=== PATIENT | male | born 1950 | race Caucasian/White ===

== ENCOUNTER 2020-03-10 08:48 | Outpatient (REF) | payer OTHER, SELFPAY ==
[2020-03-10 11:19] LABS: Hematocrit 31.2 % (42-52); Hemoglobin 10.4 g/dl (14.0-18.0); Mean Corpuscular HGB Conc 33.3 g/dl (31.0-36.0); Mean Corpuscular Hemoglobin 28.6 pg (27.0-33.0); Mean Corpuscular Volume 85.7 fL (80-98); Mean Platelet Volume 9.2 fL (9.4-12.4); Platelet Count 180 X10*3/uL (160-400); Red Blood Count 3.64 X10*6/uL (4.60-5.80); Red Cell Distribution Width 13.9 % (11.0-16.0)
[2020-03-10 11:48] LABS: Alanine Aminotransferase 17 U/L (0-40); Albumin Level 4.4 g/dL (3.5-5.0); Alkaline Phosphatase 105 U/L (39-117); Anion Gap 17 (12-20); Aspartate Amino Transferase 18 U/L (5-37); Bilirubin Total 1.1 mg/dL (0.0-1.0); Blood Urea Nitrogen 23 mg/dL (9-16); Calcium 9.2 mg/dL (8.4-10.2); Carbon Dioxide 24 mmol/L (22-29); Chloride 93 mmol/L (96-108); Estimated Glomerular Filt Rate 52; Glucose Random 144 mg/dL (60-115); Magnesium 1.6 mg/dL (1.6-2.6); Potassium 4.3 mmol/l (3.3-5.1); Sodium 130 mmol/L (135-145); Total Protein 7.6 g/dL (6.5-8.0)
[2020-03-10 13:02] LABS: Band Neutrophils Percent 3 % (3-5); Eosinophils Percent Manual 1 % (0-4); Lymphocytes Absolute Manual 0.6 X10*3/uL (0.6-4.8); Lymphocytes Percent Manual 16 % (20-40); Monocytes Absolute Manual 0.7 X10*3/uL (0.0-1.2); Monocytes Percent Manual 17 % (2-11); Neutrophils Absolute Manual 2.6 X10*3/uL (2.2-7.9); Neutrophils Percent Manual 63 % (45-73)
[2020-03-10 13:03] LABS: Platelet Estimate NORMAL (NORMAL); Platelet Morphology Comment NORMAL; RBC Morphology NORMAL
== END 2020-03-10 08:49 | disposition home or self-care (01) ==
LOC: HO.HMGCLDS 08:48
PROVIDERS: PCP Internal Medicine Medical Oncology; Visit Provider Internal Medicine Medical Oncology
DX: N40.0 Benign prostatic hyperplasia without lower urinary tract symptoms (principal); E66.9 Obesity, unspecified
CPT/HCPCS: 36415; 80053; 83735; 85007; 85027

== ENCOUNTER 2020-04-26 08:47 | Outpatient (REF) | payer OTHER, SELFPAY ==
[2020-04-26 11:34] LABS: Uric Acid 5.4 mg/dL (3.4-7.0)
[2020-04-26 11:40] LABS: Glucose Fasting 109 mg/dL (60-99)
[2020-04-26 12:15] LABS: Estimated Average Glucose 94 mg/dL; Hemoglobin A1c % 4.9 %
== END 2020-04-26 08:48 | disposition home or self-care (01) ==
LOC: HO.HMGCLDS 08:47
PROVIDERS: Absent Provider Podiatrist Foot & Ankle Surgery; PCP Internal Medicine Medical Oncology; Visit Provider Internal Medicine Medical Oncology
DX: M10.071 Idiopathic gout, right ankle and foot (principal); M51.26 Other intervertebral disc displacement, lumbar region; E66.9 Obesity, unspecified
CPT/HCPCS: 82947; 83036; 84550

== ENCOUNTER 2020-05-28 03:19 | Inpatient (IN) | payer OTHER, SELFPAY ==
[2020-05-28] VITALS (10 sets, daily range): BP systolic 120–154; BP diastolic 59–88; PULSE 57–80; RESP 15–22; TEMP 36.6–36.8; O2SAT 93–99; BMI 31.6
--- NOTE | 2020-05-28 03:58 | CT_ITS ---
EXAMINATION: CT ABDOMEN AND PELVIS WITH CONTRAST CLINICAL INFORMATION: Abdominal pain. Concern for small bowel obstruction. COMPARISON: 05/14/2018. TECHNIQUE: Contiguous axial thin section helical images of the abdomen and pelvis were performed following the administration of 85 mL of intravenous Omnipaque 350. The data set was reformatted in the coronal and sagittal planes and reviewed on an independent workstation. DLP: 963 mGy-cm. FINDINGS: The visualized lung bases are clear. The visualized portions of the heart are unremarkable. The liver is of normal size and attenuation without focal lesions nor intrahepatic biliary ductal dilation. A normal gallbladder is identified. There is no wall thickening or discernible pericholecystic fluid. The spleen, pancreas, adrenal glands are unremarkable. Both kidneys are of normal size and attenuation without hydronephrosis or nephrolithiasis. Following the administration of IV contrast, prompt symmetric nephrograms are displayed. There is stable scarring within the interpole region and lower pole of the right kidney. There is no abdominal free fluid. There is neither mesenteric nor retroperitoneal lymphadenopathy. There are multiple dilated loops of small bowel. There is sigmoid diverticulosis without evidence of diverticulitis. Otherwise, unremarkable unopacified loops of small and large bowel are identified. There is no pelvic free fluid. The urinary bladder is unremarkable. There is neither pelvic nor inguinal lymphadenopathy. Bone windows: Neither sclerotic nor lytic bone lesions are identified. CT/CT abdomen pelvis w con IMPRESSION: Distal small bowel obstruction. Automated exposure control (Care Dose) Adjustment of the mA and/or kv according to patient size (this includes techniques or standardized protocols for targeted exams where dose is matched to indication / reason for exam; i.e. extremities or head).
--- NOTE | 2020-05-28 03:58 | XR_ITS ---
EXAMINATION: CHEST 1 VIEW CLINICAL INFORMATION: Cough. COMPARISON: 05/13/2018. TECHNIQUE: An AP view of the chest is provided. FINDINGS: The cardiac silhouette is not enlarged. The mediastinal and hilar contours are unremarkable. There are neither pleural effusions nor pneumothoraces. There are no consolidations. The osseous structures are unremarkable. XR/XR chest 1V IMPRESSION: No evidence for acute disease.
--- NOTE | 2020-05-28 03:58 | ECG_ITS ---
Test Reason : ABD PAIN Blood Pressure : / mmHG Vent. Rate : 064 BPM Atrial Rate : 064 BPM P-R Int : 218 ms QRS Dur : 098 ms QT Int : 432 ms P-R-T Axes : 029 -09 038 degrees QTc Int : 445 ms Sinus rhythm with 1st degree A-V block Otherwise normal ECG When compared with ECG of 07-AUG-2019 11:19, No significant change was found Referred By: Osiris Westfall Electronically Signed By:ANALISA CAIN MD
--- NOTE | 2020-05-28 04:00 | ED.ABDPAIN ---
HPI - Abdominal Pain General Chief Complaint: Abdominal Pain Stated Complaint: Constipation Time Seen by Provider: 05/28/20 03:58 Source: patient Mode of arrival: ambulatory Limitations: no limitations History of Present Illness HPI narrative: This is a 70-year-old male with history of abdominal surgery as well as diverticulosis and prior bowel obstructions who presents with onset of worsening abdominal discomfort that he describes as sharp and crampy in nature and nonradiating associated with nausea but denies any episodes of vomiting at present and states that he has passing minimal flatus at this time. He says that his symptoms started last night approximately 2200. He denies any other associated fevers, chills, shortness of breath, chest pain/palpitations, urinary pain/burning/frequency. Related Data Home Medications Medication Instructions Recorded Confirmed Lactobacillus rhamnosus GG 1 cap PO DAILY 05/28/20 05/28/20 [Culturelle] amiodarone 100 mg PO DAILY 05/28/20 05/28/20 amlodipine 10 mg PO DAILY 05/28/20 05/28/20 ascorbic acid (vitamin C) [Vitamin 1,000 mg PO DAILY@1700 05/28/20 05/28/20 C] docusate sodium [Stool Softener] 100 mg PO BID 05/28/20 05/28/20 gabapentin 900 mg PO BID 05/28/20 05/28/20 indomethacin 1 cap PO DAILY 05/28/20 05/28/20 iron 1 tab PO 4XW 05/28/20 05/28/20 losartan 50 mg PO BID 05/28/20 05/28/20 magnesium [Mag-200] 400 mg PO BID 05/28/20 05/28/20 multivitamin 1 tab PO DAILY 05/28/20 05/28/20 omeprazole 20 mg PO DAILY 05/28/20 05/28/20 rivaroxaban [Xarelto] 20 mg PO DAILY@1700 05/28/20 05/28/20 sertraline 50 mg PO DAILY 05/28/20 05/28/20 spironolactone 25 mg PO DAILY 05/28/20 05/28/20 tamsulosin 0.8 mg PO DAILY@1700 05/28/20 05/28/20 Allergies Allergy/AdvReac Type Severity Reaction Status Date / Time No Known Allergies Allergy Verified 05/28/20 03:23 [No Known Allergies*] Review of Systems Review of Systems Pertinent positives and negatives as stated in the HPI and 10 point review of systems is otherwise negative. Physical Exam Vital Signs: Vital Signs: Last Vital Signs Temp 97.9 F 05/28/20 03:23 Pulse 63 05/28/20 06:00 Resp 15 05/28/20 06:00 BP 139/71 05/28/20 06:00 Pulse Ox 95 05/28/20 06:00 Body Mass Index 31.6 VITAL SIGNS: Reviewed. GENERAL: Well developed, well nourished, moderate distress. HEAD: Normocephalic/atraumatic, EYES: PERRLA, EOMI intact without pain, no nystagmus/pallor/icterus noted EARS: Ext canals without abnormality, TMs non-bulging and non-erythematous NOSE: Nares patent bilateral OROPHARYNX: no oral lesions noted, posterior pharynx clear and non-erythematous without noted tonsillar enlargement/erythema/exudates NECK: Supple, no adenopathy LUNGS: Normal breath sounds. No adventitious sounds or accessory muscle use. SpO2<99> CARDIOVASCULAR: Regular rate and rhythm without noted murmurs, no JVD or lower extremity edema. ABDOMEN: Soft, diffuse abdominal discomfort without rebound, non-distended with decrease in bowel sounds. No rigidity. No guarding. No palpable masses or hernias noted MUSCULOSKELETAL: No tenderness, deformities, or effusions noted on gross inspection. EXTREMITIES: No cyanosis, clubbing or edema. SKIN: Inspection of the skin reveals no rashes, ulcerations, jaundice, pallor, or petechiae. NEUROLOGIC: Alert and oriented x 4. Strength and sensation to light touch were grossly intact x 4. Course Course Course Narrative: This is a 70-year-old male with history and clinical presentation most suggestive of possible SBO, diverticulitis, but doubt colitis or urinary infection. -labs, EKG, chest x-ray, CT abdomen/pelvis, pain medication, antiemetic, IV fluids On review of all investigations there is no evidence of systemic infection, however CT scan is consistent with bowel obstruction and an NG was placed. Patient is COVID-19 negative. This case was discussed with surgery who is agreeable for admission and was informed that patient is currently on Xarelto. MDM - Abdominal Pain Lab Data Result diagrams: 05/28/20 04:18 05/28/20 04:18 Labs: Lab Results 05/28/20 05/28/20 05/28/20 Range/Units 04:18 04:18 04:18 WBC 7.0 (4.8-10.8) X10*3/uL RBC 3.98 L (4.60-5.80) X10*6/uL Hgb 11.4 L (14.0-18.0) g/dl Hct 33.1 L (42-52) % MCV 83.2 (80-98) fL MCH 28.6 (27.0-33.0) pg MCHC 34.4 (31.0-36.0) g/dl RDW 14.5 (11.0-16.0) % Plt Count 138 L (160-400) X10*3/uL MPV 9.3 L (9.4-12.4) fL Immature Gran % (Auto) 4.0 H (0.0-0.4) % Neut % (Auto) 79.6 H (45-73) % Lymph % (Auto) 8.1 L (20-40) % [place] % (Auto) 6.7 (2-11) % Eos % (Auto) 1.3 (0-4) % Baso % (Auto) 0.3 (0-2) % Lymph # (Auto) 0.6 L (1.2-4.9) X10*3/uL [place] # (Auto) 0.5 (0.1-1.2) X10*3/uL Eos # (Auto) 0.1 (0.0-0.4) X10*3/uL Baso # (Auto) 0.0 (0.0-0.2) X10*3/uL Abs Immat Gran (auto) 0.28 H (0.00-0.03) X10*3/uL Absolute Neuts (auto) 5.6 (2.0-8.3) X10*3/uL Absolute Nucleated RBC 0.000 (0.0-0.012) X10*3/uL Nucleated RBC % (auto) 0.0 (0.0-0.2) /100WBC Smear Tech's Comments VERIFIED Sodium 128 L (135-145) mmol/L Potassium 4.7 (3.3-5.1) mmol/l Chloride 92 L (96-108) mmol/L Carbon Dioxide 24 (22-29) mmol/L Anion Gap 17 (12-20) BUN 30 H (9-16) mg/dL Creatinine 1.34 (0.5-1.4) mg/dL Estim Creat Clear Calc 68.2 Estimated GFR 53 Random Glucose 148 H (60-115) mg/dL Lactic Acid 0.7 (0.5-2.0) mmol/L Calcium 9.5 (8.4-10.2) mg/dL Magnesium (1.6-2.6) mg/dL Total Bilirubin 0.7 (0.0-1.0) mg/dL AST 26 D (5-37) U/L ALT 20 (0-40) U/L Alkaline Phosphatase 96 (39-117) U/L Total Protein 7.6 (6.5-8.0) g/dL Albumin 4.6 (3.5-5.0) g/dL Lipase 14 (8-78) U/L COVID-19 ([facility]) (Negative) COVID-19 Clin Com 05/28/20 05/28/20 Range/Units 04:18 05:41 WBC (4.8-10.8) X10*3/uL RBC (4.60-5.80) X10*6/uL Hgb (14.0-18.0) g/dl Hct (42-52) % MCV (80-98) fL MCH (27.0-33.0) pg MCHC (31.0-36.0) g/dl RDW (11.0-16.0) % Plt Count (160-400) X10*3/uL MPV (9.4-12.4) fL Immature Gran % (Auto) (0.0-0.4) % Neut % (Auto) (45-73) % Lymph % (Auto) (20-40) % [place] % (Auto) (2-11) % Eos % (Auto) (0-4) % Baso % (Auto) (0-2) % Lymph # (Auto) (1.2-4.9) X10*3/uL [place] # (Auto) (0.1-1.2) X10*3/uL Eos # (Auto) (0.0-0.4) X10*3/uL Baso # (Auto) (0.0-0.2) X10*3/uL Abs Immat Gran (auto) (0.00-0.03) X10*3/uL Absolute Neuts (auto) (2.0-8.3) X10*3/uL Absolute Nucleated RBC (0.0-0.012) X10*3/uL Nucleated RBC % (auto) (0.0-0.2) /100WBC Smear Tech's Comments Sodium (135-145) mmol/L Potassium (3.3-5.1) mmol/l Chloride (96-108) mmol/L Carbon Dioxide (22-29) mmol/L Anion Gap (12-20) BUN (9-16) mg/dL Creatinine (0.5-1.4) mg/dL Estim Creat Clear Calc Estimated GFR Random Glucose (60-115) mg/dL Lactic Acid (0.5-2.0) mmol/L Calcium (8.4-10.2) mg/dL Magnesium 1.6 (1.6-2.6) mg/dL Total Bilirubin (0.0-1.0) mg/dL AST (5-37) U/L ALT (0-40) U/L Alkaline Phosphatase (39-117) U/L Total Protein (6.5-8.0) g/dL Albumin (3.5-5.0) g/dL Lipase (8-78) U/L COVID-19 ([facility]) Negative (Negative) COVID-19 Clin Com See Note ECG Data Attestation: I personally reviewed and interpreted this ECG as follows: Prior ECG tracings: available for review (08/07/2019 there are no acute changes in comparison) Interpretation: Sinus rhythm, HR -64, no evidence of acute ischemia, 1st degree AV block which is unchanged, QRS/QTC are within normal limits. Discharge Plan Discharge Clinical Impression: SBO (small bowel obstruction) Patient Disposition: Admitted As Inpatient [facility] Past Medical History Source: nursing notes reviewed Medical History Afib Chronic back pain HTN (hypertension) Hx of benign neoplasm Hx of testicular cancer Surgical History History of back surgery History of left knee replacement History of right hip replacement Social History Social History Alcohol intake: unknown Smoking Status: Unknown if ever smoked Use of substances other than those prescribed or required for medical reasons: No Advance Directives: No
[2020-05-28 04:24] LABS: Basophils Percent Auto 0.3 % (0-2); Eosinophils Absolute Auto 0.1 X10*3/uL (0.0-0.4); Eosinophils Percent Auto 1.3 % (0-4); Hematocrit 33.1 % (42-52); Hemoglobin 11.4 g/dl (14.0-18.0); Imm Gran Abs Auto 0.28 X10*3/uL (0.00-0.03); Lymphocytes Absolute Auto 0.6 X10*3/uL (1.2-4.9); Lymphocytes Percent Auto 8.1 % (20-40); MANUAL DIFF FLAG SCAN; Mean Corpuscular HGB Conc 34.4 g/dl (31.0-36.0); Mean Corpuscular Hemoglobin 28.6 pg (27.0-33.0); Mean Corpuscular Volume 83.2 fL (80-98); Mean Platelet Volume 9.3 fL (9.4-12.4); Monocytes Absolute Auto 0.5 X10*3/uL (0.1-1.2); Monocytes Percent Auto 6.7 % (2-11); Neutrophils Absolute Auto 5.6 X10*3/uL (2.0-8.3); Neutrophils Percent Auto 79.6 % (45-73); Platelet Count 138 X10*3/uL (160-400); Red Blood Count 3.98 X10*6/uL (4.60-5.80); Red Cell Distribution Width 14.5 % (11.0-16.0); SCAN SMEAR FLAG 1
[2020-05-28] MEDS: HYDROmorphone HCl 0.5 MG/0.5 ML SYRINGE 0.25 MG IVPUSH ×2 (04:27→05:14)
[2020-05-28] MEDS: ondansetron HCL 4 MG/2 ML VIAL IVPUSH ×3 (04:41→19:32)
[2020-05-28 04:42] LABS: SLIDE REVIEW VERIFIED
[2020-05-28 04:45] LABS: Lactic Acid 0.7 mmol/L (0.5-2.0)
--- NOTE | 2020-05-28 04:45 | PC.NURSE ---
Patient evaluated by MD. Patient line and lab'd.
[2020-05-28 04:59] LABS: Magnesium 1.6 mg/dL (1.6-2.6)
[2020-05-28 05:01] LABS: Alanine Aminotransferase 20 U/L (0-40); Albumin Level 4.6 g/dL (3.5-5.0); Alkaline Phosphatase 96 U/L (39-117); Anion Gap 17 (12-20); Aspartate Amino Transferase 26 U/L (5-37); Bilirubin Total 0.7 mg/dL (0.0-1.0); Blood Urea Nitrogen 30 mg/dL (9-16); Calcium 9.5 mg/dL (8.4-10.2); Carbon Dioxide 24 mmol/L (22-29); Chloride 92 mmol/L (96-108); Creatinine Clr Calc Pharmacy 68.2; Estimated Glomerular Filt Rate 53; Glucose Random 148 mg/dL (60-115); Lipase 14 U/L (8-78); Potassium 4.7 mmol/l (3.3-5.1); Sodium 128 mmol/L (135-145); Total Protein 7.6 g/dL (6.5-8.0)
[2020-05-28] MEDS: 0.9 % Sodium Chloride 1,000 ML 999 ML IV (05:14)
--- NOTE | 2020-05-28 05:15 | PC.NURSE ---
Patient states that he still has pain and asked for something a little stronger for pain medication. MD aware. Patient medicated per emar as noted.
[2020-05-28] MEDS: iohexoL 350 MG/ML 100 ML INFUS..BTL 85 ML IV (05:31)
--- NOTE | 2020-05-28 05:40 | PC.NURSE ---
Nasogastric tube placed. Tube placement verified by chest xray. Patient initial output of gastric contents was 250cc's. Patient tolerated the placement and no issues during placement.
[2020-05-28 06:01] LABS: COVID-19 Test Negative (Negative); IDNOW Serial# 9DD0AD1C
--- NOTE | 2020-05-28 06:04 | XR_ITS ---
EXAMINATION: CHEST 1 VIEW CLINICAL INFORMATION: Enteric tube placement. COMPARISON: Same day chest radiograph. TECHNIQUE: An AP view of the chest is provided. FINDINGS: The cardiac silhouette is not enlarged. An enteric tube has been placed. The tip extends below the extent of the film, though likely within the left upper quadrant and within the stomach. The mediastinal and hilar contours are unremarkable. There are neither pleural effusions nor pneumothoraces. There are no consolidations. The osseous structures are unremarkable. XR/XR chest 1V IMPRESSION: No evidence for acute disease. Enteric tube in place.
--- NOTE | 2020-05-28 06:15 | P.HPGS_ITS ---
History of Present Illness History of Present Illness Date of Service: 05/28/20 Chief complaint: Constipation Narrative: Aravind Agustin is a 70 year old male with a previous history of testicular cancer, status post multiple abdominal surgeries now presenting with a recurrent small-bowel obstruction. He was previously admitted by me approximately 2 years ago with similar symptoms. His current symptoms began yesterday at approximately 20:00, several hours after eating dinner. He denies eating anything unusual but DD exceptionally large portion of prime rib. Several hours after this he began to have abdominal discomfort with nausea and vomiting. He subsequently presented to the emergency department was noted to be distended. A CT of the abdomen and pelvis was obtained and revealed distended loops of small bowel proximally with decompressed bowel distally. This was suggestive of a small-bowel obstruction. A nasogastric tube was placed in the emergency department. Review of Systems Constitutional: Constitutional: Denies chills, Denies fever(s), Denies headache(s) and Denies poor appetite ENT: Denies dizziness and Denies headache(s) Cardiovascular: Cardiovascular: Denies chest pain, Denies rapid heart rate, Denies palpitations and Denies slow heart rate Respiratory: Respiratory: Denies chest congestion, Denies cough, Denies pain on inspiration and Denies wheezing Gastrointestinal: Gastrointestinal: Reports abdominal pain, Reports bloating, Denies change in stool character, Reports constipation, Denies diarrhea, Reports nausea, Reports vomiting and Denies hematemesis Musculoskeletal: Musculoskeletal: Denies back pain, Denies arthralgias, Denies joint swelling and Denies numbness Integumentary/Breasts: Skin/Breast: Denies change in pigmentation, Denies erythema and Denies rash Neurologic: Denies confusion, Denies dizziness, Denies headache(s) and Denies numbness Psychiatric: Psychiatric: Denies anxiety, Denies confusion and Denies depression Endocrine: Endocrine: Denies palpitations Hematologic/Lymphatic: Hematologic/Lymphatic: Denies easy bleeding, Denies easy bruising and Denies lymphadenopathy Allergic/Immunologic: Allergic/Immunologic: Denies wheezing PMFSH Past Medical History Medical History Afib Chronic back pain HTN (hypertension) Hx of benign neoplasm Hx of testicular cancer Surgical History Surgical History History of back surgery History of left knee replacement History of right hip replacement Social History Social History Alcohol intake: unknown Smoking Status: Unknown if ever smoked Use of substances other than those prescribed or required for medical reasons: No Advance Directives: No Meds Allergies Allergy/AdvReac Type Severity Reaction Status Date / Time No Known Allergies Allergy Verified 05/28/20 03:23 [No Known Allergies*] Home Medications Medication Instructions Recorded Confirmed Type Lactobacillus rhamnosus GG 1 cap PO DAILY 05/28/20 05/28/20 History [Culturelle] amiodarone 100 mg PO DAILY 05/28/20 05/28/20 History amlodipine 10 mg PO DAILY 05/28/20 05/28/20 History ascorbic acid (vitamin C) [Vitamin 1,000 mg PO DAILY@1700 05/28/20 05/28/20 History C] docusate sodium [Stool Softener] 100 mg PO BID 05/28/20 05/28/20 History gabapentin 900 mg PO BID 05/28/20 05/28/20 History indomethacin 1 cap PO DAILY 05/28/20 05/28/20 History iron 1 tab PO 4XW 05/28/20 05/28/20 History losartan 50 mg PO BID 05/28/20 05/28/20 History magnesium [Mag-200] 400 mg PO BID 05/28/20 05/28/20 History multivitamin 1 tab PO DAILY 05/28/20 05/28/20 History omeprazole 20 mg PO DAILY 05/28/20 05/28/20 History rivaroxaban [Xarelto] 20 mg PO DAILY@1700 05/28/20 05/28/20 History sertraline 50 mg PO DAILY 05/28/20 05/28/20 History spironolactone 25 mg PO DAILY 05/28/20 05/28/20 History tamsulosin 0.8 mg PO DAILY@1700 05/28/20 05/28/20 History Physical Exam Vital Signs: Vital Signs: Last Vital Signs Temp 97.9 F 05/28/20 03:23 Pulse 63 05/28/20 06:00 Resp 15 05/28/20 06:00 BP 139/71 05/28/20 06:00 Pulse Ox 95 05/28/20 06:00 Body Mass Index 31.6 Const: General: cooperative, comfortable and well developed; No confusion Nutritional Appearance: well nourished Orientation/consciousness: patient oriented x3 and No confusion Eyes: Sclerae: sclerae normal EOM: EOMs intact bilaterally Neck: Neck: Yes normal visual inspection Resp: Effort & Inspection: normal respiratory effort, no cough and no respirat ory distress Cardio: Jugular venous distension: no JVD Rate: regular rate Rhythm: regular rhythm GI: Inspection: Yes distended Palpation (GI): Soft to palpation, Tenderness to palpation present (GI), no guarding and not rigid Percussion: Yes normal to percussion Auscultation: normal bowel sounds Skin: General skin exam: dry skin Rashes: no rashes Neuro: General: patient oriented x3, no focal motor deficits and No confusion Extrem: General: Yes full ROM and Yes no clubbing, cyanosis or edema Results Results Labs: Short CBC 05/28/20 Range/Units 04:18 WBC 7.0 (4.8-10.8) X10*3/uL Hgb 11.4 L (14.0-18.0) g/dl Hct 33.1 L (42-52) % Plt Count 138 L (160-400) X10*3/uL BMP 05/28/20 04:18 Sodium 128 L Potassium 4.7 Chloride 92 L Carbon Dioxide 24 BUN 30 H Creatinine 1.34 Calcium 9.5 Liver Function 05/28/20 Range/Units 04:18 Total Bilirubin 0.7 (0.0-1.0) mg/dL AST 26 D (5-37) U/L ALT 20 (0-40) U/L Alkaline Phosphatase 96 (39-117) U/L Albumin 4.6 (3.5-5.0) g/dL Assessment and Plan (1) SBO (small bowel obstruction): Status: Acute 70-year-old male patient with a previous history of small-bowel obstructions now presenting with a recurrent small-bowel obstruction. A nasogastric tube has been inserted in the emergency department in this will continue at low intermittent suction. The patient has previously improved with non operative measures this will be tried once again. We discussed surgical option however he understands that this may result in increased adhesions and do es not guarantee recurrent small-bowel obstruction. He agrees to the non operative measures. Will recheck labs in a.m.. Continue NPO and IV fluids. Hospitalist consultation requested for medical management including atrial fibrillation.
[2020-05-28] MEDS: HYDROmorphone HCl 0.5 MG/0.5 ML SYRINGE IVPUSH ×4 (09:34→19:32)
[2020-05-28] MEDS: Amiodarone HCL 200 MG TABLET 100 MG PO (15:11)
[2020-05-28] MEDS: Sertraline HCL 50 MG TABLET PO (15:12)
[2020-05-28] MEDS: amLODIPine Besylate 10 MG TABLET PO (15:12)
[2020-05-28] MEDS: Losartan Potassium 50 MG TABLET PO ×2 (15:13→21:03)
[2020-05-28] MEDS: Spironolactone 25 MG TABLET PO (15:14)
[2020-05-28] MEDS: Gabapentin 300 MG CAPSULE 900 MG PO ×2 (15:14→21:04)
[2020-05-28] MEDS: Tamsulosin HCL 0.4 MG CAPSULE 0.8 MG PO (15:15)
[2020-05-28] MEDS: 0.9 % Sodium Chloride Flush 3 ML SYRINGE IVFLUSH ×2 (15:33→16:05)
[2020-05-28] MEDS: Dextrose 5 % and Lactated Ring 1,000 ML 125 ML IVCONT ×2 (15:36→23:51)
[2020-05-28] MEDS: Rivaroxaban 20 MG TABLET PO (17:25)
[2020-05-28 18:09] LABS: Appearance Urine CLEAR; Color Urine YELLOW; Glucose Urine UA NEG (NEG); Leukocyte Esterase Urine NEG (NEG); Nitrite Urine NEG (NEG); Urine Blood NEG (NEG); Urine Ketones NEG (NEG); Urine Protein NEG (NEG-TRACE)
--- NOTE | 2020-05-28 20:18 | PM.IMCN ---
History of Present Illness Data of Consult Service Date: 05/28/20 Requesting physician: Neal Frye Primary Care Provider: Scotty Liu MD [facility] Reason for consult: AFib, SBO, medical management This is a 70-year-old with multiple medical problems who presented to the emergency department with abdominal pain. His pain began after eating dinner last night. He reports associated nausea and vomiting. His workup in the emergency department was significant for small bowel obstruction. He had an NG-tube placed and was admitted to the surgical service for further management. The hospitalists were asked to see him in consultation for medical management. Patient reports he has started passing gas. His abdominal pain is somewhat improved. He continues to have significant output in his NG tube. Review of Systems Review of Systems: Yes all other systems are reviewed and are negative Cardiovascular: Cardiovascular: Denies chest pain and Denies dyspnea Respiratory: Respiratory: Denies cough and Denies dyspnea Gastrointestinal: Gastrointestinal: Reports abdominal pain and Reports nausea PMFSH Medical History (Updated 05/28/20 @ 20:24 by HEMALATHA Aguillon) Afib Anemia BPH (benign prostatic hyperplasia) Chronic back pain HTN (hypertension) Hx of benign neoplasm Hx of testicular cancer Hyponatremia Neuropathy Family history: reviewed and not pertinent Surgical History History of back surgery History of left knee replacement History of right hip replacement Social History (Updated 05/28/20 @ 20:24 by HEMALATHA Aguillon) Household Members: Spouse and Children Housing: House Do you presently have visiting nurse or other home services: No Alcohol intake: current Alcohol intake frequency: holidays/special occasions only Smoking Status: Never smoker Use of substances other than those prescribed or required for medical reasons: No Have you been hit, kicked, punched, or otherwise hurt by someone within the past year? If so, by whom?: No Do you feel safe in your current relationship?: Yes Is there a partner from a previous relationship who is making you feel unsafe now?: No Are you made to feel afraid or neglected: No Advance Directives: No Do you have thoughts of harming others: None Do you have a plan to hurt others: No Plan Recently lost weight without trying: No Meds Allergies Allergy/AdvReac Type Severity Reaction Status Date / Time No Known Allergies Allergy Verified 05/28/20 03:23 [No Known Allergies*] Home Medications Medication Instructions Recorded Confirmed Type Lactobacillus rhamnosus GG 1 cap PO DAILY 05/28/20 05/28/20 History [Culturelle] amiodarone 100 mg PO DAILY 05/28/20 05/28/20 History amlodipine 10 mg PO DAILY 05/28/20 05/28/20 History ascorbic acid (vitamin C) [Vitamin 1,000 mg PO DAILY@1700 05/28/20 05/28/20 History C] docusate sodium [Stool Softener] 100 mg PO BID 05/28/20 05/28/20 History gabapentin 900 mg PO BID 05/28/20 05/28/20 History indomethacin 1 cap PO DAILY 05/28/20 05/28/20 History iron 1 tab PO 4XW 05/28/20 05/28/20 History losartan 50 mg PO BID 05/28/20 05/28/20 History magnesium [Mag-200] 400 mg PO BID 05/28/20 05/28/20 History multivitamin 1 tab PO DAILY 05/28/20 05/28/20 History omeprazole 20 mg PO DAILY 05/28/20 05/28/20 History rivaroxaban [Xarelto] 20 mg PO DAILY@1700 05/28/20 05/28/20 History sertraline 50 mg PO DAILY 05/28/20 05/28/20 History spironolactone 25 mg PO DAILY 05/28/20 05/28/20 History tamsulosin 0.8 mg PO DAILY@1700 05/28/20 05/28/20 History Physical Exam Vital Signs and Narrative: Vital Signs: Last Vital Signs Temp 98.0 F 05/28/20 15:37 Pulse 57 05/28/20 15:37 Resp 20 05/28/20 15:37 BP 143/66 H 05/28/20 15:37 Pulse Ox 97 05/28/20 15:37 Body Mass Index 31.6 Const: General: no acute distress, alert and awake Nutritional Appearance: well nourished Orientation/consciousness: patient oriented x3 HENMT: Other: NG tube present right nare; with large amount of output Head: Yes normocephalic and Yes atraumatic Eyes: Sclerae: sclerae normal Chest: Chest palpation & inspection: normal inspection of the chest Resp: Effort & Inspection: normal respiratory effort and no respiratory distress Auscultation: clear to auscultation bilaterally Cardio: Rate: regular rate Rhythm: regular rhythm Heart sounds: Murmur heart sound present GI: Palpation (GI): Soft to palpation and nontender Skin: General skin exam: no rashes or lesions noted Neuro: General: patient oriented x3 Cranial nerves: Yes CN's II-XII intact bilaterally and Yes Bilaterally intact EOM present Extrem: General: Yes normal to inspection Results Labs CBC and Chem 7: 05/28/20 04:18 05/28/20 04:18 Labs: Laboratory Results - last 24 hr 05/28/20 05/28/20 05/28/20 04:18 04:18 04:18 MCV 83.2 MCH 28.6 MCHC 34.4 RDW 14.5 Plt Count 138 L MPV 9.3 L Immature Gran % (Auto) 4.0 H Neut % (Auto) 79.6 H Lymph % (Auto) 8.1 L [place] % (Auto) 6.7 Eos % (Auto) 1.3 Baso % (Auto) 0.3 Lymph # (Auto) 0.6 L [place] # (Auto) 0.5 Eos # (Auto) 0.1 Baso # (Auto) 0.0 Abs Immat Gran (auto) 0.28 H Absolute Neuts (auto) 5.6 Absolute Nucleated RBC 0.000 Nucleated RBC % (auto) 0.0 Smear Tech's Comments VERIFIED Anion Gap 17 Estim Creat Clear Calc 68.2 Estimated GFR 53 Random Glucose 148 H Lactic Acid 0.7 Calcium 9.5 Magnesium Total Bilirubin 0.7 AST 26 D ALT 20 Alkaline Phosphatase 96 Total Protein 7.6 Albumin 4.6 Lipase 14 Urine Color Urine Appearance Urine pH Ur Specific Leslie Urine Protein Urine Glucose (UA) Urine Ketones Urine Blood Urine Nitrite Ur Leukocyte Esterase COVID-19 ([facility]) COVID-19 Clin Com 05/28/20 05/28/20 05/28/20 04:18 05:41 17:55 MCV MCH MCHC RDW Plt Count MPV Immature Gran % (Auto) Neut % (Auto) Lymph % (Auto) [place] % (Auto) Eos % (Auto) Baso % (Auto) Lymph # (Auto) [place] # (Auto) Eos # (Auto) Baso # (Auto) Abs Immat Gran (auto) Absolute Neuts (auto) Absolute Nucleated RBC Nucleated RBC % (auto) Smear Tech's Comments Anion Gap Estim Creat Clear Calc Estimated GFR Random Glucose Lactic Acid Calcium Magnesium 1.6 Total Bilirubin AST ALT Alkaline Phosphatase Total Protein Albumin Lipase Urine Color YELLOW Urine Appearance CLEAR Urine pH 6.0 Ur Specific Leslie 1.020 Urine Protein NEG Urine Glucose (UA) NEG Urine Ketones NEG Urine Blood NEG Urine Nitrite NEG Ur Leukocyte Esterase NEG COVID-19 ([facility]) Negative COVID-19 Clin Com See Note Imaging Radiologist's Impressions: Impressions Abdomen/Pelvis CT 05/28/20 03:58 IMPRESSION: Distal small bowel obstruction. Automated exposure control (Care Dose) Adjustment of the mA and/or kv according to patient size (this includes techniques or standardized protocols for targeted exams where dose is matched to indication / reason for exam; i.e. extremities or head). Chest X-Ray 05/28/20 03:58 IMPRESSION: No evidence for acute disease. Chest X-Ray 05/28/20 06:04 IMPRESSION: No evidence for acute disease. Enteric tube in place. Assessment and Plan (1) SBO (small bowel obstruction): Status: Acute This is a 70-year-old male with history atrial fibrillation, hypertension, BPH, neuropathy, testicular cancer who presents to the emergency department with abdominal pain found to have SBO SBO Management per surgical team Atrial fibrillation Heart rate controlled Continue amiodarone Continue anticoagulation with Xarelto Hyponatremia. Chronic Sodium 128, near baseline will repeat labs now Hypertension Blood pressure under adequate control Continue Norvasc, losartan, Aldactone Neuropathy Continue gabapentin BPH Continue Flomax Anemia. Chronic H/H have baseline Follow CBC Thrombocytopenia Has had thrombocytopenia intermittently in the past Thank you for allowing us to participate in the care of this patient. We will follow along with you This case was discussed with Dr. Armstrong
[2020-05-28 20:59] LABS: Blood Urea Nitrogen 26 mg/dL (9-16); Calcium 8.4 mg/dL (8.4-10.2); Carbon Dioxide 31 mmol/L (22-29); Creatinine Clr Calc Pharmacy 73.7; Estimated Glomerular Filt Rate 58; Glucose Random 121 mg/dL (60-115)
[2020-05-28] MEDS: Zolpidem Tartrate 5 MG TABLET PO (21:03)
[2020-05-28 21:23] LABS: Anion Gap 13 (12-20); Chloride 94 mmol/L (96-108); Potassium 4.3 mmol/l (3.3-5.1); Sodium 132 mmol/L (135-145)
[2020-05-29] VITALS (7 sets, daily range): BP systolic 114–142; BP diastolic 55–71; PULSE 55–67; RESP 18; TEMP 36.6–36.8; O2SAT 95–97
[2020-05-29] MEDS: HYDROmorphone HCl 0.5 MG/0.5 ML SYRINGE IVPUSH ×2 (03:36→21:47)
[2020-05-29] MEDS: Acetaminophen 325 MG TABLET 650 MG PO (03:40)
[2020-05-29 07:18] LABS: Basophils Percent Auto 0.2 % (0-2); Eosinophils Absolute Auto 0.1 X10*3/uL (0.0-0.4); Eosinophils Percent Auto 1.3 % (0-4); Hematocrit 27.9 % (42-52); Hemoglobin 9.1 g/dl (14.0-18.0); Imm Gran Abs Auto 0.13 X10*3/uL (0.00-0.03); Imm Gran Pct Auto 2.2 % (0.0-0.4); Lymphocytes Absolute Auto 0.7 X10*3/uL (1.2-4.9); Lymphocytes Percent Auto 11.2 % (20-40); Mean Corpuscular HGB Conc 32.6 g/dl (31.0-36.0); Mean Corpuscular Hemoglobin 28.3 pg (27.0-33.0); Mean Corpuscular Volume 86.9 fL (80-98); Mean Platelet Volume 9.8 fL (9.4-12.4); Monocytes Absolute Auto 0.7 X10*3/uL (0.1-1.2); Monocytes Percent Auto 11.4 % (2-11); Neutrophils Absolute Auto 4.4 X10*3/uL (2.0-8.3); Neutrophils Percent Auto 73.7 % (45-73); Platelet Count 127 X10*3/uL (160-400); Red Blood Count 3.21 X10*6/uL (4.60-5.80); Red Cell Distribution Width 14.8 % (11.0-16.0); SCAN SMEAR FLAG 1
[2020-05-29] MEDS: Dextrose 5 % and Lactated Ring 1,000 ML 125 ML IVCONT ×3 (07:35→21:52)
[2020-05-29 07:44] LABS: Anion Gap 12 (12-20); Blood Urea Nitrogen 26 mg/dL (9-16); Calcium 8.3 mg/dL (8.4-10.2); Carbon Dioxide 29 mmol/L (22-29); Chloride 96 mmol/L (96-108); Creatinine Clr Calc Pharmacy 70.9; Estimated Glomerular Filt Rate 55; Glucose Random 143 mg/dL (60-115); Potassium 4.3 mmol/l (3.3-5.1); Sodium 133 mmol/L (135-145)
[2020-05-29 07:55] LABS: MANUAL DIFF FLAG SCAN; SLIDE REVIEW VERIFIED
--- NOTE | 2020-05-29 08:48 | PM.PNGS ---
Subjective Subjective Date of Service: 05/29/20 Interval history: Patient continues to report decreased abdominal pain with no further nausea or vomiting. He has been drinking some ice which is increasing the NG tube output. He does report a sore throat due to the tube. He reports passing flatus yesterday and today, no BM as of yet. Physical Exam Vital Signs: Vital Signs: Last Vital Signs Temp 98.2 F 05/29/20 07:21 Pulse 60 05/29/20 07:21 Resp 18 05/29/20 07:21 BP 140/71 H 05/29/20 07:21 Pulse Ox 95 05/29/20 07:21 Body Mass Index 31.6 Const: General: cooperative, healthy appearing, comfortable and no acute distress Eyes: Sclerae: sclerae normal Resp: Effort & Inspection: normal respiratory effort, no cough and no respiratory distress GI: Inspection: Yes normal to inspection Palpation (GI): Soft to palpation, nontender, no guarding, not rigid and hepatosplenomegaly present Skin: General skin exam: no rashes or lesions noted Extrem: General: Yes full ROM, No cyanosis and No edema Progress Note: A&P Assessment and plan (1) SBO (small bowel obstruction): Status: Acute Assessment and Plan: Patient appears improved with nasogastric tube decompression. He is passing flatus but no bowel movement yet. Abdominal examination is benign with no tenderness or distention. NG tube output appears to be mainly water possibly due to his oral intake. I will do a clamping trial this morning. He agrees to stop oral intake during this time. Residuals will be checked in 4 hours with possible removal if low residual. Fall Risk Details Current Medications: Current Medications Generic Name Dose Route Start Last Admin Trade Name Freq PRN Reason Stop Dose Admin Acetaminophen 650 mg 05/28/20 14:16 05/29/20 03:40 Acetaminophen 325 Mg Tablet PO 650 mg Q6H PRN Administration Pain, Mild (Pain Scale 1-3) Amiodarone HCl 100 mg 05/28/20 14:16 05/28/20 15:11 Amiodarone Hcl 200 Mg Tablet PO 100 mg DAILY [facility] Administration Amlodipine Besylate 10 mg 05/28/20 14:16 05/28/20 15:12 Amlodipine Besylate 10 Mg Tablet PO 10 mg DAILY [facility] Administration Protocol Gabapentin 900 mg 05/28/20 14:16 05/28/20 21:04 Gabapentin 300 Mg Capsule PO 900 mg BID [facility] Administration Hydromorphone HCl 0.5 mg 05/28/20 09:13 05/29/20 03:36 Hydromorphone Hcl 0.5 Mg/0.5 Ml Syringe IVPUSH 0.5 mg Q3H PRN Administration Pain, Severe (Pain Scale 7-10) Dextrose/Lactated Ringer's 1,000 mls @ 125 mls/hr 05/28/20 14:16 05/29/20 07:35 D5lr IVCONT 125 mls/hr .Q8H [facility] Administration Indomethacin 50 mg 05/29/20 09:00 Indomethacin 25 Mg Capsule PO DAILY [facility] Losartan Potassium 50 mg 05/28/20 14:16 05/28/20 21:03 Losartan Potassium 50 Mg Tablet PO 50 mg BID [facility] Administration Protocol Ondansetron HCl 4 mg 05/28/20 11:05 05/28/20 19:32 Ondansetron Hcl 4 Mg/2 Ml Vial IVPUSH 4 mg Q8H PRN Administration Nausea and Vomiting Rivaroxaban 20 mg 05/28/20 17:00 05/28/20 17:25 Rivaroxaban 20 Mg Tablet PO 20 mg DAILY@1700 [facility] Administration Sertraline HCl 50 mg 05/28/20 14:16 05/28/20 15:12 Sertraline Hcl 50 Mg Tablet PO 50 mg DAILY [facility] Administration Sodium Chloride 3 ml 05/28/20 14:16 05/29/20 07:36 0.9 % Sodium Chloride Flush 3 Ml Syringe IVFLUSH Not Given QSHIFT [facility] Spironolactone 25 mg 05/28/20 14:16 05/28/20 15:14 Spironolactone 25 Mg Tablet PO 25 mg DAILY [facility] Administration Protocol Tamsulosin HCl 0.8 mg 05/28/20 17:00 05/28/20 15:15 Tamsulosin Hcl 0.4 Mg Capsule PO 0.8 mg DAILY@1700 [facility] Administration Zolpidem Tartrate 5 mg 05/28/20 14:16 05/28/20 21:03 Zolpidem Tartrate 5 Mg Tablet PO 5 mg BEDTIME PRN Administration Insomnia Time Spent With Patient Time: Total time spent is greater than 50% in coordination of care (as documented) at patient's floor/unit and/or counseling patient: Time with patient: 15 - 24 minutes
--- NOTE | 2020-05-29 09:02 | MHC.CM.PN ---
PATIENT LIVES WITH HIS /HCP. HE HAS A CANE AND WALKER, WHICH ARE USED SPARINGLY. NO VNA OR ELDER SERVICES. HE IS HOPING TO RETURN HOME WITH NO NEED FOR SERVICES. ([place] [employer] [place] WILL PROVIDE TRANSPORT HOME. CASE MANAGEMENT FOLLOWING FOR ANY DC NEEDS.
[2020-05-29] MEDS: Gabapentin 300 MG CAPSULE 900 MG PO ×2 (10:20→20:28)
[2020-05-29] MEDS: Indomethacin 25 MG CAPSULE 50 MG PO (10:21)
[2020-05-29] MEDS: Sertraline HCL 50 MG TABLET PO (10:21)
[2020-05-29] MEDS: Losartan Potassium 50 MG TABLET PO ×2 (10:21→20:28)
[2020-05-29] MEDS: Amiodarone HCL 200 MG TABLET 100 MG PO (10:22)
[2020-05-29] MEDS: Spironolactone 25 MG TABLET PO (10:22)
[2020-05-29] MEDS: amLODIPine Besylate 10 MG TABLET PO (10:23)
--- NOTE | 2020-05-29 12:10 | HO.PM.IMPN ---
Subjective Subjective Date of Service: 05/29/20 Interval History: the patient was seen and evaluated this morning Laying in bed, feels comfortable Denies any fever, chills or shortness of breath passing gas, NG tube suction held for now No reported other overnight events. Systemic review: No fever, chills or weakness No chest pain, palpitation No shortness of breath or coughing No abdominal pain, mild nausea, no vomiting No urinary symptoms No any rash or wounds Physical Exam Vital Signs: Vital Signs: Last Vital Signs Temp 98.2 F 05/29/20 07:21 Pulse 60 05/29/20 10:23 Resp 18 05/29/20 07:21 BP 114/55 L 05/29/20 10:23 Pulse Ox 95 05/29/20 07:21 Body Mass Index 31.6 Constitutional : Alert, oriented, not in distress Neck : Normal inspection, Supple Cardiovascular : RRR, S1 S2, no lower extremity edema Respiratory : Good bilateral air entry, no crackles, wheezes or rhonchi Gastrointestinal: soft, lax, Normal bowel sounds, Non tender, NG tube in place not on suction Skin : Warm/Dry, No rash Neurological : Alert & oriented x3, No focal deficit Objective Data Current Medications Generic Name Dose Route Start Last Admin Trade Name Freq PRN Reason Stop Dose Admin Acetaminophen 650 mg 05/28/20 14:16 05/29/20 03:40 Acetaminophen 325 Mg Tablet PO 650 mg Q6H PRN Administration Pain, Mild (Pain Scale 1-3) Amiodarone HCl 100 mg 05/28/20 14:16 05/29/20 10:22 Amiodarone Hcl 200 Mg Tablet PO 100 mg DAILY [facility] Administration Amlodipine Besylate 10 mg 05/28/20 14:16 05/29/20 10:23 Amlodipine Besylate 10 Mg Tablet PO 10 mg DAILY [facility] Administration Protocol Gabapentin 900 mg 05/28/20 14:16 05/29/20 10:20 Gabapentin 300 Mg Capsule PO 900 mg BID [facility] Administration Hydromorphone HCl 0.5 mg 05/28/20 09:13 05/29/20 03:36 Hydromorphone Hcl 0.5 Mg/0.5 Ml Syringe IVPUSH 0.5 mg Q3H PRN Administration Pain, Severe (Pain Scale 7-10) Dextrose/Lactated Ringer's 1,000 mls @ 125 mls/hr 05/28/20 14:16 05/29/20 07:35 D5lr IVCONT 125 mls/hr .Q8H [facility] Administration Indomethacin 50 mg 05/29/20 09:00 05/29/20 10:21 Indomethacin 25 Mg Capsule PO 50 mg DAILY [facility] Administration Losartan Potassium 50 mg 05/28/20 14:16 05/29/20 10:21 Losartan Potassium 50 Mg Tablet PO 50 mg BID [facility] Administration Protocol Ondansetron HCl 4 mg 05/28/20 11:05 05/28/20 19:32 Ondansetron Hcl 4 Mg/2 Ml Vial IVPUSH 4 mg Q8H PRN Administration Nausea and Vomiting Rivaroxaban 20 mg 05/28/20 17:00 05/28/20 17:25 Rivaroxaban 20 Mg Tablet PO 20 mg DAILY@1700 [facility] Administration Sertraline HCl 50 mg 05/28/20 14:16 05/29/20 10:21 Sertraline Hcl 50 Mg Tablet PO 50 mg DAILY [facility] Administration Sodium Chloride 3 ml 05/28/20 14:16 05/29/20 07:36 0.9 % Sodium Chloride Flush 3 Ml Syringe IVFLUSH Not Given QSHIFT [facility] Spironolactone 25 mg 05/28/20 14:16 05/29/20 10:22 Spironolactone 25 Mg Tablet PO 25 mg DAILY [facility] Administration Protocol Tamsulosin HCl 0.8 mg 05/28/20 17:00 05/28/20 15:15 Tamsulosin Hcl 0.4 Mg Capsule PO 0.8 mg DAILY@1700 [facility] Administration Zolpidem Tartrate 5 mg 05/28/20 14:16 05/28/20 21:03 Zolpidem Tartrate 5 Mg Tablet PO 5 mg BEDTIME PRN Administration Insomnia Labs CBC & Chem 7: 05/29/20 06:46 05/29/20 06:46 Microbiology Microbiology Results: Microbiology 05/28/20 04:35 Blood - Arterial Blood Culture - Preliminary No growth after 24 hours. 05/28/20 04:18 Blood - Arterial Blood Culture - Preliminary No growth after 24 hours. Assessment and Plan (1) SBO (small bowel obstruction): Status: Acute Assessment and Plan: This is a 70-year-old male with history atrial fibrillation, hypertension, BPH, neuropathy, testicular cancer who presents to the emergency department with abdominal pain found to have SBO SBO NG tube inplace, not on suction report passing gas Management per surgical team Atrial fibrillation rate controlled Continue amiodarone Continue Xarelto Hyponatremia. Chronic Improved to 130s monitor BMP Hypertension Fairly controlled Continue Norvasc, losartan, Aldactone Neuropathy Continue gabapentin BPH Continue Flomax Anemia. Chronic H/H have baseline Follow CBC Thrombocytopenia Has had thrombocytopenia intermittently in the past Thank you for allowing us to participate in the care of this patient. We will follow along with you as needed
--- NOTE | 2020-05-29 12:49 | PC.NURSE ---
NGT CLAMPED AT 0810. RESIDUAL CHECKED AT 1230. RESIDUAL WAS LESS THAN 2ML. NGT WAS REMOVED PER MD ORDER. NOTIFIED DOCTOR CINTHIA. NEW ORDER TO START CLEAR LIQUID DIET.
[2020-05-29] MEDS: Rivaroxaban 20 MG TABLET PO (18:05)
[2020-05-29] MEDS: Tamsulosin HCL 0.4 MG CAPSULE 0.8 MG PO (18:05)
[2020-05-29] MEDS: Zolpidem Tartrate 5 MG TABLET PO (21:47)
[2020-05-30] VITALS: BP 110/53; PULSE 58; RESP 17; TEMP 36.1; O2SAT 95
[2020-05-30] MEDS: Dextrose 5 % and Lactated Ring 1,000 ML 125 ML IVCONT (05:52)
[2020-05-30 07:08] LABS: Anion Gap 9 (12-20); Blood Urea Nitrogen 19 mg/dL (9-16); Calcium 8.2 mg/dL (8.4-10.2); Carbon Dioxide 31 mmol/L (22-29); Chloride 97 mmol/L (96-108); Creatinine Clr Calc Pharmacy 80.2; Estimated Glomerular Filt Rate > 60; Glucose Random 120 mg/dL (60-115); Potassium 4.2 mmol/l (3.3-5.1); Sodium 133 mmol/L (135-145)
[2020-05-30 07:24] VITALS: BP 149/69; PULSE 66; RESP 18; TEMP 35.9; O2SAT 94
--- NOTE | 2020-05-30 08:55 | P.PNGS_ITS ---
Subjective Subjective Date of Service: 05/30/20 <Maribell Garcia PA-C - Last Filed: 05/30/20 08:57> 05/30/20 <Neal Frye MD - Last Filed: 05/30/20 09:02> Interval history: Feels well this morning. Denies any abdominal pain. Tolerating clear liquids, passing flatus and had both liquid and solid BM. Wants to eat and go home. <Maribell Garcia PA-C - Last Filed: 05/30/20 08:57> Physical Exam Vital Signs: Vital Signs: Last Vital Signs Temp 96.7 F L 05/30/20 07:24 Pulse 66 05/30/20 07:24 Resp 18 05/30/20 07:24 BP 149/69 H 05/30/20 07:24 Pulse Ox 94 05/30/20 07:24 Body Mass Index 31.6 <Maribell Garcia PA-C - Last Filed: 05/30/20 08:57> Const: General: comfortable, no acute distress and alert <Maribell Garcia PA-C - Last Filed: 05/30/20 08:57> Orientation/consciousness: patient oriented x3 <Maribell Garcia PA-C Last Filed: 05/30/20 08:57> Eyes: Sclerae: sclerae normal <Maribell Garcia PA-C Last Filed: 05/30/20 08:57> Resp: Effort & Inspection: normal respiratory effort <Maribell Garcia PA-C - Last Filed: 05/30/20 08:57> GI: Inspection: No distended <Maribell Garcia PA-C Last Filed: 05/30/20 08:57> Palpation (GI): Soft to palpation, nontender, no guarding and not rigid <Maribell Garcia PA-C Last Filed: 05/30/20 08:57> Skin: Other: normal color, warm and dry <ULYSSES Bowden Last Filed: 05/30/20 08:57> Rashes: no rashes <Maribell Garcia PA-C Last Filed: 05/30/20 08:57> Neuro: General: patient oriented x3 <Maribell Garcia PA-C - Last Filed: 05/30/20 08:57> Progress Note: A&P Assessment and plan (1) SBO (small bowel obstruction): Status: Acute <Maribell Garcia PA-C - Last Filed: 05/30/20 08:57> Assessment and Plan: Resolved- tolerating clears and has good return of GI fxn. VSS. Abd exam benign. Will advance to a solid diet. If tolerating, plan for discharge to home today. <Maribell Garcia PA-C - Last Filed: 05/30/20 08:57> Patient feels much improved today with no nausea or vomiting, tolerating clears and passing stool and flatus. Abdomen is soft and nondistended. Agree with th3e above assessment and plan. <Neal Frye MD - Last Filed: 05/30/20 09:02> Fall Risk Details Current Medications: Current Medications Generic Name Dose Route Start Last Admin Trade Name Freq PRN Reason Stop Dose Admin Acetaminophen 650 mg 05/28/20 14:16 05/29/20 03:40 Acetaminophen 325 Mg Tablet PO 650 mg Q6H PRN Administration Pain, Mild (Pain Scale 1-3) Amiodarone HCl 100 mg 05/28/20 14:16 05/29/20 10:22 Amiodarone Hcl 200 Mg Tablet PO 100 mg DAILY [facility] Administration Amlodipine Besylate 10 mg 05/28/20 14:16 05/29/20 10:23 Amlodipine Besylate 10 Mg Tablet PO 10 mg DAILY [facility] Administration Protocol Gabapentin 900 mg 05/28/20 14:16 05/29/20 20:28 Gabapentin 300 Mg Capsule PO 900 mg BID [facility] Administration Hydromorphone HCl 0.5 mg 05/28/20 09:13 05/29/20 21:47 Hydromorphone Hcl 0.5 Mg/0.5 Ml Syringe IVPUSH 0.5 mg Q3H PRN Administration Pain, Severe (Pain Scale 7-10) Dextrose/Lactated Ringer's 1,000 mls @ 125 mls/hr 05/28/20 14:16 05/30/20 05:52 D5lr IVCONT 125 mls/hr .Q8H [facility] Administration Indomethacin 50 mg 05/29/20 09:00 05/29/20 10:21 Indomethacin 25 Mg Capsule PO 50 mg DAILY [facility] Administration Losartan Potassium 50 mg 05/28/20 14:16 05/29/20 20:28 Losartan Potassium 50 Mg Tablet PO 50 mg BID [facility] Administration Protocol Ondansetron HCl 4 mg 05/28/20 11:05 05/28/20 19:32 Ondansetron Hcl 4 Mg/2 Ml Vial IVPUSH 4 mg Q8H PRN Administration Nausea and Vomiting Rivaroxaban 20 mg 05/28/20 17:00 05/29/20 18:05 Rivaroxaban 20 Mg Tablet PO 20 mg DAILY@1700 [facility] Administration Sertraline HCl 50 mg 05/28/20 14:16 05/29/20 10:21 Sertraline Hcl 50 Mg Tablet PO 50 mg DAILY [facility] Administration Sodium Chloride 3 ml 05/28/20 14:16 05/30/20 00:39 0.9 % Sodium Chloride Flush 3 Ml Syringe IVFLUSH Not Given QSHIFT [facility] Spironolactone 25 mg 05/28/20 14:16 05/29/20 10:22 Spironolactone 25 Mg Tablet PO 25 mg DAILY [facility] Administration Protocol Tamsulosin HCl 0.8 mg 05/28/20 17:00 05/29/20 18:05 Tamsulosin Hcl 0.4 Mg Capsule PO 0.8 mg DAILY@1700 [facility] Administration Zolpidem Tartrate 5 mg 05/28/20 14:16 05/29/20 21:47 Zolpidem Tartrate 5 Mg Tablet PO 5 mg BEDTIME PRN Administration Insomnia <Maribell Garcia PA-C - Last Filed: 05/30/20 08:57> Time Spent With Patient Time: Total time spent is greater than 50% in coordination of care (as documented) at patient's floor/unit and/or counseling patient: <ULYSSES Bowden Last Filed: 05/30/20 08:57> Time with patient: 15 - 24 minutes <Maribell Garcia PA-C - Last Filed: 05/30/20 08:57>
[2020-05-30] MEDS: Indomethacin 25 MG CAPSULE 50 MG PO (09:01)
[2020-05-30] MEDS: Amiodarone HCL 200 MG TABLET 100 MG PO (09:02)
[2020-05-30 09:04] VITALS: BP 149/69
[2020-05-30] MEDS: Gabapentin 300 MG CAPSULE 900 MG PO (09:04)
[2020-05-30] MEDS: Spironolactone 25 MG TABLET PO (09:04)
[2020-05-30 09:05] VITALS: BP 149/69
[2020-05-30] MEDS: Losartan Potassium 50 MG TABLET PO (09:05)
[2020-05-30] MEDS: Sertraline HCL 50 MG TABLET PO (09:05)
[2020-05-30 09:06] VITALS: BP 149/69
[2020-05-30] MEDS: amLODIPine Besylate 10 MG TABLET PO (09:06)
--- NOTE | 2020-05-30 11:55 | HO.PM.IMPN ---
Subjective Subjective Date of Service: 05/30/20 Interval History: the patient was seen and evaluated this morning Laying in bed, feels comfortable Denies any fever, chills or shortness of breath Tolerating diet well, had bowel movement and passing gas No reported other overnight events. Systemic review: No fever, chills or weakness No chest pain, palpitation No shortness of breath or coughing No abdominal pain, nausea or vomiting, having bowel movement No urinary symptoms No any rash or wounds Physical Exam Vital Signs: Vital Signs: Last Vital Signs Temp 96.7 F L 05/30/20 07:24 Pulse 66 05/30/20 07:24 Resp 18 05/30/20 07:24 BP 149/69 H 05/30/20 09:06 Pulse Ox 94 05/30/20 07:24 Body Mass Index 31.6 Constitutional : Alert, oriented, not in distress Neck : Normal inspection, Supple Cardiovascular : RRR, S1 S2, no lower extremity edema Respiratory : Good bilateral air entry, no crackles, wheezes or rhonchi Gastrointestinal: soft, lax, Normal bowel sounds, Non tender Skin : Warm/Dry, No rash Neurological : Alert & oriented x3, No focal deficit Objective Data Current Medications Generic Name Dose Route Start Last Admin Trade Name Freq PRN Reason Stop Dose Admin Acetaminophen 650 mg 05/28/20 14:16 05/29/20 03:40 Acetaminophen 325 Mg Tablet PO 650 mg Q6H PRN Administration Pain, Mild (Pain Scale 1-3) Amiodarone HCl 100 mg 05/28/20 14:16 05/30/20 09:02 Amiodarone Hcl 200 Mg Tablet PO 100 mg DAILY TAHIRA Administration Amlodipine Besylate 10 mg 05/28/20 14:16 05/30/20 09:06 Amlodipine Besylate 10 Mg Tablet PO 10 mg DAILY TAHIRA Administration Protocol Gabapentin 900 mg 05/28/20 14:16 05/30/20 09:04 Gabapentin 300 Mg Capsule PO 900 mg BID TAHIRA Administration Hydromorphone HCl 0.5 mg 05/28/20 09:13 05/29/20 21:47 Hydromorphone Hcl 0.5 Mg/0.5 Ml Syringe IVPUSH 0.5 mg Q3H PRN Administration Pain, Severe (Pain Scale 7-10) Dextrose/Lactated Ringer's 1,000 mls @ 125 mls/hr 05/28/20 14:16 05/30/20 05:52 D5lr IVCONT 125 mls/hr .Q8H TAHIRA Administration Indomethacin 50 mg 05/29/20 09:00 05/30/20 09:01 Indomethacin 25 Mg Capsule PO 50 mg DAILY TAHIRA Administration Losartan Potassium 50 mg 05/28/20 14:16 05/30/20 09:05 Losartan Potassium 50 Mg Tablet PO 50 mg BID [facility] Administration Protocol Ondansetron HCl 4 mg 05/28/20 11:05 05/28/20 19:32 Ondansetron Hcl 4 Mg/2 Ml Vial IVPUSH 4 mg Q8H PRN Administration Nausea and Vomiting Rivaroxaban 20 mg 05/28/20 17:00 05/29/20 18:05 Rivaroxaban 20 Mg Tablet PO 20 mg DAILY@1700 [facility] Administration Sertraline HCl 50 mg 05/28/20 14:16 05/30/20 09:05 Sertraline Hcl 50 Mg Tablet PO 50 mg DAILY TAHIRA Administration Sodium Chloride 3 ml 05/28/20 14:16 05/30/20 09:06 0.9 % Sodium Chloride Flush 3 Ml Syringe IVFLUSH Not Given QSHIFT [facility] Spironolactone 25 mg 05/28/20 14:16 05/30/20 09:04 Spironolactone 25 Mg Tablet PO 25 mg DAILY [facility] Administration Protocol Tamsulosin HCl 0.8 mg 05/28/20 17:00 05/29/20 18:05 Tamsulosin Hcl 0.4 Mg Capsule PO 0.8 mg DAILY@1700 [facility] Administration Zolpidem Tartrate 5 mg 05/28/20 14:16 05/29/20 21:47 Zolpidem Tartrate 5 Mg Tablet PO 5 mg BEDTIME PRN Administration Insomnia Labs CBC & Chem 7: 05/29/20 06:46 05/30/20 05:57 Microbiology Microbiology Results: Microbiology 05/28/20 04:35 Blood - Arterial Blood Culture - Preliminary No growth after 48 hours. 05/28/20 04:18 Blood - Arterial Blood Culture - Preliminary No growth after 48 hours. Assessment and Plan (1) SBO (small bowel obstruction): Status: Acute Assessment and Plan: This is a 70-year-old male with history atrial fibrillation, hypertension, BPH, neuropathy, testicular cancer who presents to the emergency department with abdominal pain found to have SBO SBO NG tube discontinued Tolerating diet when Having bowel movements Management per surgical team Atrial fibrillation rate controlled Continue amiodarone Continue Xarelto Hyponatremia. Chronic Improved to 130s monitor BMP Hypertension Fairly controlled Continue Norvasc, losartan, Aldactone Neuropathy Continue gabapentin BPH Continue Flomax Anemia. Chronic H/H have baseline Follow CBC Thrombocytopenia Stable, no bleeding Has had thrombocytopenia intermittently in the past Thank you for allowing us to participate in the care of this patient. We will follow along with you as needed
--- NOTE | 2020-05-30 12:50 | P.DS_ITS ---
DS: Providers Provider Date of admission: 05/28/20 06:08 Primary care physician: Scotty Liu MD Consults: 05/28/20 14:16 Consult to Hospitalist Routine Consulting Provider: Hospitalist Reason for consultation: Afib, small bowel obstruction, med management DS: Diagnosis Discharge Diagnosis (1) SBO (small bowel obstruction): Status: Acute DS: Medications Discharge Medications Home Medications: Home Medications Medication Instructions Recorded Confirmed Culturelle 1 cap PO DAILY 05/28/20 05/28/20 Xarelto 20 mg PO DAILY@1700 05/28/20 05/28/20 amiodarone 100 mg PO DAILY 05/28/20 05/28/20 amlodipine 10 mg PO DAILY 05/28/20 05/28/20 ascorbic acid (vitamin C) [Vitamin 1,000 mg PO DAILY@1700 05/28/20 05/28/20 C] docusate sodium [Stool Softener] 100 mg PO BID 05/28/20 05/28/20 gabapentin 900 mg PO BID 05/28/20 05/28/20 indomethacin 1 cap PO DAILY 05/28/20 05/28/20 iron 1 tab PO 4XW 05/28/20 05/28/20 losartan 50 mg PO BID 05/28/20 05/28/20 magnesium 400 mg PO BID 05/28/20 05/28/20 multivitamin 1 tab PO DAILY 05/28/20 05/28/20 omeprazole 20 mg PO DAILY 05/28/20 05/28/20 sertraline 50 mg PO DAILY 05/28/20 05/28/20 spironolactone 25 mg PO DAILY 05/28/20 05/28/20 tamsulosin 0.8 mg PO DAILY@1700 05/28/20 05/28/20 DS: Summary Hospital Course Hospital Course: Aravind Agustin is a 70 year old male with a previous history of testicular cancer, status post multiple abdominal surgeries now presenting with a recurrent small-bowel obstruction. He was previously admitted by me approximately 2 years ago with similar symptoms. His current symptoms began the day prior to admission at approximately 20:00, several hours after eating dinner. He denies eating anything unusual other than an exceptionally large portion of prime rib. Several hours after this he began to have abdominal discomfort with nausea and vomiting. He subsequently presented to the emergency department was noted to have abdominal distension. A CT of the abdomen and pelvis was obtained and revealed distended loops of small bowel proximally with decompressed bowel distally. This was suggestive of a small-bowel obstruction. A nasogastric tube was placed in the emergency department. On the 2nd hospital day the patient reported passing flatus in felt much improved with decreased abdominal pain and distension. Decision was made to clamp the nasogastric tube and check residuals after 4 hours. A very low residual was noted after 4 hours therefore the nasogastric tube was removed. After observing for several hours he was placed on clear liquids which he tolerated well. On the 3rd hospital day he was advanced to a regular diet and tolerated this very well. He denies abdominal pain, nausea, vomiting and does report having several bowel movements since his admission. He feels ready for discharge to home. Discharge instructions were to avoid raw vegetables containing heavy fiber. He should remain on a low-fiber diet. Time Spent with Patient Time attestation: Total time spent providing and/or coordinating discharge services: Physical Exam Vital Signs: Vital Signs: Last Vital Signs Temp 96.7 F L 05/30/20 07:24 Pulse 66 05/30/20 07:24 Resp 18 05/30/20 07:24 BP 149/69 H 05/30/20 09:06 Pulse Ox 94 05/30/20 07:24 Body Mass Index 31.6 Const: General: cooperative, comfortable and well developed; No confusion Nutritional Appearance: well nourished Orientation/consciousness: patient oriented x3 and No confusion Eyes: Sclerae: sclerae normal EOM: EOMs intact bilaterally Neck: Neck: Yes normal visual inspection Resp: Effort & Inspection: normal respiratory effort, no cough and no respiratory distress Cardio: Jugular venous distension: no JVD Rate: regular rate Rhythm: regular rhythm GI: Inspection: Yes normal to inspection Palpation (GI): Soft to palpation, nontender, no guarding and not rigid Percussion: Yes normal to percussion Auscultation: normal bowel sounds Skin: General skin exam: dry skin Rashes: no rashes Neuro: General: patient oriented x3, no focal motor deficits and No confusion Extrem: General: Yes full ROM and Yes no clubbing, cyanosis or edema DS: Data Data Completed and Pending Labs on day of discharge: 05/28/20 03:58 ECG 12 lead EKG Stat EKG Documentation DIRECTED CT abdomen pelvis w con Stat XR chest 1V Stat HYDROmorphone HCl [Dilaudid] 0.25 mg IVPUSH ONCE ONE 05/28/20 04:18 Complete Blood Count Auto Diff Stat Comprehensive Met. Panel Stat Lactic Acid Stat Lipase Stat Magnesium Stat SLIDE REVIEW Stat 05/28/20 04:37 ondansetron HCL [Zofran] 4 mg IVPUSH ONCE ONE 05/28/20 05:08 0.9 % Sodium Chloride [Ns] 1,000 ml IV 999 mls/hr HYDROmorphone HCl [Dilaudid] 0.25 mg IVPUSH ONCE ONE 05/28/20 05:31 iohexoL 350 MG/ML [Omnipaque 350 MG/ML] 85 ml IV ONCE ONE 05/28/20 05:36 NG/OG Tube Insert/Maintain NOW 05/28/20 05:41 COVID-19 ID NOW ([facility]) Stat 05/28/20 06:01 Transfer Order Routine 05/28/20 06:04 XR chest 1V Stat 05/28/20 17:55 UA CC w/rflx Micro + Cult Stat 05/28/20 20:25 Basic Metabolic Panel Stat 05/29/20 06:46 Basic Metabolic Panel DAILY@0600 Complete Blood Count Auto Diff DAILY@0600 SLIDE REVIEW Routine 05/30/20 05:57 Basic Metabolic Panel DAILY@0600 Laboratory Last Values WBC 6.0 X10*3/uL (4.8-10.8) 05/29/20 06:46 RBC 3.21 X10*6/uL (4.60-5.80) L 05/29/20 06:46 Hgb 9.1 g/dl (14.0-18.0) L D 05/29/20 06:46 Hct 27.9 % (42-52) L 05/29/20 06:46 MCV 86.9 fL (80-98) 05/29/20 06:46 MCH 28.3 pg (27.0-33.0) 05/29/20 06:46 MCHC 32.6 g/dl (31.0-36.0) 05/29/20 06:46 RDW 14.8 % (11.0-16.0) 05/29/20 06:46 Plt Count 127 X10*3/uL (160-400) L 05/29/20 06:46 MPV 9.8 fL (9.4-12.4) 05/29/20 06:46 Immature Gran % (Auto) 2.2 % (0.0-0.4) H 05/29/20 06:46 Neut % (Auto) 73.7 % (45-73) H 05/29/20 06:46 Lymph % (Auto) 11.2 % (20-40) L 05/29/20 06:46 [place] % (Auto) 11.4 % (2-11) H 05/29/20 06:46 Eos % (Auto) 1.3 % (0-4) 05/29/20 06:46 Baso % (Auto) 0.2 % (0-2) 05/29/20 06:46 Lymph # (Auto) 0.7 X10*3/uL (1.2-4.9) L 05/29/20 06:46 [place] # (Auto) 0.7 X10*3/uL (0.1-1.2) 05/29/20 06:46 Eos # (Auto) 0.1 X10*3/uL (0.0-0.4) 05/29/20 06:46 Baso # (Auto) 0.0 X10*3/uL (0.0-0.2) 05/29/20 06:46 Abs Immat Gran (auto) 0.13 X10*3/uL (0.00-0.03) H 05/29/20 06:46 Absolute Neuts (auto) 4.4 X10*3/uL (2.0-8.3) 05/29/20 06:46 Absolute Nucleated RBC 0.000 X10*3/uL (0.0-0.012) 05/29/20 06:46 Nucleated RBC % (auto) 0.0 /100WBC (0.0-0.2) 05/29/20 06:46 Smear Tech's Comments VERIFIED 05/29/20 06:46 Sodium 133 mmol/L (135-145) L 05/30/20 05:57 Potassium 4.2 mmol/l (3.3-5.1) 05/30/20 05:57 Chloride 97 mmol/L (96-108) 05/30/20 05:57 Carbon Dioxide 31 mmol/L (22-29) H 05/30/20 05:57 Anion Gap 9 (12-20) L 05/30/20 05:57 BUN 19 mg/dL (9-16) H 05/30/20 05:57 Creatinine 1.14 mg/dL (0.5-1.4) 05/30/20 05:57 Estim Creat Clear Calc 80.2 05/30/20 05:57 Estimated GFR > 60 05/30/20 05:57 Random Glucose 120 mg/dL (60-115) H 05/30/20 05:57 Lactic Acid 0.7 mmol/L (0.5-2.0) 05/28/20 04:18 Calcium 8.2 mg/dL (8.4-10.2) L 05/30/20 05:57 Magnesium 1.6 mg/dL (1.6-2.6) 05/28/20 04:18 Total Bilirubin 0.7 mg/dL (0.0-1.0) 05/28/20 04:18 AST 26 U/L (5-37) D 05/28/20 04:18 ALT 20 U/L (0-40) 05/28/20 04:18 Alkaline Phosphatase 96 U/L (39-117) 05/28/20 04:18 Total Protein 7.6 g/dL (6.5-8.0) 05/28/20 04:18 Albumin 4.6 g/dL (3.5-5.0) 05/28/20 04:18 Lipase 14 U/L (8-78) 05/28/20 04:18 Urine Color YELLOW 05/28/20 17:55 Urine Appearance CLEAR 05/28/20 17:55 Urine pH 6.0 (5.0-8.0) 05/28/20 17:55 Ur Specific [place] 1.020 (1.005-1.025) 05/28/20 17:55 Urine Protein NEG MG/DL (NEG-TRACE) 05/28/20 17:55 Urine Glucose (UA) NEG MG/DL (NEG) 05/28/20 17:55 Urine Ketones NEG MG/DL (NEG) 05/28/20 17:55 Urine Blood NEG (NEG) 05/28/20 17:55 Urine Nitrite NEG (NEG) 05/28/20 17:55 Ur Leukocyte Esterase NEG (NEG) 05/28/20 17:55 COVID-19 ([facility]ILFREDO) Negative (Negative) 05/28/20 05:41 COVID-19 Clin Com See Note 05/28/20 05:41 Preliminary micro results at discharge 05/28/20 04:35 Blood Culture - Preliminary Blood - Arterial No growth after 48 hours. 05/28/20 04:18 Blood Culture - Preliminary Blood - Arterial No growth after 48 hours. Discharge Plan Discharge Patient Disposition: Home, Self-Care Referrals: Scotty Liu MD [Primary Care Provider] - Neal Frye MD [Physician] - (As needed) Discharge Medications: Continued multivitamin Tablet 1 tab PO DAILY RF: 0 losartan 50 mg tablet 50 mg PO BID RF: 0 ascorbic acid (vitamin C) [Vitamin C] 1,000 mg Tablet 1,000 mg PO DAILY@1700 RF: 0 amiodarone 200 mg tablet 100 mg PO DAILY RF: 0 spironolactone 25 mg Tablet 25 mg PO DAILY RF: 0 tamsulosin 0.4 mg capsule 0.8 mg PO DAILY@1700 RF: 0 amlodipine 10 mg tablet 10 mg PO DAILY RF: 0 docusate sodium [Stool Softener] 100 mg Capsule 100 mg PO BID RF: 0 gabapentin 300 mg capsule 900 mg PO BID RF: 0 omeprazole 20 mg capsule,delayed release(DR/EC) 20 mg PO DAILY RF: 0 Culturelle 10 billion cell Capsule 1 cap PO DAILY RF: 0 sertraline 50 mg tablet 50 mg PO DAILY RF: 0 magnesium 200 mg Tablet 400 mg PO BID RF: 0 Xarelto 20 mg tablet 20 mg PO DAILY@1700 RF: 0 iron 1 tab PO 4XW RF: 0 indomethacin 50 mg capsule 1 cap PO DAILY RF: 0 Discharge Orders: Discharge Order (Routine); Ordered 05/30/20 Ordered By: Neal Frye Diet: advance to usual diet Activity on Discharge: As tolerated Patient Instructions: Low Fiber Diet (DC) Visit Report Forms: Patient Portal Discharge page Care Plan Goals: Return to baseline health and activity Health Concerns: SBO Plan of Treatment: Supportive measures, discharge to home
--- NOTE | 2020-05-30 13:26 | MHC.CM.PN ---
Pt discharging home today with no services, to transport
== END 2020-05-30 14:00 | disposition home or self-care (01) | DRG 247 ==
LOC: HO.ED 06:04 → HO.S3 13:26
PROVIDERS: Physician Assistant Medical; Student in an Organized Health Care Education/Training Program; Admitting Provider Surgery; Emergency Provider Student in an Organized Health Care Education/Training Program; PCP Internal Medicine Medical Oncology; Visit Provider Surgery
DX: K56.609 Unspecified intestinal obstruction, unspecified as to partial versus complete obstruction (principal); I48.91 Unspecified atrial fibrillation; E87.1 Hypo-osmolality and hyponatremia; N40.0 Benign prostatic hyperplasia without lower urinary tract symptoms; Z20.828 Contact with and (suspected) exposure to other viral communicable diseases; Z96.652 Presence of left artificial knee joint; Z96.641 Presence of right artificial hip joint; Z85.47 Personal history of malignant neoplasm of testis; Z79.01 Long term (current) use of anticoagulants; Z79.899 Other long term (current) drug therapy
CPT/HCPCS: 36415; 71045; 74177; 80048; 80053; 81003; 83605; 83690; 83735; 85025; 87040; 87635; 93005; 96361; 96374; 96375; 96376; 99284; 99285; J1170; J2405; Q9967

== ENCOUNTER 2020-06-07 05:02 | Emergency (ER) | payer OTHER, SELFPAY ==
[2020-06-07 05:23] VITALS: BP 133/67; PULSE 65; RESP 16; TEMP 36.7; O2SAT 95; BMI 30.3
--- NOTE | 2020-06-07 06:10 | XR_ITS ---
EXAMINATION: XR HIP, RIGHT CLINICAL INFORMATION: Question dislocation COMPARISON: None TECHNIQUE: Two views of the right hip. Frontal view of the pelvis. FINDINGS: There is a total right hip arthroplasty. The femoral head component articulates appropriately with the acetabular component. No periprosthetic lucency or fracture. Mild degenerative change of the right hip with subchondral sclerosis present. The pelvic rim is intact. Degenerative changes of the lower lumbar spine. The bowel gas pattern is unremarkable. XR/XR hip RT w PEL1V IMPRESSION: Total right hip arthroplasty in typical positioning and alignment.
--- NOTE | 2020-06-07 06:27 | PC.NURSE ---
pt taken to rad, provider made aware pt is requesting pain medication.
--- NOTE | 2020-06-07 06:40 | ED.LOWEXIN ---
HPI - Extremity Injury (Lower) General Chief Complaint: General Medical Stated Complaint: Hip pain Time Seen by Provider: 06/07/20 06:07 Source: patient Mode of arrival: wheelchair Limitations: no limitations History of Present Illness complaint: hip injury Onset (ago): hour(s) (started at 3am) Injury: Right: hip Type of Injury: unknown (walking up the stairs and felt pain) Place: home Severity: moderate Relieving factors: rest Exacerbating factors: weight bearing and movement Context: walking Associated symptoms: numbness (feels slight tinling on top of R thigh) Other symptoms: none Related Data Home Medications Medication Instructions Recorded Confirmed Culturelle 1 cap PO DAILY 05/28/20 05/28/20 Xarelto 20 mg PO DAILY@1700 05/28/20 05/28/20 amiodarone 100 mg PO DAILY 05/28/20 05/28/20 amlodipine 10 mg PO DAILY 05/28/20 05/28/20 ascorbic acid (vitamin C) [Vitamin 1,000 mg PO DAILY@1700 05/28/20 05/28/20 C] docusate sodium [Stool Softener] 100 mg PO BID 05/28/20 05/28/20 gabapentin 900 mg PO BID 05/28/20 05/28/20 indomethacin 1 cap PO DAILY 05/28/20 05/28/20 iron 1 tab PO 4XW 05/28/20 05/28/20 losartan 50 mg PO BID 05/28/20 05/28/20 magnesium 400 mg PO BID 05/28/20 05/28/20 multivitamin 1 tab PO DAILY 05/28/20 05/28/20 omeprazole 20 mg PO DAILY 05/28/20 05/28/20 sertraline 50 mg PO DAILY 05/28/20 05/28/20 spironolactone 25 mg PO DAILY 05/28/20 05/28/20 tamsulosin 0.8 mg PO DAILY@1700 05/28/20 05/28/20 Previous Rx's Medication Instructions Recorded trazodone 50 mg tablet 50 mg PO BEDTIME PRN #30 tab 06/06/20 oxycodone 5 mg PO TID PRN #10 tab 06/07/20 Allergies Allergy/AdvReac Type Severity Reaction Status Date / Time No Known Allergies Allergy Verified 05/28/20 03:23 [No Known Allergies*] Review of Systems Review of Systems: Constitutional : No Fever, No Chills ENT/Mouth : No Ear Pain, No Hoarseness, No sore throat Eyes: No Eye Pain, No Swelling, No Redness, No Foreign Body Cardiovascular : No Chest Pain, No SOB Respiratory : No Cough, No Dyspnea Gastrointestinal : No Nausea, No Vomiting, No Diarrhea, No abdominal Pain Genitourinary : No Dysuria, No Hematuria Musculoskeletal : positive joint pain, No Myalgias, No Joint Swelling Skin : No Skin lacerations, No rash Neuro : No Weakness, No Numbness, No Loss of Consciousness, No Dizziness, No Headache Psych : No Anxiety/Panic, No Depression Heme/Lymph: no easy bruising, no Lymphadenopathy Endocrine : No Polyuria, No Polydipsia All other systems reviewed and are negative [facility] Past Medical History Attestation statement: The following information was validated with the patient. Medical History Afib Anemia BPH (benign prostatic hyperplasia) Chronic back pain HTN (hypertension) Hx of benign neoplasm Hx of testicular cancer Hyponatremia Neuropathy Surgical History History of back surgery History of left knee replacement History of right hip replacement Social History Social History Household Members: Spouse and Children Housing: House Alcohol intake: current Alcohol intake frequency: holidays/special occasions only Alcohol type: beer Smoking Status: Never smoker Use of substances other than those prescribed or required for medical reasons: No Any prior treatment program specific to substance use: No Advance Directives: No service: No Current occupational status: retired Physical Exam Vital Signs: Vital Signs: Last Vital Signs Temp 98.0 F 06/07/20 05:23 Pulse 65 06/07/20 05:23 Resp 16 06/07/20 05:23 BP 133/67 06/07/20 05:23 Pulse Ox 95 06/07/20 05:23 Body Mass Index 30.3 Appearance: Alert. Oriented X3. No acute distress. Eyes: Pupils equal, round and reactive to light. ENT: Pharynx normal. Neck: Normal inspection. Neck supple. CVS: Normal heart rate and rhythm. Pulses normal. Respiratory: No respiratory distress. Breath sounds normal. Abdomen: Soft and nontender. Skin: Skin warm and dry. Normal skin color. Normal skin turgor. Extremities: No lower extremity edema. No calf ttp can range hip and I feel no lateral protrusion of hip, distal NV intact, pain overlying quadriceps but no bulge or assymetric swelling Neuro: Oriented X 3. No motor deficit. No sensory deficit. Course Course Course Narrative: patient is able to walk but with some pain MDM - Extremity Injury (Lower) MDM Narrative Medical decision making narrative: 70 yo male with multiple medical problems s/p R THR 2 years ago - no issues, was walking up the stairs tonight and felt pain in that joint, he is NV intact, his exam seems okay I do not see swelling to suggest bleeding, no retraction of quadriceps, no lateral protrusion to suggest disloation, will treat pain and obtain xrays, dispo per results and findings. Discharge Plan Discharge Clinical Impression: Hip strain Qualifiers: Encounter type: initial encounter Laterality: right Qualified Code(s): S76.011A - Strain of muscle, fascia and tendon of right hip, initial encounter Patient Disposition: Home, Self-Care Instructions: Muscle Strain (ED) Additional Instructions: return to ED for any worsening symptoms or concerns Prescriptions: New oxycodone 5 mg tablet 5 mg PO TID PRN (Reason: pain) Qty: 10 RF: 0 No Action trazodone 50 mg tablet 50 mg PO BEDTIME PRN (Reason: sleep) Qty: 30 RF: 2 multivitamin Tablet 1 tab PO DAILY RF: 0 losartan 50 mg tablet 50 mg PO BID RF: 0 ascorbic acid (vitamin C) [Vitamin C] 1,000 mg Tablet 1,000 mg PO DAILY@1700 RF: 0 amiodarone 200 mg tablet 100 mg PO DAILY RF: 0 spironolactone 25 mg Tablet 25 mg PO DAILY RF: 0 tamsulosin 0.4 mg capsule 0.8 mg PO DAILY@1700 RF: 0 amlodipine 10 mg tablet 10 mg PO DAILY RF: 0 docusate sodium [Stool Softener] 100 mg Capsule 100 mg PO BID RF: 0 gabapentin 300 mg capsule 900 mg PO BID RF: 0 omeprazole 20 mg capsule,delayed release(DR/EC) 20 mg PO DAILY RF: 0 [place] 10 billion cell Capsule 1 cap PO DAILY RF: 0 sertraline 50 mg tablet 50 mg PO DAILY RF: 0 magnesium 200 mg Tablet 400 mg PO BID RF: 0 Xarelto 20 mg tablet 20 mg PO DAILY@1700 RF: 0 iron 1 tab PO 4XW RF: 0 indomethacin 50 mg capsule 1 cap PO DAILY RF: 0 Referrals: Scotty Liu MD [Primary Care Provider] - 2 days (if not better call [facility])
[2020-06-07] MEDS: HYDROmorphone HCl 2 MG TABLET PO (06:46)
--- NOTE | 2020-06-07 06:47 | PC.NURSE ---
pt back from xray and seen by dr jenkins
== END 2020-06-07 07:30 | disposition home or self-care (01) ==
PROVIDERS: Emergency Provider Emergency Medicine; PCP Internal Medicine Medical Oncology
DX: S76.011A Strain of muscle, fascia and tendon of right hip, initial encounter (principal); X50.1XXA Overexertion from prolonged static or awkward postures, initial encounter; Y93.89 Activity, other specified; Y92.019 Unspecified place in single-family (private) house as the place of occurrence of the external cause; Y99.9 Unspecified external cause status
CPT/HCPCS: 73502; 99283; 99284

== ENCOUNTER 2020-07-15 07:03 | Emergency (ER) | payer OTHER, SELFPAY ==
--- NOTE | ~2020-07-15 | CT_ITS ---
EXAMINATION: CT ANGIOGRAM OF THE CHEST WITH AND WITHOUT CONTRAST (CT PULMONARY ANGIOGRAM FOR PE) CLINICAL INFORMATION: Reason for Exam Shortness of breath, dyspnea on exertion, rule out PE COMPARISON: Previous chest x-ray from earlier the same day and chest CTA August 2014 TECHNIQUE: Prior to contrast administration, noncontrast localization images were obtained. Subsequently, multidetector volumetric imaging was performed from the thoracic inlet to below the diaphragms following the administration of 65 mL Omnipaque 350 intravenous contrast. No contrast reaction reported Sagittal, coronal, and MIP oblique sagittal reformatted images were obtained on the CT workstation, uploaded to PACS, and reviewed. This CT examination was performed using dose optimization techniques as appropriate, variously including the following: *Automated exposure control *Adjustment of mA and/or kV according to patient size (this includes techniques or standardized protocols for targeted exams where dose is matched to indication/reason for exam; i.e. extremities or head) *Use of iterative reconstruction technique Total exam dose-length product 405 mGy-cm FINDINGS: QUALITY OF STUDY/CONTRAST BOLUS: Satisfactory. PULMONARY ARTERIES: No central or segmental pulmonary emboli. THORACIC AORTA: No aneurysm or dissection. The aortic arch and descending thoracic aorta are slightly dilated measuring 3.3 cm. The thoracic aorta is tortuous. LUNG: No focal consolidation, nodules or masses. The lung volumes are low. There is a dependent atelectasis seen at the lung bases. PLEURA: There is a small right pleural effusion. There is a tiny left pleural effusion. MEDIASTINUM: The heart is enlarged. There is a small pericardial effusion. There is coronary artery and aortic valve calcification. The pulmonary arteries are enlarged, pulmonary artery measuring 4.2 cm questionable for pulmonary artery hypertension. There are small mediastinal lymph nodes. No evidence of septal bowing or right heart strain. CHEST WALL/AXILLA: No axillary or internal mammary lymphadenopathy. OSSEOUS STRUCTURES: No acute or suspicious osseous abnormality. There are degenerative changes of the spine. There are degenerative changes at the left shoulder joint. UPPER ABDOMEN: The spleen is enlarged and measures 15 cm in length. No reflux of contrast into the hepatic veins to suggest elevated right heart pressures. CT/CT angio chest PE protocol IMPRESSION: No evidence of pulmonary embolism. Enlarged heart. Coronary artery and aortic valve calcification. Small pericardial effusion. Small right pleural effusion and tiny left pleural effusion. Enlarged pulmonary arteries questionable for pulmonary artery hypertension. Low lung volumes and atelectasis at the lung bases. Enlarged spleen. VTE: negative
--- NOTE | ~2020-07-15 | XR_ITS ---
EXAMINATION: XR CHEST CLINICAL INFORMATION: Shortness of breath COMPARISON: Previous chest x-ray most recent May 2020 TECHNIQUE: Frontal view of the chest was obtained. FINDINGS: The cardiac and mediastinal contours are stable. The lung volumes are low. There may be subsegmental atelectasis at the left lung base. The lungs are otherwise clear. There is no pleural effusion or pneumothorax. There are old left posterior fourth and fifth rib fractures. There are degenerative changes of the spine. XR/XR chest 1V IMPRESSION: Low lung volumes. No evidence for acute disease in the chest.
[2020-07-15 07:27] VITALS: PULSE 79; RESP 16; TEMP 37; O2SAT 96; BMI 30.4
--- NOTE | 2020-07-15 07:42 | ECG_ITS ---
Test Reason : WEAKNESS Blood Pressure : / mmHG Vent. Rate : 069 BPM Atrial Rate : 069 BPM P-R Int : 230 ms QRS Dur : 102 ms QT Int : 412 ms P-R-T Axes : 027 -28 061 degrees QTc Int : 441 ms Sinus rhythm with 1st degree A-V block Otherwise normal ECG When compared with ECG of 28-MAY-2020 04:28, No significant change was found Referred By: Albino Mccullough Electronically Signed By:ANALISA CAIN MD
[2020-07-15 08:26] LABS: Influenza A PCR NEGATIVE (Negative); Influenza B PCR NEGATIVE (Negative); Resp Syncy Virus RNA Qual PCR NEGATIVE (Negative); SARS COV2 PCR INHOUSE NEGATIVE (Negative)
[2020-07-15 08:36] LABS: Hematocrit 28.1 % (42-52); Hemoglobin 9.5 g/dl (14.0-18.0); Mean Corpuscular HGB Conc 33.8 g/dl (31.0-36.0); Mean Corpuscular Hemoglobin 28.4 pg (27.0-33.0); Mean Corpuscular Volume 84.1 fL (80-98); Mean Platelet Volume 8.9 fL (9.4-12.4); Platelet Count 186 X10*3/uL (160-400); Red Blood Count 3.34 X10*6/uL (4.60-5.80); Red Cell Distribution Width 14.6 % (11.0-16.0); White Blood Count 4.4 X10*3/uL (4.8-10.8)
[2020-07-15 08:48] LABS: INTERNATIONAL NORM RATIO 1.9 (0.9-1.1); Prothrombin Time 22.4 SEC (10.8-13.0)
[2020-07-15 08:51] LABS: Partial Thromboplastin Time 43.5 SEC (24.1-38.0)
[2020-07-15 08:59] LABS: OBS Int Ctl Valid YES; OBS1 NEG (NEG)
[2020-07-15 09:01] LABS: Lactic Acid 0.8 mmol/L (0.5-2.0)
--- NOTE | 2020-07-15 09:02 | ED_ITS ---
HPI - General Adult General Chief complaint: Dyspnea Stated complaint: SOB Time Seen by Provider: 07/15/20 07:38 Source: patient Limitations: no limitations History of Present Illness HPI narrative: 70-year-old male who presents the emergency department for evaluation of weakness, shortness of breath, and loss of appetite x3 weeks. He states the symptoms have gotten worse over the past week. Patient states that he has no appetite. He states that yesterday he ate a total of 8 saltine crackers and drink 4 glasses of water. He believes that he has lost weight over the past 3 weeks but cannot quantify how much. He had fever and chills 1 week prior but these resolved and lasted 2 days. He states that he has an occasional cough. He feels short of breath and has significant dyspnea on exertion. He states that he can walk 10-15 feet and gets very winded. He states that he has had no change in his bowel movements, he has not noticed any dark stools. He states that he may have had 2 loose stools several days prior. He denied abdominal pain. He states that he is feeling very weak and fatigued. The patient does take Xarelto for his atrial fibrillation. Related Data Home Medications Medication Instructions Recorded Confirmed Culturelle 1 cap PO DAILY 05/28/20 05/28/20 Xarelto 20 mg PO DAILY@1700 05/28/20 05/28/20 amiodarone 100 mg PO DAILY 05/28/20 05/28/20 amlodipine 10 mg PO DAILY 05/28/20 05/28/20 ascorbic acid (vitamin C) [Vitamin 1,000 mg PO DAILY@1700 05/28/20 05/28/20 C] docusate sodium [Stool Softener] 100 mg PO BID 05/28/20 05/28/20 gabapentin 900 mg PO BID 05/28/20 05/28/20 indomethacin 1 cap PO DAILY 05/28/20 05/28/20 iron 1 tab PO 4XW 05/28/20 05/28/20 losartan 50 mg PO BID 05/28/20 05/28/20 magnesium 400 mg PO BID 05/28/20 05/28/20 multivitamin 1 tab PO DAILY 05/28/20 05/28/20 omeprazole 20 mg PO DAILY 05/28/20 05/28/20 sertraline 50 mg PO DAILY 05/28/20 05/28/20 spironolactone 25 mg PO DAILY 05/28/20 05/28/20 tamsulosin 0.8 mg PO DAILY@1700 05/28/20 05/28/20 Previous Rx's Medication Instructions Recorded trazodone 50 mg tablet 50 mg PO BEDTIME PRN #30 tab 06/06/20 oxycodone 5 mg PO TID PRN #10 tab 06/07/20 Allergies Allergy/AdvReac Type Severity Reaction Status Date / Time No Known Allergies Allergy Verified 05/28/20 03:23 [No Known Allergies*] Review of Systems Review of Systems: Yes all other systems are reviewed and are negative Neurologic: Reports Abnormal speech present [facility] Past Medical History Medical History Afib Anemia BPH (benign prostatic hyperplasia) Chronic back pain HTN (hypertension) Hx of benign neoplasm Hx of testicular cancer Hyponatremia Neuropathy Surgical History History of back surgery History of left knee replacement History of right hip replacement Social History Social History Household Members: Spouse and Children Housing: House Alcohol intake: never Smoking Status: Never smoker Smoked in Last 30 Days: No Use of substances other than those prescribed or required for medical reasons: No Advance Directives: No Advance Directives Information Provided: No service: No Current occupational status: retired Physical Exam Vital Signs: Vital Signs: Last Vital Signs Temp 98.6 F 07/15/20 07:27 Pulse 71 07/15/20 10:28 Resp 16 07/15/20 10:28 BP 112/47 L 07/15/20 10:28 Pulse Ox 93 07/15/20 10:28 Body Mass Index 30.4 Const: General: other (Very pale-appearing, pleasant, cooperative, no di stress) Orientation/consciousness: oriented to person and oriented to place Limitations: no limitations HENMT: Head: Yes normal to inspection, Yes normocephalic and Yes atraumatic Ears: external ears normal General nose exam: Normal external nose present Face and sinus: Yes normal facial exam Mouth: Normal oral and palatal mucosa present Throat: Yes posterior oropharynx normal Eyes: Periorbital: periorbital findings normal Eyelids: Yes eyelids normal Conjunctivae: conjunctivae normal Sclerae: sclerae normal Corneas: corneas normal Pupils: Equal, round and reactive pupils present Direct Ophthalmoscopy: normal light reflex Neck: Neck: Yes full ROM, Yes no lymphadenopathy, Yes no meningeal signs, Yes trachea midline and Yes supple Chest: Chest palpation & inspection: normal inspection of the chest and normal palpation of entire chest wall Resp: Effort & Inspection: normal respiratory effort and able to speak in complete sentences Auscultation: clear to auscultation bilaterally Cardio: Rate: regular rate Rhythm: regular rhythm Heart sounds: S1 normal heart sound present, S2 normal heart sound present and Murmur heart sound present systolic mid, II/ and at the left sternal border GI: Inspection: Yes normal to inspection Palpation (GI): Soft to palpation, nontender, no guarding, not rigid and No hepatosplenomegaly present Rectal Exam - Male: Yes visual inspection normal and Yes heme negative stool (Loose, brown) : General: Yes no CVA tenderness Back/Spine/Pelvis: Back: no CVA tenderness Cervical Spine: normal cervical lordosis Thoracic/Lumbar Spine: thoracic and lumbar spine normal to insp ection Skin: Lesions: no lesions Rashes: no rashes Wounds: no wounds Neuro: General: oriented to person, oriented to place and no meningeal signs Cranial nerves: Yes CN's II-XII intact bilaterally and Yes Equal, round and reactive pupils present Cognition (Neuro): normal cognition Speech: Abnormal speech present Motor exam (neuro): 5/5 motor strength present throughout Extrem: General: Yes normal to inspection and Yes full ROM Psych: Appearance: well kempt Mental Status: mental status grossly normal Speech and movement: Normal speech and movement present Affect: normal affect Attitude: cooperative Thought process: Normal thought process present Thought content: Normal thought content present Course Course Course Narrative: 70-year-old male who presents emergency department for evaluation of multiple complaints including weakness, loss of appetite, shortness of breath, dyspnea on exertion x3 weeks. Patient's physical examination revealed that he was very pale otherwise was unremarkable. Laboratory evaluation revealed chronic anemia with an H&H of 9.5 and 28.1. Patient does have a low sodium of 127 and a low chloride of 89 but he does take spironolactone and he has had similar low values in the past. The patient's flu, RSV and COVID-19 tests were negative. Urinalysis was negative. Patient's stool was Hemoccult negative. Twelve lead EKG revealed a first-degree AV block with no acute injury pattern. CT scan of the chest with IV contrast/PE protocol revealed no pulmonary embolism. The patient has several abnormalities that may explain his dyspnea on exertion and shortness of breath including enlarged pulmonary artery suggestive of pulmonary hypertension, cardiomegaly, coronary artery calcification and calcified aortic valve. The patient's initial troponin was detectable at 12.5 but not elevated. This will be repeated in 3 hours. The patient's TSH was elevated at 4.69 with a normal T4 of 1.09 suggesting that has not have hypothyroidism. 1330: Repeat troponin was unchanged suggesting the does not have any myocardial injury. I did discuss the patient's presentation with his PCP, Dr. Scotty Liu and made aware of the findings in today's workup. He states that he will follow the patient up next week for re-evaluation. I also discuss this with the patient's . The patient will be discharged home. He was advised to contact Dr. Liu if he was worse in any way or to come back to the emergency department for re-evaluation. Medical Decision Making Lab Data Result diagrams: 07/15/20 08:15 07/15/20 08:15 Labs: Lab Results 07/15/20 07/15/20 07/15/20 Range/Units 07:37 08:15 08:15 WBC 4.4 L (4.8-10.8) X10*3/uL RBC 3.34 L (4.60-5.80) X10*6/uL Hgb 9.5 L (14.0-18.0) g/dl Hct 28.1 L (42-52) % MCV 84.1 (80-98) fL MCH 28.4 (27.0-33.0) pg MCHC 33.8 (31.0-36.0) g/dl RDW 14.6 (11.0-16.0) % Plt Count 186 D (160-400) X10*3/uL MPV 8.9 L (9.4-12.4) fL Immature Gran % (Auto) Cancelled Neut % (Auto) Cancelled Lymph % (Auto) Cancelled [place] % (Auto) Cancelled Eos % (Auto) Cancelled Baso % (Auto) Cancelled Lymph # (Auto) Cancelled [place] # (Auto) Cancelled Eos # (Auto) Cancelled Baso # (Auto) Cancelled Abs Immat Gran (auto) Cancelled Absolute Neuts (auto) Cancelled Absolute Nucleated RBC 0.000 (0.0-0.012) X10*3/uL Nucleated RBC % (auto) 0.0 (0.0-0.2) /100WBC Neutrophils % (Manual) 81 H (45-73) % Band Neutrophils % 1 L (3-5) % Lymphocytes % (Manual) 9 L (20-40) % Atypical Lymphs % (Man) 1 (0-6) % Monocytes % (Manual) 5 (2-11) % Metamyelocytes % 2 % Myelocytes % 1 % Abs Neuts (Manual) 3.6 (2.2-7.9) X10*3/uL Lymphocytes # (Manual) 0.4 L (0.6-4.8) X10*3/uL Monocytes # (Manual) 0.2 (0.0-1.2) X10*3/uL Metamyelocytes # 0.1 X10*3/uL Hypersegmented Neuts PRESENT Platelet Estimate NORMAL (NORMAL) Large Platelets PRESENT Plt Morphology Comment NORMAL RBC Morphology NOTED Polychromasia 1+ Microcytosis 2+ Spherocytes 3+ PT 22.4 H (10.8-13.0) SEC INR 1.9 H (0.9-1.1) APTT 43.5 H (24.1-38.0) SEC Sodium (135-145) mmol/L Potassium (3.3-5.1) mmol/L Chloride (96-108) mmol/L Carbon Dioxide (22-29) mmol/L Anion Gap (12-20) BUN (9-16) mg/dL Creatinine (0.5-1.4) mg/dL Estim Creat Clear Calc Estimated GFR Random Glucose (60-115) mg/dL Lactic Acid (0.5-2.0) mmol/L Calcium (8.4-10.2) mg/dL Total Bilirubin (0.0-1.0) mg/dL AST (5-37) U/L ALT (0-40) U/L Alkaline Phosphatase (39-117) U/L Troponin I High Sens (<3.5-35.0) ng/L Total Protein (6.5-8.0) g/dL Albumin (3.5-5.0) g/dL Lipase (8-78) U/L TSH (0.32-4.0) uIU/mL Free T4 (0.71-1.85) ng/dL Stool Occult Blood (NEG) Coronavirus (PCR) NEGATIVE (Negative) Influenza Type A (PCR) NEGATIVE (Negative) Influenza Type B (PCR) NEGATIVE (Negative) RSV RNA Qual (PCR) NEGATIVE (Negative) Blood Type Antibody Screen 07/15/20 07/15/20 07/15/20 Range/Units 08:15 08:15 08:40 WBC (4.8-10.8) X10*3/uL RBC (4.60-5.80) X10*6/uL Hgb (14.0-18.0) g/dl Hct (42-52) % MCV (80-98) fL MCH (27.0-33.0) pg MCHC (31.0-36.0) g/dl RDW (11.0-16.0) % Plt Count (160-400) X10*3/uL MPV (9.4-12.4) fL Immature Gran % (Auto) Neut % (Auto) Lymph % (Auto) [place] % (Auto) Eos % (Auto) Baso % (Auto) Lymph # (Auto) [place] # (Auto) Eos # (Auto) Baso # (Auto) Abs Immat Gran (auto) Absolute Neuts (auto) Absolute Nucleated RBC (0.0-0.012) X10*3/uL Nucleated RBC % (auto) (0.0-0.2) /100WBC Neutrophils % (Manual) (45-73) % Band Neutrophils % (3-5) % Lymphocytes % (Manual) (20-40) % Atypical Lymphs % (Man) (0-6) % Monocytes % (Manual) (2-11) % Metamyelocytes % % Myelocytes % % Abs Neuts (Manual) (2.2-7.9) X10*3/uL Lymphocytes # (Manual) (0.6-4.8) X10*3/uL Monocytes # (Manual) (0.0-1.2) X10*3/uL Metamyelocytes # X10*3/uL Hypersegmented Neuts Platelet Estimate (NORMAL) Large Platelets Plt Morphology Comment RBC Morphology Polychromasia Microcytosis Spherocytes PT (10.8-13.0) SEC INR (0.9-1.1) APTT (24.1-38.0) SEC Sodium 127 L (135-145) mmol/L Potassium 4.4 (3.3-5.1) mmol/L Chloride 89 L (96-108) mmol/L Carbon Dioxide 26 (22-29) mmol/L Anion Gap 16 (12-20) BUN 19 H (9-16) mg/dL Creatinine 1.33 (0.5-1.4) mg/dL Estim Creat Clear Calc 67.5 Estimated GFR 53 Random Glucose 108 (60-115) mg/dL Lactic Acid 0.8 (0.5-2.0) mmol/L Calcium 9.3 D (8.4-10.2) mg/dL Total Bilirubin 1.0 (0.0-1.0) mg/dL AST 20 (5-37) U/L ALT 25 (0-40) U/L Alkaline Phosphatase 80 (39-117) U/L Troponin I High Sens 12.5 (<3.5-35.0) ng/L Total Protein 7.3 (6.5-8.0) g/dL Albumin 4.2 (3.5-5.0) g/dL Lipase 11 (8-78) U/L TSH 4.69 H (0.32-4.0) uIU/mL Free T4 1.09 (0.71-1.85) ng/dL Stool Occult Blood (NEG) Coronavirus (PCR) (Negative) Influenza Type A (PCR) (Negative) Influenza Type B (PCR) (Negative) RSV RNA Qual (PCR) (Negative) Blood Type Antibody Screen 07/15/20 07/15/20 07/15/20 Range/Units 08:40 08:41 12:23 WBC (4.8-10.8) X10*3/uL RBC (4.60-5.80) X10*6/uL Hgb (14.0-18.0) g/dl Hct (42-52) % MCV (80-98) fL MCH (27.0-33.0) pg MCHC (31.0-36.0) g/dl RDW (11.0-16.0) % Plt Count (160-400) X10*3/uL MPV (9.4-12.4) fL Immature Gran % (Auto) Neut % (Auto) Lymph % (Auto) [place] % (Auto) Eos % (Auto) Baso % (Auto) Lymph # (Auto) [place] # (Auto) Eos # (Auto) Baso # (Auto) Abs Immat Gran (auto) Absolute Neuts (auto) Absolute Nucleated RBC (0.0-0.012) X10*3/uL Nucleated RBC % (auto) (0.0-0.2) /100WBC Neutrophils % (Manual) (45-73) % Band Neutrophils % (3-5) % Lymphocytes % (Manual) (20-40) % Atypical Lymphs % (Man) (0-6) % Monocytes % (Manual) (2-11) % Metamyelocytes % % Myelocytes % % Abs Neuts (Manual) (2.2-7.9) X10*3/uL Lymphocytes # (Manual) (0.6-4.8) X10*3/uL Monocytes # (Manual) (0.0-1.2) X10*3/uL Metamyelocytes # X10*3/uL Hypersegmented Neuts Platelet Estimate (NORMAL) Large Platelets Plt Morphology Comment RBC Morphology Polychromasia Microcytosis Spherocytes PT (10.8-13.0) SEC INR (0.9-1.1) APTT (24.1-38.0) SEC Sodium (135-145) mmol/L Potassium (3.3-5.1) mmol/L Chloride (96-108) mmol/L Carbon Dioxide (22-29) mmol/L Anion Gap (12-20) BUN (9-16) mg/dL Creatinine (0.5-1.4) mg/dL Estim Creat Clear Calc Estimated GFR Random Glucose (60-115) mg/dL Lactic Acid (0.5-2.0) mmol/L Calcium (8.4-10.2) mg/dL Total Bilirubin (0.0-1.0) mg/dL AST (5-37) U/L ALT (0-40) U/L Alkaline Phosphatase (39-117) U/L Troponin I High Sens 12.3 (<3.5-35.0) ng/L Total Protein (6.5-8.0) g/dL Albumin (3.5-5.0) g/dL Lipase (8-78) U/L TSH (0.32-4.0) uIU/mL Free T4 (0.71-1.85) ng/dL Stool Occult Blood NEG (NEG) Coronavirus (PCR) (Negative) Influenza Type A (PCR) (Negative) Influenza Type B (PCR) (Negative) RSV RNA Qual (PCR) (Negative) Blood Type A Negative Antibody Screen NEGATIVE ECG Data Attestation: I personally reviewed and interpreted this ECG as follows: Interpretation: With a sinus rhythm with rate of 69, prolonged OR interval of 230 milliseconds consistent with a first-degree AV block, prolonged QRS of 102 milliseconds, normal QTC, no T-wave abnormalities, no ST segment elevation, no ST segment depression, no old EKG for comparison. Discharge Plan Discharge Clinical Impression: Acute dyspnea, Anorexia, Weakness Patient Disposition: Home, Self-Care Additional Instructions: Your evaluation today did not reveal a specific cause for your symptoms. There were several abnormalities on the CT scan of your chest today that I did discuss with your doctor. It is unclear to me if these abnormalities are related to your symptoms. Please call your doctor's office today, he wants you to make an appointment for Saturday07/19/2020. If you are feeling worse or develops any new symptoms you can call your doctor or return to the emergency department for re-evaluation. Prescriptions: No Action trazodone 50 mg tablet 50 mg PO BEDTIME PRN (Reason: sleep) Qty: 30 RF: 2 multivitamin Tablet 1 tab PO DAILY RF: 0 losartan 50 mg tablet 50 mg PO BID RF: 0 ascorbic acid (vitamin C) [Vitamin C] 1,000 mg Tablet 1,000 mg PO DAILY@1700 RF: 0 amiodarone 200 mg tablet 100 mg PO DAILY RF: 0 spironolactone 25 mg Tablet 25 mg PO DAILY RF: 0 tamsulosin 0.4 mg capsule 0.8 mg PO DAILY@1700 RF: 0 amlodipine 10 mg tablet 10 mg PO DAILY RF: 0 docusate sodium [Stool Softener] 100 mg Capsule 100 mg PO BID RF: 0 gabapentin 300 mg capsule 900 mg PO BID RF: 0 omeprazole 20 mg capsule,delayed release(DR/EC) 20 mg PO DAILY RF: 0 Culturelle 10 billion cell Capsule 1 cap PO DAILY RF: 0 sertraline 50 mg tablet 50 mg PO DAILY RF: 0 magnesium 200 mg Tablet 400 mg PO BID RF: 0 Xarelto 20 mg tablet 20 mg PO DAILY@1700 RF: 0 iron 1 tab PO 4XW RF: 0 indomethacin 50 mg capsule 1 cap PO DAILY RF: 0 oxycodone 5 mg tablet 5 mg PO TID PRN (Reason: pain) Qty: 10 RF: 0
[2020-07-15] MEDS: 0.9 % Sodium Chloride 1,000 ML 999 ML IV (09:11)
[2020-07-15 09:14] LABS: Atypical Lymphs Percent Manual 1 % (0-6); Band Neutrophils Percent 1 % (3-5); Lymphocytes Absolute Manual 0.4 X10*3/uL (0.6-4.8); Lymphocytes Percent Manual 9 % (20-40); Metamyelocytes Absolute 0.1 X10*3/uL; Metamyelocytes Percent 2 %; Monocytes Absolute Manual 0.2 X10*3/uL (0.0-1.2); Monocytes Percent Manual 5 % (2-11); Myelocytes Percent 1 %; Neutrophils Absolute Manual 3.6 X10*3/uL (2.2-7.9); Neutrophils Percent Manual 81 % (45-73)
[2020-07-15] MEDS: Acetaminophen 325 MG TABLET 975 MG PO (09:15)
[2020-07-15 09:16] LABS: Hypersegmented Neutrophils PRESENT
[2020-07-15 09:17] LABS: RBC Morphology NOTED
[2020-07-15 09:18] LABS: Polychromasia 1+
[2020-07-15 09:19] LABS: Spherocytes 3+
[2020-07-15 09:20] LABS: Microcytosis 2+
[2020-07-15 09:22] LABS: Large Platelet PRESENT; Platelet Estimate NORMAL (NORMAL); Platelet Morphology Comment NORMAL
[2020-07-15 09:24] LABS: Alanine Aminotransferase 25 U/L (0-40); Albumin Level 4.2 g/dL (3.5-5.0); Alkaline Phosphatase 80 U/L (39-117); Anion Gap 16 (12-20); Aspartate Amino Transferase 20 U/L (5-37); Blood Urea Nitrogen 19 mg/dL (9-16); Calcium 9.3 mg/dL (8.4-10.2); Carbon Dioxide 26 mmol/L (22-29); Chloride 89 mmol/L (96-108); Creatinine Clr Calc Pharmacy 67.5; Estimated Glomerular Filt Rate 53; Glucose Random 108 mg/dL (60-115); Lipase 11 U/L (8-78); Potassium 4.4 mmol/L (3.3-5.1); Sodium 127 mmol/L (135-145); Total Protein 7.3 g/dL (6.5-8.0)
[2020-07-15 09:30] LABS: Troponin-I High Sensitivity 12.5 ng/L (<3.5-35.0)
[2020-07-15 10:28] VITALS: BP 112/47; PULSE 71; RESP 16; O2SAT 93
[2020-07-15 10:33] LABS: Thyroid Stimulating Hormone 4.69 uIU/mL (0.32-4.0)
[2020-07-15] MEDS: iohexoL 350 MG/ML 100 ML INFUS..BTL 65 ML IV (11:30)
[2020-07-15 11:34] LABS: Free T4 (Free Thyroxine) 1.09 ng/dL (0.71-1.85)
[2020-07-15 13:11] LABS: Troponin-I High Sensitivity 12.3 ng/L (<3.5-35.0)
== END 2020-07-15 13:58 | disposition home or self-care (01) ==
PROVIDERS: Emergency Provider Emergency Medicine Emergency Medical Services; PCP Internal Medicine Medical Oncology
DX: R06.00 Dyspnea, unspecified (principal); R63.0 Anorexia; R53.1 Weakness; Z20.822 Contact with and (suspected) exposure to COVID-19; R91.8 Other nonspecific abnormal finding of lung field; I48.91 Unspecified atrial fibrillation; I10 Essential (primary) hypertension; Z85.47 Personal history of malignant neoplasm of testis
CPT/HCPCS: 0241U; 36415; 71045; 71275; 80053; 82272; 83605; 83690; 84439; 84443; 84484; 85007; 85027; 85610; 85730; 86850; 86900; 86901; 87040; 87147; 87205; 93005; 96360; 99284; Q9967

== ENCOUNTER → 2020-07-21 10:22 | Outpatient (REF) | payer OTHER, SELFPAY ==
--- NOTE | 2020-07-21 10:30 | CA_ITS ---
Transthoracic Echocardiogram Patient (Last, First, Middle): Aravind Agustin L Gender: Male Date of : 1950 Age: 70 Procedure Date: 07/21/2020 Procedure Type: Transthoracic Echocardiogram Location: OP Height: 185.42 cm Weight: 104.33 kg BSA: 2.28 m2 Heart Rate: bpm BP: 124 / 76 mmHg Cloth Examiner: DSOlesya Referring MD: Shine Ortiz MD Department Supervisor: Shine Ortiz MD Symptoms: I48.0 PAF, I25.0 NON RHEUM, I10 HTN I51.7 CARDIOMEGALY Study Quality: Technically Difficult ECG Rhythm: Sinus Conclusions: - 1. Normal LV systolic function with impaired relaxation filling pattern 2. Moderately dilated left atrium 3. Moderate aortic stenosis 4. Normal RV systolic pressure 5. No pericardial effusion Findings Left Ventricle Normal left ventricular size, thickness, and systolic function. The visually estimated ejection fraction is between 60-65%. Spectral Doppler is indicative of an impaired relaxation filling pattern. E/E prime ratio is between 8 and 15 consistent with indeterminate filling pressures. There is mild septal asymmetric hypertrophy. Right Ventricle Normal right ventricular cavity size and systolic function. Atria The left atrium is moderately dilated. There is no evidence of interatrial shunt. The right atrium is normal in size. Aortic Valve The aortic valve was not well visualized. There is moderate calcification of the aortic valve. There is moderate aortic valve stenosis. The peak aortic gradient is 34 mmHg.The mean gradient is 21 mmHg. The aortic valve area is 1.25 cm2. There is mild aortic valve regurgitation. Mitral Valve There is severe posterior mitral leaflet thickening. There is severe mitral annular calcification. There is trace mitral valve regurgitation. There is no mitral valve stenosis. Pulmonic Valve The pulmonic valve was not well visualized. Tricuspid Valve Likely normal tricuspid valve structure and function. There is trace tricuspid valve regurgitation. The right ventricular systolic pressure is normal. The right ventricular systolic pressure is 27 mmHg. Normal right atrial pressure. There is no evidence of pulmonary hypertension. Great Vessels All visible segments of the aorta are normal in size. The pulmonary artery was not well visualized. Venous The inferior vena cava is normal in size and collapses greater than 50% with inspiration. Pericardium/Pleural There is no evidence of pericardial effusion. Prior Study Comparison No significant change compared to prior study dated: 10/01/2018. Measurements 2D Linear Measurements IVSd: 1.55 0.6-0.9/0.6-1.0 cm LVIDd: 4.10 3.9-5.3/4.2-5.9 cm LVIDd Index: 1.80 2.4-3.2/2.2-3.1 cm/m2 LVIDs: 3.38 2.0-3.6 cm LVPWd: 0.95 0.7-1.1 cm Ao Root: 4.00 2.1-3.5 cm LV Mass: 226.77 67-162/88-224 g LV Mass Index: 99.46 43-95/49-115 g/m2 LVOT Diam: 2.00 3.0+(-)1.3 cm 2D Systolic Function EF 4C: 64.00 >55% Mitral Valve MV Pk E: 0.86 MV PK A: 1.04 MV Decel Time: 320.00 E/A: 0.80 E'Lateral: 7.18 E'Medial: 6.09 E/E' Med: 14.10 E/E' Lat: 12.00 PHT: 94.00 MVA PHT: 2.34 Decel [place]: 2.68 Aortic Valve AoV Pk Mao: 2.90 AoV Mn Mao: 2.16 AoV VTI: 0.65 AoV Pk Grad: 34.00 Aov Mn Grad: 21.00 NOELLE Cont.VTI: 1.25 AI Pk Mao: 4.31 AI [place]: 1.82 LVOT LVOT Pk Mao: 1.17 LVOT Mn Mao: 0.86 LVOT VTI: 0.26 LVOT Pk Grad: 5.00 LVOT Mn Grad: 3.00 LVOT Diam: 2.00 LVOT Area: 3.14 Diastolic Function MV Pk E: 0.86 MV Pk A: 1.04 E/A: 0.80 E'Medial: 6.09 E/E' Med: 14.10 E' Laterial: 7.18 E/E' Lat: 12.00 Tricuspid Valve TR Pk Mao: 2.46 TR Pk Grad: 24.00 RA Press: 3.00 RVSP: 27.00 Great Vessels Aorta Ao Root-2D: 4.00 2.0-3.7 cm Ao Asc: 3.70 2.1-3.4 cm Updated in Other Vendor System with Status of Final Shine Angel MD electronically signed on 07/22/2020 3:32:45 PM with status of Final
== END ==
LOC: HO.CARD 10:22
PROVIDERS: PCP Internal Medicine Medical Oncology; Visit Provider Internal Medicine Cardiovascular Disease
DX: I48.0 Paroxysmal atrial fibrillation (principal); I35.0 Nonrheumatic aortic (valve) stenosis; I10 Essential (primary) hypertension; I51.7 Cardiomegaly
CPT/HCPCS: 93306

== ENCOUNTER → 2020-08-02 13:35 | Outpatient (BNVA) | payer OTHER, SELFPAY | PROVIDERS: PCP Internal Medicine Medical Oncology; Visit Provider Internal Medicine Cardiovascular Disease | DX: I48.0 Paroxysmal atrial fibrillation (principal); I35.0 Nonrheumatic aortic (valve) stenosis | CPT/HCPCS: 93005 ==

== ENCOUNTER → 2020-08-17 09:11 | Outpatient (BNVA) | payer OTHER, SELFPAY | PROVIDERS: PCP Internal Medicine Medical Oncology; Visit Provider Internal Medicine Pulmonary Disease ==

== ENCOUNTER 2020-09-05 10:17 | Outpatient (REF) | payer OTHER, SELFPAY ==
[2020-09-05 11:47] LABS: Hemoglobin 9.2 g/dl (14.0-18.0); Mean Corpuscular HGB Conc 30.7 g/dl (31.0-36.0); Mean Corpuscular Hemoglobin 25.8 pg (27.0-33.0); Mean Corpuscular Volume 84.3 fL (80-98); Mean Platelet Volume 9.6 fL (9.4-12.4); Platelet Count 198 X10*3/uL (160-400); Red Blood Count 3.56 X10*6/uL (4.60-5.80); Red Cell Distribution Width 14.9 % (11.0-16.0); White Blood Count 3.9 X10*3/uL (4.8-10.8)
[2020-09-05 12:12] LABS: Band Neutrophils Percent 1 % (3-5); Basophils Percent Manual 1 % (0-1); Eosinophils Absolute Manual 0.2 X10*3/UL (0.0-0.8); Eosinophils Percent Manual 5 % (0-4); Lymphocytes Absolute Manual 0.8 X10*3/uL (0.6-4.8); Lymphocytes Percent Manual 20 % (20-40); Metamyelocytes Absolute 0.1 X10*3/uL; Metamyelocytes Percent 2 %; Monocytes Absolute Manual 0.4 X10*3/uL (0.0-1.2); Monocytes Percent Manual 10 % (2-11); Neutrophils Absolute Manual 2.4 X10*3/uL (2.2-7.9); Neutrophils Percent Manual 61 % (45-73)
[2020-09-05 12:13] LABS: Platelet Estimate NORMAL (NORMAL); Platelet Morphology Comment L
[2020-09-05 12:14] LABS: Alanine Aminotransferase 16 U/L (0-40); Albumin Level 4.1 g/dL (3.5-5.0); Alkaline Phosphatase 89 U/L (39-117); Anion Gap 16 (12-20); Aspartate Amino Transferase 19 U/L (5-37); Bilirubin Total 0.5 mg/dL (0.0-1.0); Blood Urea Nitrogen 30 mg/dL (9-16); Calcium 9.3 mg/dL (8.4-10.2); Carbon Dioxide 23 mmol/L (22-29); Chloride 100 mmol/L (96-108); Estimated Glomerular Filt Rate > 60; Glucose Random 114 mg/dL (60-115); Potassium 4.5 mmol/L (3.3-5.1); Sodium 134 mmol/L (135-145); Total Protein 7.5 g/dL (6.5-8.0)
[2020-09-05 12:15] LABS: RBC Morphology NOTED; Rouleau PRESENT
[2020-09-05 12:16] LABS: Hypochromasia 1+ (5-14) /OIF; Microcytosis 1+ (5-14) /OIF; Ovalocytes 1+ (5-14) /OIF
== END 2020-09-05 10:18 | disposition home or self-care (01) ==
LOC: HO.HMGCLDS 10:17
PROVIDERS: PCP Internal Medicine Medical Oncology; Visit Provider Internal Medicine Medical Oncology
DX: E66.9 Obesity, unspecified (principal); I10 Essential (primary) hypertension
CPT/HCPCS: 36415; 80053; 85007; 85027

== ENCOUNTER 2020-10-06 10:59 | Outpatient (REF) | payer OTHER, SELFPAY ==
[2020-10-06 14:16] LABS: Urine Cytology See Pathology rpt
== END 2020-10-06 11:00 | disposition home or self-care (01) ==
LOC: HO.10HDL 10:59
PROVIDERS: Visit Provider Internal Medicine Medical Oncology
DX: R31.0 Gross hematuria (principal)
CPT/HCPCS: 88112

== ENCOUNTER → 2020-10-11 14:02 | Outpatient (BNVA) | payer OTHER, SELFPAY | PROVIDERS: PCP Internal Medicine Medical Oncology; Visit Provider Urology ==

== ENCOUNTER 2020-10-21 11:00 | Outpatient (RCR) | payer OTHER, SELFPAY | END 2021-10-04 13:34 | disposition home or self-care (01) | LOC: HO.PTCHIC 11:00 | PROVIDERS: PCP Internal Medicine Medical Oncology; Visit Provider Physician Assistant | DX: S76.111A Strain of right quadriceps muscle, fascia and tendon, initial encounter (principal); Z96.641 Presence of right artificial hip joint | CPT/HCPCS: 97110; 97112; 97163 ==

== ENCOUNTER 2020-12-20 07:01 | Outpatient (REF) | payer OTHER, SELFPAY ==
[2020-12-20 11:35] LABS: Hemoglobin 9.6 g/dl (14.0-18.0); Mean Corpuscular Hemoglobin 27.9 pg (27.0-33.0); Mean Corpuscular Volume 87.2 fL (80-98); Mean Platelet Volume 10.3 fL (9.4-12.4); Platelet Count 150 X10*3/uL (160-400); Red Blood Count 3.44 X10*6/uL (4.60-5.80); Red Cell Distribution Width 15.5 % (11.0-16.0); White Blood Count 3.7 X10*3/uL (4.8-10.8)
[2020-12-20 12:08] LABS: Alanine Aminotransferase 11 U/L (0-40); Albumin Level 4.2 g/dL (3.5-5.0); Alkaline Phosphatase 84 U/L (39-117); Anion Gap 18 (12-20); Aspartate Amino Transferase 16 U/L (5-37); Band Neutrophils Percent 0 % (3-5); Bilirubin Total 0.8 mg/dL (0.0-1.0); Blood Urea Nitrogen 35 mg/dL (9-16); Calcium 9.4 mg/dL (8.4-10.2); Carbon Dioxide 21 mmol/L (22-29); Chloride 102 mmol/L (96-108); Cholesterol 178 mg/dL; Estimated Glomerular Filt Rate > 60; Glucose Fasting 113 mg/dL (60-99); HDL Cholesterol 50 mg/dL; LDL Cholesterol Calculated 112 mg/dl; Lymphocytes Absolute Manual 1.1 X10*3/uL (0.6-4.8); Lymphocytes Percent Manual 29 % (20-40); Microcytosis 1+ (5-14) /OIF; Monocytes Absolute Manual 0.4 X10*3/uL (0.0-1.2); Monocytes Percent Manual 12 % (2-11); Neutrophils Absolute Manual 2.2 X10*3/uL (2.2-7.9); Neutrophils Percent Manual 59 % (45-73); Platelet Estimate SLIGHTLY DECREASED (NORMAL); Platelet Morphology Comment NOTED; Potassium 4.7 mmol/L (3.3-5.1); RBC Morphology NOTED; Sodium 136 mmol/L (135-145); Total Protein 7.2 g/dL (6.5-8.0); Triglycerides 83 mg/dL
[2020-12-20 12:09] LABS: Hypochromasia 1+ (5-14) /OIF; Large Platelet PRESENT; Ovalocytes 1+ (5-14) /OIF; Rouleau PRESENT
== END 2020-12-20 07:02 | disposition home or self-care (01) ==
LOC: HO.HMGCLDS 07:01
PROVIDERS: PCP Internal Medicine Medical Oncology; Visit Provider Internal Medicine Medical Oncology
DX: I10 Essential (primary) hypertension (principal); E66.9 Obesity, unspecified
CPT/HCPCS: 36415; 80053; 80061; 85007; 85027

== ENCOUNTER 2021-02-14 09:47 | Outpatient (REF) | payer OTHER, SELFPAY ==
[2021-02-14 16:51] LABS: Urine Cytology See Pathology rpt
== END 2021-02-14 09:48 | disposition home or self-care (01) ==
LOC: HO.LNP 09:47
PROVIDERS: PCP Internal Medicine Medical Oncology; Visit Provider Urology
DX: N30.41 Irradiation cystitis with hematuria (principal); Z85.47 Personal history of malignant neoplasm of testis; I48.0 Paroxysmal atrial fibrillation; I35.0 Nonrheumatic aortic (valve) stenosis; Z79.899 Other long term (current) drug therapy
CPT/HCPCS: 88112

== ENCOUNTER 2021-04-06 08:57 | Outpatient (REF) | payer OTHER, SELFPAY ==
[2021-04-07 11:36] LABS: HCG Tumor Marker <3 mIU/mL (<5)
[2021-04-12 11:31] LABS: Alpha Fetoprotein 2.2 ng/mL (<6.1)
== END 2021-04-06 08:58 | disposition home or self-care (01) ==
LOC: HO.HMGCLDS 08:57
PROVIDERS: Absent Provider Internal Medicine Medical Oncology; PCP Internal Medicine Medical Oncology; Visit Provider Urology
DX: Z85.47 Personal history of malignant neoplasm of testis (principal)
CPT/HCPCS: 36415; 82105; 84702

== ENCOUNTER → 2021-04-14 09:25 | Outpatient (BNVA) | payer OTHER, SELFPAY | PROVIDERS: PCP Internal Medicine Medical Oncology; Visit Provider Urology ==

== ENCOUNTER → 2021-05-18 09:18 | Outpatient (BNVA) | payer OTHER, SELFPAY | PROVIDERS: PCP Internal Medicine Medical Oncology; Visit Provider Internal Medicine Pulmonary Disease ==

== ENCOUNTER 2021-05-22 10:35 | Outpatient (REF) | payer OTHER, SELFPAY ==
[2021-05-22 12:19] LABS: PSA,Total (Free>4and<10) 0.15 ng/mL (0.00-4.00)
[2021-05-28 09:06] LABS: Testosterone, Total 38 ng/dL (250-1100)
== END 2021-05-22 10:36 | disposition home or self-care (01) ==
LOC: HO.HMGCLDS 10:35
PROVIDERS: PCP Internal Medicine Medical Oncology; Visit Provider Urology
DX: Z12.5 Encounter for screening for malignant neoplasm of prostate (principal); E29.1 Testicular hypofunction; Z85.47 Personal history of malignant neoplasm of testis
CPT/HCPCS: 36415; 84153; 84403

== ENCOUNTER 2021-05-29 08:05 | Outpatient (REF) | payer OTHER, SELFPAY ==
[2021-06-02 11:00] LABS: Testosterone, Total 9 ng/dL (250-1100)
== END 2021-05-29 08:06 | disposition home or self-care (01) ==
LOC: HO.HMGCLDS 08:05
PROVIDERS: PCP Internal Medicine Medical Oncology; Visit Provider Urology
DX: E29.1 Testicular hypofunction (principal)
CPT/HCPCS: 36415; 84403

== ENCOUNTER 2021-09-05 11:02 | Outpatient (REF) | payer MEDICARE, SELFPAY ==
[2021-09-05 13:56] LABS: MANUAL DIFF FLAG NO
[2021-09-05 14:00] LABS: Basophils Percent Auto 0.3 % (0-2); Eosinophils Absolute Auto 0.2 X10*3/uL (0.0-0.4); Eosinophils Percent Auto 3.8 % (0-4); Hematocrit 30.6 % (42.0-52.0); Hemoglobin 10.2 g/dl (14.0-18.0); Imm Gran Abs Auto 0.17 X10*3/uL (0.00-0.03); Imm Gran Pct Auto 4.3 % (0.0-0.4); Lymphocytes Absolute Auto 1.1 X10*3/uL (1.2-4.9); Lymphocytes Percent Auto 27.1 % (20-40); Mean Corpuscular HGB Conc 33.3 g/dl (31.0-36.0); Mean Corpuscular Hemoglobin 28.3 pg (27.0-33.0); Mean Platelet Volume 9.8 fL (9.4-12.4); Monocytes Absolute Auto 0.4 X10*3/uL (0.1-1.2); Monocytes Percent Auto 10.5 % (2-11); Neutrophils Absolute Auto 2.2 x10*3/uL (2.0-8.3); Platelet Count 164 X10*3/uL (160-400); Red Cell Distribution Width 13.4 % (11.0-16.0)
[2021-09-05 14:15] LABS: Alanine Aminotransferase 17 U/L (0-40); Albumin Level 4.5 g/dL (3.5-5.0); Alkaline Phosphatase 95 U/L (39-117); Anion Gap 13 (12-20); Aspartate Amino Transferase 18 U/L (5-37); Bilirubin Total 0.7 mg/dL (0.0-1.0); Blood Urea Nitrogen 26 mg/dL (9-16); Calcium 10.1 mg/dL (8.4-10.2); Carbon Dioxide 27 mmol/L (22-29); Chloride 95 mmol/L (96-108); Cholesterol 180 mg/dL; Estimated Glomerular Filt Rate > 60; Glucose Random 105 mg/dL (60-115); HDL Cholesterol 44 mg/dL; LDL Cholesterol Calculated 112 mg/dl; Magnesium 1.4 mg/dL (1.6-2.6); Potassium 5.1 mmol/L (3.3-5.1); Sodium 130 mmol/L (135-145); Total Protein 7.8 g/dL (6.5-8.0); Triglycerides 123 mg/dL
[2021-09-11 10:27] LABS: Testosterone, Total 4 ng/dL (250-1100)
== END 2021-09-05 11:03 | disposition home or self-care (01) ==
LOC: HO.HMGCLDS 11:02
PROVIDERS: Urology; PCP Internal Medicine Medical Oncology; Visit Provider Internal Medicine Medical Oncology
DX: E29.1 Testicular hypofunction (principal); K57.92 Diverticulitis of intestine, part unspecified, without perforation or abscess without bleeding; I10 Essential (primary) hypertension; D61.818 Other pancytopenia; I48.0 Paroxysmal atrial fibrillation; E87.1 Hypo-osmolality and hyponatremia; E66.9 Obesity, unspecified
CPT/HCPCS: 36415; 80053; 80061; 83735; 84403; 85025

== ENCOUNTER → 2021-09-06 09:31 | Outpatient (REF) | payer MEDICARE, SELFPAY ==
--- NOTE | 2021-09-06 09:37 | CA_ITS ---
Transthoracic Echocardiogram Patient (Last, First, Middle): Aravind Agustin L Gender: Male Date of : 1950 Age: 71 Procedure Date: 09/06/2021 Procedure Type: Transthoracic Echocardiogram Location: OP Height: 182.88 cm Weight: 108.86 kg BSA: 2.30 m2 Heart Rate: bpm BP: 128 / 82 mmHg Production Administrator: YR/TO Referring MD: Shine Ortiz MD Cellar Hand: Shine Ortiz MD Symptoms: I35.0 - Nonrheumatic aortic (valve) stenosis Study Quality: Fair ECG Rhythm: Sinus Conclusions: - 1. Normal LV systolic function with impaired relaxation filling pattern next 2. Severely dilated left atrium 3. Moderate aortic stenosis with mean gradient of 23 mmHg with mild aortic regurgitation 4. Mitral annular calcification 5. Normal RV systolic pressure 6. No gross pericardial effusion Findings Left Ventricle Normal left ventricular size, thickness, and systolic function. The visually estimated ejection fraction is between 65-70%. Spectral Doppler is indicative of an impaired relaxation filling pattern. E/E prime ratio is between 8 and 15 consistent with indeterminate filling pressures. Right Ventricle Normal right ventricular cavity size and systolic function. Atria The left atrium is severely dilated. There is no evidence of interatrial shunt. The right atrium is normal in size. Aortic Valve There is moderate calcification of the aortic valve. There is moderate thickening of the aortic valve. There is moderate aortic valve stenosis. The peak aortic gradient is 39 mmHg.The mean gradient is 23 mmHg. The aortic valve area is 1.19 cm2. There is mild aortic valve regurgitation. Mitral Valve There is mild anterior and moderate posterior mitral leaflet thickening. There is severe mitral annular calcification. There is trace mitral valve regurgitation. There is no mitral valve stenosis. Pulmonic Valve The pulmonic valve was not well visualized. Tricuspid Valve Likely normal tricuspid valve structure and function. There is trace tricuspid valve regurgitation. The right ventricular systolic pressure is normal. The right ventricular systolic pressure is 16 mmHg. Normal right atrial pressure. There is no evidence of pulmonary hypertension. Great Vessels The pulmonary artery was not well visualized. There is mild dilatation of the ascending aorta measuring 4.00 cm. Venous The inferior vena cava is normal in size and collapses greater than 50% with inspiration. Pericardium/Pleural There is no evidence of pericardial effusion. Prior Study Comparison Changes noted compared to prior study dated: 07/21/2020. left atrium is further enlarged Measurements 2D Linear Measurements IVSd: 1.14 0.6-0.9/0.6-1.0 cm LVIDd: 3.89 3.9-5.3/4.2-5.9 cm LVIDd Index: 1.69 2.4-3.2/2.2-3.1 cm/m2 LVIDs: 2.84 2.0-3.6 cm LVPWd: 1.06 0.7-1.1 cm LV Mass: 173.68 67-162/88-224 g LV Mass Index: 75.51 43-95/49-115 g/m2 LVOT Diam: 2.00 3.0+(-)1.3 cm 2D Systolic Function EF 4C: 70.80 >55% EF 2C: 63.80 >55% EF BiP: 67.70 >55% Mitral Valve MV Pk E: 1.12 MV PK A: 1.15 MV Decel Time: 255.00 E/A: 1.00 E'Lateral: 6.53 E'Medial: 6.42 E/E' Med: 17.40 E/E' Lat: 17.20 PHT: 75.00 MVA PHT: 2.93 Decel Piute: 4.38 Aortic Valve AoV Pk Mao: 3.11 AoV Mn Mao: 2.27 AoV VTI: 0.78 AoV Pk Grad: 39.00 Aov Mn Grad: 23.00 NOELLE Cont.VTI: 1.19 AI Pk Mao: 3.81 AI Piute: 1.41 LVOT LVOT Pk Mao: 1.12 LVOT Mn Mao: 0.80 LVOT VTI: 0.30 LVOT Pk Grad: 5.00 LVOT Mn Grad: 3.00 LVOT Diam: 2.00 LVOT Area: 3.14 Diastolic Function MV Pk E: 1.12 MV Pk A: 1.15 E/A: 1.00 E'Medial: 6.42 E/E' Med: 17.40 E' Laterial: 6.53 E/E' Lat: 17.20 Right Ventricle TAPSE (mm): 16.50 TVS' Mao: 11.50 Tricuspid Valve TR Pk Mao: 1.82 TR Pk Grad: 13.00 RA Press: 3.00 RVSP: 16.00 Great Vessels Aorta Sinus of Valsalva: 4.02 2.0-3.[address] [place]: 3.12 1.7-3.4 cm Ao Asc: 4.00 2.1-3.4 cm Ao Arch: 2.90 Updated in Other Vendor System with Status of Final Shine Ortiz MD electronically signed on 09/08/2021 4:59:44 PM with status of Final
== END ==
LOC: HO.CARD 09:31
PROVIDERS: PCP Internal Medicine Medical Oncology; Visit Provider Internal Medicine Cardiovascular Disease
DX: I35.0 Nonrheumatic aortic (valve) stenosis (principal)
CPT/HCPCS: 93306

== ENCOUNTER → 2021-09-21 11:15 | Outpatient (BNVA) | payer MEDICARE, SELFPAY | PROVIDERS: Visit Provider Urology | DX: E29.1 Testicular hypofunction (principal); N30.40 Irradiation cystitis without hematuria; Z85.47 Personal history of malignant neoplasm of testis; Z92.3 Personal history of irradiation | CPT/HCPCS: Q3014 ==

== ENCOUNTER → 2021-09-28 14:46 | Outpatient (BNVA) | payer MEDICARE, SELFPAY | PROVIDERS: PCP Internal Medicine Medical Oncology; Visit Provider Internal Medicine Pulmonary Disease | DX: Z13.89 Encounter for screening for other disorder (principal) | CPT/HCPCS: Q3014 ==

== ENCOUNTER 2021-12-25 08:51 | Outpatient (REF) | payer MEDICARE, SELFPAY ==
[2021-12-25 11:21] LABS: Hematocrit 29.8 % (42.0-52.0); Mean Corpuscular HGB Conc 33.6 g/dl (31.0-36.0); Mean Corpuscular Hemoglobin 27.8 pg (27.0-33.0); Mean Corpuscular Volume 82.8 fL (80.0-98.0); Mean Platelet Volume 10.3 fL (9.4-12.4); Platelet Count 178 X10*3/uL (160-400); Red Cell Distribution Width 14.5 % (11.0-16.0); White Blood Count 3.8 X10*3/uL (4.8-10.8)
[2021-12-25 11:44] LABS: Alanine Aminotransferase 14 U/L (0-40); Albumin Level 4.2 g/dL (3.5-5.0); Alkaline Phosphatase 98 U/L (39-117); Anion Gap 14 (12-20); Aspartate Amino Transferase 14 U/L (5-37); Bilirubin Total 0.6 mg/dL (0.0-1.0); Blood Urea Nitrogen 30 mg/dL (9-16); Calcium 9.3 mg/dL (8.4-10.2); Carbon Dioxide 24 mmol/L (22-29); Chloride 99 mmol/L (96-108); Cholesterol 177 mg/dL; Estimated Glomerular Filt Rate 57; Glucose Random 137 mg/dL (60-115); HDL Cholesterol 44 mg/dL; LDL Cholesterol Calculated 112 mg/dl; Magnesium 1.5 mg/dL (1.6-2.6); Potassium 4.8 mmol/L (3.3-5.1); Sodium 132 mmol/L (135-145); Total Protein 7.5 g/dL (6.5-8.0); Triglycerides 109 mg/dL
[2021-12-25 11:53] LABS: Atypical Lymphs Percent Manual 1 % (0-6); Band Neutrophils Percent 5 % (3-5); Basophils Percent Manual 1 % (0-2); Eosinophils Absolute Manual 0.2 X10*3/uL (0.0-0.4); Eosinophils Percent Manual 5 % (0-4); Lymphocytes Percent Manual 26 % (20-40); Metamyelocytes Absolute 0.1 X10*3/uL; Metamyelocytes Percent 2 %; Monocytes Absolute Manual 0.3 X10*3/uL (0.1-1.2); Monocytes Percent Manual 7 % (2-11); Myelocytes Percent 1 %; Neutrophils Absolute Manual 2.2 X10*3/uL (2.0-8.3); Neutrophils Percent Manual 52 % (45-73)
[2021-12-25 11:54] LABS: Hypochromasia 1+ (5-14) /OIF; Ovalocytes 1+ (5-14) /OIF; Platelet Estimate NORMAL (NORMAL); Platelet Morphology Comment NORMAL; RBC Morphology NOTED; Tear Drop Cells 1+ (0-2) /OIF
== END 2021-12-25 08:52 | disposition home or self-care (01) ==
LOC: HO.HMGCLDS 08:51
PROVIDERS: Visit Provider Internal Medicine Medical Oncology
DX: K57.92 Diverticulitis of intestine, part unspecified, without perforation or abscess without bleeding (principal); I10 Essential (primary) hypertension; D61.818 Other pancytopenia; I48.0 Paroxysmal atrial fibrillation; E87.1 Hypo-osmolality and hyponatremia; E66.9 Obesity, unspecified
CPT/HCPCS: 36415; 80053; 80061; 83735; 85007; 85027

== ENCOUNTER 2022-01-31 16:43 | Inpatient (IN) | payer MEDICARE, SELFPAY ==
--- NOTE | ~2022-01-31 | CT_ITS ---
EXAMINATION: CT ABDOMEN AND PELVIS WITHOUT CONTRAST CLINICAL INFORMATION: Abdominal pain. Rule out small bowel obstruction. COMPARISON: CT abdomen pelvis 05/28/2020 TECHNIQUE: Multidetector volumetric imaging was performed from the superior aspect of the liver through the pubic symphysis. Sagittal and coronal reformatted images were obtained on the technologist's workstation. This CT examination was performed using dose optimization techniques as appropriate, variously including the following: *Automated exposure control *Adjustment of mA and/or kV according to patient size (this includes techniques or standardized protocols for targeted exams where dose is matched to indication/reason for exam; i.e. extremities or head) *Use of iterative reconstruction technique DLP: 989 mGy-cm FINDINGS: Visualized lung bases demonstrate mild dependent atelectasis. Prominent mitral annulus calcifications are noted. A small amount of pericardial fluid is present. The liver is normal in size. There is suspicion of some portal venous gas. The gallbladder is normal in appearance. Fatty atrophy of the pancreas. The spleen and adrenal glands are unremarkable. No renal calculi or hydronephrosis of either kidney. There is scarring within the lower pole the right kidney with some mild diffuse cortical thinning of both kidneys. Mild perinephric stranding is noted. Normal distention of the stomach. There are postsurgical changes of the small bowel anastomotic suture line noted within the right lower abdomen. There is suspicion of some pneumatosis intestinalis within loops of small bowel adjacent to the anastomosis although there is no definitive bowel wall thickening in this region. There is however some mild mesenteric stranding in this region. The colon is normal in caliber demonstrating a moderate stool burden. Normal appendix. Mild colonic diverticulosis without CT evidence to suggest active diverticulitis. Normal caliber abdominal aorta demonstrating severe atherosclerotic disease. No gross retroperitoneal lymphadenopathy. The bladder is normal in appearance. There is no gross free pelvic fluid. No inguinal lymphadenopathy. Scoliotic and severe degenerative changes of the spine. Old possible posttraumatic changes of the left ninth rib. CT/CT abdomen pelvis wo IV con IMPRESSION: Portal venous gas is noted within the liver. There is also suspicion of some pneumatosis intestinalis within loops of small bowel adjacent to the anastomosis. Although I do not appreciate any definitive wall thickening this region there is some mild mesenteric stranding in this region concerning for mesenteric ischemia. Clinical correlation is recommended. Surgical consultation warranted.
--- NOTE | ~2022-01-31 | CT_ITS ---
EXAMINATION: CT ANGIOGRAM ABDOMEN AND PELVIS CLINICAL INFORMATION: Mesenteric ischemia. COMPARISON: None TECHNIQUE: Multiple axial images were obtained through the abdomen and pelvis following the administration of 100 mL of Omnipaque 350 intravenous contrast. Images were reviewed on a dedicated 3-D workstation. This CT examination was performed using dose optimization techniques as appropriate, variously including the following: *Automated exposure control *Adjustment of mA and/or kV according to patient size (this includes techniques or standardized protocols for targeted exams where dose is matched to indication/reason for exam; i.e. extremities or head) *Use of iterative reconstruction technique DLP: 735 mGy-cm FINDINGS: CTA: The abdominal aorta is calcified and atherosclerotic without aneurysmal dilatation. There is atherosclerotic plaque at the origins of celiac, superior mesenteric bilateral renal arteries. Inferior mesenteric artery is not visualized. All aortic branches are of small caliber. The celiac artery branching is normal into left gastric and hepatic arteries. There is normal bifurcation of distal abdominal aorta into bilateral common iliac which bifurcate into bilateral external and internal iliac arteries, and are widely patent. NON-CTA: Lung bases: Minimal atelectatic changes are seen in both lung bases. Heart size is normal. Mild calcification of coronary arteries aortic and mitral valve are noted. There is mild pericardial effusion. Minimal bibasilar posterior pleural thickening is seen. Liver, ducts and gallbladder: Liver is normal size, contour and density. No focal lesion or intrahepatic ductal dilatation seen. The gallbladder is unremarkable. Spleen: There is a punctate hypodensity along the posterior border of spleen likely 6 cm cyst. Pancreas: Unremarkable. Bilateral adrenal glands: Unremarkable. Kidneys, ureters: Right kidney is normal size. The left kidney is small 7.6 cm. Both kidneys are lobulated without enhancing renal mass or hydronephrosis. There is chronic scarring and atrophy of the posterior cortex right kidney involving the upper and mid poles. Retroperitoneum: There is no abnormal lymph nodes or mass. GI tract: There is diffuse colonic diverticulosis without mural thickening. There is mural thickening involving a small segment of terminal ileum with mild adjacent fat stranding suspicious of inflammatory or infectious etiology. The rest of the lesion in the small bowel loops are normal caliber. Postsurgical changes seen involving small bowel in the midabdomen without proximal dilatation. The stomach is nondistended and unremarkable. No free air or free fluid seen. Appendix is not visualized residual contrast is seen within the diverticuli throughout the colon. There is no pneumatosis or pneumobilia. Abdominal wall: There are postsurgical changes in the periumbilical region from previous intervention. No evidence of hernia. Pelvis: The bladder is unremarkable and nondistended. No free fluid seen. No abnormal pelvic or inguinal lymph nodes seen. Osseous structures: There is a total right hip prosthesis. There are degenerative disc changes L5-S1, L4-L5, L3-L4 and L2-L3 disc levels. Moderate levoscoliosis lumbar spine with moderate spondylosis and degenerative disc changes. CT/CT angio abdomen pelvis IMPRESSION: 1. Abdominal aorta is normal caliber except for atherosclerosis and mild tortuosity. No dissection. The origins of abdominal aorta branches are patent except for some calcified plaque but no narrowing or stenosis seen. 2. Diffuse mural thickening involving the terminal ileum with fat stranding suggestive of inflammatory or infectious etiology question Crohn's Disease or Ileitis. There is no pneumatosis. Colonic diverticulosis without diverticulitis. Postsurgical changes small bowel right midabdomen. 3. Bilateral posterior pleural thickening and small pericardial effusion. Fleischner guidelines were followed.
--- NOTE | ~2022-01-31 | CT_ITS ---
EXAMINATION: CT ABDOMEN AND PELVIS WITHOUT CONTRAST CLINICAL INFORMATION: Follow-up portal venous air. COMPARISON: 01/31/2022 TECHNIQUE: Multidetector volumetric imaging was performed from the superior aspect of the liver through the pubic symphysis. Sagittal and coronal reformatted images were obtained on the technologist's workstation. This CT examination was performed using dose optimization techniques as appropriate, variously including the following: *Automated exposure control *Adjustment of mA and/or kV according to patient size (this includes techniques or standardized protocols for targeted exams where dose is matched to indication/reason for exam; i.e. extremities or head) *Use of iterative reconstruction technique DLP: 929 mGy-cm FINDINGS: LUNG BASES: Bibasilar atelectasis. Small pericardial effusion. Coronary artery calcifications. Mitral annular calcification. LIVER, GALLBLADDER, AND BILIARY TREE: The liver is normal in size, shape, and attenuation. No focal hepatic lesion or biliary ductal dilatation is present. Previously seen portal venous gas within the liver has resolved. No residual gas visualized. The gallbladder is unremarkable with no evidence of radiopaque gallstones, gallbladder wall thickening, or obvious pericholecystic inflammatory changes. PANCREAS: Unremarkable. SPLEEN: Unremarkable. ADRENAL GLANDS: Unremarkable. KIDNEYS AND URETERS: The kidneys are normal in size, shape, and attenuation. No hydronephrosis, hydroureter, or calculi seen. Bilateral unchanged perinephric stranding. BLADDER: Unremarkable. GASTROINTESTINAL TRACT: The stomach is unremarkable. Normal caliber of the small bowel. There is wall thickening involving the distal ileum extending to the terminal ileum with adjacent inflammatory changes. This wall thickening has increased. This involves greater than 25 cm in length of the distal ileum. The previous pneumatosis is no longer visualized within the distal small bowel. No colonic wall thickening. Sigmoid diverticulosis without diverticulitis. No free air. ABDOMINAL WALL: No significant hernia is appreciated. LYMPH NODES: Normal. VASCULAR: Normal caliber aorta with severe atherosclerotic calcification. PELVIC VISCERA: The prostate and seminal vesicles are unremarkable. OSSEOUS STRUCTURES: No acute or suspicious osseous abnormality. Degenerative change throughout the spine with scoliotic curvature. Total right hip arthroplasty without evidence of failure. CT/CT abdomen pelvis wo IV con IMPRESSION: Resolution of previous portal venous gas. Previous small bowel pneumatosis is also no longer seen. There is significant wall thickening involving the distal ileum, extending through the terminal ileum. Adjacent inflammatory changes. This is increased from prior. This is not obstructive. 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 Fleischner guidelines were followed.
[2022-01-31 16:54] VITALS: BP 147/81; PULSE 89; RESP 18; TEMP 36.8; O2SAT 97; BMI 31.8
[2022-01-31 17:16] LABS: MANUAL DIFF FLAG NO
[2022-01-31 17:31] LABS: Anion Gap 18 (12-20); Blood Urea Nitrogen 48 mg/dL (9-16); COVID-19 Test Negative (Negative); Calcium 9.2 mg/dL (8.4-10.2); Carbon Dioxide 23 mmol/L (22-29); Chloride 97 mmol/L (96-108); Creatinine Clr Calc Pharmacy 39.2; Estimated Glomerular Filt Rate 29; Glucose Random 185 mg/dL (60-115); IDNOW Serial# 16C4AD1C; Potassium 5.7 mmol/L (3.3-5.1); Sodium 132 mmol/L (135-145)
[2022-01-31 17:36] LABS: Basophils Percent Auto 0.2 % (0-2); Eosinophils Absolute Auto 0.1 X10*3/uL (0.0-0.4); Eosinophils Percent Auto 1.6 % (0-4); Hematocrit 29.4 % (42.0-52.0); Imm Gran Abs Auto 0.17 X10*3/uL (0.00-0.03); Lymphocytes Absolute Auto 0.5 X10*3/uL (1.2-4.9); Lymphocytes Percent Auto 10.5 % (20-40); Mean Corpuscular Hemoglobin 27.7 pg (27.0-33.0); Mean Corpuscular Volume 81.4 fL (80.0-98.0); Mean Platelet Volume 10.1 fL (9.4-12.4); Monocytes Absolute Auto 0.4 X10*3/uL (0.1-1.2); Monocytes Percent Auto 9.3 % (2-11); Neutrophils Absolute Auto 3.2 x10*3/uL (2.0-8.3); Neutrophils Percent Auto 74.4 % (45-73); Platelet Count 150 X10*3/uL (160-400); Red Blood Count 3.61 X10*6/uL (4.60-5.80); Red Cell Distribution Width 14.7 % (11.0-16.0); White Blood Count 4.3 X10*3/uL (4.8-10.8)
--- NOTE | 2022-01-31 19:03 | ECG_ITS ---
Test Reason : ABDOMINAL PAIN Blood Pressure : / mmHG Vent. Rate : 095 BPM Atrial Rate : 000 BPM P-R Int : 000 ms QRS Dur : 094 ms QT Int : 314 ms P-R-T Axes : 000 -24 080 degrees QTc Int : 394 ms Atrial fibrillation Nonspecific T wave abnormality Abnormal ECG When compared with ECG of 15-JUL-2020 08:48, Atrial fibrillation has replaced Sinus rhythm Nonspecific T wave abnormality now evident in Inferior leads Referred By: Radha Arriaga Electronically Signed By:JATIN GONZALEZ
--- NOTE | 2022-01-31 19:04 | ED_ITS ---
HPI - Abdominal Pain General Chief Complaint: Abdominal Pain Stated Complaint: ?abd pain ? bowel obstruction Time Seen by Provider: 01/31/22 18:51 Source: patient and family Mode of arrival: ambulatory Limitations: no limitations History of Present Illness HPI narrative: Patient comes to the emergency room complaining of severe diffuse abdominal pain, 03/12, nonradiating, which started approximately 6 hours ago. Patient states that he has had small bowel obstructions in the past and it feels the same. Patient states that when he came in the pain was so bad that he was looking forward to have an NG-tube placed. At this time, the pain is not as bad as earlier when he arrived to the emergency room. However, he still has significant discomfort. Patient complaining of nausea, dry heaving, no vomiting or diarrhea. Patient denies chest pain or shortness of breath. Patient also stated that in the last couple of days, he has noticed that after eating he has intense abdominal pain. Related Data Home Medications Medication Instructions Recorded Confirmed Lactobacillus rhamnosus GG 10 1 cap PO DAILY 05/28/20 01/31/22 billion cell capsule (Culturelle) ascorbic acid (vitamin C) 1,000 mg 1,000 mg PO DAILY@1700 05/28/20 01/31/22 tablet (Vitamin C) docusate sodium 100 mg capsule 100 mg PO BID 05/28/20 01/31/22 (Stool Softener) gabapentin 300 mg capsule 900 mg PO BID 05/28/20 01/31/22 iron 1 tab PO 4XW 05/28/20 01/31/22 magnesium 200 mg tablet 400 mg PO BID 05/28/20 01/31/22 multivitamin 1 tab PO DAILY 05/28/20 01/31/22 omeprazole 20 mg capsule,delayed 20 mg PO DAILY 05/28/20 01/31/22 release sertraline 50 mg tablet 50 mg PO DAILY 05/28/20 01/31/22 fluticasone propionate 50 1 spray intranasal DAILY 10/11/20 01/31/22 mcg/actuation nasal spray,suspension albuterol sulfate 90 mcg/actuation 2 puff PO Q4H PRN Shortness Of 02/14/21 01/31/22 aerosol inhaler Breath cetirizine 10 mg capsule (Zyrtec) 10 mg PO DAILY PRN Insomnia 02/14/21 01/31/22 dicyclomine 10 mg capsule 10 mg PO BID PRN Gastrointestinal 01/31/22 01/31/22 Spasms Or Cramping Previous Rx's Medication Instructions Recorded trazodone 50 mg tablet 50 mg PO BEDTIME PRN for insomnia 08/30/21 #90 tabs tamsulosin 0.4 mg capsule 0.8 mg PO DAILY@1700 90 days #180 09/21/21 caps rivaroxaban 20 mg tablet (Xarelto) 20 mg PO DAILY@1700 90 days #90 09/25/21 tabs losartan 50 mg tablet 50 mg PO BID 90 days #180 tabs 01/26/22 metoprolol succinate 50 mg 50 mg PO DAILY #90 tabs 01/26/22 tablet,extended release 24 hr (Toprol XL) spironolactone 25 mg tablet 25 mg PO DAILY #90 tabs 01/26/22 amiodarone 200 mg tablet 200 mg PO DAILY #30 tabs 01/31/22 amiodarone 400 mg tablet 400 mg PO BID 14 days #28 tabs 01/31/22 amlodipine 10 mg tablet 5 mg PO BID #90 tabs 01/31/22 Allergies Allergy/AdvReac Type Severity Reaction Status Date / Time No Known Allergies Allergy Verified 09/28/21 14:47 [No Known Allergies*] Review of Systems Review of Systems Constitutional : No Weight loss, No Fever, No Chills, No Night Sweats, No Fatigue, No Malaise ENT/Mouth : No Hearing loss, No Ear Pain, No Nasal Congestion, No Sinus Pain, No Hoarseness, No sore throat, No Rhinorrhea, No Swallowing Difficulty Eyes: No Eye Pain, No Swelling, No Redness, No Foreign Body, No Discharge, No Vision Changes Cardiovascular : No Chest Pain, No SOB, No Dyspnea on Exertion, No Orthopnea, No Edema, No Palpitations Respiratory : No Cough, No Sputum, No Wheezing, No Smoke Exposure, No Dyspnea Gastrointestinal : Complaining of nausea/dry heaving No Vomiting, No Diarrhea, had a bowel movement prior to arrival, complaining of diffuse abdominal pain, similar to SBO in the past Genitourinary : no irregular bleeding, No Dysuria, No Urinary Frequency, No Hematuria, No Urinary Incontinence, No Urgency, No Flank Pain, No Urinary Flow Changes, No Hesitancy Musculoskeletal : No joint pain, No Myalgias, No Joint Swelling Skin : No Skin Lesions, No rash Neuro : No Weakness, No Numbness, No Paresthesias, No Loss of Consciousness, No Dizziness, No Headache Psych : No Anxiety/Panic, No Depression, No SI/HI/AH/VH, No Social Issues, Heme/Lymph: No Bruising, No Bleeding,No Lymphadenopathy Endocrine : No Polyuria, No Polydipsia, No Temperature Intolerance [facility] Past Medical History Medical History Anemia Aortic stenosis BPH (benign prostatic hyperplasia) Chronic back pain History of cardioversion HTN (hypertension) Hx of benign neoplasm Hx of testicular cancer Hyponatremia Neuropathy Paroxysmal atrial fibrillation Sleep apnea Surgical History H/O colonoscopy History of back surgery History of left knee replacement History of orchiectomy History of right hip replacement Hx of cataract extraction Hx of cystoscopy Social History Social History Household Members: Spouse and Children Housing: House Do you presently have visiting nurse or other home services: No Alcohol intake: never Patient Tobacco Use Status: Never used Tobacco Use of substances other than those prescribed or required for medical reasons: No Advance Directives: Yes Advance Directives Information Provided: No Advance Directives on File: No service: No Current occupational status: retired Physical Exam ED Vital Signs: Vital Signs - 24 hr 01/31/22 16:54 01/31/22 20:18 01/31/22 21:39 Temperature 98.2 F 98.7 F 98.2 F Pulse Rate 89 87 94 Respiratory Rate 18 16 16 Blood Pressure 147/81 H 122/57 L 113/73 Pulse Oximetry 97 92 94 Oxygen Delivery Method Room Air Room Air Room Air BMI result Body Mass Index 31.8 Const Other: Appearance: Alert. Oriented X3. Seems uncomfortable Eyes: Pupils equal, round and reactive to light. ENT: Pharynx normal. Neck: Normal inspection. Neck supple. No lymph nodes noted. No crepitus CVS: Normal heart rate and rhythm. Pulses normal. Normal S1 and S2 Respiratory: No respiratory distress. Breath sounds normal. No Wheezing. No rales Abdomen: Soft , diffuse tenderness to palpation especially in the periumbilical area, no rebound, no guarding, mild to moderate moderate distension Skin: Skin warm and dry. Normal skin color. Normal skin turgor. Extremities: No lower extremity edema. No Lacerations. No Rash Neuro: Oriented X 3. No motor deficit. No sensory deficit. Moving all extremities. No slurred speech. CN 2 through 12 grossly intact Psych: calm, cooperative, normal affect Course Course Course Narrative: White blood cell count at baseline, patient does have a acute kidney injury, fluids being given, hyperkalemia, patient being given IV fluids, calcium gluconate, D50 and insulin 5 units, no EKG changes/peaked T-waves. Patient also received Dilaudid, Zofran. CT scan of the abdomen pending. Patient states that the Dilaudid did help, but now the abdominal pain is starting to increase again. I discussed the patient, CT findings and labs with Dr. Fernandez. He would like to personally talked to [facility] regarding the CT findings. It is possible the patient may be experiencing mesenteric ischemia although he is on blood thinners. Dr. Fernandez is on her way in to evaluate the patient. 23:40, Dr. Fernandez at bedside, patient will be admitted, this time, patient is better appearing, still has some abdominal tenderness but not as much as he used to. Dr. Fernandez discussed the admission plan with the patient and is a greeable. MDM - Abdominal Pain Lab Data Result diagrams: 01/31/22 17:08 01/31/22 17:08 Labs: Lab Results 01/31/22 01/31/22 01/31/22 Range/Units 17:08 17:08 17:08 WBC 4.3 L (4.8-10.8) X10*3/uL RBC 3.61 L (4.60-5.80) X10*6/uL Hgb 10.0 L (14.0-18.0) g/dl Hct 29.4 L (42.0-52.0) % MCV 81.4 (80.0-98.0) fL MCH 27.7 (27.0-33.0) pg MCHC 34.0 (31.0-36.0) g/dl RDW 14.7 (11.0-16.0) % Plt Count 150 L (160-400) X10*3/uL MPV 10.1 (9.4-12.4) fL Immature Gran % (Auto) 4.0 H (0.0-0.4) % Neut % (Auto) 74.4 H (45-73) % Lymph % (Auto) 10.5 L (20-40) % [place] % (Auto) 9.3 (2-11) % Eos % (Auto) 1.6 (0-4) % Baso % (Auto) 0.2 (0-2) % Lymph # (Auto) 0.5 L (1.2-4.9) X10*3/uL [place] # (Auto) 0.4 (0.1-1.2) X10*3/uL Eos # (Auto) 0.1 (0.0-0.4) X10*3/uL Baso # (Auto) 0.0 (0.0-0.2) X10*3/uL Abs Immat Gran (auto) 0.17 H (0.00-0.03) X10*3/uL Absolute Neuts (auto) 3.2 (2.0-8.3) x10*3/uL Absolute Nucleated RBC 0.000 (0.0-0.012) X10*3/uL Nucleated RBC % (auto) 0.0 (0.0-0.2) /100WBC Sodium 132 L (135-145) mmol/L Potassium 5.7 H (3.3-5.1) mmol/L Chloride 97 (96-108) mmol/L Carbon Dioxide 23 (22-29) mmol/L Anion Gap 18 (12-20) BUN 48 H D (9-16) mg/dL Creatinine 2.24 H (0.5-1.4) mg/dL Estim Creat Clear Calc 39.2 Estimated GFR 29 Random Glucose 185 H D (60-115) mg/dL Lactic Acid (0.5-2.0) mmol/L Calcium 9.2 (8.4-10.2) mg/dL Magnesium 1.6 (1.6-2.6) mg/dL Urine Color Urine Appearance Urine pH (5.0-9.0) Ur Specific [place] (1.005-1.025) Urine Protein (Neg-Trace) mg/dL Urine Glucose (UA) (Negative) mg/dL Urine Ketones (Negative) mg/dL Urine Blood (Negative) Urine Nitrite (Negative) Ur Leukocyte Esterase (Negative) Urine RBC (0-2) /HPF Urine WBC (0-5) /HPF Ur Squamous Epith Cells (0-2) /HPF Urine Bacteria (None Seen) Hyaline Casts (0-2) /LPF COVID-19 ([facility]) Negative (Negative) COVID-19 Clin Com See Note 01/31/22 01/31/22 Range/Units 20:24 20:30 WBC (4.8-10.8) X10*3/uL RBC (4.60-5.80) X10*6/uL Hgb (14.0-18.0) g/dl Hct (42.0-52.0) % MCV (80.0-98.0) fL MCH (27.0-33.0) pg MCHC (31.0-36.0) g/dl RDW (11.0-16.0) % Plt Count (160-400) X10*3/uL MPV (9.4-12.4) fL Immature Gran % (Auto) (0.0-0.4) % Neut % (Auto) (45-73) % Lymph % (Auto) (20-40) % [place] % (Auto) (2-11) % Eos % (Auto) (0-4) % Baso % (Auto) (0-2) % Lymph # (Auto) (1.2-4.9) X10*3/uL [place] # (Auto) (0.1-1.2) X10*3/uL Eos # (Auto) (0.0-0.4) X10*3/uL Baso # (Auto) (0.0-0.2) X10*3/uL Abs Immat Gran (auto) (0.00-0.03) X10*3/uL Absolute Neuts (auto) (2.0-8.3) x10*3/uL Absolute Nucleated RBC (0.0-0.012) X10*3/uL Nucleated RBC % (auto) (0.0-0.2) /100WBC Sodium (135-145) mmol/L Potassium (3.3-5.1) mmol/L Chloride (96-108) mmol/L Carbon Dioxide (22-29) mmol/L Anion Gap (12-20) BUN (9-16) mg/dL Creatinine (0.5-1.4) mg/dL Estim Creat Clear Calc Estimated GFR Random Glucose (60-115) mg/dL Lactic Acid 0.7 (0.5-2.0) mmol/L Calcium (8.4-10.2) mg/dL Magnesium (1.6-2.6) mg/dL Urine Color Yellow Urine Appearance Clear Urine pH 6.0 (5.0-9.0) Ur Specific [place] 1.020 (1.005-1.025) Urine Protein Trace (Neg-Trace) mg/dL Urine Glucose (UA) Negative (Negative) mg/dL Urine Ketones Negative (Negative) mg/dL Urine Blood Small (1+) H (Negative) Urine Nitrite Negative (Negative) Ur Leukocyte Esterase Negative (Negative) Urine RBC 11-20 H (0-2) /HPF Urine WBC 0-5 (0-5) /HPF Ur Squamous Epith Cells 0-2 (0-2) /HPF Urine Bacteria None Seen (None Seen) Hyaline Casts 0-2 (0-2) /LPF COVID-19 ([facility]) (Negative) COVID-19 Clin Com Critical Care Time Critical Care Time Critical Care Time: Yes Total Critical Care Time: 50 Attestation: I have personally provided critical care time. Time includes review of lab data, radiology results, discussion with consultants, and monitoring for potential decompensation. Intervention performed as documented. Discharge Plan Discharge Clinical Impression: Abdominal pain, Acute hyperkalemia Patient Disposition: Admitted As Inpatient Prescriptions: No Action trazodone 50 mg tablet 50 mg PO BEDTIME PRN (Reason: for insomnia) Qty: 90 0RF Xarelto 20 mg tablet 20 mg PO DAILY@1700 90 Days Qty: 90 0RF Rx Instructions: Please call and schedule cardiology appt metoprolol succinate [Toprol XL] 50 mg tablet extended release 24 hr 50 mg PO DAILY Qty: 90 3RF spironolactone 25 mg tablet 25 mg PO DAILY Qty: 90 3RF losartan 50 mg tablet 50 mg PO BID 90 Days Qty: 180 3RF amiodarone 400 mg tablet 400 mg PO BID 14 Days Qty: 28 0RF amlodipine 10 mg tablet 5 mg PO BID Qty: 90 0RF amiodarone 200 mg tablet 200 mg PO DAILY Qty: 30 2RF Rx Instructions: Start 02/14/2022 multivitamin Tablet 1 tab PO DAILY ascorbic acid (vitamin C) [Vitamin C] 1,000 mg Tablet 1,000 mg PO DAILY@1700 docusate sodium [Stool Softener] 100 mg Capsule 100 mg PO BID gabapentin 300 mg capsule 900 mg PO BID omeprazole 20 mg capsule,delayed release(DR/EC) 20 mg PO DAILY Culturelle 10 billion cell Capsule 1 cap PO DAILY sertraline 50 mg tablet 50 mg PO DAILY magnesium 200 mg Tablet 400 mg PO BID iron 1 tab PO 4XW albuterol sulfate 90 mcg/actuation HFA aerosol inhaler 2 puff PO Q4H PRN (Reason: Shortness Of Breath) Zyrtec 10 mg capsule 10 mg PO DAILY PRN (Reason: Insomnia) fluticasone propionate 50 mcg/actuation spray,suspension 1 spray intranasal DAILY dicyclomine 10 mg capsule 10 mg PO BID PRN (Reason: Gastrointestinal Spasms Or Cramping) tamsulosin 0.4 mg capsule 0.8 mg PO DAILY@1700 90 Days Qty: 180 2RF
[2022-01-31 19:20] LABS: Magnesium 1.6 mg/dL (1.6-2.6)
[2022-01-31] MEDS: HYDROmorphone HCl 1 MG/ML SYRINGE IVPUSH ×2 (19:23→22:08)
[2022-01-31] MEDS: ondansetron HCL 4 MG/2 ML VIAL IVPUSH (19:25)
[2022-01-31] MEDS: 0.9 % Sodium Chloride 2,000 ML 999 ML IVCONT (19:54)
[2022-01-31] MEDS: Calcium Gluconate/NaCl,Iso-Osm 2 GM/100 ML PLAST..BAG IV (20:00)
[2022-01-31] MEDS: Insulin Regular, Human 100 UNIT/ML 3 ML VIAL IVPUSH (20:08)
[2022-01-31] MEDS: Dextrose 50 % 25 GM/50 ML SYRINGE IVPUSH (20:08)
[2022-01-31 20:18] VITALS: BP 122/57; PULSE 87; RESP 16; TEMP 37.1; O2SAT 92
[2022-01-31 20:38] LABS: Appearance Urine Clear; Color Urine Yellow; Glucose Urine UA Negative (Negative); Leukocyte Esterase Urine Negative (Negative); Nitrite Urine Negative (Negative); Urine Blood Small (1+) (Negative); Urine Ketones Negative (Negative); Urine Protein Trace mg/dL (Neg-Trace)
[2022-01-31 20:45] LABS: WBC Urine 0-5 /HPF (0-5)
[2022-01-31 20:47] LABS: Bacteria Urine None Seen (None Seen); Hyaline Casts Urine 0-2 /LPF (0-2); Squamous Epithelial Cell Urine 0-2 /HPF (0-2)
[2022-01-31 20:48] LABS: Lactic Acid 0.7 mmol/L (0.5-2.0)
[2022-01-31 21:39] VITALS: BP 113/73; PULSE 94; RESP 16; TEMP 36.8; O2SAT 94
--- NOTE | 2022-01-31 23:43 | PM.HPGS ---
History of Present Illness History of Present Illness Date of Service: 01/31/22 Chief complaint: abdo pain Narrative: Aravind Agustin is a 71 year old male who comes in complaining of acute onset intense abdo pain - he has had sbo in past and thought this was what was going on. Here he was given pain meds but he said once he was lying in the bed and flat he started to feel better. didnt do anything too strenuous today but he did eat something for lunch and after eating the pain started. his history is significant for testicular cancer which had recurred several times and about 40 yrs ago he had several surgeries removing testicles, doing lymph node intaraabdo disection and then a year later removal of large recurrent intra abdo tumor - he was treated with chemo and radiation and survived this all. but he did have multiple sbo after, one which occurred required exploration and resection and since that time he did have smaller partial sbo issues. Last one here in 2020 which resolved nonoperatively. This pain was very intense rapid in starting - he explains he has been having more episodes of pain right after eating and so at times he feels like he doesnt want to eat. He also has afib and is on xarelto for this. he had cardiology visit today and all was well. he sees dr flores for GI and cscopes- ? he has some mesenteric angina baseline. has sig atherosclerotic disease by ct scan. In [facility] revelaed normal wbc and lactic acid but elevated creat and K. He had ct scan which showed worrisome findings of portal venous gas and some mild pneumatosis in sb near area of previous anastomsosi. did not look like sbo picture - no free fluid no evidence of any mesenteric swirl for internal hernia but had some mild mesenteric edema. ct not done with iv or po contrast because of elevated creat to 2. i discussed the finidngs with the radiologist. here the pt already feeling better saying no nausea less distended less intense pain and feeling ok but still abdo a little sore. Review of Systems Constitutional: Constitutional: Reports as per HPI [facility] Past Medical History Medical History Anemia Aortic stenosis BPH (benign prostatic hyperplasia) Chronic back pain History of cardioversion HTN (hypertension) Hx of benign neoplasm Hx of testicular cancer Hyponatremia Neuropathy Paroxysmal atrial fibrillation Sleep apnea Surgical History Surgical History H/O colonoscopy History of back surgery History of left knee replacement History of orchiectomy History of right hip replacement Hx of cataract extraction Hx of cystoscopy Social History Social History Household Members: Spouse and Children Housing: House Do you presently have visiting nurse or other home services: No Alcohol intake: never Patient Tobacco Use Status: Never used Tobacco Use of substances other than those prescribed or required for medical reasons: No Advance Directives: Yes Advance Directives Information Provided: No Advance Directives on File: No service: No Current occupational status: retired Travel History Ebola Risk: Travel/Contact With Anyone From Affected Area/s: No Has Patient Experienced Ebola Symptoms: No I have personally reviewed the patient's Ebola risk: No Recent Travel in [place] Within the Last 8 Weeks: No Recent Out of Country Travel Within the Last 8 Weeks: No Meds Allergies Allergy/AdvReac Type Severity Reaction Status Date / Time No Known Allergies Allergy Verified 09/28/21 14:47 [No Known Allergies*] Active Medications: Current Medications Hydromorphone HCl (Hydromorphone Hcl 1 Mg/Ml Syringe) 1 mg IVPUSH Q4H PRN; Protocol PRN Reason: Pain, Severe (Pain Scale 7-10) Sodium Chloride (Ns) 1,000 mls @ 100 mls/hr IVCONT .Q10H TAHIRA Sodium Chloride (0.9 % Sodium Chloride Flush 3 Ml Syringe) 3 ml IVFLUSH QSHIFT TAHIRA Home Medications Medication Instructions Recorded Confirmed Last Taken Type Lactobacillus rhamnosus GG 10 1 cap PO DAILY 05/28/20 01/31/22 05/27/20 History billion cell capsule (Culturelle) ascorbic acid (vitamin C) 1,000 mg 1,000 mg PO DAILY@1700 05/28/20 01/31/22 05/28/20 History tablet (Vitamin C) docusate sodium 100 mg capsule 100 mg PO BID 05/28/20 01/31/22 05/27/20 History (Stool Softener) gabapentin 300 mg capsule 900 mg PO BID 05/28/20 01/31/22 05/27/20 History iron 1 tab PO 4XW 05/28/20 01/31/22 Unknown History magnesium 200 mg tablet 400 mg PO BID 05/28/20 01/31/22 05/28/20 History multivitamin 1 tab PO DAILY 05/28/20 01/31/22 05/27/20 History omeprazole 20 mg capsule,delayed 20 mg PO DAILY 05/28/20 01/31/22 05/27/20 History release sertraline 50 mg tablet 50 mg PO DAILY 05/28/20 01/31/22 05/27/20 History fluticasone propionate 50 1 spray intranasal DAILY 10/11/20 01/31/22 Unknown History mcg/actuation nasal spray,suspension albuterol sulfate 90 mcg/actuation 2 puff PO Q4H PRN Shortness Of 02/14/21 01/31/22 Unknown History aerosol inhaler Breath cetirizine 10 mg capsule (Zyrtec) 10 mg PO DAILY PRN Insomnia 02/14/21 01/31/22 Unknown History dicyclomine 10 mg capsule 10 mg PO BID PRN Gastrointestinal 01/31/22 01/31/22 Unknown History Spasms Or Cramping Physical Exam Vital Signs: Vital Signs: Last Vital Signs Temp 98.2 F 01/31/22 21:39 Pulse 94 01/31/22 21:39 Resp 16 01/31/22 21:39 BP 113/73 01/31/22 21:39 Pulse Ox 94 01/31/22 21:39 O2 Del Method 01/31/22 21:39 BMI result Body Mass Index 31.8 Const: General: cooperative, healthy appearing, comfortable and no acute distress Nutritional Appearance: average body habitus Orientation/consciousness: oriented to person, oriented to place and oriented to time Eyes: General: appearance normal, both eyes and all related structures Resp: Effort & Inspection: normal respiratory effort and able to speak in complete sentences Auscultation: clear to auscultation bilaterally Cardio: Rate: regular rate Rhythm: abnormal rhythm Heart sounds: Murmur heart sound present GI: Other: soft nondistended mild tenderness to deep palpation but no guarding or rebound pain, active bowel sounds no hernias, multiple well healed abdo scars Skin: General skin exam: no rashes or lesions noted and no jaundice Neuro: General: oriented to person, oriented to place and oriented to time Extrem: General: Yes normal to inspection Psych: Appearance: grossly normal and well kempt Mental Status: mental status grossly normal Affect: normal affect Results Results Labs: Short CBC 01/31/22 Range/Units 17:08 WBC 4.3 L (4.8-10.8) X10*3/uL Hgb 10.0 L (14.0-18.0) g/dl Hct 29.4 L (42.0-52.0) % Plt Count 150 L (160-400) X10*3/uL BMP 01/31/22 17:08 Sodium 132 L Potassium 5.7 H Chloride 97 Carbon Dioxide 23 BUN 48 H D Creatinine 2.24 H Calcium 9.2 Urine 01/31/22 Range/Units 20:24 Urine Color Yellow Urine Appearance Clear Urine pH 6.0 (5.0-9.0) Ur Specific Calvin 1.020 (1.005-1.025) Urine Protein Trace (Neg-Trace) mg/dL Urine Glucose (UA) Negative (Negative) mg/dL Abdomen CT scan report/results: image reviewed CT scan - pelvis: image reviewed Assessment and Plan (1) Acute mesenteric ischemia: Status: Acute Plan 71 year old male with ? acute mesenteric ischemia from ? a twist or even vascular compromise to intestine - he has afib, he has sig atherosclerotic disease of arteries, he seems to ahve a baseline story for mesenteric angina - ct scan not done with iv contrast because of creat elevated. ? he had an acute event which improved because at the time of exam he clinically looks very good and his labs were not worrisome. his ct finidngs were discussed with the radiologist who did not note sbo and thought worse issue was his venous air but that the bowel didnt look bad. pt also anticoagulated on xarelto. at this point extensive discussion with pt and - no acute abdo at this time - tret pt not ct plan - admit npo and ivf hydration julieta for kidsneys check labs in am - cbc, bmp, lactic acid, k iv pain meds prn hold xarelto for ? surgery if worsens consider repeat ct with po contrast tomorrow- would benefit from a ct angio of abdo at some point when renal function better ? clot in heart and emboli - doubt that but to consider Quality Stroke Does the patient have a stroke diagnosis?: No VTE Prior VTE?: No VTE Risk Level:: Surgical - low VTE Device Contraindication: N/A - Device Ordered VTE Drug Contraindication: Treatment Not Indicated Procedures Date of Service Date of Service: 02/01/22
--- NOTE | 2022-01-31 23:52 | PC.NURSE ---
RN received call from pharmacy looking to clarify Pantoprazole order placed by Surgeon. RN was able to consult with surgeon as she was still present in the department at this time. Pharmacy wanted to clarify the frequency of the order; daily vs a stat one time dose. Per surgeon pt to receive pantoprazole daily at 0900 and the dosing can begin tomorrow am.
[2022-02-01] VITALS (10 sets, daily range): BP systolic 80–150; BP diastolic 56–74; PULSE 83–101; RESP 15–19; TEMP 36.1–37; O2SAT 90–97
[2022-02-01] MEDS: 0.9 % Sodium Chloride 1,000 ML 100 ML IVCONT ×3 (00:10→20:42)
--- NOTE | 2022-02-01 00:15 | PC.NURSE ---
Pt's #20G to the Right AC was discontinued due to inability to flush; ? infiltrate. Large amount of catheter tip was noted outside of the pt's arm. IV Cathether tip was intact
[2022-02-01 00:41] LABS: Anion Gap 17 (12-20); Blood Urea Nitrogen 45 mg/dL (9-16); Calcium 8.8 mg/dL (8.4-10.2); Carbon Dioxide 22 mmol/L (22-29); Chloride 102 mmol/L (96-108); Creatinine Clr Calc Pharmacy 55.3; Estimated Glomerular Filt Rate 43; Glucose Random 117 mg/dL (60-115); Potassium 5.6 mmol/L (3.3-5.1); Sodium 135 mmol/L (135-145)
[2022-02-01] MEDS: HYDROmorphone HCl 1 MG/ML SYRINGE IVPUSH ×3 (02:10→17:49)
--- NOTE | 2022-02-01 04:37 | PC.NURSE ---
Pt requesting allergy medication to assist with congestion as he reports he normally takes Zyrtec daily and has not taken the medication since 01/30. Tigertext sent to Dr. Fernandez.
[2022-02-01] MEDS: Loratadine 10 MG TABLET PO ×2 (05:52→20:41)
[2022-02-01 06:30] LABS: MANUAL DIFF FLAG NO
[2022-02-01 06:32] LABS: Basophils Percent Auto 0.2 % (0-2); Eosinophils Absolute Auto 0.1 X10*3/uL (0.0-0.4); Eosinophils Percent Auto 1.6 % (0-4); Hematocrit 28.6 % (42.0-52.0); Hemoglobin 9.2 g/dl (14.0-18.0); Imm Gran Abs Auto 0.16 X10*3/uL (0.00-0.03); Imm Gran Pct Auto 2.9 % (0.0-0.4); Lymphocytes Absolute Auto 0.9 X10*3/uL (1.2-4.9); Lymphocytes Percent Auto 16.4 % (20-40); Mean Corpuscular HGB Conc 32.2 g/dl (31.0-36.0); Mean Corpuscular Hemoglobin 27.5 pg (27.0-33.0); Mean Corpuscular Volume 85.4 fL (80.0-98.0); Mean Platelet Volume 9.7 fL (9.4-12.4); Monocytes Absolute Auto 0.7 X10*3/uL (0.1-1.2); Monocytes Percent Auto 11.6 % (2-11); Neutrophils Absolute Auto 3.8 x10*3/uL (2.0-8.3); Neutrophils Percent Auto 67.3 % (45-73); Platelet Count 143 X10*3/uL (160-400); Red Blood Count 3.35 X10*6/uL (4.60-5.80); Red Cell Distribution Width 14.8 % (11.0-16.0); White Blood Count 5.6 X10*3/uL (4.8-10.8)
[2022-02-01 06:43] LABS: Lactic Acid 0.7 mmol/L (0.5-2.0)
[2022-02-01 06:46] LABS: Anion Gap 17 (12-20); Blood Urea Nitrogen 43 mg/dL (9-16); Calcium 8.7 mg/dL (8.4-10.2); Carbon Dioxide 21 mmol/L (22-29); Chloride 102 mmol/L (96-108); Creatinine Clr Calc Pharmacy 61.9; Estimated Glomerular Filt Rate 49; Glucose Random 108 mg/dL (60-115); Potassium 5.1 mmol/L (3.3-5.1); Sodium 135 mmol/L (135-145)
--- NOTE | 2022-02-01 07:13 | PHA.MEDREC ---
Pharmacy Consult ? Medication Reconciliation Pharmacy has reviewed the medication reconciliation done by Vilma.
--- NOTE | 2022-02-01 08:11 | P.PNGS_ITS ---
Subjective Subjective Date of Service: 02/01/22 Interval history: 71-year-old male patient admitted with sudden onset of abdominal pain. The pain was generalized throughout the abdomen especially in the lower abdomen. Pain began while eating. Workup in the emergency department revealed pneumatosis coli with some portal venous air. Findings were suggestive of a acute ischemic colitis. He feels improved this morning but is still having some abdominal pain. Denies any further nausea or vomiting. Physical Exam Vital Signs: Vital Signs: Last Vital Signs Temp 98.3 F 02/01/22 01:14 Pulse 83 02/01/22 07:34 Resp 15 02/01/22 07:34 BP 134/68 02/01/22 07:34 Pulse Ox 92 02/01/22 07:34 O2 Del Method 02/01/22 07:34 BMI result Body Mass Index 31.8 Const: General: no acute distress and well developed Nutritional Appearance: well nourished Orientation/consciousness: patient oriented x3 Limitations: no limitations Resp: Effort & Inspection: normal respiratory effort, no audible wheezes, no cough and no respiratory distress GI: Inspection: Yes normal to inspection Palpation (GI): Soft to palpation, Tenderness to palpation present (GI) in the LLQ, in the RLQ, in the LUQ and in the RUQ, no guarding, not rigid and No Rebound tenderness present Percussion: Yes normal to percussion Auscultation: normal bowel sounds Rectal Exam - Male: Yes deferred Skin: Other: Warm, dry, no rash Neuro: General: patient oriented x3 Extrem: Other: no peripheral edema Objective Data Active Medications Hydromorphone HCl (Hydromorphone Hcl 1 Mg/Ml Syringe) 1 mg IVPUSH Q4H PRN; Protocol PRN Reason: Pain, Severe (Pain Scale 7-10) Last Admin: 02/01/22 02:10 Dose: 1 mg Documented By: YUSUF Sodium Chloride (Ns) 1,000 mls @ 100 mls/hr IVCONT .Q10H [facility]IRA Last Admin: 02/01/22 00:10 Dose: 100 mls/hr Documented By: YUSUF Ondansetron HCl (Ondansetron Hcl 4 Mg/2 Ml Vial) 4 mg IVPUSH Q8H PRN PRN Reason: Nausea Pantoprazole Sodium (Pantoprazole Sodium 40 Mg/10 Ml Vial) 40 mg IVPUSH DAILY [facility] Sodium Chloride (0.9 % Sodium Chloride Flush 3 Ml Syringe) 3 ml IVFLUSH QSHIFT TAHIRA Last Admin: 02/01/22 00:11 Dose: Not Given Documented By: YUSUF Non-Admin Reason: flushed with 10ml syringe Labs CBC & Chem 7: 02/01/22 06:15 02/01/22 06:15 Labs: Laboratory Results - last 24 hr 01/31/22 01/31/22 01/31/22 17:08 17:08 17:08 MCV 81.4 MCH 27.7 MCHC 34.0 RDW 14.7 Plt Count 150 L MPV 10.1 Immature Gran % (Auto) 4.0 H Neut % (Auto) 74.4 H Lymph % (Auto) 10.5 L [place] % (Auto) 9.3 Eos % (Auto) 1.6 Baso % (Auto) 0.2 Lymph # (Auto) 0.5 L [place] # (Auto) 0.4 Eos # (Auto) 0.1 Baso # (Auto) 0.0 Abs Immat Gran (auto) 0.17 H Absolute Neuts (auto) 3.2 Absolute Nucleated RBC 0.000 Nucleated RBC % (auto) 0.0 Anion Gap 18 Estim Creat Clear Calc 39.2 Estimated GFR 29 Random Glucose 185 H D Lactic Acid Calcium 9.2 Magnesium 1.6 Urine Color Urine Appearance Urine pH Ur Specific [place] Urine Protein Urine Glucose (UA) Urine Ketones Urine Blood Urine Nitrite Ur Leukocyte Esterase Urine RBC Urine WBC Ur Squamous Epith Cells Urine Bacteria Hyaline Casts COVID-19 ([facility]) Negative COVID-19 Clin Com See Note 01/31/22 01/31/22 02/01/22 20:24 20:30 00:08 MCV MCH MCHC RDW Plt Count MPV Immature Gran % (Auto) Neut % (Auto) Lymph % (Auto) [place] % (Auto) Eos % (Auto) Baso % (Auto) Lymph # (Auto) [place] # (Auto) Eos # (Auto) Baso # (Auto) Abs Immat Gran (auto) Absolute Neuts (auto) Absolute Nucleated RBC Nucleated RBC % (auto) Anion Gap 17 Estim Creat Clear Calc 55.3 Estimated GFR 43 Random Glucose 117 H D Lactic Acid 0.7 Calcium 8.8 Magnesium Urine Color Yellow Urine Appearance Clear Urine pH 6.0 Ur Specific [place] 1.020 Urine Protein Trace Urine Glucose (UA) Negative Urine Ketones Negative Urine Blood Small (1+) H Urine Nitrite Negative Ur Leukocyte Esterase Negative Urine RBC 11-20 H Urine WBC 0-5 Ur Squamous Epith Cells 0-2 Urine Bacteria None Seen Hyaline Casts 0-2 COVID-19 ([facility]) COVID-19 Clin Com 02/01/22 02/01/22 02/01/22 06:15 06:15 06:15 MCV 85.4 MCH 27.5 MCHC 32.2 RDW 14.8 Plt Count 143 L MPV 9.7 Immature Gran % (Auto) 2.9 H Neut % (Auto) 67.3 Lymph % (Auto) 16.4 L [place] % (Auto) 11.6 H Eos % (Auto) 1.6 Baso % (Auto) 0.2 Lymph # (Auto) 0.9 L [place] # (Auto) 0.7 Eos # (Auto) 0.1 Baso # (Auto) 0.0 Abs Immat Gran (auto) 0.16 H Absolute Neuts (auto) 3.8 Absolute Nucleated RBC 0.000 Nucleated RBC % (auto) 0.0 Anion Gap 17 Estim Creat Clear Calc 61.9 Estimated GFR 49 Random Glucose 108 Lactic Acid 0.7 Calcium 8.7 Magnesium Urine Color Urine Appearance Urine pH Ur Specific [place] Urine Protein Urine Glucose (UA) Urine Ketones Urine Blood Urine Nitrite Ur Leukocyte Esterase Urine RBC Urine WBC Ur Squamous Epith Cells Urine Bacteria Hyaline Casts COVID-19 ([facility]) COVID-19 Clin Com Procedures Date of Service Date of Service: 02/01/22 Progress Note: A&P Assessment and plan (1) Acute mesenteric ischemia: Status: Acute Plan 71-year-old male patient with history of testicular cancer, with history of prior small-bowel obstructions now presenting with acute onset of abdominal pain while eating. Patient felt the symptoms were similar to his prior bowel obstruction symptoms. Workup in the emergency department however revealed evidence of acute mesenteric ischemia. Patient continues to have abdominal pain but is improved from yesterday. Laboratories are normal and lactate is normal. I will repeat the CT abdomen pelvis with oral contrast today. Hospitalist consultation for multiple medical issues. Oral anticoagulation currently on hold until we are certain he will not require abdominal exploration. Time Spent With Patient Time: Total time spent is greater than 50% in coordination of care (as documented) at patient's floor/unit and/or counseling patient: Quality Stroke Does the patient have a stroke diagnosis?: No VTE Prior VTE?: No VTE Risk Level:: Surgical - low VTE Device Contraindication: N/A - Device Ordered VTE Drug Contraindication: Treatment Not Indicated
[2022-02-01] MEDS: Sertraline HCL 50 MG TABLET PO (09:19)
[2022-02-01] MEDS: Gabapentin 300 MG CAPSULE 600 MG PO ×2 (09:20→20:41)
[2022-02-01] MEDS: Losartan Potassium 50 MG TABLET PO (09:21)
[2022-02-01] MEDS: Pantoprazole Sodium 40 MG/10 ML VIAL IVPUSH (09:21)
[2022-02-01] MEDS: Spironolactone 25 MG TABLET PO (09:21)
--- NOTE | 2022-02-01 09:27 | PC.NURSE ---
This RN working as float nurse. Patient reports increasing discomfort, requesting PRN pain medication. Patient resting on stretcher, no apparent distress. Respirations regular and even. Skin PWD. Medicated with AM meds and Dilaudid. Patient requesting stool softener. Reports amlodipine was supposed to be changed to 5mg yesterday by Dr. Shay, held med at this time. Will contact hospitalist.
--- NOTE | 2022-02-01 11:04 | PC.NURSE ---
obtained report from justyn, pts amlodipine order is incorrect, she messaged the provider requesting new order, med was non-admitted until order is obtained.
--- NOTE | 2022-02-01 11:16 | PC.NURSE ---
Patient reports experiencing no pain, but constipated. Patient asked for a stool softer, nurse will ask the doctor. Pain level was assessed. Vitals signs are stable and patient is a-fib on the monitor.
--- NOTE | 2022-02-01 13:06 | MHC.CM.PN ---
IMM ADDRESSED, PATIENT REQUESTED SPOUSE, MAKAYLA, SIGN. WHITE COPY TO PATIENT/YELLOW COPY TO CHART. IMM ADDENDUM COMPLETED. PATIENT REPORTS HE LIVES WITH HIS INDEPENDENT AT HOME AND COMMUNITY USES CANE NEEDED DENIES RECEIVING HOME SERVICES [facility] X 4 [facility]RNA PCP: JATIN BRADEN HCP-COPY REQUESTED SPOUSE WILL TRANSPORT D/C PLAN: HOME SELF-CARE
--- NOTE | 2022-02-01 13:24 | PC.NURSE ---
pt to ct scan
[2022-02-01] MEDS: Diatrizoate Meglumine, Sodium 30 ML SOLUTION PO (13:54)
--- NOTE | 2022-02-01 14:04 | P.CONHOSP_ITS ---
History of Present Illness Data of Consult Service Date: 02/01/22 Requesting physician: Neal Frye Primary Care Provider: Scotty Liu MD [facility] Reason for consult: Medical management This is a 71-year-old male with pertinent history of persistent atrial fibrillation, essential hypertension, history of small-bowel obstruction who presented to the emergency department on 01/31/2022 with complaints of abdominal pain. Patient states abdominal pain , epigastric in region started after he had lunch, persistent, nonradiating and without any relieving or aggravating factors. He had associated dry heaving, nausea but no vomiting or constipation. Workup in the ER revealed pneumatosis coli with portal venous air and concern for acute mesenteric ischemia. Patient was seen and admitted by surgical team in the ER . Since admission patient states he has had persistent abdominal pain although improved. He had a normal bowel movement this a.m.. No episodes of vomiting. Patient has had persistent atrial fibrillation, rate controlled with metoprolol and anticoagulated with Xarelto. He recently saw his plane tender, Dr. Shine Ortiz with plans to initiate amiodarone and undergo cardioversion in about 2 weeks. States his blood pressure is well controlled on home antihypertensive regimen. Patient is status post surgery, radiation and chemotherapy due to testicular cancer. He has had multiple episodes of small- bowel obstruction, previous episode was managed conservatively in 2020. Review of Systems Review of Systems: Positive for abdominal pain and nausea Yes all other systems are reviewed and are negative [facility] Medical History Anemia Aortic stenosis BPH (benign prostatic hyperplasia) Chronic back pain History of cardioversion HTN (hypertension) Hx of benign neoplasm Hx of testicular cancer Hyponatremia Neuropathy Paroxysmal atrial fibrillation Sleep apnea Surgical History H/O colonoscopy History of back surgery History of left knee replacement History of orchiectomy History of right hip replacement Hx of cataract extraction Hx of cystoscopy Social History Household Members: Spouse and Children Housing: House Do you presently have visiting nurse or other home services: No Alcohol intake: never Patient Tobacco Use Status: Never used Tobacco Use of substances other than those prescribed or required for medical reasons: No Advance Directives: Yes Advance Directives Information Provided: No Advance Directives on File: No service: No Current occupational status: retired Ebola Risk: Travel/Contact With Anyone From Affected Area/s: No Has Patient Experienced Ebola Symptoms: No Meds Allergies Allergy/AdvReac Type Severity Reaction Status Date / Time No Known Allergies Allergy Verified 09/28/21 14:47 [No Known Allergies*] Active Medications: Current Medications Albuterol Sulfate (Albuterol Sulfate 90 Mcg 8 Gm Inhaler) 2 puff INHALE Q4H PRN PRN Reason: Shortness Of Breath Amlodipine Besylate (Amlodipine Besylate 5 Mg Tablet) 5 mg PO BID [facility]; Protocol Diatrizoate Meglum/Diatrizoate Sod (Diatrizoate Meglumine, Sodium 30 Ml Solution) 30 ml PO ONCE ONE Stop: 02/01/22 13:54 Last Admin: 02/01/22 13:54 Dose: 30 ml Gabapentin (Gabapentin 300 Mg Capsule) 600 mg PO BID [facility] Last Admin: 02/01/22 09:20 Dose: 600 mg Hydromorphone HCl (Hydromorphone Hcl 1 Mg/Ml Syringe) 1 mg IVPUSH Q4H PRN; Prot ocol PRN Reason: Pain, Severe (Pain Scale 7-10) Last Admin: 02/01/22 09:26 Dose: 1 mg Sodium Chloride (Ns) 1,000 mls @ 100 mls/hr IVCONT .Q10H [facility] Last Admin: 02/01/22 11:07 Dose: 100 mls/hr Loratadine (Loratadine 10 Mg Tablet) 10 mg PO DAILY [facility] Last Admin: 02/01/22 09:19 Dose: Not Given Losartan Potassium (Losartan Potassium 50 Mg Tablet) 50 mg PO BID [facility]; Protocol Last Admin: 02/01/22 09:21 Dose: 50 mg Ondansetron HCl (Ondansetron Hcl 4 Mg/2 Ml Vial) 4 mg IVPUSH Q8H PRN PRN Reason: Nausea Pantoprazole Sodium (Pantoprazole Sodium 40 Mg/10 Ml Vial) 40 mg IVPUSH DAILY [facility] Last Admin: 02/01/22 09:21 Dose: 40 mg Sertraline HCl (Sertraline Hcl 50 Mg Tablet) 50 mg PO DAILY [facility] Last Admin: 02/01/22 09:19 Dose: 50 mg Sodium Chloride (0.9 % Sodium Chloride Flush 3 Ml Syringe) 3 ml IVFLUSH QSHIFT [facility] Last Admin: 02/01/22 08:49 Dose: Not Given Spironolactone (Spironolactone 25 Mg Tablet) 25 mg PO DAILY [facility]; Protocol Last Admin: 02/01/22 09:21 Dose: 25 mg Tamsulosin HCl (Tamsulosin Hcl 0.4 Mg Capsule) 0.8 mg PO DAILY@1700 [facility] Home Medications Medication Instructions Recorded Confirmed Last Taken Type Lactobacillus rhamnosus GG 10 1 cap PO DAILY 05/28/20 02/01/22 05/27/20 History billion cell capsule (Culturelle) ascorbic acid (vitamin C) 1,000 mg 1,000 mg PO DAILY@1700 05/28/20 02/01/22 1 07/29/19 History tablet (Vitamin C) docusate sodium 100 mg capsule 100 mg PO BID 05/28/20 02/01/22 05/27/20 History (Stool Softener) gabapentin 300 mg capsule 600 mg PO BID 05/28/20 02/01/22 05/27/20 History iron 1 tab PO 4XW 05/28/20 02/01/22 Unknown History magnesium 200 mg tablet 400 mg PO BID 05/28/20 02/01/22 05/28/20 History multivitamin 1 tab PO DAILY 05/28/20 02/01/22 05/27/20 History omeprazole 20 mg capsule,delayed 20 mg PO BID 05/28/20 02/01/22 05/27/20 History release sertraline 50 mg tablet 50 mg PO DAILY 05/28/20 02/01/22 05/27/20 History albuterol sulfate 90 mcg/actuation 2 puff PO Q4H PRN Shortness Of 02/14/21 02/01/22 Unknown History aerosol inhaler Breath dicyclomine 10 mg capsule 10 mg PO BID PRN Gastrointestinal 01/31/22 02/01/22 Unknown History Spasms Or Cramping amlodipine 10 mg tablet 1 tab PO DAILY 02/01/22 02/01/22 Unknown History cetirizine 10 mg tablet (Zyrtec) 10 mg PO DAILY 02/01/22 02/01/22 01/30/22 History Physical Exam Vital Signs and Narrative: Vital Signs: Last Vital Signs Temp 98.6 F 02/01/22 11:12 Pulse 100 02/01/22 14:01 Resp 19 02/01/22 14:01 BP 80/60 L 02/01/22 14:01 Pulse Ox 94 02/01/22 14:01 O2 Del Method 02/01/22 14:01 BMI result Body Mass Index 31.8 elderly healthy appearingwhite male lying in ER bed in no distress no neck stiffness, ophthalmoplegia, facial droop S1-S2 heard, systolic murmur present at the 2nd intercostal space bilateral breath sounds appreciated, no crackles or wheezing present awake, alert, oriented x3 ; no focal motor weakness no pedal edema mild epigastric tenderness on palpation, no rebound tenderness, no rigidity Results Labs CBC and Chem 7: 02/01/22 06:15 02/01/22 06:15 Labs: Laboratory Results - last 24 hr 01/31/22 01/31/22 01/31/22 17:08 17:08 17:08 MCV 81.4 MCH 27.7 MCHC 34.0 RDW 14.7 Plt Count 150 L MPV 10.1 Immature Gran % (Auto) 4.0 H Neut % (Auto) 74.4 H Lymph % (Auto) 10.5 L [place] % (Auto) 9.3 Eos % (Auto) 1.6 Baso % (Auto) 0.2 Lymph # (Auto) 0.5 L [place] # (Auto) 0.4 Eos # (Auto) 0.1 Baso # (Auto) 0.0 Abs Immat Gran (auto) 0.17 H Absolute Neuts (auto) 3.2 Absolute Nucleated RBC 0.000 Nucleated RBC % (auto) 0.0 Anion Gap 18 Estim Creat Clear Calc 39.2 Estimated GFR 29 Random Glucose 185 H D Lactic Acid Calcium 9.2 Magnesium 1.6 Urine Color Urine Appearance Urine pH Ur Specific [place] Urine Protein Urine Glucose (UA) Urine Ketones Urine Blood Urine Nitrite Ur Leukocyte Esterase Urine RBC Urine WBC Ur Squamous Epith Cells Urine Bacteria Hyaline Casts COVID-19 ([facility]) Negative COVID-19 Clin Com See Note 01/31/22 01/31/22 02/01/22 20:24 20:30 00:08 MCV MCH MCHC RDW Plt Count MPV Immature Gran % (Auto) Neut % (Auto) Lymph % (Auto) [place] % (Auto) Eos % (Auto) Baso % (Auto) Lymph # (Auto) [place] # (Auto) Eos # (Auto) Baso # (Auto) Abs Immat Gran (auto) Absolute Neuts (auto) Absolute Nucleated RBC Nucleated RBC % (auto) Anion Gap 17 Estim Creat Clear Calc 55.3 Estimated GFR 43 Random Glucose 117 H D Lactic Acid 0.7 Calcium 8.8 Magnesium Urine Color Yellow Urine Appearance Clear Urine pH 6.0 Ur Specific [place] 1.020 Urine Protein Trace Urine Glucose (UA) Negative Urine Ketones Negative Urine Blood Small (1+) H Urine Nitrite Negative Ur Leukocyte Esterase Negative Urine RBC 11-20 H Urine WBC 0-5 Ur Squamous Epith Cells 0-2 Urine Bacteria None Seen Hyaline Casts 0-2 COVID-19 ([facility]) COVID-19 Clin Com 02/01/22 02/01/22 02/01/22 06:15 06:15 06:15 MCV 85.4 MCH 27.5 MCHC 32.2 RDW 14.8 Plt Count 143 L MPV 9.7 Immature Gran % (Auto) 2.9 H Neut % (Auto) 67.3 Lymph % (Auto) 16.4 L [place] % (Auto) 11.6 H Eos % (Auto) 1.6 Baso % (Auto) 0.2 Lymph # (Auto) 0.9 L [place] # (Auto) 0.7 Eos # (Auto) 0.1 Baso # (Auto) 0.0 Abs Immat Gran (auto) 0.16 H Absolute Neuts (auto) 3.8 Absolute Nucleated RBC 0.000 Nucleated RBC % (auto) 0.0 Anion Gap 17 Estim Creat Clear Calc 61.9 Estimated GFR 49 Random Glucose 108 Lactic Acid 0.7 Calcium 8.7 Magnesium Urine Color Urine Appearance Urine pH Ur Specific [place] Urine Protein Urine Glucose (UA) Urine Ketones Urine Blood Urine Nitrite Ur Leukocyte Esterase Urine RBC Urine WBC Ur Squamous Epith Cells Urine Bacteria Hyaline Casts COVID-19 ([facility]) COVID-19 Clin Com ECG Attestation: I personally reviewed and interpreted this ECG as follows: ( ventricular rate 95, irregularly irregular rhythm, no significant ST elevation or depression) Imaging Radiologist's Impressions: Impressions Abdomen/Pelvis CT 01/31/22 19:41 IMPRESSION: Portal venous gas is noted within the liver. There is also suspicion of some pneumatosis intestinalis within loops of small bowel adjacent to the anastomosis. Although I do not appreciate any definitive wall thickening this region there is some mild mesenteric stranding in this region concerning for mesenteric ischemia. Clinical correlation is recommended. Surgical consultation warranted. Assessment and Plan (1) Abdominal pain: Status: Acute Abdominal pain with concerns for acute mesenteric ischemia. WBC (no bands) and l actic acid wnl. Had a normal bowel movement this am so less concern for SBO. Repeat CT abdominal pelvis pending. Xarelto on hold until surgical exploration is ruled out. Continue conservative management and pain control with IV opioids p.r.n.. Diet npo as per surgery (2) MENA (acute kidney injury): Status: Acute Pre renal non-oliguric acute kidney injury, stage I likely due to intravascular volume depletion. Holding losartan and spironolactone in the setting of MENA. Creatinine trending down with IV fluid resuscitation . Monitor creatinine and urine output (3) Acute hyperkalemia: Status: Acute due to acute kidney injury. Received temporizing measures in the ER. Potassium within normal limits this a.m. (4) Persistent atrial fibrillation: Status: Acute oral anticoagulation on hold as above. Currently not on any rate-controlling agents. Closely monitor. Followed outpatient by Dr. Shine Ortiz (5) HTN (hypertension): Status: Acute spironolactone and losartan on hold in the setting of MENA. Amlodipine on hold in the setting of low normal blood pressure at the time of evaluation. Can restart amlodipine as appropriate.
[2022-02-01] MEDS: 0.9 % Sodium Chloride Flush 3 ML SYRINGE IVFLUSH ×3 (16:08→20:41)
[2022-02-01] MEDS: Tamsulosin HCL 0.4 MG CAPSULE 0.8 MG PO (16:08)
--- NOTE | 2022-02-01 16:11 | PC.NURSE ---
Patient's VS are stable, patient took his meds as order and ice chips was provided.
--- NOTE | 2022-02-01 17:52 | PC.NURSE ---
pt medicated per order, pt report called to floor
[2022-02-01] MEDS: Albuterol Sulfate 90 MCG 8 GM INHALER 2 PUFF INHALE (19:03)
[2022-02-02 03:21] VITALS: BP 144/82; PULSE 88; RESP 16; TEMP 36.4; O2SAT 99
[2022-02-02] MEDS: 0.9 % Sodium Chloride 1,000 ML 100 ML IVCONT (05:50)
--- NOTE | 2022-02-02 05:57 | PC.NURSE ---
Pt seen by resp therapist for CPAP set up, notified for CPAP order ,pt also requested to change Albuterol inhaler to neb and Loratadine to be changed on bedtime, MD also was notified. Pt didn't like the CPAP mask available in the hospital, O2 at 2L/min via NC worn all night, advised to bring CPAP machine from home.
[2022-02-02 06:09] LABS: MANUAL DIFF FLAG NO
[2022-02-02 06:15] LABS: Basophils Percent Auto 0.2 % (0-2); Eosinophils Absolute Auto 0.1 X10*3/uL (0.0-0.4); Eosinophils Percent Auto 2.1 % (0-4); Hematocrit 25.3 % (42.0-52.0); Hemoglobin 8.1 g/dl (14.0-18.0); Imm Gran Abs Auto 0.07 X10*3/uL (0.00-0.03); Imm Gran Pct Auto 1.6 % (0.0-0.4); Lymphocytes Absolute Auto 0.5 X10*3/uL (1.2-4.9); Lymphocytes Percent Auto 12.3 % (20-40); Mean Corpuscular Hemoglobin 27.1 pg (27.0-33.0); Mean Corpuscular Volume 84.6 fL (80.0-98.0); Mean Platelet Volume 9.9 fL (9.4-12.4); Monocytes Absolute Auto 0.6 X10*3/uL (0.1-1.2); Monocytes Percent Auto 13.7 % (2-11); Neutrophils Percent Auto 70.1 % (45-73); Platelet Count 112 X10*3/uL (160-400); Red Blood Count 2.99 X10*6/uL (4.60-5.80); Red Cell Distribution Width 14.7 % (11.0-16.0); White Blood Count 4.3 X10*3/uL (4.8-10.8)
[2022-02-02 06:47] LABS: Anion Gap 15 (12-20); Blood Urea Nitrogen 29 mg/dL (9-16); Calcium 8.3 mg/dL (8.4-10.2); Carbon Dioxide 20 mmol/L (22-29); Chloride 101 mmol/L (96-108); Creatinine Clr Calc Pharmacy 91.6; Estimated Glomerular Filt Rate > 60; Glucose Random 100 mg/dL (60-115); Potassium 4.6 mmol/L (3.3-5.1); Sodium 131 mmol/L (135-145)
[2022-02-02] MEDS: Pantoprazole Sodium 40 MG/10 ML VIAL IVPUSH (07:26)
[2022-02-02] MEDS: Sertraline HCL 50 MG TABLET PO (07:26)
[2022-02-02] MEDS: Gabapentin 300 MG CAPSULE 600 MG PO ×2 (07:27→20:12)
[2022-02-02] MEDS: HYDROmorphone HCl 1 MG/ML SYRINGE IVPUSH ×3 (07:31→19:35)
[2022-02-02 07:47] VITALS: BP 122/77; PULSE 106; RESP 18; TEMP 36.9; O2SAT 93
--- NOTE | 2022-02-02 08:29 | PM.PNGS ---
Subjective Subjective Date of Service: 02/02/22 Interval history: Patient with continued abdominal pain 9/10 prior to receiving pain medication. results of CT abdomen and pelvis reviewed with patient and his . Physical Exam Vital Signs: Vital Signs: Last Vital Signs Temp 98.4 F 02/02/22 07:47 Pulse 106 H 02/02/22 07:47 Resp 18 02/02/22 07:47 BP 122/77 02/02/22 07:47 Pulse Ox 93 02/02/22 07:47 O2 Del Method 02/02/22 07:47 O2 Flow Rate 2 02/01/22 23:36 BMI result Body Mass Index 31.8 Const: General: no acute distress and well developed Nutritional Appearance: well nourished Orientation/consciousness: patient oriented x3 Limitations: no limitations Resp: Effort & Inspection: normal respiratory effort, no audible wheezes, no cough and no respiratory distress GI: Inspection: Yes normal to inspection Palpation (GI): Soft to palpation, Tenderness to palpation present (GI) in the LLQ, in the RLQ, in the LUQ and in the RUQ, no guarding, not rigid and No Rebound tenderness present Percussion: Yes normal to percussion Auscultation: normal bowel sounds Rectal Exam - Male: Yes deferred Skin: Other: Warm, dry, no rash Neuro: General: patient oriented x3 Extrem: Other: no peripheral edema Objective Data Active Medications Albuterol Sulfate (Albuterol Sulfate (0.083%) 2.5 Mg/3 Ml Vial.Neb) 2.5 mg INHALE Q6H PRN PRN Reason: Wheezing Gabapentin (Gabapentin 300 Mg Capsule) 600 mg PO BID [facility] Last Admin: 02/02/22 07:27 Dose: 600 mg Documented By: RANDEE Hydromorphone HCl (Hydromorphone Hcl 1 Mg/Ml Syringe) 1 mg IVPUSH Q4H PRN; Protocol PRN Reason: Pain, Severe (Pain Scale 7-10) Last Admin: 02/02/22 07:31 Dose: 1 mg Documented By: RANDEE Loratadine (Loratadine 10 Mg Tablet) 10 mg PO BEDTIME [facility] Last Admin: 02/01/22 20:41 Dose: 10 mg Documented By: CASTILM Magnesium Oxide (Magnesium Oxide 400 Mg Tablet) 400 mg PO BID [facility] Metoprolol Succinate (Metoprolol Succinate Er 50 Mg Tab.Er.24h) 50 mg PO DAILY [facility]; Protocol Ondansetron HCl (Ondansetron Hcl 4 Mg/2 Ml Vial) 4 mg IVPUSH Q8H PRN PRN Reason: Nausea Pantoprazole Sodium (Pantoprazole Sodium 40 Mg/10 Ml Vial) 40 mg IVPUSH DAILY [facility] Last Admin: 02/02/22 07:26 Dose: 40 mg Documented By: OVI-RIVVERÓNICA Sertraline HCl (Sertraline Hcl 50 Mg Tablet) 50 mg PO DAILY [facility] Last Admin: 02/02/22 07:26 Dose: 50 mg Documented By: OVI-HYUN Sodium Chloride (0.9 % Sodium Chloride Flush 3 Ml Syringe) 3 ml IVFLUSH QSHIFT [facility] Last Admin: 02/01/22 20:41 Dose: 3 ml Documented By: CASTILM Tamsulosin HCl (Tamsulosin Hcl 0.4 Mg Capsule) 0.8 mg PO DAILY@1700 [facility] Last Admin: 02/01/22 16:08 Dose: 0.8 mg Documented By: JASPER Labs CBC & Chem 7: 02/02/22 05:29 02/02/22 05:29 Labs: Laboratory Results - last 24 hr 02/02/22 02/02/22 05:29 05:29 MCV 84.6 MCH 27.1 MCHC 32.0 RDW 14.7 Plt Count 112 L MPV 9.9 Immature Gran % (Auto) 1.6 H Neut % (Auto) 70.1 Lymph % (Auto) 12.3 L [place] % (Auto) 13.7 H Eos % (Auto) 2.1 Baso % (Auto) 0.2 Lymph # (Auto) 0.5 L [place] # (Auto) 0.6 Eos # (Auto) 0.1 Baso # (Auto) 0.0 Abs Immat Gran (auto) 0.07 H Absolute Neuts (auto) 3.0 Absolute Nucleated RBC 0.000 Nucleated RBC % (auto) 0.0 Anion Gap 15 Estim Creat Clear Calc 91.6 Estimated GFR > 60 Random Glucose [address]cium [address] scan - abdomen: Radiologist's impression: Impressions Abdomen/Pelvis CT 02/01/22 14:04 IMPRESSION: Resolution of previous portal venous gas. Previous small bowel pneumatosis is also no longer seen. There is significant wall thickening involving the distal ileum, extending through the terminal ileum. Adjacent inflammatory changes. This is increased from prior. This is not obstructive. Class A [employer] with enteritis of uncertain etiology. Fleischner guidelines were followed. Procedures Date of Service Date of Service: 02/02/22 Progress Note: A&P Assessment and plan (1) Acute mesenteric ischemia: Status: Acute (2) Ileitis, terminal: Status: Acute Plan 71-year-old male patient presenting with complaints of abdominal pain lower abdomen found to have mesenteric ischemia on initial workup with portal venous air . Repeat CT abdomen and pelvis with oral contrast today revealed no residual air within the bowel wall or portal vein /liver there is thickening of the ileum measuring approximately 25 cm. This may be results of the previous ischemia or less likely infectious. Patient continues to have abdominal pain which does improve with the pain medication. Will consult Gastroenterology further evaluation. Will start clear liquid diet and resume previous anticoagulation. Time Spent With Patient Time: Total time spent is greater than 50% in coordination of care (as documented) at patient's floor/unit and/or counseling patient: Quality Stroke Does the patient have a stroke diagnosis?: No VTE Prior VTE?: No VTE Risk Level:: Surgical - low VTE Device Contraindication: N/A - Device Ordered VTE Drug Contraindication: Treatment Not Indicated
--- NOTE | 2022-02-02 08:37 | HO.PM.IMPN ---
Subjective Subjective Date of Service: 02/02/22 Interval History: Patient states slept well overnight but continues to have persistent epigastric abdominal pain with relief from IV opiates p.r.n.. Passes gas and stools. Has good urine output. No fevers overnight. Review of Systems Positive for epigastric pain Review of Systems: Yes all other systems are reviewed and are negative Physical Exam Vital Signs: Vital Signs: Last Vital Signs Temp 98.4 F 02/02/22 07:47 Pulse 106 H 02/02/22 07:47 Resp 18 02/02/22 07:47 BP 122/77 02/02/22 07:47 Pulse Ox 93 02/02/22 07:47 O2 Del Method 02/02/22 07:47 O2 Flow Rate 2 02/01/22 23:36 BMI result Body Mass Index 31.8 Well-appearing elderly white male lying in bed in no distress head and necknormal to inspection irregularly irregular rate, systolic murmur heard at upper sternal border bilateral equal breath sounds heard, no wheezing appreciated no pedal edema patient is awake, alert and oriented to time, place, person, no focal motor weakness abdomen is tender to touch with mild palpation in the epigastric region, no rigidity, no rebound tenderness Objective Data Active Medications Albuterol Sulfate (Albuterol Sulfate (0.083%) 2.5 Mg/3 Ml Vial.Neb) 2.5 mg INHALE Q6H PRN PRN Reason: Wheezing Gabapentin (Gabapentin 300 Mg Capsule) 600 mg PO BID [facility] Last Admin: 02/02/22 07:27 Dose: 600 mg Documented By: RANDEE Hydromorphone HCl (Hydromorphone Hcl 1 Mg/Ml Syringe) 1 mg IVPUSH Q4H PRN; Protocol PRN Reason: Pain, Severe (Pain Scale 7-10) Last Admin: 02/02/22 07:31 Dose: 1 mg Documented By: RANDEE Loratadine (Loratadine 10 Mg Tablet) 10 mg PO BEDTIME [facility] Last Admin: 02/01/22 20:41 Dose: 10 mg Documented By: CASTILM Magnesium Oxide (Magnesium Oxide 400 Mg Tablet) 400 mg PO BID [facility] Metoprolol Succinate (Metoprolol Succinate Er 50 Mg Tab.Er.24h) 50 mg PO DAILY [facility]; Protocol Ondansetron HCl (Ondansetron Hcl 4 Mg/2 Ml Vial) 4 mg IVPUSH Q8H PRN PRN Reason: Nausea Pantoprazole Sodium (Pantoprazole Sodium 40 Mg/10 Ml Vial) 40 mg IVPUSH DAILY [facility] Last Admin: 02/02/22 07:26 Dose: 40 mg Documented By: RANDEE Rivaroxaban (Rivaroxaban 20 Mg Tablet) 20 mg PO DAILY@1700 [facility] Sertraline HCl (Sertraline Hcl 50 Mg Tablet) 50 mg PO DAILY [facility] Last Admin: 02/02/22 07:26 Dose: 50 mg Documented By: RANDEE Sodium Chloride (0.9 % Sodium Chloride Flush 3 Ml Syringe) 3 ml IVFLUSH QSHIFT [facility] Last Admin: 02/01/22 20:41 Dose: 3 ml Documented By: TERENCE Tamsulosin HCl (Tamsulosin Hcl 0.4 Mg Capsule) 0.8 mg PO DAILY@1700 [facility] Last Admin: 02/01/22 16:08 Dose: 0.8 mg Documented By: JASPER Labs CBC & Chem 7: 02/02/22 05:29 02/02/22 05:29 Labs: Laboratory Results - last 24 hr 02/02/22 02/02/22 05:29 05:29 MCV 84.6 MCH 27.1 MCHC 32.0 RDW 14.7 Plt Count 112 L MPV 9.9 Immature Gran % (Auto) 1.6 H Neut % (Auto) 70.1 Lymph % (Auto) 12.3 L [place] % (Auto) 13.7 H Eos % (Auto) 2.1 Baso % (Auto) 0.2 Lymph # (Auto) 0.5 L [place] # (Auto) 0.6 Eos # (Auto) 0.1 Baso # (Auto) 0.0 Abs Immat Gran (auto) 0.07 H Absolute Neuts (auto) 3.0 Absolute Nucleated RBC 0.000 Nucleated RBC % (auto) 0.0 Anion Gap 15 Estim Creat Clear Calc 91.6 Estimated GFR > 60 Random Glucose 100 Calcium [address] scan - abdomen: Radiologist's impression: Impressions Abdomen/Pelvis CT 02/01/22 14:04 IMPRESSION: Resolution of previous portal venous gas. Previous small bowel pneumatosis is also no longer seen. There is significant wall thickening involving the distal ileum, extending through the terminal ileum. Adjacent inflammatory changes. This is increased from prior. This is not obstructive. [employer] with enteritis of uncertain etiology. Fleischner guidelines were followed. Microbiology Microbiology Results: blood culture: Coagulase negative Staph Assessment and Plan (1) Persistent atrial fibrillation: Status: Acute Assessment and Plan: Noted elevated heart rate this am. Will restart home metoprolol. Patient also restarted back on his home oral anticoagulation, Xarelto by Dr Frye. (2) HTN (hypertension): Status: Acute Assessment and Plan: Restarting spironolactone and metoprolol. Losartan and amlodipine on hold, restart as appropriate. (3) Ileitis, terminal: Status: Acute Assessment and Plan: Repeat CT scan with evidence of thickening involving distal ileum. Previously at the time of admission, abdominal pain was concerning for acute mesenteric ischemia but repeat CT with resolution of portal venous gas. Patient passing gas and stools. No fever or leukocytosis concerning for infection. Gastroenterology has been consulted by Dr Frye. Diet advanced to liquid diet. (4) MENA (acute kidney injury): Status: Acute Assessment and Plan: Resolved with IV fluid resuscitation. Will discontinue maintenance fluids (5) STAN on CPAP: Status: Acute Assessment and Plan: continue home CPAP at night (6) Thrombocytopenia: Status: Acute Assessment and Plan: appears chronic. No bleeding and no concern /indication for holding anticoagulation at this time. (7) Chronic anemia: Status: Acute Assessment and Plan: Appears chronic. Patient is on iron supplementation at home. Will restart after resolution of acute issues. Quality Stroke Does the patient have a stroke diagnosis?: No VTE Prior VTE?: No VTE Risk Level:: Surgical - low VTE Device Contraindication: N/A - Device Ordered VTE Drug Contraindication: N/A - Med Ordered
--- NOTE | 2022-02-02 09:18 | PM.GICN ---
History of Present Illness Data of Consult Service Date: 02/02/22 Requesting physician: Neal Frye Primary Care Provider: Scotty Liu MD HPI Reason for consult: abn imaging small bowel 71-year-old male with history of atrial fibrillation-xarelto, essential hypertension, history of small-bowel obstruction, testicular cancer and aortic stenosis who I am seeing for assessment for abn imaging and abdominal pain. He intially presented 2d ago with persistent, nonradiating mid abdominal pain 10/10 in severity without any relieving or exacerbating factors with nausea but no vomiting. He recall eating some chicken from [employer] 10 mins prior to pain onset. He also noted bloating but no fever or chills. He has had diarrheal stools but no blood or melena. He is passing gas easily. Per patient he has hx of adhesions from intra abdominal surgeires and chemo radiaiton for testicular cancer and has had SBO in the past, last attack 1 year ago and this attack feels v similar. He has also had some bowel resected 5 yrs or so ago. Prior to this he has also been having vague attacks of vague diffuse abdominal pain with food which last for variable spells of time, and was due to have EGD with Dr Marquez in the near future with last colonoscopy 2015 which had chronic active colitis, TI with mild acute enteritis (albeit stool was pos for campylobacter) and tubular adenomas removed Initial CT with pneumatosis coli with portal venous air and concern for acute mesenteric ischemia. Repeat imaging with thickened TI and mesenteric as well as donna nephric stranding, heavily calcified aorta Review of Systems Review of Systems: Constitutional : No Weight loss, No Fever, No Chills ENT/Mouth : No sore throat, No Rhinorrhea Eyes: No Swelling, No Redness Cardiovascular : No Chest Pain, No SOB, No Edema Respiratory : No Cough, No Sputum, No Wheezing Gastrointestinal : see HPI Genitourinary : NO Dysuria, No Urinary Frequency, No Hematuria, No Urgency Musculoskeletal : No joint pain, No Myalgias, No Joint Swelling Skin : No Skin Lesions, No rash Neuro : No Weakness, No Numbness, No Dizziness, No Headache Psych : No Anxiety/Panic, No Depression Heme/Lymph: No Bruising, No Lymphadenopathy Endocrine : No Polyuria, No Polydipsia All other systems reviewed and are negative. [facility] Past Medical History Medical History Anemia Aortic stenosis BPH (benign prostatic hyperplasia) Chronic back pain History of cardioversion HTN (hypertension) Hx of benign neoplasm Hx of testicular cancer Hyponatremia Neuropathy Paroxysmal atrial fibrillation Sleep apnea Surgical History Surgical History H/O colonoscopy History of back surgery History of left knee replacement History of orchiectomy History of right hip replacement Hx of cataract extraction Hx of cystoscopy Social History Social History Household Members: Family Housing: House Do you presently have visiting nurse or other home services: No Alcohol intake: never Patient Tobacco Use Status: Never used Tobacco Advance Directives Date on File: 02/01/22 service: No Current occupational status: retired Travel History Ebola Risk: Travel/Contact With Anyone From Affected Area/s: No Has Patient Experienced Ebola Symptoms: No Meds Allergies Allergy/AdvReac Type Severity Reaction Status Date / Time No Known Allergies Allergy Verified 09/28/21 14:47 [No Known Allergies*] Active Medications: Current Medications Albuterol Sulfate (Albuterol Sulfate (0.083%) 2.5 Mg/3 Ml Vial.Neb) 2.5 mg INHALE Q6H PRN PRN Reason: Wheezing Gabapentin (Gabapentin 300 Mg Capsule) 600 mg PO BID [facility] Last Admin: 02/02/22 07:27 Dose: 600 mg Hydromorphone HCl (Hydromorphone Hcl 1 Mg/Ml Syringe) 1 mg IVPUSH Q4H PRN; Protocol PRN Reason: Pain, Severe (Pain Scale 7-10) Last Admin: 02/02/22 07:31 Dose: 1 mg Loratadine (Loratadine 10 Mg Tablet) 10 mg PO BEDTIME [facility] Last Admin: 02/01/22 20:41 Dose: 10 mg Magnesium Oxide (Magnesium Oxide 400 Mg Tablet) 400 mg PO BID [facility] Metoprolol Succinate (Metoprolol Succinate Er 50 Mg Tab.Er.24h) 50 mg PO DAILY [facility]; Protocol Ondansetron HCl (Ondansetron Hcl 4 Mg/2 Ml Vial) 4 mg IVPUSH Q8H PRN PRN Reason: Nausea Pantoprazole Sodium (Pantoprazole Sodium 40 Mg/10 Ml Vial) 40 mg IVPUSH DAILY [facility] Last Admin: 02/02/22 07:26 Dose: 40 mg Rivaroxaban (Rivaroxaban 20 Mg Tablet) 20 mg PO DAILY@1700 [facility] Sertraline HCl (Sertraline Hcl 50 Mg Tablet) 50 mg PO DAILY [facility] Last Admin: 02/02/22 07:26 Dose: 50 mg Sodium Chloride (0.9 % Sodium Chloride Flush 3 Ml Syringe) 3 ml IVFLUSH QSHIFT [facility] Last Admin: 02/01/22 20:41 Dose: 3 ml Spironolactone (Spironolactone 25 Mg Tablet) 25 mg PO DAILY [facility]; Protocol Tamsulosin HCl (Tamsulosin Hcl 0.4 Mg Capsule) 0.8 mg PO DAILY@1700 [facility] Last Admin: 02/01/22 16:08 Dose: 0.8 mg Home Medications Medication Instructions Recorded Confirmed Last Taken Type Lactobacillus rhamnosus GG 10 1 cap PO DAILY 05/28/20 02/01/22 05/27/20 History billion cell capsule (Culturelle) ascorbic acid (vitamin C) 1,000 mg 1,000 mg PO DAILY@1700 05/28/20 02/01/22 05/28/20 History tablet (Vitamin C) docusate sodium 100 mg capsule 100 mg PO BID 05/28/20 02/01/22 05/27/20 History (Stool Softener) gabapentin 300 mg capsule 600 mg PO BID 05/28/20 02/01/22 05/27/20 History iron 1 tab PO 4XW 05/28/20 02/01/22 Unknown History magnesium 200 mg tablet 400 mg PO BID 05/28/20 02/01/22 05/28/20 History multivitamin 1 tab PO DAILY 05/28/20 02/01/22 05/27/20 History omeprazole 20 mg capsule,delayed 20 mg PO BID 05/28/20 02/01/22 05/27/20 History release sertraline 50 mg tablet 50 mg PO DAILY 05/28/20 02/01/22 05/27/20 History albuterol sulfate 90 mcg/actuation 2 puff PO Q4H PRN Shortness Of 02/14/21 02/01/22 Unknown History aerosol inhaler Breath dicyclomine 10 mg capsule 10 mg PO BID PRN Gastrointestinal 01/31/22 02/01/22 Unknown History Spasms Or Cramping amlodipine 10 mg tablet 1 tab PO DAILY 02/01/22 02/01/22 Unknown History cetirizine 10 mg tablet (Zyrtec) 10 mg PO DAILY 02/01/22 02/01/22 01/30/22 History Physical Exam Vital Signs: Vital Signs: Last Vital Signs Temp 98.4 F 02/02/22 07:47 Pulse 106 H 02/02/22 07:47 Resp 18 02/02/22 07:47 BP 122/77 02/02/22 07:47 Pulse Ox 93 02/02/22 07:47 O2 Del Method 02/02/22 07:47 O2 Flow Rate 2 02/01/22 23:36 BMI result Body Mass Index 31.8 EXAM: GENERAL: The patient is well developed and nontoxic. VITAL SIGNS:see workflow HEENT: Nonicteric sclerae, PERRLA, EOMI. Oropharynx clear. Moist mucous membranes. Conjunctivae appear well perfused. No thyroid mass. CHEST: Chest wall is nontender. HEART: Regular rate and rhythm with 3/6 ESM murmur heard, no radiation into the neck LUNGS: Clear to auscultation bilaterally. ABDOMEN: Soft, positive bowel sounds, donna umbilical tenderness, no organomegaly.no flank tenderness--lap scar noted SKIN: No rash, no excessive bruising, petechiae, or purpura. NEUROLOGIC: Cranial nerves II-XII intact without motor/sensory deficit. pscyh--nml affect Const: General: cooperative, healthy appearing, comfortable, no acute distress and well developed Nutritional Appearance: average body habitus and well nourished Orientation/consciousness: oriented to person, oriented to place, oriented to time and patient oriented x3 Limitations: no limitations Eyes: General: appearance normal, both eyes and all related structures Resp: Effort & Inspection: normal respiratory effort, able to speak in complete sentences, no audible wheezes, no cough and no respiratory distress Auscultation: clear to auscultation bilaterally Cardio: Rate: regular rate Rhythm: abnormal rhythm Heart sounds: Murmur heart sound present GI: Inspection: Yes normal to inspection Palpation (GI): Soft to palpation, Tenderness to palpation present (GI) in the LLQ, in the RLQ, in the LUQ and in the RUQ, no guarding, not rigid and No Rebound tenderness present Percussion: Yes normal to percussion Auscultation: normal bowel sounds Skin: Other: Warm, dry, no rash General skin exam: no rashes or lesions noted and no jaundice Neuro: General: oriented to person, oriented to place, oriented to time and patient oriented x3 Extrem: General: Yes normal to inspection Psych: Appearance: grossly normal and well kempt Mental Status: mental status grossly normal Affect: normal affect Results Labs CBC & Chem 7: 02/02/22 05:29 02/02/22 05:29 Labs: Short CBC 02/02/22 Range/Units 05:29 WBC 4.3 L (4.8-10.8) X10*3/uL Hgb 8.1 L (14.0-18.0) g/dl Hct 25.3 L (42.0-52.0) % Plt Count 112 L (160-400) X10*3/uL BMP 02/02/22 05:29 Sodium 131 L Potassium 4.6 Chloride 101 Carbon Dioxide 20 L BUN 29 H Creatinine 0.96 Calcium 8[address] scan - abdomen: Attestation: I personally reviewed and interpreted this imaging study as follows: (heavily calcified aorta, thickened TI and right sided bowel, donna nephric stranding) Assessment and Plan (1) Ileitis, terminal: Status: Acute Plan 1/ Sudden onset abdominal pain with abn imaging of small bowel, with donna nephric and mesenteric stranding. unfortunately with the current information it is v difficult to tease out whether this is crohns, vs ischemic or infectious in origin julieta as he has chronic abdominal complaints as well as colonoscopy from 2016 with chronic colitis albeit in the setting of campylobacter infection. He does not appear to have bowel infarction at this time but does have heavily calcified aorta incl origin of SMA PLAN: 1/ would hold on colonoscopy for the moment given concerns for ischemic bowel, can reconsider based on clinical picture 2/ consider mesenteric duplex to assess flow, and maybe CTA or MRA thereafter if pos 3/ GI stool panel and UA 4/ Would give Antibiotics givne risk of bacterial superinfection and translocation, would also have an anti inflammatory effect 5/ cont to monitor lactate and serial abdo exams Procedures Date of Service Date of Service: 02/02/22
[2022-02-02 10:50] VITALS: BP 115/73; PULSE 117; RESP 18; O2SAT 94
[2022-02-02] MEDS: Magnesium Oxide 400 MG TABLET PO ×2 (10:55→20:13)
[2022-02-02] MEDS: Metoprolol Succinate ER 50 MG TAB.ER.24H PO (10:55)
[2022-02-02] MEDS: Spironolactone 25 MG TABLET PO (10:56)
[2022-02-02] MEDS: Albuterol Sulfate (0.083%) 2.5 MG/3 ML VIAL.NEB INHALE (11:27)
[2022-02-02 11:34] VITALS: PULSE 107; RESP 20; O2SAT 91
[2022-02-02] MEDS: 0.9 % Sodium Chloride Flush 3 ML SYRINGE IVFLUSH (12:43)
[2022-02-02 14:04] LABS: Appearance Urine Clear; Color Urine Yellow; Glucose Urine UA Negative (Negative); Leukocyte Esterase Urine Trace (Negative); Nitrite Urine Negative (Negative); PH 5.5 (5.0-9.0); Specific Gravity - Urine 1.015 (1.005-1.025); Urine Blood Moderate (2+) (Negative); Urine Ketones Trace mg/dL (Negative); Urine Protein Negative (Neg-Trace)
[2022-02-02 14:09] LABS: Bacteria Urine None Seen (None Seen); Hyaline Casts Urine 0-2 /LPF (0-2); Squamous Epithelial Cell Urine 0-2 /HPF (0-2); WBC Urine 0-5 /HPF (0-5)
--- NOTE | 2022-02-02 14:20 | MHC.CM.PN ---
EMR REVIEWED, PT REMAINS ON IV PAIN MEDS, DIET ADVANCED TO CLEAR LIQUIDS, NO PLAN FOR D/C AT THIS TIME, CM WILL CONT TO [facility] FOR D/C NEEDS,
[2022-02-02] MEDS: Tamsulosin HCL 0.4 MG CAPSULE 0.8 MG PO (15:38)
[2022-02-02] MEDS: Rivaroxaban 20 MG TABLET PO (15:38)
[2022-02-02 16:00] VITALS: BP 109/57; PULSE 100; RESP 16; TEMP 37; O2SAT 92
[2022-02-02] MEDS: cefTRIAXone sodium 1 GM in 0.9 % Sodium Chloride 50 ML IV (18:28)
[2022-02-02] MEDS: metroNIDAZOLE/NS 500 MG/100 ML PIGGYBACK 100 MG IV (19:25)
[2022-02-02 19:39] VITALS: BP 121/73; PULSE 109; RESP 20; TEMP 37.2; O2SAT 94
[2022-02-02] MEDS: ondansetron HCL 4 MG/2 ML VIAL IVPUSH (19:44)
[2022-02-02] MEDS: Loratadine 10 MG TABLET PO (20:13)
[2022-02-02 20:45] LABS: CDiff Gene PCR NEGATIVE (Negative)
[2022-02-03] VITALS (7 sets, daily range): BP systolic 109–127; BP diastolic 55–78; PULSE 84–108; RESP 18–21; TEMP 36.2–37.2; O2SAT 90–95
[2022-02-03] MEDS: HYDROmorphone HCl 1 MG/ML SYRINGE IVPUSH ×4 (03:24→22:32)
[2022-02-03] MEDS: metroNIDAZOLE/NS 500 MG/100 ML PIGGYBACK 100 MG IV ×3 (03:26→20:09)
[2022-02-03 07:09] LABS: Basophils Percent Auto 0.2 % (0-2); Eosinophils Absolute Auto 0.1 X10*3/uL (0.0-0.4); Eosinophils Percent Auto 1.9 % (0-4); Hematocrit 24.5 % (42.0-52.0); Imm Gran Abs Auto 0.09 X10*3/uL (0.00-0.03); Imm Gran Pct Auto 1.9 % (0.0-0.4); Lymphocytes Absolute Auto 0.7 X10*3/uL (1.2-4.9); Lymphocytes Percent Auto 15.7 % (20-40); MANUAL DIFF FLAG NO; Mean Corpuscular HGB Conc 32.7 g/dl (31.0-36.0); Mean Corpuscular Hemoglobin 27.5 pg (27.0-33.0); Mean Corpuscular Volume 84.2 fL (80.0-98.0); Mean Platelet Volume 9.8 fL (9.4-12.4); Monocytes Absolute Auto 0.7 X10*3/uL (0.1-1.2); Monocytes Percent Auto 15.1 % (2-11); Neutrophils Absolute Auto 3.1 x10*3/uL (2.0-8.3); Neutrophils Percent Auto 65.2 % (45-73); Platelet Count 127 X10*3/uL (160-400); Red Blood Count 2.91 X10*6/uL (4.60-5.80); Red Cell Distribution Width 14.6 % (11.0-16.0); White Blood Count 4.7 X10*3/uL (4.8-10.8)
[2022-02-03 07:10] LABS: Anion Gap 13 (12-20); Blood Urea Nitrogen 22 mg/dL (9-16); Calcium 8.3 mg/dL (8.4-10.2); Carbon Dioxide 25 mmol/L (22-29); Chloride 95 mmol/L (96-108); Creatinine Clr Calc Pharmacy 84.5; Estimated Glomerular Filt Rate > 60; Glucose Random 101 mg/dL (60-115); Potassium 4.3 mmol/L (3.3-5.1); Sodium 129 mmol/L (135-145)
--- NOTE | 2022-02-03 09:15 | PM.PNGS ---
Subjective Subjective Date of Service: 02/03/22 Interval history: says he feels better still with on tenderness on left side but less Physical Exam Vital Signs: Vital Signs: Last Vital Signs Temp 97.7 F 02/03/22 08:00 Pulse 95 02/03/22 08:00 Resp 18 02/03/22 08:00 BP 111/55 L 02/03/22 08:00 Pulse Ox 91 L 02/03/22 08:00 O2 Del Method 02/03/22 08:00 O2 Flow Rate 2 02/01/22 23:36 BMI result Body Mass Index 31.8 Const: General: comfortable and no acute distress Resp: Effort & Inspection: normal respiratory effort Cardio: Rate: regular rate GI: Other: some tenderness on left, mild Palpation (GI): Soft to palpation, not firm, no guarding and not rigid Objective Data Active Medications Albuterol Sulfate (Albuterol Sulfate (0.083%) 2.5 Mg/3 Ml Vial.Neb) 2.5 mg INHALE Q6H PRN PRN Reason: Wheezing Last Admin: 02/02/22 11:27 Dose: 2.5 mg Documented By: CHET Gabapentin (Gabapentin 300 Mg Capsule) 600 mg PO BID [facility] Last Admin: 02/02/22 20:12 Dose: 600 mg Documented By: MAYRA Hydromorphone HCl (Hydromorphone Hcl 1 Mg/Ml Syringe) 1 mg IVPUSH Q4H PRN; Protocol PRN Reason: Pain, Severe (Pain Scale 7-10) Last Admin: 02/03/22 03:24 Dose: 1 mg Documented By: BECKY Ceftriaxone Sodium 1 gm/ (Sodium Chloride) 50 mls @ 100 mls/hr IV Q24H [facility] Last Admin: 02/02/22 18:29 Dose: Not Given Documented By: MAYRA Non-Admin Reason: med already administered Metronidazole (Flagyl) 500 mg in 100 mls @ 100 mls/hr IV Q8H [facility] Last Infusion: 02/03/22 04:48 Dose: 0 mls/hr Documented By: BECKY Loratadine (Loratadine 10 Mg Tablet) 10 mg PO BEDTIME [facility] Last Admin: 02/02/22 20:13 Dose: 10 mg Documented By: MAYRA Magnesium Oxide (Magnesium Oxide 400 Mg Tablet) 400 mg PO BID [facility] Last Admin: 02/02/22 20:13 Dose: 400 mg Documented By: MAYRA Metoprolol Succinate (Metoprolol Succinate Er 50 Mg Tab.Er.24h) 50 mg PO DAILY [facility]; Protocol Last Admin: 02/02/22 10:55 Dose: 50 mg Documented By: RANDEE Comments: MI=568/73 MB=490 Ondansetron HCl (Ondansetron Hcl 4 Mg/2 Ml Vial) 4 mg IVPUSH Q8H PRN PRN Reason: Nausea Last Admin: 02/02/22 19:44 Dose: 4 mg Documented By: MAYRA Pantoprazole Sodium (Pantoprazole Sodium 40 Mg/10 Ml Vial) 40 mg IVPUSH DAILY [facility] Last Admin: 02/02/22 07:26 Dose: 40 mg Documented By: RANDEE Rivaroxaban (Rivaroxaban 20 Mg Tablet) 20 mg PO DAILY@1700 [facility] Last Admin: 02/02/22 15:38 Dose: 20 mg Documented By: MAYRA Sertraline HCl (Sertraline Hcl 50 Mg Tablet) 50 mg PO DAILY [facility] Last Admin: 02/02/22 07:26 Dose: 50 mg Documented By: RANDEE Sodium Chloride (0.9 % Sodium Chloride Flush 3 Ml Syringe) 3 ml IVFLUSH [facility] Last Admin: 02/01/22 20:41 Dose: 3 ml Documented By: CASTILJoseph Spironolactone (Spironolactone 25 Mg Tablet) 25 mg PO DAILY [facility]; Protocol Last Admin: 02/02/22 10:56 Dose: 25 mg Documented By: RANDEE Comments: BP-115/73 Tamsulosin HCl (Tamsulosin Hcl 0.4 Mg Capsule) 0.8 mg PO DAILY@1700 [facility] Last Admin: 02/02/22 15:38 Dose: 0.8 mg Documented By: MAYRA Labs CBC & Chem 7: 02/03/22 05:43 02/03/22 05:43 Labs: Laboratory Results - last 24 hr 02/02/22 02/02/22 02/03/22 12:37 19:30 05:43 MCV 84.2 MCH 27.5 MCHC 32.7 RDW 14.6 Plt Count 127 L MPV 9.8 Immature Gran % (Auto) 1.9 H Neut % (Auto) 65.2 Lymph % (Auto) 15.7 L [place] % (Auto) 15.1 H Eos % (Auto) 1.9 Baso % (Auto) 0.2 Lymph # (Auto) 0.7 L [place] # (Auto) 0.7 Eos # (Auto) 0.1 Baso # (Auto) 0.0 Abs Immat Gran (auto) 0.09 H Absolute Neuts (auto) 3.1 Absolute Nucleated RBC 0.000 Nucleated RBC % (auto) 0.0 Anion Gap Estim Creat Clear Calc Estimated GFR Random Glucose Calcium Urine Color Yellow Urine Appearance Clear Urine pH 5.5 Ur Specific [place] 1.015 Urine Protein Negative Urine Glucose (UA) Negative Urine Ketones Trace Urine Blood Moderate (2+) H Urine Nitrite Negative Ur Leukocyte Esterase Trace H Urine RBC 6-10 H Urine WBC 0-5 Ur Squamous Epith Cells 0-2 Urine Bacteria None Seen Hyaline Casts 0-2 C. difficile Tox B Gene NEGATIVE 02/03/22 05:43 MCV MCH MCHC RDW Plt Count MPV Immature Gran % (Auto) Neut % (Auto) Lymph % (Auto) [place] % (Auto) Eos % (Auto) Baso % (Auto) Lymph # (Auto) [place] # (Auto) Eos # (Auto) Baso # (Auto) Abs Immat Gran (auto) Absolute Neuts (auto) Absolute Nucleated RBC Nucleated RBC % (auto) Anion Gap 13 Estim Creat Clear Calc 84.5 Estimated GFR > 60 Random Glucose 101 Calcium 8.3 L Urine Color Urine Appearance Urine pH Ur Specific [place] Urine Protein Urine Glucose (UA) Urine Ketones Urine Blood Urine Nitrite Ur Leukocyte Esterase Urine RBC Urine WBC Ur Squamous Epith Cells Urine Bacteria Hyaline Casts C. difficile Tox B Gene Procedures Date of Service Date of Service: 02/03/22 Progress Note: A&P Assessment and plan (1) Acute mesenteric ischemia: Status: Acute Assessment and Plan: clinically much improved abd remains benign Na low - IVF ordered keep on clear liquids for now further workup down the line - possible MRA as per GI ( pt unable to have IV contrast) Time Spent With Patient Time: Total time spent is greater than 50% in coordination of care (as documented) at patient's floor/unit and/or counseling patient: Quality Stroke Does the patient have a stroke diagnosis?: No VTE Prior VTE?: No VTE Risk Level:: Surgical - low VTE Device Contraindication: N/A - Device Ordered VTE Drug Contraindication: N/A - Med Ordered
[2022-02-03 09:37] LABS: Campylobacter Not Detected (Not Detect.); E. coli EAEC Not Detected (Not Detect.); E. coli EPEC Not Detected (Not Detect.); E. coli ETEC Not Detected (Not Detect.); E. coli STEC Not Detected (Not Detect.); Plesiomonas shigelloides Not Detected (Not Detect.); Salmonella Not Detected (Not Detect.); Vibrio Not Detected (Not Detect.); Vibrio Cholerae Not Detected (Not Detect.); Yersinia enterocolitica Not Detected (Not Detect.)
[2022-02-03 09:38] LABS: Adenovirus F 40/41 Not Detected (Not Detect.); Astrovirus Not Detected (Not Detect.); Cryptosporidium Not Detected (Not Detect.); Cyclospora cayetanensis Not Detected (Not Detect.); Entamoeba histolytica Not Detected (Not Detect.); Giardia lamblia Not Detected (Not Detect.); Norovirus GI/GII Not Detected (Not Detect.); Rotavirus A Not Detected (Not Detect.); Sapovirus Not Detected (Not Detect.); Shigella sp./EIEC Not Detected (Not Detect.)
[2022-02-03] MEDS: Magnesium Oxide 400 MG TABLET PO ×2 (09:44→20:09)
[2022-02-03] MEDS: Sertraline HCL 50 MG TABLET PO (09:45)
[2022-02-03] MEDS: Metoprolol Succinate ER 50 MG TAB.ER.24H PO (09:45)
[2022-02-03] MEDS: 0.9 % Sodium Chloride Flush 3 ML SYRINGE IVFLUSH ×2 (09:45→17:35)
[2022-02-03] MEDS: Gabapentin 300 MG CAPSULE 600 MG PO ×2 (09:45→20:09)
[2022-02-03] MEDS: Pantoprazole Sodium 40 MG/10 ML VIAL IVPUSH (09:46)
--- NOTE | 2022-02-03 09:49 | P.PNIM_ITS ---
Subjective Subjective Date of Service: 02/03/22 Interval History: Seen in f/u for med consult doing well, has no acute issues at this time Review of Systems Positive for epigastric pain Physical Exam Vital Signs: Vital Signs: Last Vital Signs Temp 97.7 F 02/03/22 08:00 Pulse 95 02/03/22 08:00 Resp 18 02/03/22 08:00 BP 111/55 L 02/03/22 08:00 Pulse Ox 91 L 02/03/22 08:00 O2 Del Method 02/03/22 08:00 O2 Flow Rate 2 02/01/22 23:36 BMI result Body Mass Index 31.8 Objective Data Active Medications Albuterol Sulfate (Albuterol Sulfate (0.083%) 2.5 Mg/3 Ml Vial.Neb) 2.5 mg INHALE Q6H PRN PRN Reason: Wheezing Last Admin: 02/02/22 11:27 Dose: 2.5 mg Documented By: CHET Gabapentin (Gabapentin 300 Mg Capsule) 600 mg PO BID [facility] BEDS AT [facility] Last Admin: 02/03/22 09:45 Dose: 600 mg Documented By: JUDITH Hydromorphone HCl (Hydromorphone Hcl 1 Mg/Ml Syringe) 1 mg IVPUSH Q4H PRN; Protocol PRN Reason: Pain, Severe (Pain Scale 7-10) Last Admin: 02/03/22 03:24 Dose: 1 mg Documented By: BECKY Ceftriaxone Sodium 1 gm/ (Sodium Chloride) 50 mls @ 100 mls/hr IV Q24H [facility] 234 BEDS AT [facility] Last Admin: 02/02/22 18:29 Dose: Not Given Documented By: MAYRA Non-Admin Reason: med already administered Metronidazole (Flagyl) 500 mg in 100 mls @ 100 mls/hr IV Q8H [facility] 234 BEDS AT [facility] Last Infusion: 02/03/22 04:48 Dose: 0 mls/hr Documented By: BECKY Sodium Chloride (Ns) 1,000 mls @ 80 mls/hr IVCONT .[id number] [facility]S [facility]CLUDE 234 BEDS AT [facility] Loratadine (Loratadine 10 Mg Tablet) 10 mg PO BEDTIME [facility] 234 BEDS AT [facility] Last Admin: 02/02/22 20:13 Dose: 10 mg Documented By: MAYRA Magnesium Oxide (Magnesium Oxide 400 Mg Tablet) 400 mg PO BID [facility]CLUDE 234 BEDS AT [facility] Last Admin: 02/03/22 09:44 Dose: 400 mg Documented By: JUDITH Metoprolol Succinate (Metoprolol Succinate Er 50 Mg Tab.Er.24h) 50 mg PO DAILY [facility] 234 BEDS AT [facility]; Protocol Last Admin: 02/03/22 09:45 Dose: 50 mg Documented By: JUDITH Ondansetron HCl (Ondansetron Hcl 4 Mg/2 Ml Vial) 4 mg IVPUSH Q8H PRN PRN Reason: Nausea Last Admin: 02/02/22 19:44 Dose: 4 mg Documented By: MAYRA Pantoprazole Sodium (Pantoprazole Sodium 40 Mg/10 Ml Vial) 40 mg IVPUSH DAILY [facility]CLUDE 234 BEDS AT [facility] Last Admin: 02/03/22 09:46 Dose: 40 mg Documented By: JUDITH Rivaroxaban (Rivaroxaban 20 Mg Tablet) 20 mg PO DAILY@1700 [facility] 234 BEDS AT [facility] Last Admin: 02/02/22 15:38 Dose: 20 mg Documented By: MAYRA Sertraline HCl (Sertraline Hcl 50 Mg Tablet) 50 mg PO DAILY [facility]CLUDE 234 BEDS AT [facility] Last Admin: 02/03/22 09:45 Dose: 50 mg Documented By: JUDITH Sodium Chloride (0.9 % Sodium Chloride Flush 3 Ml Syringe) 3 ml IVFLUSH QSHIFT COUNTS INCLUDE 234 BEDS AT [facility] Last Admin: 02/03/22 09:45 Dose: 3 ml Documented By: JUDITH Spironolactone (Spironolactone 25 Mg Tablet) 25 mg PO DAILY [facility]CLUDE 234 BEDS AT [facility]; Protocol Last Admin: 02/02/22 10:56 Dose: 25 mg Documented By: RANDEE Comments: BP-115/73 Tamsulosin HCl (Tamsulosin Hcl 0.4 Mg Capsule) 0.8 mg PO DAILY@1700 [facility]CLUDE 234 BEDS AT [facility] Last Admin: 02/02/22 15:38 Dose: 0.8 mg Documented By: MAYRA Labs CBC & Chem 7: 02/03/22 05:43 02/03/22 05:43 Labs: Laboratory Results - last 24 hr 02/02/22 02/02/22 02/02/22 12:37 19:30 19:30 MCV MCH MCHC RDW Plt Count MPV Immature Gran % (Auto) Neut % (Auto) Lymph % (Auto) [place] % (Auto) Eos % (Auto) Baso % (Auto) Lymph # (Auto) [place] # (Auto) Eos # (Auto) Baso # (Auto) Abs Immat Gran (auto) Absolute Neuts (auto) Absolute Nucleated RBC Nucleated RBC % (auto) Anion Gap Estim Creat Clear Calc Estimated GFR Random Glucose Calcium Urine Color Yellow Urine Appearance Clear Urine pH 5.5 Ur Specific [place] 1.015 Urine Protein Negative Urine Glucose (UA) Negative Urine Ketones Trace Urine Blood Moderate (2+) H Urine Nitrite Negative Ur Leukocyte Esterase Trace H Urine RBC 6-10 H Urine WBC 0-5 Ur Squamous Epith Cells 0-2 Urine Bacteria None Seen Hyaline Casts 0-2 Stl C. cayetanensis PCR Not Detected Stool Rotavirus A PCR Not Detected Stl Adenov F 40/41 PCR Not Detected Stool Astrovirus (PCR) Not Detected Stool Campylobacter PCR Not Detected Stool Cryptosporidium PCR Not Detected Stl Sh Tox Pr E STEC PCR Not Detected Stool E coli O157 PCR Not applicable Stl Enterotoxigenic E PCR Not Detected Stool EPEC (PCR) Not Detected Stool EAEC (PCR) Not Detected Stl E. histolytica PCR Not Detected Stool Giardia Lamblia PCR Not Detected Stl P. shigelloides PCR Not Detected Stool Salmonella PCR Not Detected Stool Sapovirus (PCR) Not Detected Stl Shigella/EIEC PCR Not Detected St Y.enterocolitica PCR Not Detected Stool Vibrio (PCR) Not Detected Stl Vibrio cholerae PCR Not Detected Stl Norovirus GI/GII PCR Not Detected C. difficile Tox B Gene NEGATIVE 02/03/22 02/03/22 05:43 05:43 MCV 84.2 MCH 27.5 MCHC 32.7 RDW 14.6 Plt Count 127 L MPV 9.8 Immature Gran % (Auto) 1.9 H Neut % (Auto) 65.2 Lymph % (Auto) 15.7 L [place] % (Auto) 15.1 H Eos % (Auto) 1.9 Baso % (Auto) 0.2 Lymph # (Auto) 0.7 L [place] # (Auto) 0.7 Eos # (Auto) 0.1 Baso # (Auto) 0.0 Abs Immat Gran (auto) 0.09 H Absolute Neuts (auto) 3.1 Absolute Nucleated RBC 0.000 Nucleated RBC % (auto) 0.0 Anion Gap 13 Estim Creat Clear Calc 84.5 Estimated GFR > 60 Random Glucose 101 Calcium 8.3 L Urine Color Urine Appearance Urine pH Ur Specific [place] Urine Protein Urine Glucose (UA) Urine Ketones Urine Blood Urine Nitrite Ur Leukocyte Esterase Urine RBC Urine WBC Ur Squamous Epith Cells Urine Bacteria Hyaline Casts Stl C. cayetanensis PCR Stool Rotavirus A PCR Stl Adenov F 40/41 PCR Stool Astrovirus (PCR) Stool Campylobacter PCR Stool Cryptosporidium PCR Stl Sh Tox Pr E STEC PCR Stool E coli O157 PCR Stl Enterotoxigenic E PCR Stool EPEC (PCR) Stool EAEC (PCR) Stl E. histolytica PCR Stool Giardia Lamblia PCR Stl P. shigelloides PCR Stool Salmonella PCR Stool Sapovirus (PCR) Stl Shigella/EIEC PCR St Y.enterocolitica PCR Stool Vibrio (PCR) Stl Vibrio cholerae PCR Stl Norovirus GI/GII PCR C. difficile Tox B Gene Assessment and Plan (1) Persistent atrial fibrillation: Status: Acute Assessment and Plan: Noted elevated heart rate this am. Will restart home metoprolol. Patient also restarted back on his home oral anticoagulation, Xarelto by Dr Frye. (2) HTN (hypertension): Status: Acute Assessment and Plan: Restarting spironolactone and metoprolol. Losartan and amlodipine on hold, restart as appropriate. (3) Ileitis, terminal: Status: Acute Assessment and Plan: Repeat CT scan with evidence of thickening involving distal ileum. Previously at the time of admission, abdominal pain was concerning for acute mesenteric ischemia but repeat CT with resolution of portal venous gas. Patient passing gas and stools. No fever or leukocytosis concerning for infection. Gastroenterology has been consulted by Dr Frye. Diet advanced to liquid diet. (4) MENA (acute kidney injury): Status: Acute Assessment and Plan: Resolved with IV fluid resuscitation. Will discontinue maintenance fluids (5) STAN on CPAP: Status: Acute Assessment and Plan: continue home CPAP at night (6) Thrombocytopenia: Status: Acute Assessment and Plan: appears chronic. No bleeding and no concern /indication for holding anticoagulation at this time. (7) Chronic anemia: Status: Acute Assessment and Plan: Appears chronic. Patient is on iron supplementation at home. Will restart after resolution of acute issues. Quality Stroke Does the patient have a stroke diagnosis?: No VTE Prior VTE?: No VTE Risk Level:: Surgical - low VTE Device Contraindication: N/A - Device Ordered VTE Drug Contraindication: N/A - Med Ordered
[2022-02-03] MEDS: 0.9 % Sodium Chloride 1,000 ML 80 ML IVCONT ×2 (09:52→23:53)
[2022-02-03] MEDS: Spironolactone 25 MG TABLET PO (10:06)
[2022-02-03 17:22] LABS: Lactic Acid 0.6 mmol/L (0.5-2.0)
[2022-02-03] MEDS: Tamsulosin HCL 0.4 MG CAPSULE 0.8 MG PO (17:35)
[2022-02-03] MEDS: Rivaroxaban 20 MG TABLET PO (17:37)
[2022-02-03] MEDS: cefTRIAXone sodium 1 GM in 0.9 % Sodium Chloride 50 ML IV (17:54)
[2022-02-03] MEDS: Loratadine 10 MG TABLET PO (20:09)
[2022-02-04 03:53] VITALS: BP 107/55; PULSE 98; RESP 20; TEMP 36.6; O2SAT 93
[2022-02-04] MEDS: metroNIDAZOLE/NS 500 MG/100 ML PIGGYBACK 100 MG IV ×3 (03:56→20:01)
[2022-02-04 06:33] LABS: Anion Gap 13 (12-20); Blood Urea Nitrogen 16 mg/dL (9-16); Carbon Dioxide 24 mmol/L (22-29); Chloride 95 mmol/L (96-108); Creatinine Clr Calc Pharmacy 94.5; Estimated Glomerular Filt Rate > 60; Glucose Random 94 mg/dL (60-115); Potassium 4.1 mmol/L (3.3-5.1); Sodium 128 mmol/L (135-145)
[2022-02-04] MEDS: Metoprolol Succinate ER 50 MG TAB.ER.24H PO (07:59)
[2022-02-04 08:00] VITALS: BP 144/64; PULSE 100; RESP 18; TEMP 36.6; O2SAT 94
[2022-02-04] MEDS: Spironolactone 25 MG TABLET PO (08:00)
[2022-02-04] MEDS: Gabapentin 300 MG CAPSULE 600 MG PO ×2 (08:00→20:02)
[2022-02-04] MEDS: Sertraline HCL 50 MG TABLET PO (08:00)
[2022-02-04] MEDS: 0.9 % Sodium Chloride Flush 3 ML SYRINGE IVFLUSH ×2 (08:00→16:06)
[2022-02-04] MEDS: Magnesium Oxide 400 MG TABLET PO ×2 (08:00→20:03)
[2022-02-04] MEDS: Pantoprazole Sodium 40 MG/10 ML VIAL IVPUSH (08:06)
[2022-02-04] MEDS: HYDROmorphone HCl 1 MG/ML SYRINGE IVPUSH ×3 (08:09→22:15)
[2022-02-04] MEDS: ondansetron HCL 4 MG/2 ML VIAL IVPUSH ×2 (08:13→22:18)
--- NOTE | 2022-02-04 09:41 | PM.PNGS ---
Subjective Subjective Date of Service: 02/04/22 Interval history: still w/ pain, near umbilicus although better passing flatus no n/v Physical Exam Vital Signs: Vital Signs: Last Vital Signs Temp 97.9 F 02/04/22 08:00 Pulse 100 02/04/22 08:00 Resp 18 02/04/22 08:00 BP 144/64 H 02/04/22 08:00 Pulse Ox 94 02/04/22 08:00 O2 Del Method 02/04/22 08:00 O2 Flow Rate 2 02/03/22 23:53 BMI result Body Mass Index 31.8 Const: General: comfortable and no acute distress Resp: Effort & Inspection: normal respiratory effort Cardio: Rate: regular rate GI: Other: mild tenderness lower abdomen Palpation (GI): Soft to palpation, not firm, no guarding and not rigid Objective Data Active Medications Albuterol Sulfate (Albuterol Sulfate (0.083%) 2.5 Mg/3 Ml Vial.Neb) 2.5 mg INHALE Q6H PRN PRN Reason: Wheezing Last Admin: 02/02/22 11:27 Dose: 2.5 mg Documented By: CHET Gabapentin (Gabapentin 300 Mg Capsule) 600 mg PO BID [facility] Last Admin: 02/04/22 08:00 Dose: 600 mg Documented By: GILDA Hydromorphone HCl (Hydromorphone Hcl 1 Mg/Ml Syringe) 1 mg IVPUSH Q4H PRN; Protocol PRN Reason: Pain, Severe (Pain Scale 7-10) Last Admin: 02/04/22 08:09 Dose: 1 mg Documented By: GILDA Ceftriaxone Sodium 1 gm/ (Sodium Chloride) 50 mls @ 100 mls/hr IV Q24H [facility] Last Infusion: 02/03/22 18:45 Dose: 0 mls/hr Documented By: JUDITH Metronidazole (Flagyl) 500 mg in 100 mls @ 100 mls/hr IV Q8H [facility] Last Infusion: 02/04/22 05:04 Dose: 0 mls/hr Documented By: LAMAR Sodium Chloride (Ns) 1,000 mls @ 80 mls/hr IVCONT .[id number] [facility] Last Admin: 02/03/22 23:53 Dose: 80 mls/hr Documented By: HO.ODRISM Loratadine (Loratadine 10 Mg Tablet) 10 mg PO BEDTIME [facility] Last Admin: 02/03/22 20:09 Dose: 10 mg Documented By: ODRISM Magnesium Oxide (Magnesium Oxide 400 Mg Tablet) 400 mg PO BID [facility] Last Admin: 02/04/22 08:00 Dose: 400 mg Documented By: GILDA Metoprolol Succinate (Metoprolol Succinate Er 50 Mg Tab.Er.24h) 50 mg PO DAILY [facility]; Protocol Last Admin: 02/04/22 07:59 Dose: 50 mg Documented By: GILDA Ondansetron HCl (Ondansetron Hcl 4 Mg/2 Ml Vial) 4 mg IVPUSH Q8H PRN PRN Reason: Nausea Last Admin: 02/04/22 08:13 Dose: 4 mg Documented By: GILDA Rivaroxaban (Rivaroxaban 20 Mg Tablet) 20 mg PO DAILY@1700 [facility] Last Admin: 02/03/22 17:37 Dose: 20 mg Documented By: JUDITH Sertraline HCl (Sertraline Hcl 50 Mg Tablet) 50 mg PO DAILY [facility] Last Admin: 02/04/22 08:00 Dose: 50 mg Documented By: GILDA Sodium Chloride (0.9 % Sodium Chloride Flush 3 Ml Syringe) 3 ml IVFLUSH [facility] Last Admin: 02/04/22 08:00 Dose: 3 ml Documented By: GILDA Spironolactone (Spironolactone 25 Mg Tablet) 25 mg PO DAILY [facility]; Protocol Last Admin: 02/04/22 08:00 Dose: 25 mg Documented By: GILDA Tamsulosin HCl (Tamsulosin Hcl 0.4 Mg Capsule) 0.8 mg PO DAILY@1700 [facility] Last Admin: 02/03/22 17:35 Dose: 0.8 mg Documented By: JUDITH Labs CBC & Chem 7: 02/03/22 05:43 02/04/22 05:45 Labs: Laboratory Results - last 24 hr 02/03/22 02/04/22 17:04 05:45 Anion Gap 13 Estim Creat Clear Calc 94.5 Estimated GFR > 60 Random Glucose 94 Lactic Acid 0.6 Calcium 8.0 L Procedures Date of Service Date of Service: 02/04/22 Progress Note: A&P Assessment and plan (1) Acute mesenteric ischemia: Status: Acute Assessment and Plan: pain improving steadily will reevalaute alter to see if we can advance diet exam benign Na still low Hg low - seems chronic, follow closely no signs of acute bleed Time Spent With Patient Time: Total time spent is greater than 50% in coordination of care (as documented) at patient's floor/unit and/or counseling patient: Quality Stroke Does the patient have a stroke diagnosis?: No VTE Prior VTE?: No VTE Risk Level:: Surgical - low VTE Device Contraindication: N/A - Device Ordered VTE Drug Contraindication: N/A - Med Ordered
--- NOTE | 2022-02-04 09:46 | HO.PM.IMPN ---
Subjective Subjective Date of Service: 02/04/22 Interval History: Seen in f/u for med consult doing well, has no acute issues at this time Review of Systems some lower abd no n/v no fever Physical Exam Vital Signs: Vital Signs: Last Vital Signs Temp 97.9 F 02/04/22 08:00 Pulse 100 02/04/22 08:00 Resp 18 02/04/22 08:00 BP 144/64 H 02/04/22 08:00 Pulse Ox 94 02/04/22 08:00 O2 Del Method 02/04/22 08:00 O2 Flow Rate 2 02/03/22 23:53 BMI result Body Mass Index 31.8 Const: Other: Appearance: Alert. Oriented X3. Seems uncomfortable Eyes: Pupils equal, round and reactive to light. ENT: Pharynx normal. Neck: Normal inspection. Neck supple. No lymph nodes noted. No crepitus CVS: Normal heart rate and rhythm. Pulses normal. Normal S1 and S2 Respiratory: No respiratory distress. Breath sounds normal. No Wheezing. No rales Abdomen: Soft , diffuse tenderness to palpation especially in the periumbilical area, no rebound, no guarding, mild to moderate moderate distension Skin: Skin warm and dry. Normal skin color. Normal skin turgor. Extremities: No lower extremity edema. No Lacerations. No Rash Neuro: Oriented X 3. No motor deficit. No sensory deficit. Moving all extremities. No slurred speech. CN 2 through 12 grossly intact Psych: calm, cooperative, normal affect Objective Data Active Medications Albuterol Sulfate (Albuterol Sulfate (0.083%) 2.5 Mg/3 Ml Vial.Neb) 2.5 mg INHALE Q6H PRN PRN Reason: Wheezing Last Admin: 02/02/22 11:27 Dose: 2.5 mg Documented By: CHET Gabapentin (Gabapentin 300 Mg Capsule) 600 mg PO BID [facility] Last Admin: 02/04/22 08:00 Dose: 600 mg Documented By: GILDA Hydromorphone HCl (Hydromorphone Hcl 1 Mg/Ml Syringe) 1 mg IVPUSH Q4H PRN; Protocol PRN Reason: Pain, Severe (Pain Scale 7-10) Last Admin: 02/04/22 08:09 Dose: 1 mg Documented By: GILDA Ceftriaxone Sodium 1 gm/ (Sodium Chloride) 50 mls @ 100 mls/hr IV Q24H [facility] Last Infusion: 02/03/22 18:45 Dose: 0 mls/hr Documented By: JUDITH Metronidazole (Flagyl) 500 mg in 100 mls @ 100 mls/hr IV Q8H [facility] Last Infusion: 02/04/22 05:04 Dose: 0 mls/hr Documented By: LAMAR Sodium Chloride (Ns) 1,000 mls @ 80 mls/hr IVCONT .[id number] [facility] Last Admin: 02/03/22 23:53 Dose: 80 mls/hr Documented By: LAMAR Loratadine (Loratadine 10 Mg Tablet) 10 mg PO BEDTIME [facility] Last Admin: 02/03/22 20:09 Dose: 10 mg Documented By: LAMAR Magnesium Oxide (Magnesium Oxide 400 Mg Tablet) 400 mg PO BID [facility] Last Admin: 02/04/22 08:00 Dose: 400 mg Documented By: GILDA Metoprolol Succinate (Metoprolol Succinate Er 50 Mg Tab.Er.24h) 50 mg PO DAILY [facility]; Protocol Last Admin: 02/04/22 07:59 Dose: 50 mg Documented By: GILDA Ondansetron HCl (Ondansetron Hcl 4 Mg/2 Ml Vial) 4 mg IVPUSH Q8H PRN PRN Reason: Nausea Last Admin: 02/04/22 08:13 Dose: 4 mg Documented By: GILDA Rivaroxaban (Rivaroxaban 20 Mg Tablet) 20 mg PO DAILY@1700 [facility] Last Admin: 02/03/22 17:37 Dose: 20 mg Documented By: JUDITH Sertraline HCl (Sertraline Hcl 50 Mg Tablet) 50 mg PO DAILY [facility] Last Admin: 02/04/22 08:00 Dose: 50 mg Documented By: GILDA Sodium Chloride (0.9 % Sodium Chloride Flush 3 Ml Syringe) [facility] Last Admin: 02/04/22 08:00 Dose: 3 ml Documented By: GILDA Spironolactone (Spironolactone 25 Mg Tablet) 25 mg PO DAILY [facility]; Protocol Last Admin: 02/04/22 08:00 Dose: 25 mg Documented By: GILDA Tamsulosin HCl (Tamsulosin Hcl 0.4 Mg Capsule) 0.8 mg PO DAILY@1700 [facility] Last Admin: 02/03/22 17:35 Dose: 0.8 mg Documented By: JUDITH Labs CBC & Chem 7: 02/03/22 05:43 02/04/22 05:45 Labs: Laboratory Results - last 24 hr 02/03/22 02/04/22 17:04 05:45 Anion Gap 13 Estim Creat Clear Calc 94.5 Estimated GFR > 60 Random Glucose 94 Lactic Acid 0.6 Calcium 8.0 L Assessment and Plan (1) Persistent atrial fibrillation: Status: Acute Assessment and Plan: continue metoprolol Xarelto (2) HTN (hypertension): Status: Acute Assessment and Plan: continue all home meds (3) Ileitis, terminal: Status: Acute Assessment and Plan: Management by surgery (4) MENA (acute kidney injury): Status: Acute Assessment and Plan: Resolved with IVF (5) STAN on CPAP: Status: Acute Assessment and Plan: continue home CPAP at night (6) Thrombocytopenia: Status: Acute Assessment and Plan: appears chronic. No bleeding and no concern /indication for holding anticoagulation at this time. (7) Chronic anemia: Status: Acute Assessment and Plan: Appears chronic. Patient is on iron supplementation at home. Will restart after resolution of acute issues. (8) Hyponatremia: Status: Acute Assessment and Plan: acute on chronic. Monitor, restrict free water, on NS, follow Quality Stroke Does the patient have a stroke diagnosis?: No VTE Prior VTE?: No VTE Risk Level:: Surgical - low VTE Device Contraindication: N/A - Device Ordered VTE Drug Contraindication: N/A - Med Ordered
[2022-02-04] MEDS: 0.9 % Sodium Chloride 1,000 ML 80 ML IVCONT ×2 (10:23→19:59)
[2022-02-04 11:18] VITALS: BP 121/62; PULSE 93; RESP 18; TEMP 37.2; O2SAT 91
--- NOTE | 2022-02-04 15:29 | PM.GIPN ---
Subjective Subjective Date of Service: 02/04/22 Interval History: passing stools still loose abdo pain less but still present no urine sx no nausea or vomiting has chronic sob Critical Care Time (minutes): 0 Physical Exam Vital Signs: Vital Signs: Last Vital Signs Temp 98.9 F 02/04/22 11:18 Pulse 93 02/04/22 11:18 Resp 18 02/04/22 11:18 BP 121/62 02/04/22 11:18 Pulse Ox 91 L 02/04/22 11:18 O2 Del Method 02/04/22 11:18 O2 Flow Rate 2 02/03/22 23:53 BMI result Body Mass Index 31.8 EXAM: GENERAL: The patient is pale VITAL SIGNS:see workflow HEENT: Nonicteric sclerae, PERRLA, EOMI. Oropharynx clear. Moist mucous membranes. Conjunctivae appear pale. No thyroid mass. CHEST: Chest wall is nontender. HEART: irregular, ESM at sternal edge LUNGS: Clear to auscultation bilaterally. ABDOMEN: Soft, positive bowel sounds, tender donna umbilical area, no organomegaly.no flank tenderness SKIN: No rash, no excessive bruising, petechiae, or purpura. NEUROLOGIC: Cranial nerves II-XII intact without motor/sensory deficit. psych- nml Objective Data Labs CBC & Chem 7: 02/03/22 05:43 02/04/22 05:45 Labs: Laboratory Results - last 24 hr 02/03/22 02/04/22 17:04 05:45 Sodium 128 L Potassium 4.1 Chloride 95 L Carbon Dioxide 24 Anion Gap 13 BUN 16 Creatinine 0.93 Estim Creat Clear Calc 94.5 Estimated GFR > 60 Random Glucose 94 Lactic Acid 0.6 Calcium 8.0 L Procedures Date of Service Date of Service: 02/04/22 Progress Note: A&P Assessment and plan (1) Acute mesenteric ischemia: Status: Acute (2) Ileitis, terminal: Status: Acute (3) Chronic anemia: Status: Acute (4) Thrombocytopenia: Status: Acute Plan 1/ Ileitis with initial concern for mesenteric ischemia, still having pain and tenderness, on abx right now. 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 PLAN: 1/ consider repeat imaging to see if any improvement tomorrow 2/ labs added to check b12, folate, Hep B,C LAURA, ANCA, crp and esr, cortisol level 3/ might consider adding mesalamine to see if helps depending on imaging 4/ hold on colonoscopy for the moment Time Spent With Patient Time: Total time spent is greater than 50% in coordination of care (as documented) at patient's floor/unit and/or counseling patient: Quality Stroke Does the patient have a stroke diagnosis?: No VTE Prior VTE?: No VTE Risk Level:: Surgical - low VTE Device Contraindication: N/A - Device Ordered VTE Drug Contraindication: N/A - Med Ordered
[2022-02-04 15:54] VITALS: BP 133/83; PULSE 104; RESP 19; TEMP 37.2; O2SAT 94
[2022-02-04] MEDS: Rivaroxaban 20 MG TABLET PO (16:05)
[2022-02-04] MEDS: Tamsulosin HCL 0.4 MG CAPSULE 0.8 MG PO (16:05)
[2022-02-04 16:58] LABS: Erythrocyte Sedimentation Rate 67 MM/HR (0-15)
[2022-02-04 16:58] LABS: Ferritin 346 ng/mL (20-250)
[2022-02-04 17:17] LABS: Osmolality, Serum 264 mosm/kg (281-305)
[2022-02-04 17:40] LABS: Cortisol Random 14.9 ug/dL
[2022-02-04] MEDS: cefTRIAXone sodium 1 GM in 0.9 % Sodium Chloride 50 ML IV (18:11)
[2022-02-04 19:13] LABS: Osmolality Urine 499 mosm/kg (373-1093)
[2022-02-04 19:46] VITALS: BP 124/61; PULSE 90; RESP 16; TEMP 36.8; O2SAT 92
[2022-02-04] MEDS: Loratadine 10 MG TABLET PO (20:03)
[2022-02-05] VITALS (7 sets, daily range): BP systolic 111–153; BP diastolic 55–97; PULSE 19–99; RESP 16–20; TEMP 36.2–37.2; O2SAT 89–97
[2022-02-05] MEDS: metroNIDAZOLE/NS 500 MG/100 ML PIGGYBACK 100 MG IV ×3 (05:26→20:10)
[2022-02-05 07:54] LABS: HBsAGNum1 0.23 S/CO (0.00-0.99); HIV AB/AG Nonreactive (Nonreactive); HIV Num 1 0.06 S/CO (0.00-0.99); Hepatitis B Core Antibody Nonreactive (Nonreactive); Hepatitis B Surface Antigen Negative (Negative); ~HepC Num1 0.07 S/CO (0.00-0.79); ~Hepatitis B Surface Antibody REACTIVE (Nonreactive); ~Hepatitis C Antibody Nonreactive (Nonreactive)
[2022-02-05] MEDS: 0.9 % Sodium Chloride 1,000 ML 80 ML IVCONT (09:08)
[2022-02-05] MEDS: Gabapentin 300 MG CAPSULE 600 MG PO ×2 (09:09→20:07)
[2022-02-05] MEDS: Magnesium Oxide 400 MG TABLET PO ×2 (09:09→20:07)
[2022-02-05] MEDS: Metoprolol Succinate ER 50 MG TAB.ER.24H PO (09:09)
[2022-02-05] MEDS: Spironolactone 25 MG TABLET PO (09:09)
[2022-02-05] MEDS: Sertraline HCL 50 MG TABLET PO (09:09)
--- NOTE | 2022-02-05 09:48 | P.PNIM_ITS ---
Subjective Subjective Date of Service: 02/05/22 Interval History: Seen in f/u for med consult doing well, pain is better, tolerating liquid diet Review of Systems some lower abd no n/v no fever Physical Exam Vital Signs: Vital Signs: Last Vital Signs Temp 97.4 F 02/05/22 07:52 Pulse 94 02/05/22 07:52 Resp 18 02/05/22 07:52 BP 123/55 L 02/05/22 07:52 Pulse Ox 96 02/05/22 07:52 O2 Del Method 02/05/22 07:52 O2 Flow Rate 3 02/05/22 07:52 BMI result Body Mass Index 31.8 Const: Other: General: AO X 3, no acute distress Resp: CTA bilateral CVS: S1,S2, KEVIN GI: +BS, lower abd tenderness, no distention Skin: No rash Neuro: motor grossly intact Psych: appropriate affect Objective Data Active Medications Albuterol Sulfate (Albuterol Sulfate (0.083%) 2.5 Mg/3 Ml Vial.Neb) 2.5 mg INHALE Q6H PRN PRN Reason: Wheezing Last Admin: 02/02/22 11:27 Dose: 2.5 mg Documented By: CHET Gabapentin (Gabapentin 300 Mg Capsule) 600 mg PO BID [facility] Last Admin: 02/05/22 09:09 Dose: 600 mg Documented By: ABRAHAM Hydromorphone HCl (Hydromorphone Hcl 1 Mg/Ml Syringe) 1 mg IVPUSH Q4H PRN; Protocol PRN Reason: Pain, Severe (Pain Scale 7-10) Last Admin: 02/04/22 22:15 Dose: 1 mg Documented By: PAYAL Ceftriaxone Sodium 1 gm/ (Sodium Chloride) 50 mls @ 100 mls/hr IV Q24H COUNTS INCLUDE 234 BEDS AT THE [facility] Last Infusion: 02/04/22 18:50 Dose: 0 mls/hr Documented By: DENI Metronidazole (Flagyl) 500 mg in 100 mls @ 100 mls/hr IV Q8H COUNTS INCLUDE 234 BEDS AT THE [facility] Last Infusion: 02/05/22 06:30 Dose: 0 mls/hr Documented By: PAYAL Loratadine (Loratadine 10 Mg Tablet) 10 mg PO BEDTIME COUNTS INCLUDE 234 BEDS AT THE [facility] Last Admin: 02/04/22 20:03 Dose: 10 mg Documented By: PAYAL Magnesium Oxide (Magnesium Oxide 400 Mg Tablet) 400 mg PO BID COUNTS INCLUDE 234 BEDS AT THE [facility] Last Admin: 02/05/22 09:09 Dose: 400 mg Documented By: ABRAHAM Metoprolol Succinate (Metoprolol Succinate Er 50 Mg Tab.Er.24h) 50 mg PO DAILY COUNTS INCLUDE 234 BEDS AT THE [facility]; Protocol Last Admin: 02/05/22 09:09 Dose: 50 mg Documented By: ABRAHAM Ondansetron HCl (Ondansetron Hcl 4 Mg/2 Ml Vial) 4 mg IVPUSH Q8H PRN PRN Reason: Nausea Last Admin: 02/04/22 22:18 Dose: 4 mg Documented By: PAYAL Rivaroxaban (Rivaroxaban 20 Mg Tablet) 20 mg PO DAILY@1700 COUNTS INCLUDE 234 BEDS AT THE [facility] Last Admin: 02/04/22 16:05 Dose: 20 mg Documented By: GILDA Sertraline HCl (Sertraline Hcl 50 Mg Tablet) 50 mg PO DAILY COUNTS INCLUDE 234 BEDS AT THE [facility] Last Admin: 02/05/22 09:09 Dose: 50 mg Documented By: ABRAHAM Sodium Chloride (0.9 % Sodium Chloride Flush 3 Ml Syringe) 3 ml IVFLUSH QSHIFT COUNTS INCLUDE 234 BEDS AT THE [facility] Last Admin: 02/05/22 09:10 Dose: Not Given Documented By: ABRAHAM Non-Admin Reason: IV Running Spironolactone (Spironolactone 25 Mg Tablet) 25 mg PO DAILY COUNTS INCLUDE 234 BEDS AT THE [facility]; Protocol Last Admin: 02/05/22 09:09 Dose: 25 mg Documented By: ABRAAHM Tamsulosin HCl (Tamsulosin Hcl 0.4 Mg Capsule) 0.8 mg PO DAILY@1700 COUNTS INCLUDE 234 BEDS AT THE [facility] Last Admin: 02/04/22 16:05 Dose: 0.8 mg Documented By: GILDA Labs CBC & Chem 7: 02/03/22 05:43 02/04/22 05:45 Labs: Laboratory Results - last 24 hr 02/04/22 02/04/22 02/04/22 15:46 15:46 15:46 ESR Osmolality 264 L Ferritin 346 H C-Reactive Protein 18.50 H Random Cortisol 14.9 Urine Osmolality Ur Random Sodium Hep Bs Antigen Hep Bs Antibody Hep B Core Total Ab Hepatitis C Ab (EIA) HIV 1&2 Ab/P24 Ag 4thGn 02/04/22 02/04/22 02/04/22 15:46 15:46 16:15 ESR 67 H Osmolality Ferritin C-Reactive Protein Cancelled Random Cortisol Urine Osmolality Ur Random Sodium Hep Bs Antigen Negative Hep Bs Antibody REACTIVE Hep B Core Total Ab Nonreactive Hepatitis C Ab (EIA) Nonreactive HIV 1&2 Ab/P24 Ag 4thGn Nonreactive 02/04/22 02/04/22 17:24 17:24 ESR Osmolality Ferritin C-Reactive Protein Random Cortisol Urine Osmolality 499 Ur Random Sodium 109.0 Hep Bs Antigen Hep Bs Antibody Hep B Core Total Ab Hepatitis C Ab (EIA) HIV 1&2 Ab/P24 Ag 4thGn Assessment and Plan (1) Persistent atrial fibrillation: Status: Acute Assessment and Plan: rate controlled continue metoprolol Xarelto (2) HTN (hypertension): Status: Acute Assessment and Plan: continue Metoprolol, Aldactone and restart Losartan since MENA resolved. (3) Ileitis, terminal: Status: Acute Assessment and Plan: Management by surgery (4) MENA (acute kidney injury): Status: Acute Assessment and Plan: Resolved with IVF (5) STAN on CPAP: Status: Acute Assessment and Plan: continue home CPAP at night (6) Thrombocytopenia: Status: Acute Assessment and Plan: appears chronic. No bleeding and no concern /indication for holding anticoagulation at this time. (7) Chronic anemia: Status: Acute Assessment and Plan: Appears chronic. Patient is on iron supplementation at home. Will restart after resolution of acute issues. B12, Folate pending (8) Hyponatremia: Status: Acute Assessment and Plan: Acute on chronic. Monitor, restrict free water, on NS, follow Quality Stroke Does the patient have a stroke diagnosis?: No VTE Prior VTE?: No VTE Risk Level:: Surgical - low VTE Device Contraindication: N/A - Device Ordered VTE Drug Contraindication: N/A - Med Ordered
--- NOTE | 2022-02-05 09:57 | PM.PNGS ---
Subjective Subjective Date of Service: 02/08/22 Interval history: says he feels well today does state he still has periodic abdominal pain passing flatus well tolerating clears Physical Exam Vital Signs: Vital Signs: Last Vital Signs Temp 97.4 F 02/05/22 07:52 Pulse 94 02/05/22 07:52 Resp 18 02/05/22 07:52 BP 123/55 L 02/05/22 07:52 Pulse Ox 96 02/05/22 07:52 O2 Del Method 02/05/22 07:52 O2 Flow Rate 3 02/05/22 07:52 BMI result Body Mass Index 31.8 Const: General: comfortable and no acute distress Resp: Effort & Inspection: normal respiratory effort Cardio: Rate: regular rate GI: Palpation (GI): Soft to palpation, not firm, nontender and no guarding Objective Data Active Medications Albuterol Sulfate (Albuterol Sulfate (0.083%) 2.5 Mg/3 Ml Vial.Neb) 2.5 mg INHALE Q6H PRN PRN Reason: Wheezing Last Admin: 02/02/22 11:27 Dose: 2.5 mg Documented By: CHET Gabapentin (Gabapentin 300 Mg Capsule) 600 mg PO BID [facility] Last Admin: 02/05/22 09:09 Dose: 600 mg Documented By: ABRAHAM Hydromorphone HCl (Hydromorphone Hcl 1 Mg/Ml Syringe) 1 mg IVPUSH Q4H PRN; Protocol PRN Reason: Pain, Severe (Pain Scale 7-10) Last Admin: 02/04/22 22:15 Dose: 1 mg Documented By: PAYAL Ceftriaxone Sodium 1 gm/ (Sodium Chloride) 50 mls @ 100 mls/hr IV Q24H [facility] Last Infusion: 02/04/22 18:50 Dose: 0 mls/hr Documented By: DENI Metronidazole (Flagyl) 500 mg in 100 mls @ 100 mls/hr IV Q8H [facility] Last Infusion: 02/05/22 06:30 Dose: 0 mls/hr Documented By: PAYAL Loratadine (Loratadine 10 Mg Tablet) 10 mg PO BEDTIME [facility] Last Admin: 02/04/22 20:03 Dose: 10 mg Documented By: PAYAL Magnesium Oxide (Magnesium Oxide 400 Mg Tablet) 400 mg PO BID [facility] Last Admin: 02/05/22 09:09 Dose: 400 mg Documented By: ABRAHAM Metoprolol Succinate (Metoprolol Succinate Er 50 Mg Tab.Er.24h) 50 mg PO DAILY [facility]; Protocol Last Admin: 02/05/22 09:09 Dose: 50 mg Documented By: ABRAHAM Ondansetron HCl (Ondansetron Hcl 4 Mg/2 Ml Vial) 4 mg IVPUSH Q8H PRN PRN Reason: Nausea Last Admin: 02/04/22 22:18 Dose: 4 mg Documented By: PAYAL Rivaroxaban (Rivaroxaban 20 Mg Tablet) 20 mg PO DAILY@1700 [facility] Last Admin: 02/04/22 16:05 Dose: 20 mg Documented By: GILDA Sertraline HCl (Sertraline Hcl 50 Mg Tablet) 50 mg PO DAILY [facility] Last Admin: 02/05/22 09:09 Dose: 50 mg Documented By: ABRAHAM Sodium Chloride (0.9 % Sodium Chloride Flush 3 Ml Syringe) 3 ml IVFLUSH QSHIFT [facility] Last Admin: 02/05/22 09:10 Dose: Not Given Documented By: ABRAHAM Non-Admin Reason: IV Running Spironolactone (Spironolactone 25 Mg Tablet) 25 mg PO DAILY [facility]; Protocol Last Admin: 02/05/22 09:09 Dose: 25 mg Documented By: ABRAHAM Tamsulosin HCl (Tamsulosin Hcl 0.4 Mg Capsule) 0.8 mg PO DAILY@1700 [facility] Last Admin: 02/04/22 16:05 Dose: 0.8 mg Documented By: GILDA Labs CBC & Chem 7: 02/08/22 05:21 02/08/22 13:03 Labs: Laboratory Results - last 24 hr 02/04/22 02/04/22 02/04/22 15:46 15:46 15:46 ESR Osmolality 264 L Ferritin 346 H C-Reactive Protein 18.50 H Random Cortisol 14.9 Urine Osmolality Ur Random Sodium Hep Bs Antigen Hep Bs Antibody Hep B Core Total Ab Hepatitis C Ab (EIA) HIV 1&2 Ab/P24 Ag 4thGn 02/04/22 02/04/22 02/04/22 15:46 15:46 16:15 ESR 67 H Osmolality Ferritin C-Reactive Protein Cancelled Random Cortisol Urine Osmolality Ur Random Sodium Hep Bs Antigen Negative Hep Bs Antibody REACTIVE Hep B Core Total Ab Nonreactive Hepatitis C Ab (EIA) Nonreactive HIV 1&2 Ab/P24 Ag 4thGn Nonreactive 02/04/22 02/04/22 17:24 17:24 ESR Osmolality Ferritin C-Reactive Protein Random Cortisol Urine Osmolality 499 Ur Random Sodium 109.0 Hep Bs Antigen Hep Bs Antibody Hep B Core Total Ab Hepatitis C Ab (EIA) HIV 1&2 Ab/P24 Ag 4thGn Procedures Date of Service Date of Service: 02/05/22 Progress Note: A&P Assessment and plan (1) Acute mesenteric ischemia: Status: Acute Assessment and Plan: symptoms much improved occasional pain passing flatus tolerating clears plan to try on full liquids exam remains benign clinically looks well dw Dr. Sheffield today - ischemia likely from atrial fibrillation? consider MRA in the future, but pt doing well at this time Time Spent With Patient Time: Total time spent is greater than 50% in coordination of care (as documented) at patient's floor/unit and/or counseling patient: Quality Stroke Does the patient have a stroke diagnosis?: No VTE Prior VTE?: No VTE Risk Level:: Surgical - low VTE Device Contraindication: N/A - Device Ordered VTE Drug Contraindication: N/A - Med Ordered
[2022-02-05 10:31] LABS: Anion Gap 15 (12-20); Blood Urea Nitrogen 11 mg/dL (9-16); Calcium 8.1 mg/dL (8.4-10.2); Carbon Dioxide 22 mmol/L (22-29); Chloride 94 mmol/L (96-108); Creatinine Clr Calc Pharmacy 102.2; Estimated Glomerular Filt Rate > 60; Glucose Random 106 mg/dL (60-115); Potassium 3.7 mmol/L (3.3-5.1); Sodium 127 mmol/L (135-145)
[2022-02-05] MEDS: Tamsulosin HCL 0.4 MG CAPSULE 0.8 MG PO (17:55)
[2022-02-05] MEDS: Rivaroxaban 20 MG TABLET PO (17:55)
[2022-02-05] MEDS: 0.9 % Sodium Chloride Flush 3 ML SYRINGE IVFLUSH ×2 (17:55→20:12)
[2022-02-05] MEDS: cefTRIAXone sodium 1 GM in 0.9 % Sodium Chloride 50 ML IV (18:00)
[2022-02-05] MEDS: Calcium Carbonate 750 MG TAB.CHEW PO (20:07)
[2022-02-05] MEDS: Loratadine 10 MG TABLET PO (20:07)
[2022-02-06] MEDS: Acetaminophen 325 MG TABLET 650 MG PO ×3 (00:37→20:48)
[2022-02-06] MEDS: ondansetron HCL 4 MG/2 ML VIAL IVPUSH ×2 (01:40→20:48)
[2022-02-06] MEDS: Calcium Carbonate 750 MG TAB.CHEW PO ×2 (01:41→18:31)
[2022-02-06 03:19] VITALS: BP 123/64; PULSE 98; RESP 16; TEMP 36.1; O2SAT 95
[2022-02-06] MEDS: metroNIDAZOLE/NS 500 MG/100 ML PIGGYBACK 100 MG IV ×3 (05:22→19:27)
[2022-02-06 07:19] VITALS: BP 130/62; PULSE 89; RESP 18; TEMP 36.6; O2SAT 96
[2022-02-06 07:25] LABS: Hepatitis A Antibody IgM 0.18 Index (0-0.79); ~Hepatitis A Antibody IgM Nonreactive (Nonreactive)
[2022-02-06 07:47] LABS: Folate > 20.0 ng/mL (> or = 4.0); Vitamin B12 1356 pg/mL (200-900)
--- NOTE | 2022-02-06 07:57 | PM.PNGS ---
Subjective Subjective Date of Service: 02/06/22 Interval history: Patient tolerated full liquid diet yesterday for reported his rice pudding had raw rice in the evening which he did like. He has some mild discomfort in the abdomen but denies pain at this time. He denies nausea or vomiting. His bowels have been moving Physical Exam Vital Signs: Vital Signs: Last Vital Signs Temp 97.9 F 02/06/22 07:19 Pulse 89 02/06/22 07:19 Resp 18 02/06/22 07:19 BP 130/62 02/06/22 07:19 Pulse Ox 96 02/06/22 07:19 O2 Del Method 02/06/22 07:19 O2 Flow Rate 3 02/05/22 07:52 BMI result Body Mass Index 31.8 Const: General: no acute distress and well developed Nutritional Appearance: well nourished Orientation/consciousness: patient oriented x3 Limitations: no limitations Resp: Effort & Inspection: normal respiratory effort, no audible wheezes, no cough and no respiratory distress GI: Palpation (GI): Soft to palpation, nontender, no guarding, not rigid and No Rebound tenderness present Percussion: Yes tympanic to percussion Auscultation: normal bowel sounds Skin: General skin exam: no rashes or lesions noted Neuro: General: patient oriented x3 Extrem: General: Yes normal to inspection Objective Data Active Medications Acetaminophen (Acetaminophen 325 Mg Tablet) 650 mg PO Q6H PRN PRN Reason: Pain, Moderate (Pain Scale 4-6 Last Admin: 02/06/22 00:37 Dose: 650 mg Documented By: PAYAL Albuterol Sulfate (Albuterol Sulfate (0.083%) 2.5 Mg/3 Ml Vial.Neb) 2.5 mg INHALE Q6H PRN PRN Reason: Wheezing Last Admin: 02/02/22 11:27 Dose: 2.5 mg Documented By: CHET Calcium Carbonate (Calcium Carbonate 750 Mg Tab.Chew) 750 mg PO Q6H PRN PRN Reason: heartburn Last Admin: 02/06/22 01:41 Dose: 750 mg Documented By: PAYAL Gabapentin (Gabapentin 300 Mg Capsule) 600 mg PO BID [facility] Last Admin: 02/05/22 20:07 Dose: 600 mg Documented By: PAYAL Ceftriaxone Sodium 1 gm/ (Sodium Chloride) 50 mls @ 100 mls/hr IV Q24H [facility] Last Infusion: 02/05/22 18:34 Dose: 0 mls/hr Documented By: ABRAHAM Metronidazole (Flagyl) 500 mg in 100 mls @ 100 mls/hr IV Q8H [facility] Last Infusion: 02/06/22 06:34 Dose: 0 mls/hr Documented By: PAYAL Loratadine (Loratadine 10 Mg Tablet) 10 mg PO BEDTIME [facility] Last Admin: 02/05/22 20:07 Dose: 10 mg Documented By: PAYAL Magnesium Oxide (Magnesium Oxide 400 Mg Tablet) 400 mg PO BID [facility] Last Admin: 02/05/22 20:07 Dose: 400 mg Documented By: PAYAL Metoprolol Succinate (Metoprolol Succinate Er 50 Mg Tab.Er.24h) 50 mg PO DAILY [facility]; Protocol Last Admin: 02/05/22 09:09 Dose: 50 mg Documented By: ABRAHAM Ondansetron HCl (Ondansetron Hcl 4 Mg/2 Ml Vial) 4 mg IVPUSH Q8H PRN PRN Reason: Nausea Last Admin: 02/06/22 01:40 Dose: 4 mg Documented By: PAYAL Rivaroxaban (Rivaroxaban 20 Mg Tablet) 20 mg PO DAILY@1700 [facility] Last Admin: 02/05/22 17:55 Dose: 20 mg Documented By: ABRAHAM Sertraline HCl (Sertraline Hcl 50 Mg Tablet) 50 mg PO DAILY [facility] Last Admin: 02/05/22 09:09 Dose: 50 mg Documented By: ABRAHAM Sodium Chloride (0.9 % Sodium Chloride Flush 3 Ml Syringe) 3 ml IVFLUSH QSHIFT [facility] Last Admin: 02/05/22 20:12 Dose: 3 ml Documented By: PAYAL Spironolactone (Spironolactone 25 Mg Tablet) 25 mg PO DAILY [facility]; Protocol Last Admin: 02/05/22 09:09 Dose: 25 mg Documented By: ABRAHAM Tamsulosin HCl (Tamsulosin Hcl 0.4 Mg Capsule) 0.8 mg PO DAILY@1700 [facility] Last Admin: 02/05/22 17:55 Dose: 0.8 mg Documented By: ABRAHAM Labs CBC & Chem 7: 02/03/22 05:43 02/05/22 09:58 Labs: Laboratory Results - last 24 hr 02/04/22 02/04/22 02/05/22 15:46 15:46 09:58 Anion Gap 15 Estim Creat Clear Calc 102.2 Estimated GFR > 60 Random Glucose 106 Calcium 8.1 L C-Reactive Protein Vitamin B12 1356 H Folate > 20.0 Hep Bs Antigen Negative Hep Bs Antibody REACTIVE Hep B Core Total Ab Nonreactive Hepatitis C Ab (EIA) Nonreactive HIV 1&2 Ab/P24 Ag 4thGn Nonreactive 02/06/22 05:19 Anion Gap Estim Creat Clear Calc Estimated GFR Random Glucose Calcium C-Reactive Protein 15.30 H Vitamin B12 Folate Hep Bs Antigen Hep Bs Antibody Hep B Core Total Ab Hepatitis C Ab (EIA) HIV 1&2 Ab/P24 Ag 4thGn Procedures Date of Service Date of Service: 02/06/22 Progress Note: A&P Assessment and plan (1) Acute mesenteric ischemia: Status: Acute (2) Chronic anemia: Status: Acute Assessment and Plan: Recheck CBC in a.m. Plan Overall the patient is improved with decreased abdominal pain. He is tolerating a full liquid diet without nausea or vomiting. The abdominal pain did not increase with p.o. intake. He feels hungry and would like to try a regular diet. I will advance his diet today and monitor his symptoms. If pain should increase after eating, will request MR angio of the abdomen. Time Spent With Patient Time: Total time spent is greater than 50% in coordination of care (as documented) at patient's floor/unit and/or counseling patient: Quality Stroke Does the patient have a stroke diagnosis?: No VTE Prior VTE?: No VTE Risk Level:: Surgical - low VTE Device Contraindication: N/A - Device Ordered VTE Drug Contraindication: N/A - Med Ordered
[2022-02-06] MEDS: Metoprolol Succinate ER 50 MG TAB.ER.24H PO (08:18)
[2022-02-06] MEDS: Sertraline HCL 50 MG TABLET PO (08:18)
[2022-02-06] MEDS: Gabapentin 300 MG CAPSULE 600 MG PO ×2 (08:18→19:26)
[2022-02-06] MEDS: Magnesium Oxide 400 MG TABLET PO ×2 (08:18→19:27)
[2022-02-06] MEDS: 0.9 % Sodium Chloride Flush 3 ML SYRINGE IVFLUSH ×3 (08:19→19:27)
[2022-02-06 08:33] LABS: Sodium 130 mmol/L (135-145)
[2022-02-06 08:48] LABS: Myeloperoxidase Antibody <1.0 AI; Proteinase 3 PR3 Antibodies <1.0 AI
--- NOTE | 2022-02-06 11:00 | P.CONNP_ITS ---
History of Present Illness Reason for Consult Consult date: 02/06/22 Chief Complaint Chief complaint: abdo pain History of Present Illness Narrative: 71-year-old male with history of small-bowel obstruction who presented to ER on 01/31/2022 with abdominal pain.?He had associated dry heaving, nausea but no vomiting or constipation. ? Workup in the ER revealed pneumatosis coli with portal venous air and concern for acute mesenteric ischemia.? Patient?has H/O post surgery, radiation and chemotherapy for testicular cancer.? He has had multiple episodes of small-bowel obstruction, previous episode was managed conservatively in 2020. He also is on Sertaline. He has been having fluctuating sodium levels. His MENA has resolved with supportive care. Nephrology has been consulted to assist in his clinical care during his current hospital stay Review of Systems Review of Systems Yes all other systems are reviewed and are negative PMFSH Past Medical History Medical History Anemia Aortic stenosis BPH (benign prostatic hyperplasia) Chronic back pain History of cardioversion HTN (hypertension) Hx of benign neoplasm Hx of testicular cancer Hyponatremia Neuropathy Paroxysmal atrial fibrillation Sleep apnea Surgical History Surgical History H/O colonoscopy History of back surgery History of left knee replacement History of orchiectomy History of right hip replacement Hx of cataract extraction Hx of cystoscopy Social History Social History Household Members: Family Housing: House Do you presently have visiting nurse or other home services: No Alcohol intake: never Patient Tobacco Use Status: Never used Tobacco Advance Directives Date on File: 02/01/22 service: No Current occupational status: retired Travel History Ebola Risk: Travel/Contact With Anyone From Affected Area/s: No Has Patient Experienced Ebola Symptoms: No Meds Allergies Allergy/AdvReac Type Severity Reaction Status Date / Time No Known Allergies Allergy Verified 09/28/21 14:47 [No Known Allergies*] Active Medications: Current Medications Acetaminophen (Acetaminophen 325 Mg Tablet) 650 mg PO Q6H PRN PRN Reason: Pain, Moderate (Pain Scale 4-6 Last Admin: 02/06/22 08:19 Dose: 650 mg Albuterol Sulfate (Albuterol Sulfate (0.083%) 2.5 Mg/3 Ml Vial.Neb) 2.5 mg INHALE Q6H PRN PRN Reason: Wheezing Last Admin: 02/02/22 11:27 Dose: 2.5 mg Calcium Carbonate (Calcium Carbonate 750 Mg Tab.Chew) 750 mg PO Q6H PRN PRN Reason: heartburn Last Admin: 02/06/22 01:41 Dose: 750 mg Gabapentin (Gabapentin 300 Mg Capsule) 600 mg PO BID [facility] Last Admin: 02/06/22 08:18 Dose: 600 mg Ceftriaxone Sodium 1 gm/ (Sodium Chloride) 50 mls @ 100 mls/hr IV Q24H [facility] Last Infusion: 02/05/22 18:34 Dose: Infused Metronidazole (Flagyl) 500 mg in 100 mls @ 100 mls/hr IV Q8H [facility] Last Infusion: 02/06/22 06:34 Dose: Infused Loratadine (Loratadine 10 Mg Tablet) 10 mg PO BEDTIME [facility] Last Admin: 02/05/22 20:07 Dose: 10 mg Magnesium Oxide (Magnesium Oxide 400 Mg Tablet) 400 mg PO BID [facility] Last Admin: 02/06/22 08:18 Dose: 400 mg Metoprolol Succinate (Metoprolol Succinate Er 50 Mg Tab.Er.24h) 50 mg PO DAILY [facility]; Protocol Last Admin: 02/06/22 08:18 Dose: 50 mg Ondansetron HCl (Ondansetron Hcl 4 Mg/2 Ml Vial) 4 mg IVPUSH Q8H PRN PRN Reason: Nausea Last Admin: 02/06/22 01:40 Dose: 4 mg Rivaroxaban (Rivaroxaban 20 Mg Tablet) 20 mg PO DAILY@1700 [facility] Last Admin: 02/05/22 17:55 Dose: 20 mg Sertraline HCl (Sertraline Hcl 50 Mg Tablet) 50 mg PO DAILY [facility] Last Admin: 02/06/22 08:18 Dose: 50 mg Sodium Chloride (0.9 % Sodium Chloride Flush 3 Ml Syringe) [facility] Last Admin: 02/06/22 08:19 Dose: 3 ml Spironolactone (Spironolactone 25 Mg Tablet) 25 mg PO DAILY [facility]; Protocol Last Admin: 02/05/22 09:09 Dose: 25 mg Tamsulosin HCl (Tamsulosin Hcl 0.4 Mg Capsule) 0.8 mg PO DAILY@1700 [facility] Last Admin: 02/05/22 17:55 Dose: 0.8 mg Home Medications Medication Instructions Recorded Confirmed Last Taken Type Lactobacillus rhamnosus GG 10 1 cap PO DAILY 05/28/20 02/01/22 05/27/20 History billion cell capsule (Culturelle) ascorbic acid (vitamin C) 1,000 mg 1,000 mg PO DAILY@1700 05/28/20 02/01/22 05/28/20 History tablet (Vitamin C) docusate sodium 100 mg capsule 100 mg PO BID 05/28/20 02/01/22 05/27/20 History (Stool Softener) gabapentin 300 mg capsule 600 mg PO BID 05/28/20 02/01/22 05/27/20 History iron 1 tab PO 4XW 05/28/20 02/01/22 Unknown History magnesium 200 mg tablet 400 mg PO BID 05/28/20 02/01/22 05/28/20 History multivitamin 1 tab PO DAILY 05/28/20 02/01/22 05/27/20 History omeprazole 20 mg capsule,delayed 20 mg PO BID 05/28/20 02/01/22 05/27/20 History release sertraline 50 mg tablet 50 mg PO DAILY 05/28/20 02/01/22 05/27/20 History albuterol sulfate 90 mcg/actuation 2 puff PO Q4H PRN Shortness Of 02/14/21 02/01/22 Unknown History aerosol inhaler Breath dicyclomine 10 mg capsule 10 mg PO BID PRN Gastrointestinal 01/31/22 02/01/22 Unknown History Spasms Or Cramping amlodipine 10 mg tablet 1 tab PO DAILY 02/01/22 02/01/22 Unknown History cetirizine 10 mg tablet (Zyrtec) 10 mg PO DAILY 02/01/22 02/01/22 01/30/22 History Physical Exam Vital Signs: Last Vital Signs Temp 97.9 F 02/06/22 07:19 Pulse 89 02/06/22 07:19 Resp 18 02/06/22 07:19 BP 130/62 02/06/22 07:19 Pulse Ox 96 02/06/22 07:19 O2 Del Method 02/06/22 07:19 O2 Flow Rate 3 02/05/22 07:52 BMI result Body Mass Index 31.8 Const General: no acute distress Eyes EOM: EOMs intact bilaterally Neck Neck: Yes supple Resp Auscultation: diminished lung sounds Cardio Rate: regular rate GI Palpation (GI): Soft to palpation Skin General skin exam: no rashes or lesions noted Neuro General: moves all extremities Results Lab Results Result Diagrams: 02/03/22 05:43 02/06/22 05:19 Lab results: Chemistry 02/04/22 02/05/22 02/06/22 05:45 09:58 05:19 Sodium 128 L 127 L 130 L Potassium 4.1 3.7 Carbon Dioxide 24 22 BUN 16 11 Creatinine 0.93 0.86 Calcium 8.0 L 8.1 L Urine Studies 02/04/22 17:24 Urine Osmolality 499 Assessment and Plan (1) Hyponatremia: Status: Acute Plan Euvolemic hyponatremia Has excess ADH at baseline MENA resolved; Renal function @ baseline No indication for medication intervention now Will benefit from free water restriction( 48 oz/24 hrs) Continue rest of current management for now Procedures Date of Service Date of Service: 02/06/22
[2022-02-06 11:18] VITALS: BP 151/87; PULSE 94; RESP 18; TEMP 36.4; O2SAT 95
[2022-02-06 14:32] LABS: Immunoglobulin G Subclass 1 422 mg/dL (382-929); Immunoglobulin G Subclass 2 443 mg/dL (241-700); Immunoglobulin G Subclass 3 40 mg/dL (22-178); Immunoglobulin G Subclass 4 31.4 mg/dL (4-86); Immunoglobulin G Total 959 mg/dL (600-1540)
[2022-02-06 15:51] VITALS: BP 129/79; PULSE 87; RESP 19; TEMP 36.4; O2SAT 94
[2022-02-06] MEDS: Tamsulosin HCL 0.4 MG CAPSULE 0.8 MG PO (17:55)
[2022-02-06] MEDS: Rivaroxaban 20 MG TABLET PO (17:56)
[2022-02-06] MEDS: cefTRIAXone sodium 1 GM in 0.9 % Sodium Chloride 50 ML IV (18:00)
--- NOTE | 2022-02-06 18:24 | P.PNIM_ITS ---
Subjective Subjective Date of Service: 02/06/22 Interval History: hyponatremia Review of Systems tolerating diet ,mild abd discomfort Physical Exam Vital Signs: Vital Signs: Last Vital Signs Temp 97.6 F 02/06/22 15:51 Pulse 87 02/06/22 15:51 Resp 19 02/06/22 15:51 BP 129/79 02/06/22 15:51 Pulse Ox 94 02/06/22 15:51 O2 Del Method 02/06/22 15:51 O2 Flow Rate 3 02/05/22 07:52 BMI result Body Mass Index 31.8 Appearance: Alert.? Oriented X3.? not in distress.? cvs: rrr, [id number] , no murmur res: clear to auscultation ,no rhonchii or wheezing abd: no rebound or guarding ,nt, bs mild tympanic. ext pulses present , no cyanosis . neuro: axo3 , nonfocal. Objective Data Active Medications Acetaminophen (Acetaminophen 325 Mg Tablet) 650 mg PO Q6H PRN PRN Reason: Pain, Moderate (Pain Scale 4-6 Last Admin: 02/06/22 08:19 Dose: 650 mg Documented By: ABRAHAM Albuterol Sulfate (Albuterol Sulfate (0.083%) 2.5 Mg/3 Ml Vial.Neb) 2.5 mg INHALE Q6H PRN PRN Reason: Wheezing Last Admin: 02/02/22 11:27 Dose: 2.5 mg Documented By: CHET Calcium Carbonate (Calcium Carbonate 750 Mg Tab.Chew) 750 mg PO Q6H PRN PRN Reason: heartburn Last Admin: 02/06/22 01:41 Dose: 750 mg Documented By: PAYAL Gabapentin (Gabapentin 300 Mg Capsule) 600 mg PO BID [facility] Last Admin: 02/06/22 08:18 Dose: 600 mg Documented By: ABRAHAM Ceftriaxone Sodium 1 gm/ (Sodium Chloride) 50 mls @ 100 mls/hr IV Q24H [facility] Last Admin: 02/06/22 18:00 Dose: 100 mls/hr Documented By: ABRAHAM Metronidazole (Flagyl) 500 mg in 100 mls @ 100 mls/hr IV Q8H [facility] Last Infusion: 02/06/22 12:56 Dose: 0 mls/hr Documented By: ABRAHAM Loratadine (Loratadine 10 Mg Tablet) 10 mg PO BEDTIME [facility] Last Admin: 02/05/22 20:07 Dose: 10 mg Documented By: PAYAL Magnesium Oxide (Magnesium Oxide 400 Mg Tablet) 400 mg PO BID [facility] Last Admin: 02/06/22 08:18 Dose: 400 mg Documented By: ABRAHAM Metoprolol Succinate (Metoprolol Succinate Er 50 Mg Tab.Er.24h) 50 mg PO DAILY [facility]; Protocol Last Admin: 02/06/22 08:18 Dose: 50 mg Documented By: ABRAHAM Ondansetron HCl (Ondansetron Hcl 4 Mg/2 Ml Vial) 4 mg IVPUSH Q8H PRN PRN Reason: Nausea Last Admin: 02/06/22 01:40 Dose: 4 mg Documented By: PAYAL Rivaroxaban (Rivaroxaban 20 Mg Tablet) 20 mg PO DAILY@1700 [facility] Last Admin: 02/06/22 17:56 Dose: 20 mg Documented By: ABRAHAM Sertraline HCl (Sertraline Hcl 50 Mg Tablet) 50 mg PO DAILY [facility] Last Admin: 02/06/22 08:18 Dose: 50 mg Documented By: ABRAHAM Sodium Chloride (0.9 % Sodium Chloride Flush 3 Ml Syringe) 3 ml IVFSH [facility] Last Admin: 02/06/22 17:56 Dose: 3 ml Documented By: ABRAHAM Spironolactone (Spironolactone 25 Mg Tablet) 25 mg PO DAILY [facility]; Protocol Last Admin: 02/05/22 09:09 Dose: 25 mg Documented By: ABRAHAM Tamsulosin HCl (Tamsulosin Hcl 0.4 Mg Capsule) 0.8 mg PO DAILY@1700 [facility] Last Admin: 02/06/22 17:55 Dose: 0.8 mg Documented By: ABRAHAM Labs CBC & Chem 7: 02/03/22 05:43 02/06/22 05:19 Labs: Laboratory Results - last 24 hr 02/04/22 02/04/22 02/04/22 15:46 15:46 15:46 C-Reactive Protein Vitamin B12 1356 H Folate > 20.0 IgG Total IgG Subclass 1 IgG Subclass 2 IgG Subclass 3 IgG Subclass 4 Proteinase 3 (PR3) Ab <1.0 Myeloperoxidase Ab <1.0 Hepatitis A IgM Ab Nonreactive 02/04/22 02/06/22 15:46 05:19 C-Reactive Protein 15.30 H Vitamin B12 Folate IgG Total 959 IgG Subclass 1 422 IgG Subclass 2 443 IgG Subclass 3 40 IgG Subclass 4 31.4 Proteinase 3 (PR3) Ab Myeloperoxidase Ab Hepatitis A IgM Ab Assessment and Plan (1) Hyponatremia: Status: Acute (2) Ileitis, terminal: Status: Acute Plan 71-year-old male admitted for abdominal pain . 1.PAF: rate controlled continue metoprolol Xarelto. 2.abd pain ( terminal ielitis vs acute mesentric ischemia): surgery following: overall patient is improved with decreased abdominal pain.? He is tolerating a full liquid diet without nausea or vomiting.? The abdominal pain did not increase with p.o. intake.? He feels hungry and would like to try a regular diet.? advance diet today and monitor his symptoms.??If pain should increase after eating, then may need MR angio of the abdomen. 3.ger: improved with IV fluid. 4.: Hyponatremia acute on chronic improving with restricting free water 240z/24hr 5.michael on cpap: cotninue cpap 6. thrombocytopenia: Chronic continue to monitor. 7. chronic normocytic anemia: H&H is around 8/24.5 moniter cbc inaptient need:terminal ielitis vs acute mesentric ischemia)still not tolerating regular diet , hyponatremia Quality Stroke Does the patient have a stroke diagnosis?: No VTE Prior VTE?: No VTE Risk Level:: Surgical - low VTE Device Contraindication: N/A - Device Ordered VTE Drug Contraindication: N/A - Med Ordered
[2022-02-06] MEDS: Loratadine 10 MG TABLET PO (19:27)
[2022-02-06] MEDS: Melatonin 3 MG TABLET PO (19:30)
[2022-02-06 20:39] VITALS: BP 122/59; PULSE 80; RESP 18; TEMP 36.5; O2SAT 95
[2022-02-06 22:32] LABS: Anti Nuclear Antibody Screen NEGATIVE (NEGATIVE)
[2022-02-06 23:22] VITALS: BP 106/51; PULSE 83; RESP 18; TEMP 36.3; O2SAT 94
[2022-02-07] VITALS (9 sets, daily range): BP systolic 117–158; BP diastolic 60–84; PULSE 74–90; RESP 16–18; TEMP 36.1–36.7; O2SAT 93–96
[2022-02-07] MEDS: traZODone HCL 50 MG TABLET PO ×2 (01:39→22:05)
[2022-02-07] MEDS: metroNIDAZOLE/NS 500 MG/100 ML PIGGYBACK 100 MG IV (03:59)
[2022-02-07 06:34] LABS: Eosinophils Absolute Auto 0.1 X10*3/uL (0.0-0.4); Eosinophils Percent Auto 3.6 % (0-4); Hematocrit 21.8 % (42.0-52.0); Hemoglobin 7.3 g/dl (14.0-18.0); Imm Gran Pct Auto 4.5 % (0.0-0.4); Lymphocytes Absolute Auto 0.5 X10*3/uL (1.2-4.9); Lymphocytes Percent Auto 21.4 % (20-40); Mean Corpuscular HGB Conc 33.5 g/dl (31.0-36.0); Mean Corpuscular Hemoglobin 27.1 pg (27.0-33.0); Mean Platelet Volume 10.1 fL (9.4-12.4); Monocytes Absolute Auto 0.4 X10*3/uL (0.1-1.2); Monocytes Percent Auto 16.4 % (2-11); Neutrophils Absolute Auto 1.2 x10*3/uL (2.0-8.3); Neutrophils Percent Auto 54.1 % (45-73); Platelet Count 112 X10*3/uL (160-400); Red Blood Count 2.69 X10*6/uL (4.60-5.80); Red Cell Distribution Width 14.2 % (11.0-16.0)
[2022-02-07 06:43] LABS: White Blood Count 2.2 X10*3/uL (4.8-10.8)
[2022-02-07 07:06] LABS: C Reactive Protein 10.74 mg/dL (< or = 0.50)
[2022-02-07 08:38] LABS: Iron 30 mcg/dL (45-160); Percent Iron Saturation 16 % (15-50); Total Iron Binding Capacity 182 mcg/dL (228-428); Unsaturated Iron Binding 152 ug/dL
[2022-02-07] MEDS: Gabapentin 300 MG CAPSULE 600 MG PO ×2 (08:51→20:53)
[2022-02-07] MEDS: 0.9 % Sodium Chloride Flush 3 ML SYRINGE IVFLUSH ×3 (08:51→20:53)
[2022-02-07] MEDS: Calcium Carbonate 750 MG TAB.CHEW PO ×2 (08:51→21:01)
[2022-02-07] MEDS: Magnesium Oxide 400 MG TABLET PO ×2 (08:52→20:53)
[2022-02-07] MEDS: Metoprolol Succinate ER 50 MG TAB.ER.24H PO (08:52)
[2022-02-07] MEDS: Sertraline HCL 50 MG TABLET PO (08:52)
[2022-02-07] MEDS: ondansetron HCL 4 MG/2 ML VIAL IVPUSH ×2 (09:00→20:52)
[2022-02-07 09:21] LABS: Folate 18.2 ng/mL (> or = 4.0); Vitamin B12 1781 pg/mL (200-900)
--- NOTE | 2022-02-07 09:29 | PM.PNGS ---
Subjective Subjective Date of Service: 02/07/22 Interval history: Reports some nausea and abdominal pain this morning. Not very hungry. Denies nausea or vomiting. Had several loose bowel movements over the last 24 hours. Physical Exam Vital Signs: Vital Signs: Last Vital Signs Temp 97.8 F 02/07/22 07:51 Pulse 88 02/07/22 07:51 Resp 18 02/07/22 07:51 BP 128/66 02/07/22 07:51 Pulse Ox 95 02/07/22 07:51 O2 Del Method 02/07/22 07:51 O2 Flow Rate 3 02/05/22 07:52 BMI result Body Mass Index 31.8 Const: General: no acute distress and tired appearing Nutritional Appearance: well nourished Orientation/consciousness: patient oriented x3 Limitations: no limitations Eyes: Sclerae: sclerae normal Resp: Effort & Inspection: normal respiratory effort, no audible wheezes, no cough and no respiratory distress GI: Inspection: Yes normal to inspection Palpation (GI): Soft to palpation, nontender, no guarding and not rigid Percussion: Yes normal to percussion Auscultation: normal bowel sounds Skin: Other: Pale, warm and dry, no rashes Neuro: General: patient oriented x3 Extrem: Other: No pedal edema Objective Data Active Medications Acetaminophen (Acetaminophen 325 Mg Tablet) 650 mg PO Q6H PRN PRN Reason: Pain, Moderate (Pain Scale 4-6 Last Admin: 02/06/22 20:48 Dose: 650 mg Documented By: RICHARD Albuterol Sulfate (Albuterol Sulfate (0.083%) 2.5 Mg/3 Ml Vial.Neb) 2.5 mg INHALE Q6H PRN PRN Reason: Wheezing Last Admin: 02/02/22 11:27 Dose: 2.5 mg Documented By: CHET Calcium Carbonate (Calcium Carbonate 750 Mg Tab.Chew) 750 mg PO Q6H PRN PRN Reason: heartburn Last Admin: 02/07/22 08:51 Dose: 750 mg Documented By: MELISSA Gabapentin (Gabapentin 300 Mg Capsule) 600 mg PO BID [facility] Last Admin: 02/07/22 08:51 Dose: 600 mg Documented By: MELISSA Loratadine (Loratadine 10 Mg Tablet) 10 mg PO BEDTIME [facility] Last Admin: 02/06/22 19:27 Dose: 10 mg Documented By: TAE Magnesium Oxide (Magnesium Oxide 400 Mg Tablet) 400 mg PO BID [facility] Last Admin: 02/07/22 08:52 Dose: 400 mg Documented By: MELISSA Melatonin (Melatonin 3 Mg Tablet) 3 mg PO BEDTIME PRN PRN Reason: Sleep Last Admin: 02/06/22 19:30 Dose: 3 mg Documented By: TAE Metoprolol Succinate (Metoprolol Succinate Er 50 Mg Tab.Er.24h) 50 mg PO DAILY [facility]; Protocol Last Admin: 02/07/22 08:52 Dose: 50 mg Documented By: MELISSA Ondansetron HCl (Ondansetron Hcl 4 Mg/2 Ml Vial) 4 mg IVPUSH Q8H PRN PRN Reason: Nausea Last Admin: 02/07/22 09:00 Dose: 4 mg Documented By: MELISSA Rivaroxaban (Rivaroxaban 20 Mg Tablet) 20 mg PO DAILY@1700 [facility] Last Admin: 02/06/22 17:56 Dose: 20 mg Documented By: ABRAHAM Sertraline HCl (Sertraline Hcl 50 Mg Tablet) 50 mg PO DAILY [facility] Last Admin: 02/07/22 08:52 Dose: 50 mg Documented By: MELISSA Sodium Chloride (0.9 % Sodium Chloride Flush 3 Ml Syringe) [facility] Last Admin: 02/07/22 08:51 Dose: 3 ml Documented By: MELISSA Spironolactone (Spironolactone 25 Mg Tablet) 25 mg PO DAILY [facility]; Protocol Last Admin: 02/05/22 09:09 Dose: 25 mg Documented By: ABRAHAM Tamsulosin HCl (Tamsulosin Hcl 0.4 Mg Capsule) 0.8 mg PO DAILY@1700 [facility] Last Admin: 02/06/22 17:55 Dose: 0.8 mg Documented By: ABRAHAM Labs CBC & Chem 7: 02/07/22 05:33 02/06/22 05:19 Labs: Laboratory Results - last 24 hr 02/04/22 02/04/22 02/07/22 15:46 15:46 05:33 MCV 81.0 MCH 27.1 MCHC 33.5 RDW 14.2 Plt Count 112 L MPV 10.1 Immature Gran % (Auto) 4.5 H Neut % (Auto) 54.1 Lymph % (Auto) 21.4 [place] % (Auto) 16.4 H Eos % (Auto) 3.6 Baso % (Auto) 0.0 Lymph # (Auto) 0.5 L [place] # (Auto) 0.4 Eos # (Auto) 0.1 Baso # (Auto) 0.0 Abs Immat Gran (auto) 0.10 H Absolute Neuts (auto) 1.2 L Absolute Nucleated RBC 0.000 Nucleated RBC % (auto) 0.0 Smear Path Review SEE NOTE Iron TIBC % Saturation Unsat Iron Binding C-Reactive Protein Vitamin B12 Folate IgG Total 959 IgG Subclass 1 422 IgG Subclass 2 443 IgG Subclass 3 40 IgG Subclass 4 31.4 LAURA Screen NEGATIVE Crossmatch 02/07/22 02/07/22 02/07/22 05:33 05:33 08:58 MCV MCH MCHC RDW Plt Count MPV Immature Gran % (Auto) Neut % (Auto) Lymph % (Auto) [place] % (Auto) Eos % (Auto) Baso % (Auto) Lymph # (Auto) [place] # (Auto) Eos # (Auto) Baso # (Auto) Abs Immat Gran (auto) Absolute Neuts (auto) Absolute Nucleated RBC Nucleated RBC % (auto) Smear Path Review Iron 30 L TIBC 182 L % Saturation 16 Unsat Iron Binding 152 C-Reactive Protein 10.74 H Vitamin B12 1781 H Folate 18.2 IgG Total IgG Subclass 1 IgG Subclass 2 IgG Subclass 3 IgG Subclass 4 LAURA Screen Crossmatch See Detail Procedures Date of Service Date of Service: 02/07/22 Progress Note: A&P Assessment and plan (1) Chronic anemia: Status: Acute (2) Thrombocytopenia: Status: Acute (3) Acute mesenteric ischemia: Status: Acute (4) Abdominal pain: Status: Acute Plan 71-year-old male patient presenting with complaints of abdominal pain found to have tenderness in the abdomen. CT abdomen initially identified air in the bowel wall with portal venous gas. Subsequent CT later showed thickening of the terminal ileum possible as results of mesenteric ischemia. Patient was tolerating some liquids but now feels nauseous after starting a regular diet. Blood count has drifted down from his initial chronic anemia levels. Discussed with Dr. Castillo. This may be result of the antibiotics or the mesenteric ischemia/Xarelto. Discussed the hemoglobin level with patient. I recommended transfusion today of packed RBCs. Patient has been seen by Dr. Liu for his anemia and he will be reconsulted. Plan CT angio if renal functions are normal. Patient expressed understanding and agrees with the plan. Time Spent With Patient Time: Total time spent is greater than 50% in coordination of care (as documented) at patient's floor/unit and/or counseling patient: Quality Stroke Does the patient have a stroke diagnosis?: No VTE Prior VTE?: No VTE Risk Level:: Surgical - low VTE Device Contraindication: N/A - Device Ordered VTE Drug Contraindication: N/A - Med Ordered
[2022-02-07 10:13] LABS: Anion Gap 14 (12-20); Blood Urea Nitrogen 6 mg/dL (9-16); Calcium 8.6 mg/dL (8.4-10.2); Carbon Dioxide 26 mmol/L (22-29); Chloride 93 mmol/L (96-108); Creatinine Clr Calc Pharmacy 107.2; Estimated Glomerular Filt Rate > 60; Glucose Random 119 mg/dL (60-115); Potassium 3.4 mmol/L (3.3-5.1); Sodium 130 mmol/L (135-145)
--- NOTE | 2022-02-07 11:45 | PM.PNNEP ---
Subjective Subjective Date of Service: 02/07/22 Interval history: Events noted. All recent data reviewed; Serum Na stable Physical Exam Vital Signs: Vital Signs: Last Vital Signs Temp 97.3 F 02/07/22 11:34 Pulse 84 02/07/22 11:34 Resp 18 02/07/22 11:34 BP 158/77 H 02/07/22 11:34 Pulse Ox 96 02/07/22 11:34 O2 Del Method 02/07/22 11:34 O2 Flow Rate 3 02/05/22 07:52 BMI result Body Mass Index 31.8 Const: General: no acute distress Eyes: EOM: EOMs intact bilaterally Neck: Neck: Yes supple Resp: Auscultation: diminished lung sounds Cardio: Rate: regular rate GI: Palpation (GI): Soft to palpation Neuro: General: moves all extremities Objective Data Labs CBC & Chem 7: 02/07/22 05:33 02/07/22 08:58 Labs: Laboratory Results - last 24 hr 02/04/22 02/04/22 02/07/22 15:46 15:46 05:33 WBC 2.2 L RBC 2.69 L Hgb 7.3 L Hct 21.8 L MCV 81.0 MCH 27.1 MCHC 33.5 RDW 14.2 Plt Count 112 L MPV 10.1 Immature Gran % (Auto) 4.5 H Neut % (Auto) 54.1 Lymph % (Auto) 21.4 [place] % (Auto) 16.4 H Eos % (Auto) 3.6 Baso % (Auto) 0.0 Lymph # (Auto) 0.5 L [place] # (Auto) 0.4 Eos # (Auto) 0.1 Baso # (Auto) 0.0 Abs Immat Gran (auto) 0.10 H Absolute Neuts (auto) 1.2 L Absolute Nucleated RBC 0.000 Nucleated RBC % (auto) 0.0 Smear Path Review SEE NOTE Sodium Potassium Chloride Carbon Dioxide Anion Gap BUN Creatinine Estim Creat Clear Calc Estimated GFR Random Glucose Calcium Iron TIBC % Saturation Unsat Iron Binding C-Reactive Protein Vitamin B12 Folate IgG Total 959 IgG Subclass 1 422 IgG Subclass 2 443 IgG Subclass 3 40 IgG Subclass 4 31.4 LAURA Screen NEGATIVE Blood Type Antibody Screen Crossmatch 02/07/22 02/07/22 02/07/22 05:33 05:33 08:58 WBC RBC Hgb Hct MCV MCH MCHC RDW Plt Count MPV Immature Gran % (Auto) Neut % (Auto) Lymph % (Auto) [place] % (Auto) Eos % (Auto) Baso % (Auto) Lymph # (Auto) [place] # (Auto) Eos # (Auto) Baso # (Auto) Abs Immat Gran (auto) Absolute Neuts (auto) Absolute Nucleated RBC Nucleated RBC % (auto) Smear Path Review Sodium Potassium Chloride Carbon Dioxide Anion Gap BUN Creatinine Estim Creat Clear Calc Estimated GFR Random Glucose Calcium Iron 30 L TIBC 182 L % Saturation 16 Unsat Iron Binding 152 C-Reactive Protein 10.74 H Vitamin B12 1781 H Folate 18.2 IgG Total IgG Subclass 1 IgG Subclass 2 IgG Subclass 3 IgG Subclass 4 LAURA Screen Blood Type A Negative Antibody Screen NEGATIVE Crossmatch See Detail 02/07/22 08:58 WBC RBC Hgb Hct MCV MCH MCHC RDW Plt Count MPV Immature Gran % (Auto) Neut % (Auto) Lymph % (Auto) [place] % (Auto) Eos % (Auto) Baso % (Auto) Lymph # (Auto) [place] # (Auto) Eos # (Auto) Baso # (Auto) Abs Immat Gran (auto) Absolute Neuts (auto) Absolute Nucleated RBC Nucleated RBC % (auto) Smear Path Review Sodium 130 L Potassium 3.4 Chloride 93 L Carbon Dioxide 26 Anion Gap 14 BUN 6 L Creatinine 0.82 Estim Creat Clear Calc 107.2 Estimated GFR > 60 Random Glucose 119 H Calcium 8.6 D Iron TIBC % Saturation Unsat Iron Binding C-Reactive Protein Vitamin B12 Folate IgG Total IgG Subclass 1 IgG Subclass 2 IgG Subclass 3 IgG Subclass 4 LAURA Screen Blood Type Antibody Screen Crossmatch Procedures Date of Service Date of Service: 02/07/22 Assessment & Plan Assessment and plan (1) Hyponatremia: Status: Acute Assessment and Plan: Euvolemic hyponatremia Has excess ADH at baseline MENA resolved; Renal function @ baseline Serum sodium stable @ 130 No indication for medication intervention now Will benefit from continued free water restriction( 48 oz/24 hrs) Continue rest of current management for now Time Spent With Patient Time: Total time spent is greater than 50% in coordination of care (as documented) at patient's floor/unit and/or counseling patient: Progress Note: Quality Stroke Does the patient have a stroke diagnosis?: No
--- NOTE | 2022-02-07 12:08 | PM.HEMONCCN ---
Subjective - Subjective Chief complaint: pancytoppenia Patient: known to practice within the last 3 years Consult date: 02/07/22 Primary Care Provider: Scotty Liu MD HPI - Consult Narrative Reason for consult: pancytopenia Narrative: Aravind Agustin is a 71 year old male is well known to me. 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 He has gradually developped pancytopenia. A bone marrow biopsy in 2016 showed hypocellularity with normal trilineal hematopoesis. He has mild to moderate splenomegaly of uncertain cause for many years. He has worsening numers since admission this time with HCT 21 and wbc 2.2. Review of Systems - Constitutional Reports anorexia - Cardiovascular Reports fast heart rate - Respiratory Reports dyspnea, Reports dyspnea on exertion - Gastrointestinal Reports abdominal pain - Genitourinary Genitourinary: Reports other - Musculoskeletal Reports other - Integumentary/Breasts Skin/Breast: Reports yellowing of the skin - Neurologic Reports system reviewed and no additional complaints, except as documented [facility] Medical History: Medical History (Last Reviewed 02/01/22 @ 14:56 by Deborah Faustin MD) Anemia Aortic stenosis BPH (benign prostatic hyperplasia) Chronic back pain History of cardioversion HTN (hypertension) Hx of benign neoplasm Hx of testicular cancer Hyponatremia Neuropathy Paroxysmal atrial fibrillation Sleep apnea Surgical History: Surgical History (Last Reviewed 02/01/22 @ 14:56 by Deborah Faustin MD) H/O colonoscopy History of back surgery History of left knee replacement History of orchiectomy History of right hip replacement Hx of cataract extraction Hx of cystoscopy Social History: Social History (Last Reviewed 02/01/22 @ 14:56 by Deborah Faustin MD) Living Situation History: Household Members: Family Housing: House Do you presently have visiting nurse or other home services: No Tobacco History: Patient Tobacco Use Status: Never used Tobacco Advance Directives: Advance Directives Date on File: 02/01/22 Occupation Assessmet: service: No Current occupational status: retired - Travel History Ebola Risk: Travel/Contact With Anyone From Affected Area/s: No Has Patient Experienced Ebola Symptoms: No Home Medications and Allergies Current Medications: Current Medications Acetaminophen (Acetaminophen 325 Mg Tablet) 650 mg PO Q6H PRN PRN Reason: Pain, Moderate (Pain Scale 4-6 Last Admin: 02/06/22 20:48 Dose: 650 mg Albuterol Sulfate (Albuterol Sulfate (0.083%) 2.5 Mg/3 Ml Vial.Neb) 2.5 mg INHALE Q6H PRN PRN Reason: Wheezing Last Admin: 02/02/22 11:27 Dose: 2.5 mg Calcium Carbonate (Calcium Carbonate 750 Mg Tab.Chew) 750 mg PO Q6H PRN PRN Reason: heartburn Last Admin: 02/07/22 08:51 Dose: 750 mg Gabapentin (Gabapentin 300 Mg Capsule) 600 mg PO BID [facility] Last Admin: 02/07/22 08:51 Dose: 600 mg Loratadine (Loratadine 10 Mg Tablet) 10 mg PO BEDTIME [facility] Last Admin: 02/06/22 19:27 Dose: 10 mg Magnesium Oxide (Magnesium Oxide 400 Mg Tablet) 400 mg PO BID [facility] Last Admin: 02/07/22 08:52 Dose: 400 mg Melatonin (Melatonin 3 Mg Tablet) 3 mg PO BEDTIME PRN PRN Reason: Sleep Last Admin: 02/06/22 19:30 Dose: 3 mg Metoprolol Succinate (Metoprolol Succinate Er 50 Mg Tab.Er.24h) 50 mg PO DAILY [facility]; Protocol Last Admin: 02/07/22 08:52 Dose: 50 mg Ondansetron HCl (Ondansetron Hcl 4 Mg/2 Ml Vial) 4 mg IVPUSH Q8H PRN PRN Reason: Nausea Last Admin: 02/07/22 09:00 Dose: 4 mg Rivaroxaban (Rivaroxaban 20 Mg Tablet) 20 mg PO DAILY@1700 [facility] Last Admin: 02/06/22 17:56 Dose: 20 mg Sertraline HCl (Sertraline Hcl 50 Mg Tablet) 50 mg PO DAILY [facility] Last Admin: 02/07/22 08:52 Dose: 50 mg Sodium Chloride (0.9 % Sodium Chloride Flush 3 Ml Syringe) 3 ml IVFLUSH QSHIFT [facility] Last Admin: 02/07/22 08:51 Dose: 3 ml Spironolactone (Spironolactone 25 Mg Tablet) 25 mg PO DAILY [facility]; Protocol Last Admin: 02/05/22 09:09 Dose: 25 mg Tamsulosin HCl (Tamsulosin Hcl 0.4 Mg Capsule) 0.8 mg PO DAILY@1700 [facility] Last Admin: 02/06/22 17:55 Dose: 0.8 mg Home Medications Medication Instructions Recorded Confirmed Type Lactobacillus rhamnosus GG 10 1 cap PO DAILY 05/28/20 02/01/22 History billion cell capsule (Culturelle) ascorbic acid (vitamin C) 1,000 mg 1,000 mg PO DAILY@1700 05/28/20 02/01/22 History tablet (Vitamin C) docusate sodium 100 mg capsule 100 mg PO BID 05/28/20 02/01/22 History (Stool Softener) gabapentin 300 mg capsule 600 mg PO BID 05/28/20 02/01/22 History iron 1 tab PO 4XW 05/28/20 02/01/22 History magnesium 200 mg tablet 400 mg PO BID 05/28/20 02/01/22 History multivitamin 1 tab PO DAILY 05/28/20 02/01/22 History omeprazole 20 mg capsule,delayed 20 mg PO BID 05/28/20 02/01/22 History release sertraline 50 mg tablet 50 mg PO DAILY 05/28/20 02/01/22 History albuterol sulfate 90 mcg/actuation 2 puff PO Q4H PRN Shortness Of 02/14/21 02/01/22 History aerosol inhaler Breath dicyclomine 10 mg capsule 10 mg PO BID PRN Gastrointestinal 01/31/22 02/01/22 History Spasms Or Cramping amlodipine 10 mg tablet 1 tab PO DAILY 02/01/22 02/01/22 History cetirizine 10 mg tablet (Zyrtec) 10 mg PO DAILY 02/01/22 02/01/22 History Allergies Allergy/AdvReac Type Severity Reaction Status Date / Time No Known Allergies Allergy Verified 09/28/21 14:47 [No Known Allergies*] Physical Exam Vital signs: Vital Signs Temp 97.3 F 02/07/22 11:34 Pulse 84 02/07/22 11:34 Resp 18 02/07/22 11:34 BP 158/77 H 02/07/22 11:34 Pulse Ox 96 02/07/22 11:34 O2 Del Method 02/07/22 11:34 O2 Flow Rate 3 02/05/22 07:52 Intake & Output 02/06/22 02/07/2202/07/22 18:59 06:59 18:59 Intake Total 570 / 1820 1250 / 1820 Output Total 800 / 2650 1850 / 2650 Balance -230 / -830 -600 / -830 Urine Output (Average ml/kg/hr) 0.63 1.45 Intake: Intake, Oral Amount 420 / 1470 1050 / 1470 Intake, IV Amount 150 / 350 200 / 350 cefTRIAXone sodium 1 gm In 0.9 50 / 50 % Sodium Chloride 50 ml @ 100 mls/hr IV Q24H [facility] Rx#: [id number] metroNIDAZOLE/NS 500 mg In 100 100 / 300 200 / 300 ml @ 100 mls/hr IV Q8H [facility] Rx#: [id number] Output: Output, Urine Amount 800 / 2650 1850 / 2650 Other: Meal Refused No NPO No Breakfast % Eaten 50% Lunch % Eaten 50% Dinner % Eaten 50% Number of Bowel Movements 1 1 Urine Urinal Urinal Urine Color Yellow Pale Yellow Last Bowel Movement 02/06/22 02/06/22 Stool Bathroom Bathroom Stool Amount Small Weight 106.594 kg - Constitutional Present: no acute distress - Routine HEENT Exam Head: Present: atraumatic - Routine Neck Exam Present: supple - Routine Cardiovascular Exam Cardiovascular: Present: RRR - Routine Abdominal Exam Present: diminished bowel sounds - Routine Extremities Exam Present: full ROM - Routine Skin Exam Present: intact Hem/Onc Consult Result - Labs CBC & Chem 7: 02/07/22 05:33 02/07/22 08:58 Labs: Short CBC 02/07/22 Range/Units 05:33 WBC 2.2 L (4.8-10.8) X10*3/uL Hgb 7.3 L (14.0-18.0) g/dl Hct 21.8 L (42.0-52.0) % Plt Count 112 L (160-400) X10*3/uL BMP 02/07/22 08:58 Sodium 130 L Potassium 3.4 Chloride 93 L Carbon Dioxide 26 BUN 6 L Creatinine 0.82 Calcium 8.6 D Assessment and Plan Patient Active problem list reviewed?: Yes (1) Chronic anemia Status: Acute Assessment and plan: I agree with transfusion. The current panccytopenia is likely multifactorial from radiation to the abdomen, chemotherapy, myelodysplastic syndrome, hypersplenism and now dilution by iv fluids etc. I will follow. There seems to be no current neoplastic process. - Time Spent With Patient Time Spent with Patient (in minutes): 30
--- NOTE | 2022-02-07 13:09 | P.PNIM_ITS ---
Subjective Subjective Date of Service: 02/07/22 Interval History: diarrahe , pancytopenia Review of Systems patient has says abdominal discomfort which is improving, had a bout of diarrhea this morning. denies any nausea or vomiting or fever Physical Exam Vital Signs: Vital Signs: Last Vital Signs Temp 97.3 F 02/07/22 11:34 Pulse 84 02/07/22 11:34 Resp 18 02/07/22 11:34 BP 158/77 H 02/07/22 11:34 Pulse Ox 96 02/07/22 11:34 O2 Del Method 02/07/22 11:34 O2 Flow Rate 3 02/05/22 07:52 BMI result Body Mass Index 31.8 Appearance: Alert.? Oriented X3.? not in distress.? cvs: rrr, [id number] , no murmur res: clear to auscultation ,no rhonchii or wheezing abd: no rebound or guarding ,nt, bs mild tympanic. ext pulses present , no cyanosis . neuro: axo3 , nonfocal. Objective Data Active Medications Acetaminophen (Acetaminophen 325 Mg Tablet) 650 mg PO Q6H PRN PRN Reason: Pain, Moderate (Pain Scale 4-6 Last Admin: 02/06/22 20:48 Dose: 650 mg Documented By: RICHARD Albuterol Sulfate (Albuterol Sulfate (0.083%) 2.5 Mg/3 Ml Vial.Neb) 2.5 mg INHALE Q6H PRN PRN Reason: Wheezing Last Admin: 02/02/22 11:27 Dose: 2.5 mg Documented By: CHET Calcium Carbonate (Calcium Carbonate 750 Mg Tab.Chew) 750 mg PO Q6H PRN PRN Reason: heartburn Last Admin: 02/07/22 08:51 Dose: 750 mg Documented By: MELISSA Gabapentin (Gabapentin 300 Mg Capsule) 600 mg PO BID [facility] Last Admin: 02/07/22 08:51 Dose: 600 mg Documented By: MELISSA Loratadine (Loratadine 10 Mg Tablet) 10 mg PO BEDTIME [facility] Last Admin: 02/06/22 19:27 Dose: 10 mg Documented By: NAUMOC Magnesium Oxide (Magnesium Oxide 400 Mg Tablet) 400 mg PO BID [facility] Last Admin: 02/07/22 08:52 Dose: 400 mg Documented By: MELISSA Melatonin (Melatonin 3 Mg Tablet) 3 mg PO BEDTIME PRN PRN Reason: Sleep Last Admin: 02/06/22 19:30 Dose: 3 mg Documented By: TAE Metoprolol Succinate (Metoprolol Succinate Er 50 Mg Tab.Er.24h) 50 mg PO DAILY [facility]; Protocol Last Admin: 02/07/22 08:52 Dose: 50 mg Documented By: MELISSA Ondansetron HCl (Ondansetron Hcl 4 Mg/2 Ml Vial) 4 mg IVPUSH Q8H PRN PRN Reason: Nausea Last Admin: 02/07/22 09:00 Dose: 4 mg Documented By: MELISSA Rivaroxaban (Rivaroxaban 20 Mg Tablet) 20 mg PO DAILY@1700 [facility] Last Admin: 02/06/22 17:56 Dose: 20 mg Documented By: ABRAHAM Sertraline HCl (Sertraline Hcl 50 Mg Tablet) 50 mg PO DAILY [facility] Last Admin: 02/07/22 08:52 Dose: 50 mg Documented By: MELISSA Sodium Chloride (0.9 % Sodium Chloride Flush 3 Ml Syringe) 3 ml IVFLUSH [facility] Last Admin: 02/07/22 08:51 Dose: 3 ml Documented By: MELISSA Spironolactone (Spironolactone 25 Mg Tablet) 25 mg PO DAILY [facility]; Protocol Last Admin: 02/05/22 09:09 Dose: 25 mg Documented By: ABRAHAM Tamsulosin HCl (Tamsulosin Hcl 0.4 Mg Capsule) 0.8 mg PO DAILY@1700 [facility] Last Admin: 02/06/22 17:55 Dose: 0.8 mg Documented By: ABRAHAM Labs CBC & Chem 7: 02/07/22 05:33 02/07/22 08:58 Labs: Laboratory Results - last 24 hr 02/04/22 02/04/22 02/07/22 15:46 15:46 05:33 MCV 81.0 MCH 27.1 MCHC 33.5 RDW 14.2 Plt Count 112 L MPV 10.1 Immature Gran % (Auto) 4.5 H Neut % (Auto) 54.1 Lymph % (Auto) 21.4 [place] % (Auto) 16.4 H Eos % (Auto) 3.6 Baso % (Auto) 0.0 Lymph # (Auto) 0.5 L [place] # (Auto) 0.4 Eos # (Auto) 0.1 Baso # (Auto) 0.0 Abs Immat Gran (auto) 0.10 H Absolute Neuts (auto) 1.2 L Absolute Nucleated RBC 0.000 Nucleated RBC % (auto) 0.0 Smear Path Review SEE NOTE Anion Gap Estim Creat Clear Calc Estimated GFR Random Glucose Calcium Iron TIBC % Saturation Unsat Iron Binding C-Reactive Protein Vitamin B12 Folate IgG Total 959 IgG Subclass 1 422 IgG Subclass 2 443 IgG Subclass 3 40 IgG Subclass 4 31.4 LAURA Screen NEGATIVE Blood Type Antibody Screen Crossmatch 02/07/22 02/07/22 02/07/22 05:33 05:33 08:58 MCV MCH MCHC RDW Plt Count MPV Immature Gran % (Auto) Neut % (Auto) Lymph % (Auto) [place] % (Auto) Eos % (Auto) Baso % (Auto) Lymph # (Auto) [place] # (Auto) Eos # (Auto) Baso # (Auto) Abs Immat Gran (auto) Absolute Neuts (auto) Absolute Nucleated RBC Nucleated RBC % (auto) Smear Path Review Anion Gap Estim Creat Clear Calc Estimated GFR Random Glucose Calcium Iron 30 L TIBC 182 L % Saturation 16 Unsat Iron Binding 152 C-Reactive Protein 10.74 H Vitamin B12 1781 H Folate 18.2 IgG Total IgG Subclass 1 IgG Subclass 2 IgG Subclass 3 IgG Subclass 4 LAURA Screen Blood Type A Negative Antibody Screen NEGATIVE Crossmatch See Detail 02/07/22 08:58 MCV MCH MCHC RDW Plt Count MPV Immature Gran % (Auto) Neut % (Auto) Lymph % (Auto) [place] % (Auto) Eos % (Auto) Baso % (Auto) Lymph # (Auto) [place] # (Auto) Eos # (Auto) Baso # (Auto) Abs Immat Gran (auto) Absolute Neuts (auto) Absolute Nucleated RBC Nucleated RBC % (auto) Smear Path Review Anion Gap 14 Estim Creat Clear Calc 107.2 Estimated GFR > 60 Random Glucose 119 H Calcium 8.6 D Iron TIBC % Saturation Unsat Iron Binding C-Reactive Protein Vitamin B12 Folate IgG Total IgG Subclass 1 IgG Subclass 2 IgG Subclass 3 IgG Subclass 4 LAURA Screen Blood Type Antibody Screen Crossmatch Assessment and Plan (1) Hyponatremia: Status: Acute (2) Ileitis, terminal: Status: Acute Plan 71-year-old male admitted for abdominal pain . 1.PAF: rate controlled continue metoprolol Xarelto. 2.abd pain ( terminal ielitis ): surgery following: overall patient is improved with decreased abdominal pain.? He is tolerating a full liquid diet without nausea or vomiting.? The abdominal pain did not increase with p.o. intake.? He feels hungry and would like to try a regular diet.? advance diet today and monitor his symptoms. ct abd added . also added C diff since patient had a bout of diarrhea. 3.ger: improved with IV fluid. 4.: Hyponatremia acute on chronic improving with restricting free water 240z/24hr 5.michael on cpap: cotninue cpap 6. pancytopenia: seen by hematology - pancytopenia possibly related to history of testicular cancer status post radiation and chemo in the past. In addition possible hemodilution due to fluid. recommended transfusion PRBC. pancytopenia less likely due to antibiotics. inaptient need:terminal ielitis -still not tolerating regular diet , need further GI workup including Ct angiography, pancytopenia needs transfusion. Quality Stroke Does the patient have a stroke diagnosis?: No VTE Prior VTE?: No VTE Risk Level:: Surgical - low VTE Device Contraindication: N/A - Device Ordered VTE Drug Contraindication: N/A - Med Ordered
--- NOTE | 2022-02-07 15:51 | MHC.CM.PN ---
PER ROUNDS DISCUSSION, PATIENT IS NOT MEDICALLY CLEARED FOR DISCHARGE TODAY R/T PANCYTOPENIA, ANEMIA, TRANSFUSION, ON FULL LIQUID DIET/NOT YET TOLERATING REGULAR DIET AND NEED FOR TRANSFUSION. D/C PLAN CONTINUES TO BE HOME SELF-CARE. CM WILL FOLLOW FOR D/C NEEDS.
[2022-02-07] MEDS: iohexoL 350 MG/ML 100 ML INFUS..BTL IV (17:28)
[2022-02-07] MEDS: Tamsulosin HCL 0.4 MG CAPSULE 0.8 MG PO (18:07)
[2022-02-07] MEDS: Rivaroxaban 20 MG TABLET PO (18:08)
[2022-02-07 18:30] LABS: CDiff Gene PCR NEGATIVE (Negative)
[2022-02-07] MEDS: Loratadine 10 MG TABLET PO (19:16)
[2022-02-07] MEDS: Acetaminophen 325 MG TABLET 650 MG PO (19:16)
[2022-02-08 03:56] VITALS: BP 141/86; PULSE 67; RESP 18; TEMP 36.1; O2SAT 93
[2022-02-08 06:31] LABS: Hematocrit 26.7 % (42.0-52.0); Mean Corpuscular HGB Conc 33.7 g/dl (31.0-36.0); Mean Corpuscular Hemoglobin 27.8 pg (27.0-33.0); Mean Corpuscular Volume 82.4 fL (80.0-98.0); Platelet Count 139 X10*3/uL (160-400); Red Blood Count 3.24 X10*6/uL (4.60-5.80); Red Cell Distribution Width 14.8 % (11.0-16.0); White Blood Count 2.4 X10*3/uL (4.8-10.8)
[2022-02-08 07:30] VITALS: BP 145/84; PULSE 82; RESP 18; TEMP 36.8; O2SAT 96
[2022-02-08] MEDS: 0.9 % Sodium Chloride Flush 3 ML SYRINGE IVFLUSH ×3 (09:01→20:14)
[2022-02-08] MEDS: Sertraline HCL 50 MG TABLET PO (09:01)
[2022-02-08] MEDS: Magnesium Oxide 400 MG TABLET PO ×2 (09:01→20:13)
[2022-02-08] MEDS: Gabapentin 300 MG CAPSULE 600 MG PO ×2 (09:01→20:13)
[2022-02-08] MEDS: Metoprolol Succinate ER 50 MG TAB.ER.24H PO (09:01)
[2022-02-08] MEDS: Acetaminophen 325 MG TABLET 650 MG PO ×2 (09:02→17:12)
[2022-02-08 11:17] VITALS: BP 120/71; PULSE 92; RESP 18; TEMP 36.3; O2SAT 96
--- NOTE | 2022-02-08 11:47 | HO.PM.IMPN ---
Subjective Subjective Date of Service: 02/08/22 Interval History: abd discomfort , pancytopenia Review of Systems Abdominal discomfort and diarrhea seems to be slowly improving, also denies any chest pain or shortness of breath or fever chills. Physical Exam Vital Signs: Vital Signs: Last Vital Signs Temp 97.4 F 02/08/22 11:17 Pulse 92 02/08/22 11:17 Resp 18 02/08/22 11:17 BP 120/71 02/08/22 11:17 Pulse Ox 96 02/08/22 11:17 O2 Del Method 02/08/22 11:17 O2 Flow Rate 3 02/05/22 07:52 BMI result Body Mass Index 31.8 Appearance: Alert.? Oriented X3.? not in distress.? cvs: rrr, [id number] , no murmur res: clear to auscultation ,no rhonchii or wheezing abd: no rebound or guarding ,nt, bs mild tympanic. ext pulses present , no cyanosis . neuro: axo3 , nonfocal. Objective Data Active Medications Acetaminophen (Acetaminophen 325 Mg Tablet) 650 mg PO Q6H PRN PRN Reason: Pain, Moderate (Pain Scale 4-6 Last Admin: 02/08/22 09:02 Dose: 650 mg Documented By: ABRAHAM Albuterol Sulfate (Albuterol Sulfate (0.083%) 2.5 Mg/3 Ml Vial.Neb) 2.5 mg INHALE Q6H PRN PRN Reason: Wheezing Last Admin: 02/02/22 11:27 Dose: 2.5 mg Documented By: CHET Calcium Carbonate (Calcium Carbonate 750 Mg Tab.Chew) 750 mg PO Q6H PRN PRN Reason: heartburn Last Admin: 02/07/22 21:01 Dose: 750 mg Documented By: LAMAR Gabapentin (Gabapentin 300 Mg Capsule) 600 mg PO BID [facility] Last Admin: 02/08/22 09:01 Dose: 600 mg Documented By: ABRAHAM Loratadine (Loratadine 10 Mg Tablet) 10 mg PO BEDTIME [facility] Last Admin: 02/07/22 19:16 Dose: 10 mg Documented By: LAMAR Magnesium Oxide (Magnesium Oxide 400 Mg Tablet) 400 mg PO BID [facility] Last Admin: 02/08/22 09:01 Dose: 400 mg Documented By: ABRAHAM Melatonin (Melatonin 3 Mg Tablet) 3 mg PO BEDTIME PRN PRN Reason: Sleep Last Admin: 02/06/22 19:30 Dose: 3 mg Documented By: TAE Metoprolol Succinate (Metoprolol Succinate Er 50 Mg Tab.Er.24h) 50 mg PO DAILY [facility]; Protocol Last Admin: 02/08/22 09:01 Dose: 50 mg Documented By: ABRAHAM Ondansetron HCl (Ondansetron Hcl 4 Mg/2 Ml Vial) 4 mg IVPUSH Q8H PRN PRN Reason: Nausea Last Admin: 02/07/22 20:52 Dose: 4 mg Documented By: ODRISJoseph Rivaroxaban (Rivaroxaban 20 Mg Tablet) 20 mg PO DAILY@1700 [facility] Last Admin: 02/07/22 18:08 Dose: 20 mg Documented By: MELISSA Sertraline HCl (Sertraline Hcl 50 Mg Tablet) 50 mg PO DAILY [facility] Last Admin: 02/08/22 09:01 Dose: 50 mg Documented By: ABRAHAM Sodium Chloride (0.9 % Sodium Chloride Flush 3 Ml Syringe) 3 ml IVFLUSH QSHIFT [facility] Last Admin: 02/08/22 09:01 Dose: 3 ml Documented By: ABRAHAM Spironolactone (Spironolactone 25 Mg Tablet) 25 mg PO DAILY [facility]; Protocol Last Admin: 02/05/22 09:09 Dose: 25 mg Documented By: ABRAHAM Tamsulosin HCl (Tamsulosin Hcl 0.4 Mg Capsule) 0.8 mg PO DAILY@1700 [facility] Last Admin: 02/07/22 18:07 Dose: 0.8 mg Documented By: MELISSA Labs CBC & Chem 7: 02/08/22 05:21 02/07/22 08:58 Labs: Laboratory Results - last 24 hr 02/04/22 02/07/22 02/07/22 15:46 08:58 15:53 MCV MCH MCHC RDW Plt Count MPV Absolute Nucleated RBC Nucleated RBC % (auto) LAURA Titer TNP LAURA Titer 2 TNP LAURA Titer 3 TNP LAURA Pattern TNP LAURA Pattern 2 TNP LAURA Pattern 3 TNP C. difficile Tox B Gene NEGATIVE Blood Type A Negative Antibody Screen NEGATIVE Crossmatch See Detail 02/08/22 05:21 MCV 82.4 MCH 27.8 MCHC 33.7 RDW 14.8 Plt Count 139 L MPV 10.0 Absolute Nucleated RBC 0.000 Nucleated RBC % (auto) 0.0 LAURA Titer LAURA Titer 2 LAURA Titer 3 LAURA Pattern LAURA Pattern 2 LAURA Pattern 3 C. difficile Tox B Gene Blood Type Antibody Screen Crossmatch Assessment and Plan (1) Hyponatremia: Status: Acute (2) Ileitis, terminal: Status: Acute (3) Thrombocytopenia: Status: Acute Plan 71-year-old male admitted for abdominal pain? . 1.PAF: rate controlled continue metoprolol Xarelto. 2.abd pain ( terminal ielitis ): surgery following: overall patient is improved with decreased abdominal pain.? He is tolerating a full liquid diet without nausea or vomiting.? The abdominal pain did not increase with p.o. intake.? He feels hungry and would like to try a regular diet.? advance? diet today and monitor his symptoms. ct abd done -report pending c diff neg,diarrahe improving 3.ger: improved with IV fluid. ? 4.:? Hyponatremia acute on chronic ?improving with restricting free water 240z/24hr 5.michael on cpap: cotninue cpap 6. pancytopenia: seen? by hematology - pancytopenia possibly related to history of testicular cancer status post radiation and chemo in the past.? In addition possible hemodilution due to fluid. s/p 1prbc:h/h improved to 26.7 ?pancytopenia less likely due to antibiotics. inaptient need:terminal ielitis -still not tolerating regular? diet ,? need further GI workup including Ct angiography, pancytopenia monitering Quality Stroke Does the patient have a stroke diagnosis?: No VTE Prior VTE?: No VTE Risk Level:: Surgical - low VTE Device Contraindication: N/A - Device Ordered VTE Drug Contraindication: N/A - Med Ordered
--- NOTE | 2022-02-08 12:31 | P.PNGS_ITS ---
Subjective Subjective Date of Service: 02/08/22 Interval history: Late entry: Patient feels improved and is tolerating a regular diet without increased abdominal pain. Reviewed the CT findings with the patient and his . Physical Exam Vital Signs: Vital Signs: Last Vital Signs Temp 98 F 02/09/22 07:14 Pulse 87 02/09/22 07:14 Resp 18 02/09/22 07:14 BP 142/76 H 02/09/22 07:14 Pulse Ox 94 02/09/22 07:14 O2 Del Method 02/09/22 07:14 O2 Flow Rate 3 02/05/22 07:52 BMI result Body Mass Index 31.8 Const: General: cooperative, comfortable and no acute distress Nutritional Appearance: well nourished Orientation/consciousness: patient oriented x3 Limitations: no limitations Resp: Effort & Inspection: normal respiratory effort GI: Inspection: Yes normal to inspection Palpation (GI): Soft to palpation, nontender, no guarding and not rigid Percussion: Yes normal to percussion Auscultation: normal bowel sounds Neuro: General: patient oriented x3 Extrem: General: Yes no pedal edema Objective Data Active Medications Acetaminophen (Acetaminophen 325 Mg Tablet) 650 mg PO Q6H PRN PRN Reason: Pain, Moderate (Pain Scale 4-6 Last Admin: 02/08/22 17:12 Dose: 650 mg Documented By: ABRAHAM Calcium Carbonate (Calcium Carbonate 750 Mg Tab.Chew) 750 mg PO Q6H PRN PRN Reason: heartburn Last Admin: 02/07/22 21:01 Dose: 750 mg Documented By: LAMAR Gabapentin (Gabapentin 300 Mg Capsule) 600 mg PO BID COUNT INCLUDES THE [facility] Last Admin: 02/08/22 20:13 Dose: 600 mg Documented By: LAMAR Loratadine (Loratadine 10 Mg Tablet) 10 mg PO BEDTIME COUNT INCLUDES THE [facility] Last Admin: 02/08/22 20:19 Dose: Not Given Documented By: LAMAR Non-Admin Reason: Patient Refused Magnesium Oxide (Magnesium Oxide 400 Mg Tablet) 400 mg PO BID COUNT INCLUDES THE [facility] Last Admin: 02/08/22 20:13 Dose: 400 mg Documented By: LAMAR Melatonin (Melatonin 3 Mg Tablet) 3 mg PO BEDTIME PRN PRN Reason: Sleep Last Admin: 02/06/22 19:30 Dose: 3 mg Documented By: TAE Metoprolol Succinate (Metoprolol Succinate Er 50 Mg Tab.Er.24h) 50 mg PO DAILY COUNT INCLUDES THE [facility]; Protocol Last Admin: 02/08/22 09:01 Dose: 50 mg Documented By: ABRAHAM Ondansetron HCl (Ondansetron Hcl 4 Mg/2 Ml Vial) 4 mg IVPUSH Q8H PRN PRN Reason: Nausea Last Admin: 02/07/22 20:52 Dose: 4 mg Documented By: LAMAR Rivaroxaban (Rivaroxaban 20 Mg Tablet) 20 mg PO DAILY@1700 COUNT INCLUDES THE [facility] Last Admin: 02/08/22 17:12 Dose: 20 mg Documented By: ABRAHAM Sertraline HCl (Sertraline Hcl 50 Mg Tablet) 50 mg PO DAILY COUNT INCLUDES THE [facility] Last Admin: 02/08/22 09:01 Dose: 50 mg Documented By: ABRAHAM Sodium Chloride (0.9 % Sodium Chloride Flush 3 Ml Syringe) 3 ml IVFLUSH QSHIFT COUNT INCLUDES THE [facility] Last Admin: 02/08/22 20:14 Dose: 3 ml Documented By: LAMAR Spironolactone (Spironolactone 25 Mg Tablet) 25 mg PO DAILY COUNT INCLUDES THE [facility]; Protocol Last Admin: 02/05/22 09:09 Dose: 25 mg Documented By: ABRAHAM Tamsulosin HCl (Tamsulosin Hcl 0.4 Mg Capsule) 0.8 mg PO DAILY@1700 COUNT INCLUDES THE [facility] Last Admin: 02/08/22 17:12 Dose: 0.8 mg Documented By: ABRAHAM Labs CBC & Chem 7: 02/08/22 05:21 02/08/22 13:03 Labs: Laboratory Results - last 24 hr 02/08/22 13:03 Anion Gap 15 Estim Creat Clear Calc 94.5 Estimated GFR > 60 Random Glucose 129 H Calcium 8.8 Procedures Date of Service Date of Service: 02/08/22 Progress Note: A&P Assessment and plan (1) Ileitis, terminal: Status: Acute Assessment and Plan: CT angio with no evidence of ischemia. Inflamed ileus, ? infectious vs. Crohn's. Discussed with patient. C.diff negative. Patient feels improved after stopping antibiotics. Patient feels he may be ready for discharge tomorrow if he continues to tolerate po. (2) Chronic anemia: Status: Acute Assessment and Plan: Appreciate Dr. Ames's input. Chronic anemia. Patient responded appropriately to transfusion. Continue to monitor. Time Spent With Patient Time: Total time spent is greater than 50% in coordination of care (as documented) at patient's floor/unit and/or counseling patient: Quality Stroke Does the patient have a stroke diagnosis?: No VTE Prior VTE?: No VTE Risk Level:: Surgical - low VTE Device Contraindication: N/A - Device Ordered VTE Drug Contraindication: N/A - Med Ordered
[2022-02-08 13:51] LABS: Anion Gap 15 (12-20); Blood Urea Nitrogen 7 mg/dL (9-16); Calcium 8.8 mg/dL (8.4-10.2); Carbon Dioxide 28 mmol/L (22-29); Chloride 96 mmol/L (96-108); Creatinine Clr Calc Pharmacy 94.5; Estimated Glomerular Filt Rate > 60; Glucose Random 129 mg/dL (60-115); Potassium 3.7 mmol/L (3.3-5.1); Sodium 135 mmol/L (135-145)
[2022-02-08 16:00] VITALS: BP 125/84; PULSE 87; RESP 17; TEMP 36.3; O2SAT 95
[2022-02-08] MEDS: Tamsulosin HCL 0.4 MG CAPSULE 0.8 MG PO (17:12)
[2022-02-08] MEDS: Rivaroxaban 20 MG TABLET PO (17:12)
[2022-02-08 19:56] VITALS: BP 119/67; PULSE 85; RESP 16; TEMP 36.1; O2SAT 95
[2022-02-09] VITALS: BP 123/76; PULSE 84; RESP 16; TEMP 36.4; O2SAT 95
[2022-02-09 03:51] VITALS: BP 107/60; PULSE 83; RESP 16; TEMP 36.2; O2SAT 95
[2022-02-09 07:14] VITALS: BP 142/76; PULSE 87; RESP 18; TEMP 36.6; O2SAT 94
[2022-02-09 08:21] LABS: Hematocrit 29.3 % (42.0-52.0); Hemoglobin 9.4 g/dl (14.0-18.0)
[2022-02-09 08:49] LABS: C Reactive Protein 5.83 mg/dL (< or = 0.50)
[2022-02-09] MEDS: Gabapentin 300 MG CAPSULE 600 MG PO (09:08)
[2022-02-09] MEDS: Magnesium Oxide 400 MG TABLET PO (09:08)
[2022-02-09] MEDS: Sertraline HCL 50 MG TABLET PO (09:08)
[2022-02-09] MEDS: Metoprolol Succinate ER 50 MG TAB.ER.24H PO (09:08)
[2022-02-09] MEDS: 0.9 % Sodium Chloride Flush 3 ML SYRINGE IVFLUSH (09:09)
--- NOTE | 2022-02-09 09:18 | MHC.CM.PN ---
PATIENT IS MEDICALLY CLEARED FOR DISCHARGE TODAY; DISCHARGE DISPOSITION IS HOME SELF-CARE. 2ND IMM ADDRESSED. [facility] WILL TRANSPORT HOME.
--- NOTE | 2022-02-09 11:30 | HO.PM.IMPN ---
Subjective Subjective Date of Service: 02/10/22 Interval History: abd pain Review of Systems seems improved denies any sob or chest pain or ansuea or vomitin Physical Exam Vital Signs: Vital Signs: Last Vital Signs Temp 98 F 02/09/22 07:14 Pulse 87 02/09/22 07:14 Resp 18 02/09/22 07:14 BP 142/76 H 02/09/22 07:14 Pulse Ox 94 02/09/22 07:14 O2 Del Method 02/09/22 07:14 O2 Flow Rate 3 02/05/22 07:52 BMI result Body Mass Index 31.8 Appearance: Alert.? Oriented X3.? not in distress.? cvs: rrr, [id number] , no murmur res: clear to auscultation ,no rhonchii or wheezing abd: no rebound or guarding ,nt, bs mild tympanic. ext pulses present , no cyanosis . neuro: axo3 , nonfocal. Objective Data Labs CBC & Chem 7: 02/09/22 07:53 02/08/22 13:03 Labs: Laboratory Results - last 24 hr 02/08/22 02/09/22 13:03 07:53 Anion Gap 15 Estim Creat Clear Calc 94.5 Estimated GFR > 60 Random Glucose 129 H Calcium 8.8 C-Reactive Protein 5.83 H Assessment and Plan (1) Ileitis, terminal: Status: Acute (2) Hyponatremia: Status: Acute Plan 71-year-old male admitted for abdominal pain? . 1.PAF: rate controlled continue metoprolol Xarelto. 2.abd pain ( terminal ielitis ): surgery following: overall patient is improved with decreased abdominal pain.? He is tolerating a full liquid diet without nausea or vomiting.? The abdominal pain did not increase with p.o. intake.? He feels hungry and would like to try a regular diet.? advance? diet today and monitor his symptoms. ct abd done -reviewed with surgery c diff neg,diarrahe improving plan for antibiotics and further management willbe decided as surgery/GI. 3.ger: improved with IV fluid. ? 4.:? Hyponatremia acute on chronic seems improved with fluid restrictions,patient was strongly encouarrged water restrictions(48oz/day) moniter bmp outpatiently with pcp. 5.michael on cpap: cotninue cpap 6. pancytopenia: seen? by hematology - pancytopenia possibly related to history of testicular cancer status post radiation and chemo in the past.? In addition possible hemodilution due to fluid. s/p 1prbc:h/h improved to 9.4/29.3 ?pancytopenia less likely due to antibiotics. moniter cbc outpatiently above is d/w primary team and patient in detailed length ,will sign off , please call for any questions. Quality Stroke Does the patient have a stroke diagnosis?: No VTE Prior VTE?: No VTE Risk Level:: Surgical - low VTE Device Contraindication: N/A - Device Ordered VTE Drug Contraindication: N/A - Med Ordered
--- NOTE | 2022-02-12 13:21 | P.DS_ITS ---
DS: Providers Provider Date of Service: 02/09/22 Date of admission: 01/31/22 23:36 Date of discharge: 02/09/22 Primary care physician: Scotty Liu MD Admitting clinician: Neal Frye Consults: 02/01/22 08:19 Consult to Hospitalist Routine Consulting Provider: Hospitalist Reason For Exam: Mesenteric ischemia, A fib, CKD, med management 02/02/22 08:21 Consult to Gastroenterology Routine Consulting Provider: [facility] [place] Gastroenterology Services Reason for consultation: Terminal ileitis, ? ischemia 02/06/22 07:57 Consult to Nephrology Routine Consulting Provider: Harjinder Geller Reason for consultation: acute on ch hyponatremia Has provider been notified: No 02/07/22 08:11 Consult to Hematology / Oncology Routine Consulting Provider: [facility] [place] Oncology/Hematology Reason for consultation: worsening pancytopenia Has provider been notified: No Discharging clinician: Neal Frye DS: Diagnosis Discharge Diagnosis (1) Ileitis, terminal: Status: Acute (2) Hyponatremia: Status: Acute DS: Summary Hospital Course Hospital Course: 71-year-old male patient presenting to the emergency department with acute onset of intense abdominal pain. 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 He reports increased pain after eating lunch prior to his presentation to the emergency department. He reports a prior history of testicular cancer approximately 40 years ago and has had several surgeries including and intra- abdominal lymph node dissection. He also underwent chemo and radiation therapy and as a result has had multiple small bowel obstructions. The last obstruction occurred in 2020 and was treated non operatively. He has a history of AFib and is currently on oral Xarelto. In the emergency department he was noted to have a normal WBC and lactic acid but elevated creatinine and potassium level. CT abdomen and pelvis showed what appeared to be portal venous gas with some mild pneumatosis in the small bowel near the previous anastomosis. No small bowel obstruction was identified. On examination the patient was noted to be soft with mild tenderness without rebound or guarding. The patient was subsequently admitted to the surgical service for further management. The patient was made NPO and placed on IV fluids. A repeat CT was performed the following day which showed no further portal venous air or pneumatosis. There was evidence of thickening of the distal ileum suggestive of either an infectious or ischemic ileitis. GI consultation was obtained and decision made to start him on intravenous antibiotics. Over the next several days he at some mild tenderness but overall felt improved. WBC remained normal. On 02/03/2022 he was feeling somewhat improved and was started on clear liquids. This was advanced to full liquids the following day but he continued to have mild pain which seem to be aggravated with p.o.. The patient was noted to have a drop in his hemoglobin and hematocrit. He has a prior history of pancytopenia and was previously being seen by Dr. Liu for this. Dr. Liu was reconsulted. He was given a single unit of packed RBCs which improved his hemoglobin and hematocrit. Antibiotics were stopped as well which seemed to help patient's appetite. On 02/08/2022 he was started on a regular diet and he tolerated this well without nausea or vomiting. A CT angiogram was performed which was negative for mesenteric ischemia. Patient subsequently discharged home in stable condition on 02/09/2022. He will resume his previous medications and follow up with Dr. Marquez from GI and Dr. Liu from Hematology/Oncology. I have asked him to return to my office in approximately 2 weeks. He is welcome to call sooner for any return of his symptoms, including nausea, vomiting, fever, chills, or increased abdominal pain. He expressed understanding and agrees with this plan. Time Spent with Patient Time attestation: Total time spent providing and/or coordinating discharge services: Discharge coordination time: Less than 30 minutes Quality: Safe Use of Opioids Does Pt have an Active Cancer Diagnosis on the Problem List?: No Quality: Stroke Does the patient have a stroke diagnosis?: No Physical Exam Vital Signs: Vital Signs: Last Vital Signs Temp 98 F 02/09/22 07:14 Pulse 87 02/09/22 07:14 Resp 18 02/09/22 07:14 BP 142/76 H 02/09/22 07:14 Pulse Ox 94 02/09/22 07:14 O2 Del Method 02/09/22 07:14 O2 Flow Rate 3 02/05/22 07:52 BMI result Body Mass Index 31.8 Const: General: cooperative, comfortable and no acute distress Nutritional Appearance: well nourished Orientation/consciousness: patient oriented x3 Limitations: no limitations Resp: Effort & Inspection: normal respiratory effort GI: Inspection: Yes normal to inspection Palpation (GI): Soft to palpation, nontender, no guarding and not rigid Percussion: Yes normal to percussion Auscultation: normal bowel sounds Neuro: General: patient oriented x3 Extrem: General: Yes no pedal edema DS: Data Data Completed and Pending Completed studies during hospitalization [Text1]: Procedures Transfusion of Nonautologous Red Blood Cells into Peripheral Vein, Percutaneous Approach (01/31/22) Discharge Plan Discharge Patient Disposition: Home, Self-Care Discharge Diagnosis: Terminal ileitis Referrals: Scotty Liu MD [Primary Care Provider] - 1 Week Huber Marquez [Physician] - 1 Week Neal Frye MD [Physician] - 2 Weeks Discharge Medications: New loperamide [Imodium A-D] 2 mg tablet 2 mg PO Q6H PRN (Reason: loose stool) Qty: 30 0RF Continued Xarelto 20 mg tablet 20 mg PO DAILY@1700 90 Days Qty: 90 0RF Rx Instructions: Please call and schedule cardiology appt metoprolol succinate [Toprol XL] 50 mg tablet extended release 24 hr 50 mg PO DAILY Qty: 90 3RF spironolactone 25 mg tablet 25 mg PO DAILY Qty: 90 3RF losartan 50 mg tablet 50 mg PO BID 90 Days Qty: 180 3RF multivitamin Tablet 1 tab PO DAILY ascorbic acid (vitamin C) [Vitamin C] 1,000 mg Tablet 1,000 mg PO DAILY@1700 docusate sodium [Stool Softener] 100 mg Capsule 100 mg PO BID gabapentin 300 mg capsule 600 mg PO BID omeprazole 20 mg capsule,delayed release(DR/EC) 20 mg PO BID Culturelle 10 billion cell Capsule 1 cap PO DAILY sertraline 50 mg tablet 50 mg PO DAILY magnesium 200 mg Tablet 400 mg PO BID iron 1 tab PO 4XW amlodipine 10 mg tablet 1 tab PO DAILY cetirizine [Zyrtec] 10 mg Tablet 10 mg PO DAILY albuterol sulfate 90 mcg/actuation HFA aerosol inhaler 2 puff PO Q4H PRN (Reason: Shortness Of Breath) dicyclomine 10 mg capsule 10 mg PO BID PRN (Reason: Gastrointestinal Spasms Or Cramping) tamsulosin 0.4 mg capsule 0.8 mg PO DAILY@1700 90 Days Qty: 180 2RF Discharge Orders: Discharge Order (Routine); Ordered 02/09/22 Ordered By: Neal Frye Activity on Discharge: As tolerated Stand Alone Forms: Patient Portal Discharge page Care Plan Goals: return to normal diet and activity Health Concerns: abdominal pain Plan of Treatment: CT abd and pelvis with contrast Assessment: Terminal ileitis Discharge Date/Time: 02/09/22 11:04
== END 2022-02-09 11:04 | disposition home or self-care (01) | DRG 393 ==
LOC: HO.ED 23:43 → HO.EDOVER 23:50 → HO.S3 02-01 16:35
PROVIDERS: Internal Medicine; Internal Medicine Gastroenterology; Surgery; Admitting Provider Surgery; Emergency Provider Emergency Medicine; PCP Internal Medicine Medical Oncology; Visit Provider Surgery
DX: K55.039 Acute (reversible) ischemia of large intestine, extent unspecified (principal); D61.810 Antineoplastic chemotherapy induced pancytopenia; E87.1 Hypo-osmolality and hyponatremia; I48.19 Other persistent atrial fibrillation; K50.00 Crohn's disease of small intestine without complications; N17.9 Acute kidney failure, unspecified; N40.0 Benign prostatic hyperplasia without lower urinary tract symptoms; G47.33 Obstructive sleep apnea (adult) (pediatric); I10 Essential (primary) hypertension; Z92.21 Personal history of antineoplastic chemotherapy; Z92.3 Personal history of irradiation; Z20.822 Contact with and (suspected) exposure to COVID-19; Z96.641 Presence of right artificial hip joint; Z85.47 Personal history of malignant neoplasm of testis; Z90.79 Acquired absence of other genital organ(s); Z79.01 Long term (current) use of anticoagulants; Z79.899 Other long term (current) drug therapy; D46.9 Myelodysplastic syndrome, unspecified
CPT/HCPCS: 36415; 74174; 74176; 80048; 81001; 82533; 82607; 82728; 82746; 82784; 83540; 83605; 83735; 83930; 83935; 84295; 84300; 85014; 85018; 85025; 85027; 85652; 86021; 86038; 86039; 86140; 86704; 86706; 86709; 86803; 86850; 86900; 86901; 86923; 87340; 87389; 87493; 87507; 87635; 93005; 94640; 99212; 99285; J0610; J0696; J1170; J2405; P9016; Q9967

== ENCOUNTER 2022-03-09 11:46 | Day surgery (SDC) | payer MEDICARE, SELFPAY ==
--- NOTE | 2022-03-08 08:59 | P.CONAN_ITS ---
Documented by User: Marah Chase NP 03/08/22 09:05 HPI - Anesthesia Eval Consult details Narrative: 71yo M for Cardioversion Xarelto for afib 02/2022 [facility] [place] with [place]itis (hx multiple SBO d/t adhesions from abdominal surgery and radiation r/t testicular ca) [facility] Active Problems Active Problems: All Active Problems (Updated 02/17/22 @ 00:04 by Background Daemon) Chronic anemia (Acute) Thrombocytopenia (Acute) Ileitis, terminal (Acute) HTN (hypertension) (Acute) Persistent atrial fibrillation (Acute) SBO (small bowel obstruction) (Acute) STAN on CPAP (Acute) Primary insomnia (Acute) Radiation cystitis (Acute) Hypogonadism in male (Acute) Hx of testicular cancer (Acute) Aortic stenosis (Acute) Past Medical History Medical History MENA (acute kidney injury) Anemia Aortic stenosis BPH (benign prostatic hyperplasia) Chronic back pain History of cardioversion HTN (hypertension) Hx of benign neoplasm Hx of testicular cancer Hyponatremia Neuropathy Paroxysmal atrial fibrillation Sleep apnea Surgical History Surgical History H/O colonoscopy History of back surgery History of left knee replacement History of orchiectomy History of right hip replacement Hx of cataract extraction Hx of cystoscopy Social History Social History Household Members: Family Housing: House Do you presently have visiting nurse or other home services: No Alcohol intake: never Patient Tobacco Use Status: Never used Tobacco Use of substances other than those prescribed or required for medical reasons: No Are you DNR?: No Advance Directives: No Advance Directives Information Provided: Yes Advance Directives Date on File: 02/01/22 service: No Current occupational status: retired Meds Allergies Allergy/AdvReac Type Severity Reaction Status Date / Time No Known Allergies Allergy Verified 03/09/22 12:10 [No Known Allergies*] Home Medications Medication Instructions Recorded Confirmed Last Taken Type Lactobacillus rhamnosus GG 10 1 cap PO DAILY 05/28/20 03/09/22 05/27/20 History billion cell capsule (Culturelle) ascorbic acid (vitamin C) 1,000 mg 1,000 mg PO DAILY@1700 05/28/20 03/09/22 05/28/20 History tablet (Vitamin C) docusate sodium 100 mg capsule 100 mg PO BID 05/28/20 03/09/22 05/27/20 History (Stool Softener) gabapentin 300 mg capsule 600 mg PO BID 05/28/20 03/09/22 03/09/22 09:00 History iron 1 tab PO Q OTHER DAY 05/28/20 03/09/22 03/08/22 History magnesium 200 mg tablet 400 mg PO BID 05/28/20 03/09/22 05/28/20 History multivitamin 1 tab PO DAILY 05/28/20 03/09/22 05/27/20 History omeprazole 20 mg capsule,delayed 20 mg PO BID 05/28/20 03/09/22 05/27/20 History release sertraline 50 mg tablet 50 mg PO DAILY 05/28/20 03/09/22 05/27/20 History albuterol sulfate 90 mcg/actuation 2 puff PO Q4H PRN Shortness Of 02/14/21 03/09/22 Unknown History aerosol inhaler Breath dicyclomine 10 mg capsule 10 mg PO BID PRN Gastrointestinal 01/31/22 03/09/22 Unknown History Spasms Or Cramping amlodipine 10 mg tablet 1 tab PO DAILY 02/01/22 03/09/22 03/09/22 09:00 History cetirizine 10 mg tablet (Zyrtec) 10 mg PO DAILY 02/01/22 03/09/22 01/30/22 History amiodarone 400 mg tablet 1 tab PO BID 03/09/22 03/09/22 03/09/22 09:00 History Exam Exam Date and Time: March 08, 2022 0859 Pertinent Lab Results Pertinent Lab Results: Laboratory Tests 02/08/22 02/08/22 02/09/22 05:21 13:03 07:53 WBC 2.4 L Hgb 9.4 L Hct 29.3 L Plt Count 139 L Sodium 135 Potassium 3.7 Chloride 96 Carbon Dioxide 28 BUN 7 L Creatinine 0.93 Narrative Narrative: ECHO 09/2021 Conclusions: -? 1. Normal LV systolic function with impaired relaxation ? ? ? filling pattern next 2. Severely dilated left atrium ? 3.? Moderate aortic stenosis with mean gradient of 23 mmHg with? mild aortic regurgitation? 4.? Mitral annular calcification ? 5.? Normal RV systolic pressure? 6.? No gross pericardial effusion? ? ? EKG 01/2022 Vent. Rate : 095 BPM ? ? Atrial Rate : 000 BPM ?? P-R Int : 000 ms? QRS Dur : 094 ms ? ? QT Int : 314 ms ? ? ? P-R-T Axes : 000 -24 080 degrees ?? QTc Int : 394 ms ? Atrial fibrillation Nonspecific T wave abnormality Abnormal ECG When compared with ECG of 15-JUL-2020 08:48, Atrial fibrillation has replaced Sinus rhythm Nonspecific T wave abnormality now evident in Inferior leads Assessment and Plan Assessment Anesthesia Assessment: Chart Reviewed Documented by User: Cassidy Muhammad MD 03/09/22 13:29 PMFSH Past Medical History Medical History MENA (acute kidney injury) Anemia Aortic stenosis BPH (benign prostatic hyperplasia) Chronic back pain History of cardioversion HTN (hypertension) Hx of benign neoplasm Hx of testicular cancer Hyponatremia Neuropathy Paroxysmal atrial fibrillation Sleep apnea Functional capacity: independent ambulation Family History Family history of problems with anesthesia: No Surgical History Surgical History H/O colonoscopy History of back surgery History of left knee replacement History of orchiectomy History of right hip replacement Hx of cataract extraction Hx of cystoscopy History of Problems with Anesthesia: No Social History Social History Household Members: Family Housing: House Do you presently have visiting nurse or other home services: No Alcohol intake: never Patient Tobacco Use Status: Never used Tobacco Use of substances other than those prescribed or required for medical reasons: No Are you DNR?: No Advance Directives: No Advance Directives Information Provided: Yes Advance Directives Date on File: 02/01/22 service: No Current occupational status: retired Meds Allergies Allergy/AdvReac Type Severity Reaction Status Date / Time No Known Allergies Allergy Verified 03/09/22 12:10 [No Known Allergies*] Home Medications Medication Instructions Recorded Confirmed Last Taken Type Lactobacillus rhamnosus GG 10 1 cap PO DAILY 05/28/20 03/09/22 05/27/20 History billion cell capsule (Culturelle) ascorbic acid (vitamin C) 1,000 mg 1,000 mg PO DAILY@1700 05/28/20 03/09/22 05/28/20 History tablet (Vitamin C) docusate sodium 100 mg capsule 100 mg PO BID 05/28/20 03/09/22 05/27/20 History (Stool Softener) gabapentin 300 mg capsule 600 mg PO BID 05/28/20 03/09/22 03/09/22 09:00 History iron 1 tab PO Q OTHER DAY 05/28/20 03/09/22 03/08/22 History magnesium 200 mg tablet 400 mg PO BID 05/28/20 03/09/22 05/28/20 History multivitamin 1 tab PO DAILY 05/28/20 03/09/22 05/27/20 History omeprazole 20 mg capsule,delayed 20 mg PO BID 05/28/20 03/09/22 05/27/20 History release sertraline 50 mg tablet 50 mg PO DAILY 05/28/20 03/09/22 05/27/20 History albuterol sulfate 90 mcg/actuation 2 puff PO Q4H PRN Shortness Of 02/14/21 03/09/22 Unknown History aerosol inhaler Breath dicyclomine 10 mg capsule 10 mg PO BID PRN Gastrointestinal 01/31/22 03/09/22 Unknown History Spasms Or Cramping amlodipine 10 mg tablet 1 tab PO DAILY 02/01/22 03/09/22 03/09/22 09:00 History cetirizine 10 mg tablet (Zyrtec) 10 mg PO DAILY 02/01/22 03/09/22 01/30/22 History amiodarone 400 mg tablet 1 tab PO BID 03/09/22 03/09/22 03/09/22 09:00 History Exam Airway Mallampati Class: III TM Dist: >3cm Neck ROM: Full Heart: Irreg Lungs: CTA Assessment and Plan Final Anesthetic Review Family History of Problems with Anesthesia: No History of Problems with Anesthesia: No Final Preanesthetic Review: No Changes in Pt Med Stat, Meds/Allgs Chart Reviewed, Consent Obtained/Reviewed and Anes Risks/Benef Reviewed Patient Risk: Intermediate Procedure Risk: Intermediate Anesthetic Plan Anesthetic Plan: GA Disposition: Standard PACU
[2022-03-09 06:56] VITALS: BMI 32.5
[2022-03-09 11:58] VITALS: BMI 31.8
--- NOTE | 2022-03-09 12:34 | MHC.SHP ---
Pre-Procedural Eval Section A Date of Service: 03/09/22 The patient is an INPATIENT: No Changes since office visit: Yes Patient answered all questions; No Cold of Flu in the past 2 weeks, No New Medical Problems and No Changes in Medication The History & Physical has been completed within 30 days and I have reviewed it.: Yes Section B Chief Complaint: a-fib Allergies: Allergies Allergy/AdvReac Type Severity Reaction Status Date / Time No Known Allergies Allergy Verified 03/09/22 12:10 [No Known Allergies*] Plan I have reviewed the history and physical and performed a pertinent physical examination on my patient. No changes have occurred unless specified.
[2022-03-09 12:39] VITALS: BP 108/53; PULSE 65; RESP 16; TEMP 36.6; O2SAT 98
[2022-03-09] MEDS: Lactated Ringers 1,000 ML 50 ML IVCONT (12:39)
[2022-03-09 13:42] VITALS: BP 111/61; PULSE 48; RESP 16; TEMP 36.4; O2SAT 96
--- NOTE | 2022-03-09 13:43 | ECG_ITS ---
Test Reason : s/p cardioversion Blood Pressure : / mmHG Vent. Rate : 047 BPM Atrial Rate : 047 BPM P-R Int : 270 ms QRS Dur : 104 ms QT Int : 490 ms P-R-T Axes : 008 -19 020 degrees QTc Int : 433 ms Sinus bradycardia with 1st degree A-V block Otherwise normal ECG When compared with ECG of 31-JAN-2022 18:57, Sinus rhythm has replaced Atrial fibrillation Vent. rate has decreased BY 48 BPM T wave inversion no longer evident in Lateral leads Referred By: Shine Ortiz Electronically Signed By:JATIN GONZALEZ
--- NOTE | 2022-03-09 13:43 | HO.CARDIVERS ---
Cardioversion Procedure Note Cardioversion Date of Procedure: Today Ordering Provider: Myself Performing Provider: Myself Indication for Procedure: Persistent atrial fibrillation Pre-Op Diagnosis: Same Post-Op Diagnosis: Sinus rhythm Performed with Transesophageal Echo: No Consent: Verbal and Written consent was obtained from the patient before starting and confirming oral anticoagulation use. The patient was made aware of the risk of synchronized cardioversion including benefits and alternatives Procedure: After consent obtained, cardioversion pads were attached in anteroposterior configuration and the patient was sedated by the anesthesia team. Once adequate sedation achieved, patient was delivered 200 joules of biphasic synchronized energy in anteroposterior configuration Complications: None Impression: Successful conversion to sinus rhythm Recommendations: 1. 12 lead EKG 2. Continue full oral anticoagulation as amiodarone 3. Follow up in the office after Holter monitor
--- NOTE | 2022-03-09 13:46 | HO.POSTANES ---
Post Anesthesia Evaluation Post Anesthesia Evaluation Vital Signs: Vital Signs Temp Pulse Resp BP Pulse Ox O2 Del Method 03/09/22 12:39 97.8 F 65 16 108/53 L 98 Room Air Anesthesia: General Mental Status: Awake Pain Control: Satisfactory Nausea/Vomiting: None Hydration: Adequate Anesthesia-Related Issues: No Anes. Related Issues
[2022-03-09 13:57] VITALS: BP 103/61; PULSE 50; RESP 16; O2SAT 97
[2022-03-09 14:12] VITALS: BP 109/58; PULSE 51; RESP 14; TEMP 36.1; O2SAT 97
== END 2022-03-09 14:34 | disposition home or self-care (01) ==
PROVIDERS: PCP Internal Medicine Medical Oncology; Visit Provider Internal Medicine Cardiovascular Disease
PROC: 5A2204Z Restoration of Cardiac Rhythm, Single (ICD-10-PCS; principal; 2022-03-09 13:00)
DX: I48.19 Other persistent atrial fibrillation (principal); Z79.01 Long term (current) use of anticoagulants; I35.0 Nonrheumatic aortic (valve) stenosis; I10 Essential (primary) hypertension; Z79.899 Other long term (current) drug therapy
CPT/HCPCS: 92960; 93005

== ENCOUNTER → 2022-03-23 15:00 | Outpatient (REF) | payer MEDICARE, SELFPAY ==
--- NOTE | 2022-03-23 15:03 | HM_ITS ---
Conclusion: 1. Patient was monitored for total period of 2 days and 17 hours 2. Baseline rhythm was normal sinus rhythm with average heart rate of 54 beats per minute 3. Frequent sinus bradycardia with 89% of time heart rate below 60 beats per minute 4. No significant pauses noted 5. Total of 601 PACs accounting for 0.3% of total beats accounting for occasional PACs 6. No sustained atrial fibrillation noted 7. Patient reported 5 events which correlated with sinus rhythm MTDD
== END ==
LOC: HO.CARD 15:00
PROVIDERS: Visit Provider Internal Medicine Cardiovascular Disease
DX: I48.19 Other persistent atrial fibrillation (principal)
CPT/HCPCS: 93242

== ENCOUNTER → 2022-03-27 11:14 | Outpatient (BNVA) | payer MEDICARE, SELFPAY | PROVIDERS: PCP Internal Medicine Medical Oncology; Visit Provider Internal Medicine Pulmonary Disease | DX: G47.33 Obstructive sleep apnea (adult) (pediatric) (principal); R06.09 Other forms of dyspnea; J30.9 Allergic rhinitis, unspecified; Z79.899 Other long term (current) drug therapy; Z99.89 Dependence on other enabling machines and devices | CPT/HCPCS: 99212 ==

== ENCOUNTER 2022-04-17 14:37 | Outpatient (REF) | payer MEDICARE, SELFPAY ==
[2022-04-17 16:53] LABS: Hematocrit 31.9 % (42.0-52.0); Hemoglobin 10.2 g/dl (14.0-18.0); Mean Corpuscular Hemoglobin 27.9 pg (27.0-33.0); Mean Corpuscular Volume 87.2 fL (80.0-98.0); Mean Platelet Volume 10.2 fL (9.4-12.4); Platelet Count 144 X10*3/uL (160-400); Red Blood Count 3.66 X10*6/uL (4.60-5.80); Red Cell Distribution Width 15.3 % (11.0-16.0); White Blood Count 3.8 X10*3/uL (4.8-10.8)
[2022-04-17 17:20] LABS: Anion Gap 18 (12-20); Blood Urea Nitrogen 38 mg/dL (9-16); Calcium 9.4 mg/dL (8.4-10.2); Carbon Dioxide 24 mmol/L (22-29); Chloride 99 mmol/L (96-108); Estimated Glomerular Filt Rate 35; Glucose Random 100 mg/dL (60-115); Potassium 5.5 mmol/L (3.3-5.1); Sodium 135 mmol/L (135-145)
== END 2022-04-17 14:38 | disposition home or self-care (01) ==
LOC: HO.LAB 14:37
PROVIDERS: PCP Internal Medicine Medical Oncology; Referring Provider Internal Medicine Medical Oncology; Visit Provider Internal Medicine Cardiovascular Disease
DX: I48.0 Paroxysmal atrial fibrillation (principal); I35.0 Nonrheumatic aortic (valve) stenosis; I10 Essential (primary) hypertension; R00.1 Bradycardia, unspecified
CPT/HCPCS: 36415; 80048; 85027; 93005; 99212

== ENCOUNTER 2022-05-08 08:54 | Outpatient (REF) | payer MEDICARE, SELFPAY ==
[2022-05-08 14:29] LABS: Anion Gap 15 (12-20); Blood Urea Nitrogen 31 mg/dL (9-16); Calcium 9.2 mg/dL (8.4-10.2); Carbon Dioxide 26 mmol/L (22-29); Chloride 98 mmol/L (96-108); Estimated Glomerular Filt Rate 42; Glucose Random 111 mg/dL (60-115); Potassium 4.3 mmol/L (3.3-5.1); Sodium 135 mmol/L (135-145)
--- NOTE | 2022-05-08 14:46 | PFT_ITS ---
Forced vital capacity 64%, FEV1 65%. FEV1/FVC ratio is 75. [id number] is 64% and MVV 50%. Post bronchodilator therapy, there is a slight improvement in FEV1 and significant improvement in [id number]. Total lung capacity 69%. Residual volume 78%. Diffusion capacity is 49%. CONCLUSION: 1. Moderate degree of restrictive pulmonary disorder. 2. Very mild obstructive airway disorder with good response to bronchodilator therapy. 3. Clinical correlation is recommended. MD REGLA Baxter/MODL / [id number]
[2022-05-13 14:28] LABS: Testosterone, Free 40.3 pg/mL (30.0-135.0); Testosterone, Total 357 ng/dL (250-1100)
== END 2022-05-08 08:55 | disposition home or self-care (01) ==
LOC: HO.RESP 08:54
PROVIDERS: Internal Medicine Cardiovascular Disease; Absent Provider Urology; PCP Internal Medicine Medical Oncology; Visit Provider Internal Medicine Pulmonary Disease
DX: R06.09 Other forms of dyspnea (principal); E29.1 Testicular hypofunction; I48.0 Paroxysmal atrial fibrillation
CPT/HCPCS: 36415; 80048; 84402; 84403; 94060; 94727; 94729; 99212

== ENCOUNTER → 2022-05-17 13:37 | Outpatient (BNVA) | payer MEDICARE, SELFPAY | PROVIDERS: PCP Internal Medicine Medical Oncology; Visit Provider Urology | DX: N30.40 Irradiation cystitis without hematuria (principal); Z85.47 Personal history of malignant neoplasm of testis | CPT/HCPCS: Q3014 ==

== ENCOUNTER 2022-05-31 04:29 | Emergency (ER) | payer MEDICARE, SELFPAY ==
--- NOTE | ~2022-05-31 | CT_ITS ---
EXAMINATION: CT ABDOMEN AND PELVIS WITH CONTRAST CLINICAL INFORMATION: Abdominal pain, SBO, ischemic colitis. COMPARISON: CT abdomen pelvis 02/07/2022 TECHNIQUE: Multidetector volumetric images were obtained from the superior aspect of the liver through the pubic symphysis following administration 85 mL of Omnipaque 350 intravenous contrast and oral 900 mL oral contrast. Sagittal and coronal reformatted images were obtained on the technologist's workstation. Oral contrast: No This CT examination was performed using dose optimization techniques as appropriate, variously including the following: *Automated exposure control *Adjustment of mA and/or kV according to patient size (this includes techniques or standardized protocols for targeted exams where dose is matched to indication/reason for exam; i.e. extremities or head) *Use of iterative reconstruction technique DLP: 751 mGy-cm FINDINGS: LUNG BASES: There is left lower lobe basilar and lingular atelectasis. Minimal atelectatic changes are seen in the right lung base as well. There is a small pericardial effusion. LIVER, GALLBLADDER, AND BILIARY TREE: The liver is normal in size, shape, and attenuation. No focal hepatic lesion or biliary ductal dilatation is present. The gallbladder is unremarkable with no evidence of radiopaque gallstones, gallbladder wall thickening, or obvious pericholecystic inflammatory changes. PANCREAS: Unremarkable. SPLEEN: Unremarkable. ADRENAL GLANDS: Unremarkable. KIDNEYS AND URETERS: Both kidneys are lobulated but normal size. There is likely some chronic scarring in the lower pole posterior cortex right kidney. Mild bilateral perinephric stranding is seen. No radiopaque calculi or hydronephrosis seen. BLADDER: The bladder is nondistended with mild left and posterior bladder wall thickening with no change. GASTROINTESTINAL TRACT: There is oral contrast seen within the small bowel loops without mural thickening or distention. There is colonic diverticulosis without diverticulitis. Appendix is not visualized. There is gaseous distention of stomach there is no pneumatosis, free air or free fluid. ABDOMINAL WALL: No significant hernia is appreciated. LYMPH NODES: Normal. VASCULAR: There is atherosclerotic calcification of abdominal aorta with mild ectasia. The proximal abdominal aorta measures 3.6 x 3.5 cm on axial image 39/3 the mid segment is normal. The distal segment measures 3.4 x 2.8 cm. Atherosclerotic calcification seen in both common, external and internal iliac arteries without aneurysmal dilatation. PELVIC VISCERA: No free air or free fluid seen. No abnormal pelvic lymph nodes or masses. No evidence of hernia. OSSEOUS STRUCTURES: There are degenerative disc changes with spondylosis and vacuum disc phenomena throughout lumbar spine. No aggressive lytic or sclerotic process seen. The total right hip prosthesis CT/CT abdomen pelvis w IV con IMPRESSION: No acute intra-abdominal process seen. Mild constipation. No pneumatosis, obstruction seen. Mild cortical thinning right kidney lower pole, stable. Colonic diverticulosis without diverticulitis. Nonspecific mild left lateral and posterior urinary bladder wall thickening. Ectatic atherosclerotic proximal and distal abdominal aorta, stable. Fleischner guidelines were followed.
--- NOTE | ~2022-05-31 | XR_ITS ---
EXAMINATION: XR CHEST CLINICAL INFORMATION: Shortness of breath COMPARISON: 07/15/2020 TECHNIQUE: Frontal view of the chest was obtained. FINDINGS: Low lung volumes. No parenchymal consolidation. No pleural effusion. No pneumothorax. Cardiomediastinal silhouette and pulmonary vascularity are within normal limits. No acute osseous abnormalities. XR/XR chest 1V IMPRESSION: Clear lungs
[2022-05-31 04:39] VITALS: BP 139/53; PULSE 66; RESP 20; TEMP 36.4; O2SAT 95; BMI 32.5
[2022-05-31 04:57] LABS: Hematocrit 27.5 % (42.0-52.0); Hemoglobin 9.3 g/dl (14.0-18.0); Mean Corpuscular HGB Conc 33.8 g/dl (31.0-36.0); Mean Corpuscular Hemoglobin 28.1 pg (27.0-33.0); Mean Corpuscular Volume 83.1 fL (80.0-98.0); Mean Platelet Volume 9.1 fL (9.4-12.4); Platelet Count 118 X10*3/uL (160-400); Red Blood Count 3.31 X10*6/uL (4.60-5.80); Red Cell Distribution Width 13.6 % (11.0-16.0); WBC ABN SCTR FOR CBC 1
[2022-05-31 04:59] LABS: White Blood Count 2.3 X10*3/uL (4.8-10.8)
[2022-05-31 05:20] LABS: Band Neutrophils Percent 2 % (3-5); Eosinophils Percent Manual 1 % (0-4); Lymphocytes Absolute Manual 0.6 X10*3/uL (1.2-4.9); Lymphocytes Percent Manual 27 % (20-40); Metamyelocytes Percent 1 %; Monocytes Absolute Manual 0.1 X10*3/uL (0.1-1.2); Monocytes Percent Manual 4 % (2-11); Neutrophils Absolute Manual 1.5 X10*3/uL (2.0-8.3); Neutrophils Percent Manual 65 % (45-73)
[2022-05-31 05:21] LABS: Large Platelet PRESENT; Ovalocytes 1+ (5-14) /OIF; Platelet Estimate SLIGHTLY DECREASED (NORMAL); Platelet Morphology Comment NOTED; RBC Morphology NOTED
[2022-05-31 05:22] LABS: Alanine Aminotransferase 23 U/L (0-40); Alkaline Phosphatase 92 U/L (39-117); Anion Gap 14 (12-20); Aspartate Amino Transferase 25 U/L (5-37); Bilirubin Direct 0.3 mg/dL (0.0-0.5); Bilirubin Total 0.9 mg/dL (0.0-1.0); Blood Urea Nitrogen 18 mg/dL (9-16); Calcium 8.9 mg/dL (8.4-10.2); Carbon Dioxide 24 mmol/L (22-29); Chloride 94 mmol/L (96-108); Creatinine Clr Calc Pharmacy 68.9; Estimated Glomerular Filt Rate 56; Giant Platelet PRESENT; Glucose Random 128 mg/dL (60-115); Lipase 19 U/L (8-78); Potassium 3.8 mmol/L (3.3-5.1); Sodium 128 mmol/L (135-145); Total Protein 6.7 g/dL (6.5-8.0)
--- NOTE | 2022-05-31 05:51 | ECG_ITS ---
Test Reason : ABDOMINAL PAIN Blood Pressure : / mmHG Vent. Rate : 054 BPM Atrial Rate : 054 BPM P-R Int : 278 ms QRS Dur : 110 ms QT Int : 490 ms P-R-T Axes : 057 -34 059 degrees QTc Int : 464 ms Sinus bradycardia with 1st degree A-V block Left axis deviation Abnormal ECG When compared with ECG of 09-MAR-2022 13:41, No significant change was found Referred By: Isabel Barnes Electronically Signed By:ANALISA CAIN MD
--- NOTE | 2022-05-31 05:53 | ED.GENADULT ---
HPI - General Adult General Chief complaint: Abdominal Pain Stated complaint: Abd pain Time Seen by Provider: 05/31/22 05:50 Source: patient and family (Spouse) Mode of arrival: ambulatory Limitations: no limitations History of Present Illness HPI narrative: 72-year-old male history of multiple abdominal surgery and small-bowel obstruction, AFib, testicular cancer status post chemotherapy. Presented today with abdominal pain, nausea, abdominal distension, no vomiting, last bowel movement was yesterday and was small BM, patient passed small amount of gas today and has been burping for the past 3-4 days. Patient also been having shortness of breath patient follow-up with Dr. Ortiz who just change his medication last week and patient is wandering if that is what causing his symptoms. Patient has no fever, no chills, no CP. Related Data Home Medications Medication Instructions Recorded Confirmed Lactobacillus rhamnosus GG 10 1 cap PO DAILY 05/28/20 05/17/22 billion cell capsule (Culturelle) ascorbic acid (vitamin C) 1,000 mg 1,000 mg PO DAILY@1700 05/28/20 05/17/22 tablet (Vitamin C) docusate sodium 100 mg capsule 100 mg PO BID 05/28/20 05/17/22 (Stool Softener) gabapentin 300 mg capsule 600 mg PO BID 05/28/20 05/17/22 iron 1 tab PO Q OTHER DAY 05/28/20 05/17/22 magnesium 200 mg tablet 400 mg PO BID 05/28/20 05/17/22 multivitamin 1 tab PO DAILY 05/28/20 05/17/22 omeprazole 20 mg capsule,delayed 20 mg PO BID 05/28/20 05/17/22 release sertraline 50 mg tablet 50 mg PO DAILY 05/28/20 05/17/22 albuterol sulfate 90 mcg/actuation 2 puff PO Q4H PRN Shortness Of 02/14/21 05/17/22 aerosol inhaler Breath dicyclomine 10 mg capsule 10 mg PO BID PRN Gastrointestinal 01/31/22 05/17/22 Spasms Or Cramping cetirizine 10 mg tablet (Zyrtec) 10 mg PO DAILY 02/01/22 05/17/22 amlodipine 10 mg tablet 5 mg PO BID 04/17/22 05/17/22 Previous Rx's Medication Instructions Recorded rivaroxaban 20 mg tablet (Xarelto) 20 mg PO DAILY@1700 90 days #90 03/13/22 tabs losartan 50 mg tablet 50 mg PO BID 90 days #180 tabs 04/25/22 ipratropium bromide 21 mcg (0.03 2 spray intranasal BID-TID PRN 05/08/22 %) nasal spray allergy symptoms 30 days #30 mL trazodone 100 mg tablet 100 mg PO BEDTIME PRN sleep 30 05/08/22 days #30 tabs amiodarone 200 mg tablet 200 mg PO DAILY #90 tabs 05/09/22 hydralazine 25 mg tablet 25 mg PO BID #60 tabs 05/17/22 tamsulosin 0.4 mg capsule 0.8 mg PO DAILY@1700 90 days #180 05/17/22 caps Allergies Allergy/AdvReac Type Severity Reaction Status Date / Time No Known Allergies Allergy Verified 05/17/22 13:39 [No Known Allergies*] Review of Systems Review of Systems: All other systems are reviewed and are negative Constitutional: Reports as per HPI and Reports no additional constitutional complaints Eyes: Reports as per HPI and Reports no additional eye complaints Reports system reviewed and no additional complaints, except as documented Cardiovascular: Reports as per HPI and Reports no additional cardiovascular complaints Respiratory: Reports as per HPI and Reports no additional respiratory complaints Gastrointestinal: Reports as per HPI and Reports no additional gastrointestinal complaints Genitourinary: Reports no additional female genitourinary complaints Musculoskeletal: Reports no additional musculoskeletal complaints Skin/Breast: Reports system reviewed and no additional complaints, except as docu Psychiatric: Reports no additional psychiatric complaints Endocrine: Reports no additional endocrine complaints Hematologic/Lymphatic: Reports no additional hematologic/lymphatic complaints Allergic/Immunologic: Reports no additional allergic/immunologic complaints Reports system reviewed and no additional complaints, except as documented and Reports Abnormal speech present [facility] Past Medical History Medical History MENA (acute kidney injury) Anemia Aortic stenosis BPH (benign prostatic hyperplasia) Chronic back pain History of cardioversion HTN (hypertension) Hx of benign neoplasm Hx of testicular cancer Hyponatremia Neuropathy Paroxysmal atrial fibrillation Persistent atrial fibrillation Sleep apnea Surgical History H/O colonoscopy History of back surgery History of left knee replacement History of orchiectomy History of right hip replacement Hx of cataract extraction Hx of cystoscopy Social History Social History Household Members: Family Housing: House Do you presently have visiting nurse or other home services: No Alcohol intake: never Patient Tobacco Use Status: Never used Tobacco Advance Directives Date on File: 02/01/22 service: No Current occupational status: retired Physical Exam ED Vital Signs: Vital Signs - 24 hr 05/31/22 04:39 Temperature 97.5 F Pulse Rate 66 Respiratory Rate 20 Blood Pressure 139/53 L Pulse Oximetry 95 Oxygen Delivery Method Room Air BMI result Body Mass Index 32.5 Vital signs have been reviewed as appeared to be correct. Blood pressure normal. Heart rate normal. Respiration rate normal. Temperature normal. Oxygen saturation normal. Appearance: Alert. Oriented X3. No acute distress. Head: Normal external exam. Normocephalic. Atraumatic. No Estrada signs noted. No raccoon eyes noted Eyes: PERRLA. EOMI. Conjunctiva and sclera normal. Eyelids normal. ENT: TM's Normal. Pharynx normal. Uvula midline. Moist mucous membranes. No trismus noted. No drooling noted. No muffled voice noted. Neck: Normal inspection. Neck supple. FROM. No adenopathy. Thyroid Normal. No meningeal signs. No neck mass noted. CVS: Normal heart rate and rhythm. Heart sound normal. No murmurs noted. Pulses normal throughout. Respiratory: No respiratory distress. Painless inspiration. Breath sounds normal. No wheezes/rales/rhonchi noted. Chest nontender. No accessory muscle usage noted or decreased air movement noted. Abdomen: Mild abdominal distension, mild tenderness left more than right, no guarding, no rebound tenderness Bowel sounds normal in all 4 quadrants.. No organomegaly noted. No visible injury noted. Back: No CVA tenderness. Full range of motion noted. Skin: Skin warm and dry. Normal skin color. Normal skin turgor. No rashes/lesions/lacerations noted. Extremities: No lower extremity edema. Extremities exhibit normal range of motion. Extremities nontender. Neuro: Oriented X 3. Cranial nerve exam: II-XII are grossly intact No motor deficit. No sensory deficit. Reflexes normal. Course Course Course Narrative: 72-year-old male came in for evaluation of abdominal pain/SOB, labs is revealing chronic hyponatremia, patient is awaiting for CT with IV/p.o. contrast to rule out ischemia versus small-bowel obstruction. The case was signed out to Dr. Ornelas to follow-up and disposition the patient accordingly. Medical Decision Making Differential Diagnosis Differential Diagnoses: The differential diagnosis associated with the presentation includes (Small-bowel obstruction/ischemic colitis.) Lab Data MDM Lab Attestation statement: I reviewed the patient's lab results. Result Diagrams: 05/31/22 04:45 05/31/22 04:45 Labs: Lab Results 05/31/22 05/31/22 Range/Units 04:45 04:45 WBC 2.3 L (4.8-10.8) X10*3/uL RBC 3.31 L (4.60-5.80) X10*6/uL Hgb 9.3 L (14.0-18.0) g/dl Hct 27.5 L (42.0-52.0) % MCV 83.1 (80.0-98.0) fL MCH 28.1 (27.0-33.0) pg MCHC 33.8 (31.0-36.0) g/dl RDW 13.6 (11.0-16.0) % Plt Count 118 L (160-400) X10*3/uL MPV 9.1 L (9.4-12.4) fL Immature Gran % (Auto) Cancelled Neut % (Auto) Cancelled Lymph % (Auto) Cancelled Boundary % (Auto) Cancelled Eos % (Auto) Cancelled Baso % (Auto) Cancelled Lymph # (Auto) Cancelled Boundary # (Auto) Cancelled Eos # (Auto) Cancelled Baso # (Auto) Cancelled Abs Immat Gran (auto) Cancelled Absolute Neuts (auto) Cancelled Absolute Nucleated RBC 0.000 (0.0-0.012) X10*3/uL Nucleated RBC % (auto) 0.0 (0.0-0.2) /100WBC Neutrophils % (Manual) 65 (45-73) % Band Neutrophils % 2 L (3-5) % Lymphocytes % (Manual) 27 (20-40) % Monocytes % (Manual) 4 (2-11) % Eosinophils % (Manual) 1 (0-4) % Metamyelocytes % 1 % Abs Neuts (Manual) 1.5 L (2.0-8.3) X10*3/uL Lymphocytes # (Manual) 0.6 L (1.2-4.9) X10*3/uL Monocytes # (Manual) 0.1 (0.1-1.2) X10*3/uL Platelet Estimate SLIGHTLY DECREASED (NORMAL) Large Platelets PRESENT Giant Platelets PRESENT Plt Morphology Comment NOTED RBC Morphology NOTED Ovalocytes 1+ (5-14) /OIF Sodium 128 L (135-145) mmol/L Potassium 3.8 (3.3-5.1) mmol/L Chloride 94 L (96-108) mmol/L Carbon Dioxide 24 (22-29) mmol/L Anion Gap 14 (12-20) BUN 18 H (9-16) mg/dL Creatinine 1.27 (0.5-1.4) mg/dL Estim Creat Clear Calc 68.9 Estimated GFR 56 Random Glucose 128 H (60-115) mg/dL Calcium 8.9 (8.4-10.2) mg/dL Total Bilirubin 0.9 (0.0-1.0) mg/dL Direct Bilirubin 0.3 (0.0-0.5) mg/dL AST 25 (5-37) U/L ALT 23 (0-40) U/L Alkaline Phosphatase 92 (39-117) U/L Total Protein 6.7 (6.5-8.0) g/dL Albumin 4.0 (3.5-5.0) g/dL Lipase 19 (8-78) U/L Discharge Plan Discharge Clinical Impression: Abdominal pain Patient Disposition: Still a Patient Prescriptions: No Action Xarelto 20 mg tablet 20 mg PO DAILY@1700 90 Days Qty: 90 3RF losartan 50 mg tablet 50 mg PO BID 90 Days Qty: 180 3RF amiodarone 200 mg tablet 200 mg PO DAILY Qty: 90 2RF hydralazine 25 mg tablet 25 mg PO BID Qty: 60 5RF multivitamin Tablet 1 tab PO DAILY ascorbic acid (vitamin C) [Vitamin C] 1,000 mg Tablet 1,000 mg PO DAILY@1700 docusate sodium [Stool Softener] 100 mg Capsule 100 mg PO BID gabapentin 300 mg capsule 600 mg PO BID omeprazole 20 mg capsule,delayed release(DR/EC) 20 mg PO BID Culturelle 10 billion cell Capsule 1 cap PO DAILY sertraline 50 mg tablet 50 mg PO DAILY magnesium 200 mg Tablet 400 mg PO BID iron 1 tab PO Q OTHER DAY cetirizine [Zyrtec] 10 mg Tablet 10 mg PO DAILY amlodipine 10 mg tablet 5 mg PO BID albuterol sulfate 90 mcg/actuation HFA aerosol inhaler 2 puff PO Q4H PRN (Reason: Shortness Of Breath) dicyclomine 10 mg capsule 10 mg PO BID PRN (Reason: Gastrointestinal Spasms Or Cramping) trazodone 100 mg tablet 100 mg PO BEDTIME PRN (Reason: sleep) 30 Days Qty: 30 2RF ipratropium bromide 21 mcg (0.03 %) spray,non-aerosol 2 spray intranasal BID-TID PRN (Reason: allergy symptoms) 30 Days Qty: 30 3RF Rx Instructions: administer into each nostril tamsulosin 0.4 mg capsule 0.8 mg PO DAILY@1700 90 Days Qty: 180 2RF
[2022-05-31] MEDS: 0.9 % Sodium Chloride 1,000 ML 999 ML IV (06:27)
[2022-05-31] MEDS: HYDROmorphone HCl 2 MG/ML VIAL IVPUSH (06:27)
[2022-05-31] MEDS: ondansetron HCL 4 MG/2 ML VIAL IVPUSH (06:27)
[2022-05-31 06:50] LABS: COVID-19 Test Negative (Negative); IDNOW Serial# BCCEAD1C
[2022-05-31 07:26] VITALS: BP 132/60; PULSE 64; RESP 18; O2SAT 93
--- NOTE | 2022-05-31 07:35 | PC.NURSE ---
Pt alert and oriented, awake drinking contrast dye for ct scan. at bedside
[2022-05-31 08:49] LABS: B Type Natriuretic Peptide 60 pg/mL (<100)
[2022-05-31] MEDS: iohexoL 350 MG/ML 75 ML INFUS..BTL 85 ML IV (08:59)
[2022-05-31] MEDS: Diatrizoate Meglumine, Sodium 30 ML SOLUTION PO (08:59)
--- NOTE | 2022-05-31 09:45 | PC.NURSE ---
IV infiltrated, new IV established in left AC
[2022-05-31 10:04] VITALS: BP 126/54; PULSE 53; RESP 14; TEMP 36.4; O2SAT 91
[2022-05-31 11:34] LABS: Appearance Urine Clear; Color Urine Yellow; Glucose Urine UA Negative (Negative); Leukocyte Esterase Urine Negative (Negative); Nitrite Urine Negative (Negative); PH 5.5 (5.0-9.0); Specific Gravity - Urine >= 1.030 (1.005-1.025); UMIC TRIGGER UACC YES; Urine Blood Moderate (2+) (Negative); Urine Ketones Negative (Negative); Urine Protein 30 (1+) mg/dL (Neg-Trace)
[2022-05-31 11:43] LABS: Bacteria Urine None Seen (None Seen); Hyaline Casts Urine 0-2 /LPF (0-2); RBC Urine >20 /HPF (0-2); UACC Culture Trigger YES
[2022-05-31 12:00] VITALS: BP 117/56; PULSE 54; RESP 14; TEMP 36.4; O2SAT 93
[2022-05-31 12:16] VITALS: BP 128/53
== END 2022-05-31 13:07 | disposition home or self-care (01) ==
PROVIDERS: Emergency Medicine; Emergency Provider Student in an Organized Health Care Education/Training Program; PCP Internal Medicine Medical Oncology
DX: R10.9 Unspecified abdominal pain (principal); R06.02 Shortness of breath; I10 Essential (primary) hypertension; I48.0 Paroxysmal atrial fibrillation; Z79.01 Long term (current) use of anticoagulants; Z79.899 Other long term (current) drug therapy; Z20.822 Contact with and (suspected) exposure to COVID-19
CPT/HCPCS: 36415; 71045; 74177; 80048; 80076; 81001; 83690; 83880; 84484; 85007; 85027; 87086; 87635; 93005; 96374; 96375; 99284; 99285; J1170; J2405; Q9967

== ENCOUNTER 2022-08-03 06:31 | Day surgery (SDC) | payer MEDICARE, SELFPAY ==
--- NOTE | 2022-08-02 10:02 | P.CONAN_ITS ---
Documented by User: Marah Chase NP 08/02/22 10:07 HPI - Anesthesia Eval Consult details Narrative: 72yo M for Upper Endoscopy and Colonoscopy Xarelto for afib Followed by [facility] cardiol and pulmo PMFSH Active Problems Active Problems: All Active Problems (Updated 06/01/22 @ 00:02 by Background Daemon) Paroxysmal atrial fibrillation (Acute) Allergic rhinitis (Acute) Dyspnea on exertion (Acute) Chronic anemia (Acute) Thrombocytopenia (Acute) Ileitis, terminal (Acute) HTN (hypertension) (Acute) SBO (small bowel obstruction) (Acute) STAN on CPAP (Acute) Primary insomnia (Acute) Radiation cystitis (Acute) Hypogonadism in male (Acute) Hx of testicular cancer (Acute) Aortic stenosis (Acute) Past Medical History Medical History MENA (acute kidney injury) Anemia Aortic stenosis BPH (benign prostatic hyperplasia) Chronic back pain History of cardioversion HTN (hypertension) Hx of benign neoplasm Hx of testicular cancer Hyponatremia Neuropathy Paroxysmal atrial fibrillation Persistent atrial fibrillation Sleep apnea Family History Family history of problems with anesthesia: No Surgical History Surgical History H/O colonoscopy History of back surgery History of left knee replacement History of orchiectomy History of right hip replacement Hx of cataract extraction Hx of cystoscopy History of Problems with Anesthesia: No Social History Social History Household Members: Family Housing: House Do you presently have visiting nurse or other home services: No Alcohol intake: never Patient Tobacco Use Status: Never used Tobacco Are you DNR?: No Advance Directives: Yes Advance Directives on File: Yes Advance Directives Date on File: 02/01/22 service: No Current occupational status: retired Meds Allergies Allergy/AdvReac Type Severity Reaction Status Date / Time No Known Allergies Allergy Verified 05/17/22 13:39 [No Known Allergies*] Home Medications Medication Instructions Recorded Confirmed Last Taken Type Lactobacillus rhamnosus GG 10 1 cap PO DAILY 05/28/20 05/17/22 05/27/20 History billion cell capsule (Culturelle) ascorbic acid (vitamin C) 1,000 mg 1,000 mg PO DAILY@1700 05/28/20 05/17/22 05/28/20 History tablet (Vitamin C) docusate sodium 100 mg capsule 100 mg PO BID 05/28/20 05/17/22 05/27/20 History (Stool Softener) gabapentin 300 mg capsule 600 mg PO BID 05/28/20 05/17/22 03/09/22 09:00 History iron 1 tab PO Q OTHER DAY 05/28/20 05/17/22 03/08/22 History magnesium 200 mg tablet 400 mg PO BID 05/28/20 05/17/22 05/28/20 History multivitamin 1 tab PO DAILY 05/28/20 05/17/22 05/27/20 History omeprazole 20 mg capsule,delayed 20 mg PO BID 05/28/20 05/17/22 05/27/20 History release sertraline 50 mg tablet 50 mg PO DAILY 05/28/20 05/17/22 05/27/20 History albuterol sulfate 90 mcg/actuation 2 puff PO Q4H PRN Shortness Of 02/14/21 05/17/22 Unknown History aerosol inhaler Breath dicyclomine 10 mg capsule 10 mg PO BID PRN Gastrointestinal 01/31/22 05/17/22 Unknown History Spasms Or Cramping cetirizine 10 mg tablet (Zyrtec) 10 mg PO DAILY 02/01/22 05/17/22 01/30/22 History Exam Exam Date and Time: August 02, 2022 1002 Narrative Narrative: ECHO 09/2021 Conclusions: -? 1. Normal LV systolic function with impaired relaxation ? ? ? filling pattern next 2. Severely dilated left atrium ? 3.? Moderate aortic stenosis with mean gradient of 23 mmHg with? mild aortic regurgitation? 4.? Mitral annular calcification ? 5.? Normal RV systolic pressure? 6.? No gross pericardial effusion? ? ? EKG 05/2022 Vent. Rate : 054 BPM ? ? Atrial Rate : 054 BPM ?? P-R Int : 278 ms? QRS Dur : 110 ms ? ? QT Int : 490 ms ? ? ? P-R-T Axes : 057 -34 059 degrees ?? QTc Int : 464 ms ? Sinus bradycardia with 1st degree A-V block Left axis deviation Abnormal ECG When compared with ECG of 09-MAR-2022 13:41, No significant change was found ? Assessment and Plan Assessment Anesthesia Assessment: Chart Reviewed Final Anesthetic Review Family History of Problems with Anesthesia: No History of Problems with Anesthesia: No Documented by User: Cassidy Muhammad MD 08/03/22 07:52 [facility] Past Medical History Medical History MENA (acute kidney injury) Anemia Aortic stenosis BPH (benign prostatic hyperplasia) Chronic back pain History of cardioversion HTN (hypertension) Hx of benign neoplasm Hx of testicular cancer Hyponatremia Neuropathy Paroxysmal atrial fibrillation Persistent atrial fibrillation Sleep apnea Functional capacity: independent ambulation Surgical History Surgical History H/O colonoscopy History of back surgery History of left knee replacement History of orchiectomy History of right hip replacement Hx of cataract extraction Hx of cystoscopy Social History Social History Household Members: Family Housing: House Do you presently have visiting nurse or other home services: No Alcohol intake: never Patient Tobacco Use Status: Never used Tobacco Are you DNR?: No Advance Directives: Yes Advance Directives on File: Yes Advance Directives Date on File: 02/01/22 service: No Current occupational status: retired Meds Allergies Allergy/AdvReac Type Severity Reaction Status Date / Time No Known Allergies Allergy Verified 05/17/22 13:39 [No Known Allergies*] Home Medications Medication Instructions Recorded Confirmed Last Taken Type Lactobacillus rhamnosus GG 10 1 cap PO DAILY 05/28/20 05/17/22 05/27/20 History billion cell capsule (Culturelle) ascorbic acid (vitamin C) 1,000 mg 1,000 mg PO DAILY@1700 05/28/20 05/17/22 05/28/20 History tablet (Vitamin C) docusate sodium 100 mg capsule 100 mg PO BID 05/28/20 05/17/22 05/27/20 History (Stool Softener) gabapentin 300 mg capsule 600 mg PO BID 05/28/20 05/17/22 03/09/22 09:00 History iron 1 tab PO Q OTHER DAY 05/28/20 05/17/22 03/08/22 History magnesium 200 mg tablet 400 mg PO BID 05/28/20 05/17/22 05/28/20 History multivitamin 1 tab PO DAILY 05/28/20 05/17/22 05/27/20 History omeprazole 20 mg capsule,delayed 20 mg PO BID 05/28/20 05/17/22 05/27/20 History release sertraline 50 mg tablet 50 mg PO DAILY 05/28/20 05/17/22 05/27/20 History albuterol sulfate 90 mcg/actuation 2 puff PO Q4H PRN Shortness Of 02/14/21 05/17/22 Unknown History aerosol inhaler Breath dicyclomine 10 mg capsule 10 mg PO BID PRN Gastrointestinal 01/31/22 05/17/22 Unknown History Spasms Or Cramping cetirizine 10 mg tablet (Zyrtec) 10 mg PO DAILY 02/01/22 05/17/22 01/30/22 His tory Exam Airway Mallampati Class: III TM Dist: >3cm Neck ROM: Full Heart: irreg Lungs: CTA Assessment and Plan Final Anesthetic Review ASA Class: III Final Preanesthetic Review: No Changes in Pt Med Stat, Meds/Allgs Chart Reviewed, Consent Obtained/Reviewed and Anes Risks/Benef Reviewed Patient Risk: Intermediate Procedure Risk: Low Anesthetic Plan Anesthetic Plan: MAC: Disposition: Standard PACU
[2022-08-03 06:04] VITALS: BMI 34.2
[2022-08-03 06:43] VITALS: BP 138/84; PULSE 92; RESP 20; TEMP 36.8; O2SAT 97
[2022-08-03 06:54] LABS: Hematocrit 30.1 % (42.0-52.0); Hemoglobin 10.2 g/dl (14.0-18.0); Mean Corpuscular HGB Conc 33.9 g/dl (31.0-36.0); Mean Corpuscular Hemoglobin 28.3 pg (27.0-33.0); Mean Corpuscular Volume 83.4 fL (80.0-98.0); Mean Platelet Volume 8.8 fL (9.4-12.4); Platelet Count 183 X10*3/uL (160-400); Red Blood Count 3.61 X10*6/uL (4.60-5.80); Red Cell Distribution Width 14.6 % (11.0-16.0); White Blood Count 3.4 X10*3/uL (4.8-10.8)
[2022-08-03] MEDS: Lactated Ringers 1,000 ML 50 ML IVCONT (07:00)
[2022-08-03 07:14] LABS: Anion Gap 17 (12-20); Blood Urea Nitrogen 20 mg/dL (9-16); Calcium 9.2 mg/dL (8.4-10.2); Carbon Dioxide 24 mmol/L (22-29); Chloride 96 mmol/L (96-108); Creatinine Clr Calc Pharmacy 82.3; Estimated Glomerular Filt Rate > 60; Glucose Fasting 91 mg/dL (60-99); Potassium 3.8 mmol/L (3.3-5.1); Sodium 133 mmol/L (135-145)
--- NOTE | 2022-08-03 07:28 | P.HPSUR_ITS ---
Pre-Procedural Eval Section A Date of Service: 08/03/22 Section B Chief Complaint: reflux,screening Details of Present Illness: see H*P; changes as noted Relevant Family History (Specify if Yes): No Relevant Social History: None Present Medications: see Short Stay Collaborative assessment Medical History: No relevant PMH History of Previous Operations: No relevant previous surgery Allergies: Allergies Allergy/AdvReac Type Severity Reaction Status Date / Time No Known Allergies Allergy Verified 05/17/22 13:39 [No Known Allergies*] Review of Systems Sugical H&P ROS: Negative: Constitution, Cardiovascular, Respiratory, Neuro logical, Psychiatric, Hem-Onc, Allergic/Immunologic, Gastrointestinal, Genitourinary, Musculoskeletal, Integumentary, Endocrine and Eyes/Ears/Nose/Throat Exam Surgical H&P Exam: Normal: HEENT, Normal: Heart, Normal: Lungs, Normal: Extremities, Normal: Abdomen, Normal: Skin and Normal: Neurological Plan Diagnosis/Plan: Unchanged I have reviewed the history and physical and performed a pertinent physical examination on my patient. No changes have occurred unless specified. Time Spent With Patient Time: Total time managing care of this patient today ____ minutes.
[2022-08-03 08:12] VITALS: BP 98/61; PULSE 88; RESP 16; TEMP 36.1; O2SAT 95
--- NOTE | 2022-08-03 08:20 | P.BOP_ITS ---
Brief Operative Note Date of Service: 08/03/22 Pre-op diagnosis: gerd,screening Post-op diagnosis: same Procedure: egd colonsocopy Surgeon: Huber Marquez Anesthesia: MAC Was an Etl Analyst Developer used for this Procedure?: No Estimated blood loss (mL): 5 Pathology: other Condition: stable Disposition: PACU
[2022-08-03 08:27] VITALS: BP 126/66; PULSE 81; RESP 15; TEMP 36.2; O2SAT 96
--- NOTE | 2022-08-03 09:08 | OP_ITS ---
SURGEON: Huber Marquez MD INDICATIONS: Gastroesophageal reflux disease and colon cancer screening. PREOPERATIVE DIAGNOSIS: POSTOPERATIVE DIAGNOSIS: PROCEDURE PERFORMED: Upper endoscopy with biopsy, colonoscopy to the terminal ileum with biopsy. ESTIMATED BLOOD LOSS: COMPLICATIONS: ANESTHESIA: Monitored anesthesia care. ASSISTANTS: SPECIMENS: DESCRIPTION OF PROCEDURE: A history and physical was performed the risks and benefits of the procedure were explained to the patient. Informed consent was obtained. The patient was placed in the left lateral decubitus position. The Olympus video gastroscope was introduced into the esophagus, stomach, duodenum. Examination was performed. The scope was removed. He was repositioned for colonoscopy. A digital rectal exam was performed and was found to be normal. The Olympus pediatric video colonoscope was introduced into the rectum and advanced to the cecum without difficulty. The cecum was identified by transillumination, palpation, and identification of ileocecal valve. Examination was performed. The scope was removed. He tolerated the procedure well and was returned to the recovery area in stable condition. The procedure was performed on 08/03/2022. FINDINGS: Upper endoscopy: 1. Esophagus: The esophagus was normal. Biopsies were obtained from the EG junction. 2. Stomach: The stomach showed focal gastritis involving the body. Biopsies were obtained from the antrum to evaluate for H pylori. 3. Duodenum. The bulb and second portion were normal. Colonoscopy: The terminal ileum was normal. This was biopsied. The visualized colonic mucosa was within normal limits. Biopsies were obtained from the right colon and sigmoid. There was a polyp in the area of the diverticulum in the sigmoid colon consistent with an inflammatory polyp. This was biopsied. No other polyps were identified. There was mild sigmoid diverticulosis. There was no evidence of colitis. The quality of the prep was good. Retroflexed examination showed moderate-sized internal hemorrhoids. IMPRESSION: 1. Gastritis. 2. Colon polyp. RECOMMENDATION: Follow up the biopsy results. MD NOHEMI Salazar/[id number] / [id number]
== END 2022-08-03 08:55 | disposition home or self-care (01) ==
PROVIDERS: Nurse Practitioner; PCP Internal Medicine Medical Oncology; Visit Provider Internal Medicine Gastroenterology
PROC: (CPT 45380; principal; 2022-08-03 07:30)
DX: Z12.11 Encounter for screening for malignant neoplasm of colon (principal); Z86.010 Personal history of colon polyps; K51.40 Inflammatory polyps of colon without complications; K57.30 Diverticulosis of large intestine without perforation or abscess without bleeding; K64.8 Other hemorrhoids; K21.9 Gastro-esophageal reflux disease without esophagitis; K29.50 Unspecified chronic gastritis without bleeding; Z87.19 Personal history of other diseases of the digestive system; I48.0 Paroxysmal atrial fibrillation; I35.0 Nonrheumatic aortic (valve) stenosis; I10 Essential (primary) hypertension; G62.9 Polyneuropathy, unspecified; G47.33 Obstructive sleep apnea (adult) (pediatric); N40.0 Benign prostatic hyperplasia without lower urinary tract symptoms; Z85.47 Personal history of malignant neoplasm of testis; Z79.899 Other long term (current) drug therapy; Z90.79 Acquired absence of other genital organ(s); Z98.890 Other specified postprocedural states
CPT/HCPCS: 45380; 43239; 36415; 80048; 85027; 88305; 88342

== ENCOUNTER 2022-08-09 14:11 | Emergency (ER) | payer MEDICARE, SELFPAY ==
--- NOTE | ~2022-08-09 | CT_ITS ---
EXAMINATION: CT ABDOMEN AND PELVIS WITH CONTRAST CLINICAL INFORMATION: Left lower quadrant pain with nausea COMPARISON: CT abdomen pelvis 05/31/2022 TECHNIQUE: Multidetector volumetric images were obtained from the superior aspect of the liver through the pubic symphysis following administration 85 mL of Omnipaque 350 intravenous contrast. Sagittal and coronal reformatted images were obtained on the technologist's workstation. Oral contrast: No This CT examination was performed using dose optimization techniques as appropriate, variously including the following: *Automated exposure control *Adjustment of mA and/or kV according to patient size (this includes techniques or standardized protocols for targeted exams where dose is matched to indication/reason for exam; i.e. extremities or head) *Use of iterative reconstruction technique DLP: 927 mGy-cm FINDINGS: LUNG BASES: Left hemidiaphragm is mildly elevated some minimal bibasilar atelectasis is present. The visualized lung bases are unremarkable. Marked coronary calcium is seen. Dense calcification is present in the aortic leaflets as well as the mitral annulus. There is a tiny amount of pericardial fluid. LIVER, GALLBLADDER, AND BILIARY TREE: The liver is normal in size, shape, and attenuation. No focal hepatic lesion or biliary ductal dilatation is present. The gallbladder is contracted but otherwise unremarkable with no evidence of radiopaque gallstones, gallbladder wall thickening, or obvious pericholecystic inflammatory changes. PANCREAS: Unremarkable. SPLEEN: Spleen is enlarged measuring 15 cm in greatest transverse dimension, slightly larger than prior. ADRENAL GLANDS: Unremarkable. KIDNEYS AND URETERS: The kidneys are normal in size, shape, and attenuation. There is an area of cortical scarring in the right kidney posteriorly. No hydronephrosis, hydroureter, or calculi seen. No perinephric stranding. BLADDER: Unremarkable. GASTROINTESTINAL TRACT: Diverticular changes are present in the colon. At the junction of the descending colon and sigmoid, there is an area of acute diverticulitis present with pericolonic inflammatory change and fascial thickening. No extraluminal air or pericolonic fluid collections are seen. The small and large bowel are unremarkable. The appendix is unremarkable. ABDOMINAL WALL: No significant hernia is appreciated. LYMPH NODES: Normal. VASCULAR: Unremarkable. PELVIC VISCERA: Marked calcific atherosclerotic change seen in the aorta and iliofemoral vessels without aneurysm.. OSSEOUS STRUCTURES: There is a scoliosis present convex to the left with marked degenerative changes in the spine. A right total hip prosthesis is present. CT/CT abdomen pelvis w IV con IMPRESSION: 1. Acute uncomplicated diverticulitis at the junction of the descending colon and sigmoid. 2. Incidental note made of mild splenomegaly, right renal scarring, scoliosis and degenerative changes in the spine. Fleischner guidelines were followed.
[2022-08-09 14:52] VITALS: BP 120/64; PULSE 92; RESP 20; TEMP 36.1; O2SAT 96; BMI 31.6
--- NOTE | 2022-08-09 14:52 | ED_ITS ---
HPI - Abdominal Pain General Chief Complaint: Abdominal Pain <Elayne Skinner CNP - Last Filed: 08/09/22 14:55> Stated Complaint: Diverticulitis <Elayne Skinner CNP - Last Filed: 08/09/22 14:55> Time Seen by Provider: 08/09/22 17:06 <Elayne Skinner CNP - Last Filed: 08/09/22 14:55> Source: patient <HEMALATHA Coles - Last Filed: 08/09/22 19:43> Mode of arrival: ambulatory <HEMALATHA Coles - Last Filed: 08/09/22 19:43> Limitations: no limitations <HEMALATHA Coles Last Filed: 08/09/22 19:43> History of Present Illness HPI narrative: This is a 72-year-old male history of hypertension, SBO complicated with history of resection (2016 at [facility]), STAN, aortic stenosis, thrombocytopenia, paroxysmal AFib on Xarelto presenting to the emergency department with complaints of sudden onset left lower quadrant pain that started this morning, patient tells me pain is constant, severe, stabbing, nonradiating. Patient has been able to tolerate p.o. at home. Patient tells me he is followed by Gastroenterology here at [facility] Dr. Marquez, recently had a colonoscopy and endoscopy this month. Patient tells me he is experiencing chills. He denies chest pain, shortness of breath, nausea, v omiting, diarrhea, headache, vision changes, dizziness, anorexia, fevers. < HEMALATHA Coles Last Filed: 08/09/22 19:43> Related Data Home Medications: Home Medications Medication Instructions Recorded Confirmed Lactobacillus rhamnosus GG 10 1 cap PO DAILY 05/28/20 05/17/22 billion cell capsule (Culturelle) ascorbic acid (vitamin C) 1,000 mg 1,000 mg PO DAILY@1700 05/28/20 05/17/22 tablet (Vitamin C) docusate sodium 100 mg capsule 100 mg PO BID 05/28/20 05/17/22 (Stool Softener) gabapentin 300 mg capsule 600 mg PO BID 05/28/20 05/17/22 iron 1 tab PO Q OTHER DAY 05/28/20 05/17/22 magnesium 200 mg tablet 400 mg PO BID 05/28/20 05/17/22 multivitamin 1 tab PO DAILY 05/28/20 05/17/22 omeprazole 20 mg capsule,delayed 20 mg PO BID 05/28/20 05/17/22 release sertraline 50 mg tablet 50 mg PO DAILY 05/28/20 05/17/22 albuterol sulfate 90 mcg/actuation 2 puff PO Q4H PRN Shortness Of 02/14/21 05/17/22 aerosol inhaler Breath dicyclomine 10 mg capsule 10 mg PO BID PRN Gastrointestinal 01/31/22 05/17/22 Spasms Or Cramping cetirizine 10 mg tablet (Zyrtec) 10 mg PO DAILY 02/01/22 05/17/22 Previous Rx's Medication Instructions Recorded rivaroxaban 20 mg tablet (Xarelto) 20 mg PO DAILY@1700 90 days #90 03/13/22 tabs losartan 50 mg tablet 50 mg PO BID 90 days #180 tabs 04/25/22 trazodone 100 mg tablet 100 mg PO BEDTIME PRN sleep 30 05/08/22 days #30 tabs amiodarone 200 mg tablet 200 mg PO DAILY #90 tabs 05/09/22 hydralazine 25 mg tablet 25 mg PO BID #60 tabs 05/17/22 tamsulosin 0.4 mg capsule 0.8 mg PO DAILY@1700 90 days #180 05/17/22 caps amlodipine 5 mg tablet 5 mg PO BID 90 days #180 tabs 06/25/22 ipratropium bromide 21 mcg (0.03 2 spray intranasal BID-TID PRN for 07/13/22 %) nasal spray allergies #30 mL levofloxacin 750 mg tablet 750 mg PO DAILY 10 days #10 tabs 08/09/22 metronidazole 500 mg tablet 500 mg PO BID 10 days #20 tabs 08/09/22 oxycodone 5 mg capsule 5 mg PO Q6H PRN pain #15 caps 08/09/22 <Elayne Skinner, BUSINESS ANALYST INTERN - Last Filed: 08/09/22 14:55> Allergies/Adverse Reactions: Allergies Allergy/AdvReac Type Severity Reaction Status Date / Time No Known Allergies Allergy Verified 05/17/22 13:39 [No Known Allergies*] <Elayne Skinner CNP - Last Filed: 08/09/22 14:55> Review of Systems Review of Systems Constitutional : No Weight loss, No Fever, + Chills, No Fatigue, No Malaise ENT/Mouth : No sore throat, No Rhinorrhea Eyes: No Eye Pain, No Swelling, No Redness Cardiovascular : No Chest Pain, No SOB, No Dyspnea on Exertion, No Orthopnea, No Edema, No Palpitations Respiratory : No Cough, No Sputum, No Wheezing Gastrointestinal : No Nausea, No Vomiting, No Diarrhea, No Constipation, + abdominal Pain, No Hematochezia, No Melena Genitourinary : No Dysuria, No Urinary Frequency, No Hematuria, Musculoskeletal : No joint pain, No Myalgias, No Joint Swelling Skin : No Skin Lesions, No rash Neuro : No Weakness, No Numbness, No Dizziness, No Headache Psych : No Anxiety/Panic, No Depression All other systems reviewed and are negative <HEMALATHA Coles - Last Filed: 08/09/22 19:43> Yes all other systems are reviewed and are negative <HEMALATHA Coles - Last Filed: 08/09/22 19:43> [facility] Past Medical History Attestation statement: The following information was validated with the patient. <HEMALATHA Coles - Last Filed: 08/09/22 19:43> Source: old records reviewed and nursing notes reviewed <HEMALATHA Coles - Last Filed: 08/09/22 19:43> Medical History: Medical History MENA (acute kidney injury) Anemia Aortic stenosis BPH (benign prostatic hyperplasia) Chronic back pain History of cardioversion HTN (hypertension) Hx of benign neoplasm Hx of testicular cancer Hyponatremia Neuropathy Paroxysmal atrial fibrillation Persistent atrial fibrillation Sleep apnea <Elayne Skinner CNP - Last Filed: 08/09/22 14:55> Surgical History: Surgical History H/O colonoscopy History of back surgery History of left knee replacement History of orchiectomy History of right hip replacement Hx of cataract extraction Hx of cystoscopy <Elayne Skinner CNP - Last Filed: 08/09/22 14:55> Social History Social History: Social History Household Members: Family Housing: House Do you presently have visiting nurse or other home services: No Alcohol intake: current Alcohol intake frequency: holidays/special occasions only Alcohol type: beer Patient Tobacco Use Status: Never used Tobacco Smoked in Last 30 Days: No Use of substances other than those prescribed or required for medical reasons: No Advance Directives: Yes Advance Directives on File: Yes Advance Directives Date on File: 02/01/22 service: No Current occupational status: retired <Elayne Skinner CNP - Last Filed: 08/09/22 14:55> Physical Exam ED Vital Signs: Vital Signs - 24 hr 08/09/22 14:52 Temperature 97.0 F Pulse Rate 92 Respiratory Rate 20 Blood Pressure 120/64 Pulse Oximetry 96 Oxygen Delivery Method Room Air BMI result Body Mass Index 31.6 <Elayne Skinner CNP - Last Filed: 08/09/22 14:55> Vital Signs - 24 hr 08/09/22 14:52 Temperature 97.0 F Pulse Rate 92 Respiratory Rate 20 Blood Pressure 120/64 Pulse Oximetry 96 Oxygen Delivery Method Room Air BMI result Body Mass Index 31.6 vss <HEMALATHA Coles - Last Filed: 08/09/22 19:43> Appearance: Alert.? Oriented X3.? No acute distress.? Head: Normocephalic, atraumatic, no step-offs or deformities Eyes: Pupils equal, round and reactive to light.? ENT: Pharynx normal.? Neck: Normal inspection.? Neck supple.? CVS: Normal heart rate and rhythm.? Pulses normal.? Respiratory: No respiratory distress.? Breath sounds normal.? Abdomen: Soft with tenderness to left lower quadrant. Normoactive bowel sounds throughout. Skin: Skin warm and dry.? Normal skin color.? Normal skin turgor.? Extremities: No lower extremity edema.? No calf ttp. 5/5 strength to bilateral upper and lower extremities Neuro: Oriented X 3.? No motor deficit.? No sensory deficit. CN 2-12 intact <HEMALATHA Coles - Last Filed: 08/09/22 19:43> Course Course Course Narrative: This is an RME: Additional HPI, ROS, PE not included below will be deferred to primary provider. Patient is a 72-year-old male presents emergency department for evaluation of abdominal pain, LLQ pain with onset this morning. associated nausea, loose stool. Denies fevers, chills, blood or mucous in stools. Is consistent with prior episode of diverticulitis which occurred appro ximately 1 year ago, resolved with oral antibiotics. However pain currently is worse than he has experienced in the past Plan: Labs, CT abdomen and pelvis <Elayne Skinner CNP - Last Filed: 08/09/22 14:55> Reevaluation(s) Reevaluation #1: CT of the abdomen and pelvis with acute uncomplicated diverticulitis at the junction of the descending colon in the sigmoid. Incidental note of mild hepatomegaly, right renal scarring scoliosis and degenerative changes of the spine. CBC appears to be around patient's baseline with a normocytic anemia hemoglobin of 9.3, hematocrit 28.5. Chemistry with no acute electrolyte abnormalities requiring intervention. Patient is noted to have an elevated BUN chronically however likely secondary to poor p.o. intake/dehydration. Blood cultures, lactic acid as well as Levaquin and metronidazole ordered for diverticulitis. Also give IV fluids. <HEMALATHA Coles - Last Filed: 08/09/22 19:43> Time: 17:29 <HEMALATHA Coles - Last Filed: 08/09/22 19:43> Reevaluation #2: UA without infection. Patient receiving antibiotics and tolerating well. Offered patient admission however he would like to go home. Patient tolerating p.o. fluids. States he is feeling much better. At this time patient will be discharged home with GI follow-up. Educated patient on diagnosis and treatment plan, answered all question, patient verbalizes understanding. At this time patient will be discharged home, advised to return with new or worsening symptoms. Educated on worrisome signs and symptoms and when to return. At this time I feel comfortable discharge home. <HEMALATHA Coles Last Filed: 08/09/22 19:43> Time: 18:53 <HEMALATHA Coles Last Filed: 08/09/22 19:43> Medical Decision Making Medical Decision Making [facility] Narrative: 1700 72-year-old male presents with sudden onset left lower quadrant pain without radiation that started this morning history of SBO and diverticulitis. Tolerating p.o. at home Physical exam with tenderness to left lower quadrant. Normoactive bowel sounds. Likely diverticulitis, unlikely bowel obstruction. No signs of acute abdomen. Unlikely pancreatitis, cholecystitis, appendicitis. Will rule out UTI. Plan at this time labs, imaging, urine. <HEMALATHA Coles - Last Filed: 02/23 19:43> Differential Diagnosis Differential Diagnoses: The differential diagnosis associated with the presentation includes <HEMALATHA Coles - Last Filed: 08/09/22 19:43> Likely diverticulitis, unlikely bowel obstruction. No signs of acute abdomen. Unlikely pancreatitis, cholecystitis, appendicitis. Will rule out UTI. <HEMALATHA Coles - Last Filed: 08/09/22 19:43> Admission/Observation Consideration of admission/observation: Escalation of care including admission/observation considered <HEMALATHA Coles - Last Filed: 08/09/22 19:43> Unlikely <HEMALATHA Coles - Last Filed: 08/09/22 19:43> Lab Data [facility] Lab Attestation statement: I reviewed the patient's lab results. <HEMALATHA Coles - Last Filed: 08/09/22 19:43> Result Diagrams: 08/09/22 15:04 08/09/22 15:04 <Elayne Skinner CNP - Last Filed: 08/09/22 14:55> Labs: Lab Results 08/09/22 08/09/22 08/09/22 Range/Units 15:04 15:04 17:36 WBC 4.7 L (4.8-10.8) X10*3/uL RBC 3.23 L (4.60-5.80) X10*6/uL Hgb 9.3 L (14.0-18.0) g/dl Hct 28.5 L (42.0-52.0) % MCV 88.2 (80.0-98.0) fL MCH 28.8 (27.0-33.0) pg MCHC 32.6 (31.0-36.0) g/dl RDW 15.6 (11.0-16.0) % Plt Count 144 L (160-400) X10*3/uL MPV 9.1 L (9.4-12.4) fL Immature Gran % (Auto) 1.7 H (0.0-0.4) % Neut % (Auto) 69.7 (45-73) % Lymph % (Auto) 14.4 L (20-40) % [place] % (Auto) 11.6 H (2-11) % Eos % (Auto) 2.2 (0-4) % Baso % (Auto) 0.4 (0-2) % Lymph # (Auto) 0.7 L (1.2-4.9) X10*3/uL [place] # (Auto) 0.5 (0.1-1.2) X10*3/uL Eos # (Auto) 0.1 (0.0-0.4) X10*3/uL Baso # (Auto) 0.0 (0.0-0.2) X10*3/uL Abs Immat Gran (auto) 0.08 H (0.00-0.03) X10*3/uL Absolute Neuts (auto) 3.2 (2.0-8.3) x10*3/uL Absolute Nucleated RBC 0.000 (0.0-0.012) X10*3/uL Nucleated RBC % (auto) 0.0 (0.0-0.2) /100WBC Sodium 140 (135-145) mmol/L Potassium 4.6 D (3.3-5.1) mmol/L Chloride 102 (96-108) mmol/L Carbon Dioxide 28 (22-29) mmol/L Anion Gap 15 (12-20) BUN 25 H (9-16) mg/dL Creatinine 1.28 (0.5-1.4) mg/dL Estim Creat Clear Calc 67.4 Estimated GFR 56 Random Glucose 126 H (60-115) mg/dL Lactic Acid 0.5 (0.5-2.0) mmol/L Calcium 8.7 (8.4-10.2) mg/dL Total Bilirubin 0.8 (0.0-1.0) mg/dL AST 16 (5-37) U/L ALT 12 (0-40) U/L Alkaline Phosphatase 77 (39-117) U/L Total Protein 6.5 (6.5-8.0) g/dL Albumin 3.9 (3.5-5.0) g/dL Lipase 9 (8-78) U/L Urine Color Urine Appearance Urine pH (5.0-9.0) Ur Specific Raymond (1.005-1.025) Urine Protein (Neg-Trace) mg/dL Urine Glucose (UA) (Negative) mg/dL Urine Ketones (Negative) mg/dL Urine Blood (Negative) Urine Nitrite (Negative) Ur Leukocyte Esterase (Negative) Urine RBC (0-2) /HPF Urine WBC (0-5) /HPF Ur Squamous Epith Cells (0-2) /HPF Urine Bacteria (None Seen) Hyaline Casts (0-2) /LPF 08/09/22 Range/Units 18:38 WBC (4.8-10.8) X10*3/uL RBC (4.60-5.80) X10*6/uL Hgb (14.0-18.0) g/dl Hct (42.0-52.0) % MCV (80.0-98.0) fL MCH (27.0-33.0) pg MCHC (31.0-36.0) g/dl RDW (11.0-16.0) % Plt Count (160-400) X10*3/uL MPV (9.4-12.4) fL Immature Gran % (Auto) (0.0-0.4) % Neut % (Auto) (45-73) % Lymph % (Auto) (20-40) % [place] % (Auto) (2-11) % Eos % (Auto) (0-4) % Baso % (Auto) (0-2) % Lymph # (Auto) (1.2-4.9) X10*3/uL [place] # (Auto) (0.1-1.2) X10*3/uL Eos # (Auto) (0.0-0.4) X10*3/uL Baso # (Auto) (0.0-0.2) X10*3/uL Abs Immat Gran (auto) (0.00-0.03) X10*3/uL Absolute Neuts (auto) (2.0-8.3) x10*3/uL Absolute Nucleated RBC (0.0-0.012) X10*3/uL Nucleated RBC % (auto) (0.0-0.2) /100WBC Sodium (135-145) mmol/L Potassium (3.3-5.1) mmol/L Chloride (96-108) mmol/L Carbon Dioxide (22-29) mmol/L Anion Gap (12-20) BUN (9-16) mg/dL Creatinine (0.5-1.4) mg/dL Estim Creat Clear Calc Estimated GFR Random Glucose (60-115) mg/dL Lactic Acid (0.5-2.0) mmol/L Calcium (8.4-10.2) mg/dL Total Bilirubin (0.0-1.0) mg/dL AST (5-37) U/L ALT (0-40) U/L Alkaline Phosphatase (39-117) U/L Total Protein (6.5-8.0) g/dL Albumin (3.5-5.0) g/dL Lipase (8-78) U/L Urine Color Yellow Urine Appearance Clear Urine pH 6.0 (5.0-9.0) Ur Specific Raymond >= 1.030 H (1.005-1.025) Urine Protein Trace (Neg-Trace) mg/dL Urine Glucose (UA) Negative (Negative) mg/dL Urine Ketones Trace (Negative) mg/dL Urine Blood Large (3+) H (Negative) Urine Nitrite Negative (Negative) Ur Leukocyte Esterase Small (1+) H (Negative) Urine RBC >20 H (0-2) /HPF Urine WBC 6-10 H (0-5) /HPF Ur Squamous Epith Cells 0-2 (0-2) /HPF Urine Bacteria None Seen (None Seen) Hyaline Casts 0-2 (0-2) /LPF <Elayne Skinner, WINNIE - Last Filed: 08/09/22 14:55> Lab Results 08/09/22 08/09/22 08/09/22 Range/Units 15:04 15:04 17:36 WBC 4.7 L (4.8-10.8) X10*3/uL RBC 3.23 L (4.60-5.80) X10*6/uL Hgb 9.3 L (14.0-18.0) g/dl Hct 28.5 L (42.0-52.0) % MCV 88.2 (80.0-98.0) fL MCH 28.8 (27.0-33.0) pg MCHC 32.6 (31.0-36.0) g/dl RDW 15.6 (11.0-16.0) % Plt Count 144 L (160-400) X10*3/uL MPV 9.1 L (9.4-12.4) fL Immature Gran % (Auto) 1.7 H (0.0-0.4) % Neut % (Auto) 69.7 (45-73) % Lymph % (Auto) 14.4 L (20-40) % [place] % (Auto) 11.6 H (2-11) % Eos % (Auto) 2.2 (0-4) % Baso % (Auto) 0.4 (0-2) % Lymph # (Auto) 0.7 L (1.2-4.9) X10*3/uL [place] # (Auto) 0.5 (0.1-1.2) X10*3/uL Eos # (Auto) 0.1 (0.0-0.4) X10*3/uL Baso # (Auto) 0.0 (0.0-0.2) X10*3/uL Abs Immat Gran (auto) 0.08 H (0.00-0.03) X10*3/uL Absolute Neuts (auto) 3.2 (2.0-8.3) x10*3/uL Absolute Nucleated RBC 0.000 (0.0-0.012) X10*3/uL Nucleated RBC % (auto) 0.0 (0.0-0.2) /100WBC Sodium 140 (135-145) mmol/L Potassium 4.6 D (3.3-5.1) mmol/L Chloride 102 (96-108) mmol/L Carbon Dioxide 28 (22-29) mmol/L Anion Gap 15 (12-20) BUN 25 H (9-16) mg/dL Creatinine 1.28 (0.5-1.4) mg/dL Estim Creat Clear Calc 67.4 Estimated GFR 56 Random Glucose 126 H (60-115) mg/dL Lactic Acid 0.5 (0.5-2.0) mmol/L Calcium 8.7 (8.4-10.2) mg/dL Total Bilirubin 0.8 (0.0-1.0) mg/dL AST 16 (5-37) U/L ALT 12 (0-40) U/L Alkaline Phosphatase 77 (39-117) U/L Total Protein 6.5 (6.5-8.0) g/dL Albumin 3.9 (3.5-5.0) g/dL Lipase 9 (8-78) U/L Urine Color Urine Appearance Urine pH (5.0-9.0) Ur Specific [place] (1.005-1.025) Urine Protein (Neg-Trace) mg/dL Urine Glucose (UA) (Negative) mg/dL Urine Ketones (Negative) mg/dL Urine Blood (Negative) Urine Nitrite (Negative) Ur Leukocyte Esterase (Negative) Urine RBC (0-2) /HPF Urine WBC (0-5) /HPF Ur Squamous Epith Cells (0-2) /HPF Urine Bacteria (None Seen) Hyaline Casts (0-2) /LPF 08/09/22 Range/Units 18:38 WBC (4.8-10.8) X10*3/uL RBC (4.60-5.80) X10*6/uL Hgb (14.0-18.0) g/dl Hct (42.0-52.0) % MCV (80.0-98.0) fL MCH (27.0-33.0) pg MCHC (31.0-36.0) g/dl RDW (11.0-16.0) % Plt Count (160-400) X10*3/uL MPV (9.4-12.4) fL Immature Gran % (Auto) (0.0-0.4) % Neut % (Auto) (45-73) % Lymph % (Auto) (20-40) % [place] % (Auto) (2-11) % Eos % (Auto) (0-4) % Baso % (Auto) (0-2) % Lymph # (Auto) (1.2-4.9) X10*3/uL [place] # (Auto) (0.1-1.2) X10*3/uL Eos # (Auto) (0.0-0.4) X10*3/uL Baso # (Auto) (0.0-0.2) X10*3/uL Abs Immat Gran (auto) (0.00-0.03) X10*3/uL Absolute Neuts (auto) (2.0-8.3) x10*3/uL Absolute Nucleated RBC (0.0-0.012) X10*3/uL Nucleated RBC % (auto) (0.0-0.2) /100WBC Sodium (135-145) mmol/L Potassium (3.3-5.1) mmol/L Chloride (96-108) mmol/L Carbon Dioxide (22-29) mmol/L Anion Gap (12-20) BUN (9-16) mg/dL Creatinine (0.5-1.4) mg/dL Estim Creat Clear Calc Estimated GFR Random Glucose (60-115) mg/dL Lactic Acid (0.5-2.0) mmol/L Calcium (8.4-10.2) mg/dL Total Bilirubin (0.0-1.0) mg/dL AST (5-37) U/L ALT (0-40) U/L Alkaline Phosphatase (39-117) U/L Total Protein (6.5-8.0) g/dL Albumin (3.5-5.0) g/dL Lipase (8-78) U/L Urine Color Yellow Urine Appearance Clear Urine pH 6.0 (5.0-9.0) Ur Specific [place] >= 1.030 H (1.005-1.025) Urine Protein Trace (Neg-Trace) mg/dL Urine Glucose (UA) Negative (Negative) mg/dL Urine Ketones Trace (Negative) mg/dL Urine Blood Large (3+) H (Negative) Urine Nitrite Negative (Negative) Ur Leukocyte Esterase Small (1+) H (Negative) Urine RBC >20 H (0-2) /HPF Urine WBC 6-10 H (0-5) /HPF Ur Squamous Epith Cells 0-2 (0-2) /HPF Urine Bacteria None Seen (None Seen) Hyaline Casts 0-2 (0-2) /LPF <Susanita Haas, PA - Last Filed: 08/09/22 19:43> Independent Interpretation I performed an independent interpretation of an: CT Scan (CT/CT abdomen pelvis w IV con IMPRESSION: 1. Acute uncomplicated diverticulitis at the junction of the descending colon and sigmoid. 2. Incidental note made of mild splenomegaly, right renal scarring, scoliosis and degenerative changes in the spine. Insert) <HEMALATHA Coles - Last Filed: 08/09/22 19:43> Radiology Impression Discussion of test interpretation with radiology: I have reviewed the radiologist's reading. <HEMALATHA Coles - Last Filed: 08/09/22 19:43> Core Measures AMI core measures followed: Yes <HEMALATHA Coles - Last Filed: 08/09/22 19:43> Measure exclusions: not indicated <HEMALATHA Coles - Last Filed: 08/09/22 19:43> Medications Administered Discontinued Medications Generic Name Dose Route Start Last Admin Trade Name Evelina PRN Reason Stop Dose Admin Levofloxacin 750 mg in 150 mls @ 100 mls/hr 08/09/22 17:19 08/09/22 17:57 Levaquin IV 08/09/22 18:48 100 mls/hr ONCE ONE Administration Metronidazole 500 mg in 100 mls @ 100 mls/hr 08/09/22 17:19 08/09/22 18:47 Flagyl IV 08/09/22 18:18 100 mls/hr ONCE ONE Administration Sodium Chloride 1,000 mls @ 999 mls/hr 08/09/22 17:30 08/09/22 19:28 Ns IV 08/09/22 18:30 999 mls/hr .Q1H1M TAHIRA Administration Iohexol 100 ml 08/09/22 16:38 08/09/22 16:38 Iohexol 350 Mg/Ml 100 Ml Infus..Btl IV 08/09/22 16:39 85 ml ONCE ONE Administration Oxycodone HCl 5 mg 08/09/22 17:21 08/09/22 18:00 Oxycodone Hcl Immed Release 5 Mg Tablet PO 08/09/22 17:22 5 mg ONCE ONE Administration <Elayne Skinner CNP - Last Filed: 08/09/22 14:55> Medications Administered Discontinued Medications Generic Name Dose Route Start Last Admin Trade Name Evelina PRN Reason Stop Dose Admin Levofloxacin 750 mg in 150 mls @ 100 mls/hr 08/09/22 17:19 08/09/22 17:57 Levaquin IV 08/09/22 18:48 100 mls/hr ONCE ONE Administration Metronidazole 500 mg in 100 mls @ 100 mls/hr 08/09/22 17:19 08/09/22 18:47 Flagyl IV 08/09/22 18:18 100 mls/hr ONCE ONE Administration Sodium Chloride 1,000 mls @ 999 mls/hr 08/09/22 17:30 08/09/22 19:28 Ns IV 08/09/22 18:30 999 mls/hr .Q1H1M TAHIRA Administration Iohexol 100 ml 08/09/22 16:38 08/09/22 16:38 Iohexol 350 Mg/Ml 100 Ml Infus..Btl IV 08/09/22 16:39 85 ml ONCE ONE Administration Oxycodone HCl 5 mg 08/09/22 17:21 08/09/22 18:00 Oxycodone Hcl Immed Release 5 Mg Tablet PO 08/09/22 17:22 5 mg ONCE ONE Administration <HEMALATHA Coles - Last Filed: 08/09/22 19:43> Critical Care Time Critical Care Time Critical Care Time: No <HEMALATHA Coles - Last Filed: 08/09/22 19:43> Discharge Plan Discharge Clinical Impression: Diverticulitis <Elayne Skinner CNP - Last Filed: 08/09/22 14:55> Patient Disposition: Home, Self-Care <Elayne Skinner CNP - Last Filed: 08/09/22 14:55> Instructions: Diverticulitis (ED), Diverticulitis Diet (ED) <Elayne Skinner CNP - Last Filed: 08/09/22 14:55> Additional Instructions: Take your medications as prescribed. If you were prescribed antibiotics today, it is important that you take your medication to their entirety, do not skip any doses, do not finish them early. Follow-up with your primary care provider this week. Please follow-up with gastroenterology in a week or 2 Return to the emergency department with new or worsening symptoms. Such as fevers, chills, chest pain, shortness of breath, nausea, vomiting, dizziness, headache, vision changes, lethargy, blood in stool, diarrhea, change in type, quality or location of pain In case of emergency call 911 A narcotic has been sent to your pharmacy please take this as prescribed. Do not take more than the prescribed dose. Narcotic medications can cause addiction. Please do not mix them with alcohol. Do not take them while driving or operating machinery. Do not take them with any other narcotics. Do not share them with friends or family. They can cause constipation. Take them only for severe pain. I educated on the black box warning of levofloxacin of tendon rupture. If you experience any pain to tendon please stop medication and seek medical attention. CT/CT abdomen pelvis w IV con IMPRESSION: 1.? Acute uncomplicated diverticulitis at the junction of the descending colon and sigmoid. 2.? Incidental note made of mild splenomegaly, right renal scarring, scoliosis and degenerative changes in the spine. I hope you feel better! <Elayne Skinner, BUSINESS ANALYST INTERN - Last Filed: 08/09/22 14:55> Prescriptions: New metronidazole 500 mg tablet 500 mg PO BID 10 Days Qty: 20 0RF levofloxacin 750 mg tablet 750 mg PO DAILY 10 Days Qty: 10 0RF oxycodone 5 mg capsule 5 mg PO Q6H PRN (Reason: pain) Qty: 15 0RF Rx Instructions: Partial Fill upon patient request. No Action Xarelto 20 mg tablet 20 mg PO DAILY@1700 90 Days Qty: 90 3RF losartan 50 mg tablet 50 mg PO BID 90 Days Qty: 180 3RF amiodarone 200 mg tablet 200 mg PO DAILY Qty: 90 2RF hydralazine 25 mg tablet 25 mg PO BID Qty: 60 5RF amlodipine 5 mg tablet 5 mg PO BID 90 Days Qty: 180 3RF ipratropium bromide 21 mcg (0.03 %) spray,non-aerosol 2 spray intranasal BID-TID PRN (Reason: for allergies) Qty: 30 1RF multivitamin Tablet 1 tab PO DAILY ascorbic acid (vitamin C) [Vitamin C] 1,000 mg Tablet 1,000 mg PO DAILY@1700 docusate sodium [Stool Softener] 100 mg Capsule 100 mg PO BID gabapentin 300 mg capsule 600 mg PO BID omeprazole 20 mg capsule,delayed release(DR/EC) 20 mg PO BID Culturelle 10 billion cell Capsule 1 cap PO DAILY sertraline 50 mg tablet 50 mg PO DAILY magnesium 200 mg Tablet 400 mg PO BID iron 1 tab PO Q OTHER DAY cetirizine [Zyrtec] 10 mg Tablet 10 mg PO DAILY albuterol sulfate 90 mcg/actuation HFA aerosol inhaler 2 puff PO Q4H PRN (Reason: Shortness Of Breath) dicyclomine 10 mg capsule 10 mg PO BID PRN (Reason: Gastrointestinal Spasms Or Cramping) trazodone 100 mg tablet 100 mg PO BEDTIME PRN (Reason: sleep) 30 Days Qty: 30 2RF tamsulosin 0.4 mg capsule 0.8 mg PO DAILY@1700 90 Days Qty: 180 2RF <Elayne Skinner CNP - Last Filed: 08/09/22 14:55> Referrals: Scotty Liu MD [Primary Care Provider] - 2 days Huber Marquez [Physician] - 2 days <Elayne Skinner CNP - Last Filed: 08/09/22 14:55>
[2022-08-09 15:08] LABS: MANUAL DIFF FLAG NO
[2022-08-09 15:11] LABS: Basophils Percent Auto 0.4 % (0-2); Eosinophils Absolute Auto 0.1 X10*3/uL (0.0-0.4); Eosinophils Percent Auto 2.2 % (0-4); Hematocrit 28.5 % (42.0-52.0); Hemoglobin 9.3 g/dl (14.0-18.0); Imm Gran Abs Auto 0.08 X10*3/uL (0.00-0.03); Imm Gran Pct Auto 1.7 % (0.0-0.4); Lymphocytes Absolute Auto 0.7 X10*3/uL (1.2-4.9); Lymphocytes Percent Auto 14.4 % (20-40); Mean Corpuscular HGB Conc 32.6 g/dl (31.0-36.0); Mean Corpuscular Hemoglobin 28.8 pg (27.0-33.0); Mean Corpuscular Volume 88.2 fL (80.0-98.0); Mean Platelet Volume 9.1 fL (9.4-12.4); Monocytes Absolute Auto 0.5 X10*3/uL (0.1-1.2); Monocytes Percent Auto 11.6 % (2-11); Neutrophils Absolute Auto 3.2 x10*3/uL (2.0-8.3); Neutrophils Percent Auto 69.7 % (45-73); Platelet Count 144 X10*3/uL (160-400); Red Blood Count 3.23 X10*6/uL (4.60-5.80); Red Cell Distribution Width 15.6 % (11.0-16.0); White Blood Count 4.7 X10*3/uL (4.8-10.8)
[2022-08-09 15:35] LABS: Alanine Aminotransferase 12 U/L (0-40); Albumin Level 3.9 g/dL (3.5-5.0); Alkaline Phosphatase 77 U/L (39-117); Anion Gap 15 (12-20); Aspartate Amino Transferase 16 U/L (5-37); Bilirubin Total 0.8 mg/dL (0.0-1.0); Blood Urea Nitrogen 25 mg/dL (9-16); Calcium 8.7 mg/dL (8.4-10.2); Carbon Dioxide 28 mmol/L (22-29); Chloride 102 mmol/L (96-108); Creatinine Clr Calc Pharmacy 67.4; Estimated Glomerular Filt Rate 56; Glucose Random 126 mg/dL (60-115); Potassium 4.6 mmol/L (3.3-5.1); Sodium 140 mmol/L (135-145); Total Protein 6.5 g/dL (6.5-8.0)
[2022-08-09] MEDS: iohexoL 350 MG/ML 100 ML INFUS..BTL IV (16:38)
[2022-08-09 17:55] LABS: Lipase 9 U/L (8-78)
[2022-08-09] MEDS: levoFLOXacin/D5W 750 MG/150 ML PIGGYBACK 100 MG IV (17:57)
[2022-08-09] MEDS: oxyCODONE HCl Immed Release 5 MG TABLET PO ×2 (18:00→20:03)
[2022-08-09 18:03] LABS: Lactic Acid 0.5 mmol/L (0.5-2.0)
[2022-08-09] MEDS: metroNIDAZOLE/NS 500 MG/100 ML PIGGYBACK 100 MG IV (18:47)
[2022-08-09 18:48] LABS: Appearance Urine Clear; Color Urine Yellow; Glucose Urine UA Negative (Negative); Leukocyte Esterase Urine Small (1+) (Negative); Nitrite Urine Negative (Negative); Specific Gravity - Urine >= 1.030 (1.005-1.025); UMIC TRIGGER UACC YES; Urine Blood Large (3+) (Negative); Urine Ketones Trace mg/dL (Negative); Urine Protein Trace mg/dL (Neg-Trace)
[2022-08-09 18:53] LABS: Bacteria Urine None Seen (None Seen); Hyaline Casts Urine 0-2 /LPF (0-2); RBC Urine >20 /HPF (0-2); Squamous Epithelial Cell Urine 0-2 /HPF (0-2); UACC Culture Trigger YES
[2022-08-09] MEDS: 0.9 % Sodium Chloride 1,000 ML 999 ML IV (19:28)
== END 2022-08-09 20:16 | disposition home or self-care (01) ==
PROVIDERS: Nurse Practitioner Family; Physician Assistant; Emergency Provider Internal Medicine; PCP Internal Medicine Medical Oncology
DX: K57.32 Diverticulitis of large intestine without perforation or abscess without bleeding (principal); R10.13 Epigastric pain; R10.2 Pelvic and perineal pain; Z79.899 Other long term (current) drug therapy
CPT/HCPCS: 36415; 74177; 80053; 81001; 83605; 83690; 85025; 87040; 87086; 96374; 96375; 99284; J1956; Q9967

== ENCOUNTER → 2022-10-11 11:26 | Outpatient (BNVA) | payer MEDICARE, SELFPAY | PROVIDERS: PCP Internal Medicine Medical Oncology; Referring Provider Internal Medicine Medical Oncology; Visit Provider Internal Medicine Cardiovascular Disease | DX: I48.19 Other persistent atrial fibrillation (principal); I35.0 Nonrheumatic aortic (valve) stenosis | CPT/HCPCS: 93005; 99212 ==

== ENCOUNTER 2022-10-23 10:13 | Outpatient (REF) | payer MEDICARE, SELFPAY ==
[2022-10-23 11:20] LABS: MANUAL DIFF FLAG NO
[2022-10-23 11:34] LABS: Basophils Percent Auto 0.6 % (0-2); Eosinophils Absolute Auto 0.1 X10*3/uL (0.0-0.4); Eosinophils Percent Auto 3.3 % (0-4); Hemoglobin 10.3 g/dl (14.0-18.0); Imm Gran Abs Auto 0.15 X10*3/uL (0.00-0.03); Imm Gran Pct Auto 4.1 % (0.0-0.4); Lymphocytes Percent Auto 28.2 % (20-40); Mean Corpuscular HGB Conc 32.2 g/dl (31.0-36.0); Mean Corpuscular Hemoglobin 28.3 pg (27.0-33.0); Mean Corpuscular Volume 87.9 fL (80.0-98.0); Mean Platelet Volume 9.9 fL (9.4-12.4); Monocytes Absolute Auto 0.4 X10*3/uL (0.1-1.2); Monocytes Percent Auto 9.7 % (2-11); Neutrophils Percent Auto 54.1 % (45-73); Platelet Count 176 X10*3/uL (160-400); Red Blood Count 3.64 X10*6/uL (4.60-5.80); Red Cell Distribution Width 13.9 % (11.0-16.0); White Blood Count 3.6 X10*3/uL (4.8-10.8)
[2022-10-23 11:55] LABS: Anion Gap 15 (12-20); Blood Urea Nitrogen 33 mg/dL (9-16); Carbon Dioxide 25 mmol/L (22-29); Chloride 100 mmol/L (96-108); Estimated Glomerular Filt Rate 43; Glucose Random 105 mg/dL (60-115); Potassium 4.6 mmol/L (3.3-5.1); Sodium 135 mmol/L (135-145)
[2022-10-23 11:56] LABS: Digoxin 1.4 ng/mL (0.8-2.0)
== END 2022-10-23 10:14 | disposition home or self-care (01) ==
LOC: HO.HMGCLDS 10:13
PROVIDERS: PCP Internal Medicine Medical Oncology; Visit Provider Internal Medicine Cardiovascular Disease
DX: D64.9 Anemia, unspecified (principal); D69.6 Thrombocytopenia, unspecified; I48.20 Chronic atrial fibrillation, unspecified
CPT/HCPCS: 36415; 80048; 80162; 85025

== ENCOUNTER 2023-05-24 09:00 | Outpatient (AMB) | payer MEDICARE, SELFPAY ==
[2023-05-24 09:02] VITALS: BP 110/62; PULSE 106; O2SAT 96; BMI 30.8
--- NOTE | 2023-05-24 09:02 | A.OFFVIS_ITS ---
Intake Vital Signs 05/24/23 09:02 Height 6 ft Weight 227 lb 1.218 oz BMI 30.8 BP 110/62 Blood Pressure Location Rt brachial Position Sitting Pulse 106 H Pulse Source Doppler Pulse Oximetry (%) 96 Oxygen Delivery Method Room Air Intake Visit Reasons: Obstructive sleep apnea Allergies No Known Allergies [No Known Allergies*] Allergy (Verified 05/24/23 09:04) HPI Obstructive sleep apnea HPI Details 73-year-old gentleman followed for under lying severe STAN on CPAP and primary insomnia.? He continues to use his CPAP with good control of his underlying obstructive sleep apnea symptoms.? He continues to use trazodone as n eeded with control of his primary insomnia.? He has been using ipratropium or Flonase nasal spray with reasonable control of his allergic rhinitis. Patient does have a remote history of bleomycin chemotherapy in his 32. [facility] Medical History (Updated 11/08/22 @ 11:43 by Rex William MD) MENA (acute kidney injury) Persistent atrial fibrillation Sleep apnea History of cardioversion Aortic stenosis Paroxysmal atrial fibrillation Anemia Neuropathy BPH (benign prostatic hyperplasia) Hyponatremia Hx of benign neoplasm Chronic back pain HTN (hypertension) Hx of testicular cancer Surgical History History of orchiectomy Hx of cataract extraction H/O colonoscopy Hx of cystoscopy History of left knee replacement History of right hip replacement History of back surgery Social History Household Members: Family Housing: House Do you presently have visiting nurse or other home services: No Alcohol intake: current Alcohol intake frequency: holidays/special occasions only Alcohol type: beer Comment: Pt. sleeping Patient Tobacco Use Status: Never used Tobacco Advance Directives Date on File: 02/01/22 service: No Current occupational status: retired Review of Systems Const Denies daytime sleepiness, Denies excessive sweating, Denies fatigue, Denies fever(s), Denies lethargy, Denies malaise, Denies night sweats, Denies snoring and Denies weight loss Eyes Denies blurry vision and Denies itchy eyes ENT Denies nasal congestion, Denies post nasal drip, Denies sinus pain, Denies sinus pressure and Denies other ( Thrush) Card Denies chest pain, Denies pedal edema, Denies dyspnea, Denies orthopnea and Denies paroxysmal nocturnal dyspnea Resp Denies cough, Denies hemoptysis, Denies excessive phlegm production, Denies dyspnea, Denies snoring and Denies wheezing GI Denies abdominal pain and Denies heartburn Musc Denies myalgias, Denies arthralgias and Denies joint swelling Skin/Breast Denies rash Neuro Denies memory loss and Denies seizure-like activity Psych Denies abnormal sleep pattern, Denies anxiety and Denies memory loss Endo Denies excessive sweating, Denies fatigue and Denies heat intolerance Zan/Lymph Denies easy bruising Aller/Immun Denies itchy eyes, Denies seasonal rhinorrhea and Denies wheezing Physical Exam Vital Signs: Last Vital Signs Pulse 106 H 05/24/23 09:02 BP 110/62 05/24/23 09:02 Pulse Ox 96 05/24/23 09:02 Oxygen Delivery Method Room Air 05/24/23 09:02 BMI result Body Mass Index 30.8 Const General: no acute distress and alert Nutritional Appearance: not obese Orientation/consciousness: Other orientation findings ( oriented) HEENT Head: Yes atraumatic Eyes General: appearance normal, both eyes and all related structures Sclerae: sclerae normal EOM: EOMs intact bilaterally Neck Neck: Yes supple Lymphatic: no lymphadenopathy noted Resp Effort & Inspection: normal respiratory effort and no use of accessory muscles Auscultation: clear to auscultation bilaterally Cardio Rate: regular rate Rhythm: regular rhythm Heart sounds: no gallops, no murmurs and no rubs Skin General skin exam: other ( warm) Extrem General: No clubbing, No cyanosis and No edema Assessment & Plan Assessment & Plan (1) STAN on CPAP: Code(s): G47.33 - Obstructive sleep apnea (adult) (pediatric); Z99.89 - Dependence on other enabling machines and devices Plan: Well controlled on current CPAP therapy. Continue current CPAP therapy. (2) Allergic rhinitis: Code(s): J30.9 - Allergic rhinitis, unspecified Plan: He has been using nasal ipratropium and Flonase as needed with good control his symptoms. Continue current regimen. (3) Primary insomnia: Code(s): F51.01 - Primary insomnia Plan: On as needed trazodone. Continue current regimen. Coding Level of Care Code Est Pt Level 4 (23106) Diagnoses STAN on CPAP G47.33; Z99.89 Allergic rhinitis J30.9 Primary insomnia F51.01
== END 2023-05-24 09:19 | disposition home or self-care (01) ==
PROVIDERS: PCP Internal Medicine Medical Oncology; Visit Provider Internal Medicine Pulmonary Disease
DX: G47.33 Obstructive sleep apnea (adult) (pediatric) (principal); Z99.89 Dependence on other enabling machines and devices; J30.9 Allergic rhinitis, unspecified; F51.01 Primary insomnia
CPT/HCPCS: 99214

== ENCOUNTER → 2023-05-24 09:00 | Outpatient (BNVA) | payer MEDICARE, SELFPAY | PROVIDERS: PCP Internal Medicine Medical Oncology; Visit Provider Internal Medicine Pulmonary Disease | DX: G47.33 Obstructive sleep apnea (adult) (pediatric) (principal); J30.9 Allergic rhinitis, unspecified; F51.01 Primary insomnia; Z99.89 Dependence on other enabling machines and devices | CPT/HCPCS: 99212 ==

== ENCOUNTER 2024-05-28 10:22 | Outpatient (AMB) | payer MEDICARE, SELFPAY ==
--- OUTSIDE RECORDS SUMMARY | 2024-05-28 10:24 | XMS_ITS ---
Author Organization [facility] Address [address] [place] [address] Care Team Providers Care Marking Clerk Name Role Phone Rodrigo MENDOZA, Fabiola Primary Care Provider RUPERT Bui Unavailable [phone] Allergies No Known Allergies REASON FOR VISIT 7 wk cysto w/ UAmicro reflex and cytology; BPH w/ obstr, hypogonadism Medications Medication SIG (Take, Route, Frequency, Duration) Notes Start Date End Date Status Vitamin C 1000 mg 1 tab(s) orally once a day Active Iron 100 Plus Vitamin B Complex with C, Folic Acid and Iron 1 tab(s) orally once a day A ctive fluticasone 50 mcg/inh 1 puff(s) inhaled 2 times a day Active Stool Softener + Stimulant Laxative 50 mg-8.6 mg 2 tab(s) orally once a day (at bedtime) Active [facility] - 1 cap(s) orally once a day A ctive digoxin Active Lasix 20 mg 1 tab(s) orally once a day Active albuterol 5 mg/mL 0.5 mL by nebulizer every 6 hours Active ZyrTEC 10 mg 1 tab(s) orally once a day Active metoprolol 25 mg 1 cap(s) orally once a day Active Xyosted enanthate 75 mg/0.5 mL as directed subcutaneously once a week for 30 days 04/24/2024 Active amiodarone 200 mg 1 tab(s) orally once a day Active sertraline 50 mg 1 tab(s) orally once a day Active Tamsulosin Hydrochloride 0.4 mg 1 cap(s) orally two times a day ( 1 cap in the morning and 1 cap 30 minutes after evening meal ) for 90 days 11/14/2022 Active Mupirocin 2% 1 osei applied to aff ected area 3 times a day 11/14/2022 Active amLODIPine 5 mg 1 tab(s) orally once a day Active dicyclomine 10 mg 2 cap(s) orally 4 ti mes a day Active gabapentin 600 mg 1 tab(s) orally 3 ti mes a day Active tamsulosin 0.4 mg 1 cap(s) orally once a day Active Xarelto 20 mg 1 tab(s) orally once a day (in the evening) Active omeprazole 20 mg 1 cap(s) orally once a day Active Social History Tobacco Use: Social History Observation Description Date Details (start date - stop date) Never Smoker NA - NA Smoking MU Question Answer Notes Are you a: nonsmoker Additional Findings: Tobacco Non-User Current no n-smoker Alcohol MU Question Answer Notes Interpretation Negative Vital Signs Height 72 in 05/18/2024 Weight 204 lbs 05/18/2024 BMI 27.66 kg/m2 05/18/2024 Encounters Encounter Location Date Provider Diagnosis [facility] [address] [place] [address] 05/18/2024 RUPERT GOLDEN Testicular hypofunct ion E29.1 ; Benign prostatic hyperplasia with lower urinary tract symptoms N40.1 and Frequency of micturition R35.0 Assessments Encounter Date Diagnosis (ICD Code) Assessment Notes Treatment Notes Treatment Clinical Notes Section Notes 05/18/2024 Testicular hypofunction (ICD-10 - E29.1) ASSESSMENT: Mr. Agustin is a 74-year-old male with a history of bladder cancer, recurrent. Recently completed a course of maintenance BCG in late December, due for his next course in July. Surveillance cystoscopy today was negative. Recent urine cytology was negative. Also with a history of benign prostatic hyperplasia, lower urinary tract symptoms, frequency and urgency, hypogonadism. He is on tamsulosin. He is on Xyosted. Doing well with Xyosted, no issues. We discussed addition of Gemtesa for his frequency and urgency. Mechanism and side effects discussed. A handwritten prescription was given to him. He will consider whether or not to start this medication. Surveillance cystoscopy was negative. Urine cytology was negative. In terms of his next course of maintenance BCG, this would be due for July. However, they are likely leaving for [place] from June to September. Therefore, we will likely plan on maintenance BCG to start in early September. PLAN: 1.Consider Gemtesa. Handwritten prescription was given. 2.Continue Flomax. 3.Continue Xyosted. 4.Follow up in early September for a three-week course of half BCG. Results reviewed and discussed. All questions answered. 05/18/2024 Benign prostatic hyperplasia with lower urinary tract symptoms (ICD-10 - N40.1) ASSESSMENT: Mr. Agustin is a 74-year-old male with a history of bladder cancer, recurrent. Recently completed a course of maintenance BCG in late December, due for his next course in July. Surveillance cystoscopy today was negative. Recent urine cytology was negative. Also with a history of benign prostatic hyperplasia, lower urinary tract symptoms, frequency and urgency, hypogonadism. He is on tamsulosin. He is on Xyosted. Doing well with Xyosted, no issues. We discussed addition of Gemtesa for his frequency and urgency. Mechanism and side effects discussed. A handwritten prescription was given to him. He will consider whether or not to start this medication. Surveillance cystoscopy was negative. Urine cytology was negative. In terms of his next course of maintenance BCG, this would be due for July. However, they are likely leaving for [place] from June to September. Therefore, we will likely plan on maintenance BCG to start in early September. PLAN: 1.Consider Gemtesa. Handwritten prescription was given. 2.Continue Flomax. 3.Continue Xyosted. 4.Follow up in early September for a three-week course of half BCG. Results reviewed and discussed. All questions answered. 05/18/2024 Frequency of micturition (ICD-10 - R35.0) ASSESSMENT: Mr. Agustin is a 74-year-old male with a history of bladder cancer, recurrent. Recently completed a course of maintenance BCG in late December, due for his next course in July. Surveillance cystoscopy today was negative. Recent urine cytology was negative. Also with a history of benign prostatic hyperplasia, lower urinary tract symptoms, frequency and urgency, hypogonadism. He is on tamsulosin. He is on Xyosted. Doing well with Xyosted, no issues. We discussed addition of Gemtesa for his frequency and urgency. Mechanism and side effects discussed. A handwritten prescription was given to him. He will consider whether or not to start this medication. Surveillance cystoscopy was negative. Urine cytology was negative. In terms of his next course of maintenance BCG, this would be due for July. However, they are likely leaving for [place] from June to September. Therefore, we will likely plan on maintenance BCG to start in early September. PLAN: 1.Consider Gemtesa. Handwritten prescription was given. 2.Continue Flomax. 3.Continue Xyosted. 4.Follow up in early September for a three-week course of half BCG. Results reviewed and discussed. All questions answered. Plan Of Treatment Next Appt Details Provider Name:RUPERT GOLDEN, 09/01/2024 09:28:00 AM, [address], [place], [address], Progress Notes * Aravind AGUSTIN LDOB:1949 (74 yo M)Acc No.[id number]:05/18/2024 Patient:?Aravind AGUSTIN L Provider:?Rupert Golden MD :1950???Age:74 Y???Sex:Male Link e:05/18/2024 Address: [address] [place], [id number] Pcp:Fabiola Wallace NP Subjective: * Chief Complaints: * ???1. 7 wk cysto w/ UAmicro reflex and cytology; BPH w/ obstr, hypogonadism. * HPI: ???A: Urological History/Sx:? Problem List: (1)Bladder Cancer -CIS - 09/25/22 TURBT -Completed iBCG 12/19/22 -02/21/23 TURBT: CIS -Completed iBCG #2: 05/14/23 -Completed mBCM (09/18/23) , 6M (12/26/23) (2)Testicular cancer -Left Seminoma (1981) - treated with left orchiectomy and Chemo. -Retroperitoneal teratoma ~1986 - treated with exlap / removal -Right testicular cancer (1991) - Treated with right orchiectomy, and abdominal radiation. (3)BPH / LUTS -Tamsulosin (4)Hypogonadism -Gel -IM injection -Xyosted 74 year old male with h/o Bladder Cancer (recurrent CIS), BPH / LUTS, Hypogonadism (surgical anorchidism, b/l orhciecotmy as above),BPH/LUTS. Presents for surveillance cystoscopy. Urine Cytology is negative.? Completed 6m mBCG 12/26/23? Last surveillance cystoscopy 02/26/24 - JAYDEN He did restart Flomax 10/2022. Continues with Xyosted. Frequency urgency persist. Deneis gross hematuria.? He is on Lasix.? He is having frequency of urination after.? Xarelto Considering watchman procedure at [facility]. After watchman he may get a TAVR. INITIAL VISIT 07/12/22 Has had long h/o microscopic and gross hematuria. Likley radiation induced. Prior w/u by urology in [facility]. H/O BPH / LUTS. On Flomax. No significant improvement. Frequency / urgency. He is up to 2 tablets. H/O Testicular Cancer. Treated as above. Surgical anorchidism - has been on gel, but does not take regularly. PMH: Testicular cancer, STAN, Afib, HTN, GERD, Anxiety, Diverticulitis Past surgical hx: Back surgery, joint replacement, L knee arthroscopy, L shoulder arthroscopy, testicular cancer s/p treatment, abdominal teratoma treated with xlap and later recurrent sbo managed with xlap/sbr(2015) 05/11/24 Urine Cytology: Negative, UA Micro: 10-20 RBCs, (-)WBCs 03/19/24 Testosterone: 620, PSA: 1.56, H/H: 11.2/35.4 02/26/24 Urine Cx: No growth 02/21/24 Urine Cytology: Negative 11/16/23 Urine Cytology: Negaive 11/06/23 PSA: 1.84 10/15/23 Urine Cx: No Growth 09/17/23 T; 551, PSA: 3.56, H/H: 11.0/34.9 06/06/23 Urine Cytology: Negative 09/04/23 CT A/P with IV contrast: SBO. No hydro. No stones. No lymphadenopathy. No renal lesions. Contracted bladder. Large prostate. I reviewed the CT and agree with the findings.? 03/25/23 T: 530, H/H: 9.5/31.1 02/21/23 TURBT Pathology: Urothelial mucosa with focal severely dysplastic urothelium/carcinoma in-situ. No lamina propria invasion identified. Muscularis propria is present and uninvolved. 01/30/23 Urine Cytology: Positive, Urine FISH: Positive 01/25/23 Urine Cytology: Atypia 10/22/22 Testosterone: 681, H/H: 10.2/31.0 09/28/22 TURBT: severe dysplastc urothelium/CIS 07/31/22 CT Urogram: No hydronephrosis or urinary tract calculi. No suspicious renal or urothelial lesions. Small focus of inflammatory change adjacent to the upper pole of the left kidney. I reviewed the CT and agree with the findings. No obvious uppertract pathology. No lymphadenopathy. 07/26/22 PSA: 0.24, Creat: 1.18, eGFR >60 07/12/22 Urine Cytology: HG urothelial CA, Urine FISH: Positive 07/12/22 UA Micro: Negative 06/20/22 UA Micro: 5-10 WBCs, 26-50 RBCs 06/20/22 Urine Culture: <10K Gram Negative 06/20/22 Creat: 1.04, eGFR >60 06/02/22 CT A/P (non-contrast): SBO. Progressive multifocal cortical scarring of the bilateral kidneys, no urolithiasis or obstructive uropathy. Bladder is unremarkable. Prostate is not enlarged. I reviewed the CT and agree with the findings. * Medical History:?Hypertensio n, Testicular cancer x2, A-fib sinus rythum, Heart murmer. * Family History:?Father: unkn own, family history unknown .?Mother: unknown, family history unknown .? * Social History:?Smoking: no. Smoking MU?Are you a:?nonsmoker,?Additional Findings: Tobacco Non-User?Current non-smoker.?Alcohol MU?Interpretation?Negative.? * Medications:?Taking Lasix 20 mg tablet 1 tab(s) orally once a day , Taking digoxin , Taking metoprolol 25 mg capsule, extended release 1 cap(s) orally once a day , Taking ZyrTEC 10 mg tablet 1 tab(s) orally once a day , Taking albuterol 5 mg/mL solution 0.5 mL by nebulizer every 6 hours , Taking fluticasone 50 mcg/inh powder 1 puff(s) inhaled 2 times a day , Taking Iron 100 Plus Vitamin B Complex with C, Folic Acid and Iron tablet 1 tab(s) orally once a day , Taking [facility] - capsule 1 cap(s) orally once a day , Taking Stool Softener + Stimulant Laxative 50 mg- 8.6 mg tablet 2 tab(s) orally once a day (at bedtime) , Taking Vitamin C 1000 mg tablet 1 tab(s) orally once a day , Taking omeprazole 20 mg delayed release capsule 1 cap(s) orally once a day , Taking dicyclomine 10 mg capsule 2 cap(s) orally 4 times a day , Taking amLODIPine 5 mg tablet 1 tab(s) orally once a day , Taking Xarelto 20 mg tablet 1 tab(s) orally once a day (in the evening) , Taking tamsulosin 0.4 mg capsule 1 cap(s) orally once a day , Taking gabapentin 600 mg tablet 1 tab(s) orally 3 times a day , Taking sertraline 50 mg tablet 1 tab(s) orally once a day , Taking amiodarone 200 mg tablet 1 tab(s) orally once a day , Taking Mupirocin 2% ointment 1 osei applied to affected area 3 times a day , Taking Tamsulosin Hydrochloride 0.4 mg capsule 1 cap(s) orally two times a day ( 1 cap in the morning and 1 cap 30 minutes after evening meal ) , Taking Xyosted enanthate 75 mg/0.5 mL solution as directed subcutaneously once a week , Medication List reviewed and reconciled with the patient * Allergies:?N.K.D.A. Objective: * Vitals:?Ht: 72, Wt: 204, BMI : 27.66. * Examination: ???Genitourinary - Male: ?General appearance:? alert, oriented x 3, no apparent distress, pleasant, well appearing.?Cystoscopy: The patient was prepped and draped in sterile fashion. A 17 [place]ian flexible cystourethroscopy was performed after instillation of lidocaine jelly per urethra. The complete urethra and bladder in all quadrants were carefully inspected. Inspection of the urethra, trigone, ureteral orifices and remainder of bladder showed: Urethra: Normal anterior urethra. Mild prostatic enlargement. Tight membranous urethral (likley secondary to patient baring down).? Ureteral Orifices: Normal B/L? Bladder: Multiple areas of scar. No obvious recurrence. Assessment: * Assessment: 1.?Testicular hypofunction - E29.1???2.?Benign prostatic hyperplasia with lower urinary tract symptoms - N40.1???3.?Frequency of micturition - R35.0??? ASSESSMENT: Mr. Agustin is a 74-year-old male with a history of bladder cancer, recurrent. Recently completed a course of maintenance BCG in late December, due for his next course in July. Surveillance cystoscopy today was negative. Recent urine cytology was negative. Also with a history of benign prostatic hyperplasia, lower urinary tract symptoms, frequency and urgency, hypogonadism. He is on tamsulosin. He is on Xyosted. Doing well with Xyosted, no issues. We discussed addition of Gemtesa for his frequency and urgency. Mechanism and side effects discussed. A handwritten prescription was given to him. He will consider whether or not to start this medication. Surveillance cystoscopy was negative. Urine cytology was negative. In terms of his next course of maintenance BCG, this would be due for July. However, they are likely leaving for [place] from June to September. Therefore, we will likely plan on maintenance BCG to start in early September. PLAN: 1.Consider Gemtesa. Handwritten prescription was given. 2.Continue Flomax. 3.Continue Xyosted. 4.Follow up in early September for a three-week course of half BCG. Results reviewed and discussed. All questions answered. Plan: * Treatment: * Procedure Codes:?33889 CYSTO SCOPY * Preventive Medicine:? ??Counseling:?Care goal follow up plan:?Above Normal BMI Follow-up?Weight monitoring ,?BMI Management provided?Yes.? * Images: Billing Information: * Visit Code:? 59883 Office Visit, Est Pt., Level 3. * Procedure Codes:? 19613 CYSTOSCOPY. * Electronic signature of RUPERT GOLDEN MD on 05/28/2024 at 10:24 AM EST Sign off status: Pending * Provider:?Rupert Golden MD Date:?2023 Generated for Printi ng/Faxing/eTransmitting on:?05/28/2024 10:24 AM EST History and Physical Notes * HPI (History of Present Illness) Category Sub-Category Detail Notes Category Not es A: Urological History/Sx Problem List: (1)Bladder Cancer -CIS - 09/25/22 TURBT -Completed iBCG 12/19/22 -02/21/23 TURBT: CIS -Completed iBCG #2: 05/14/23 -Completed mBCM (09/18/23) , 6M (12/26/23) (2)Testicular cancer -Left Seminoma (1981) - treated with left orchiectomy and Chemo. -Retroperitoneal teratoma ~1986 - treated with exlap / removal -Right testicular cancer (1991) - Treated with right orchiectomy, and abdominal radiation. (3)BPH / LUTS -Tamsulosin (4)Hypogonadism -Gel -IM injection -Xyosted 74 year old male with h/o Bladder Cancer (recurrent CIS), BPH / LUTS, Hypogonadism (surgical anorchidism, b/l orhciecotmy as above),BPH/LUTS. Presents for surveillance cystoscopy. Urine Cytology is negative. Completed 6m mBCG 12/26/23 Last surveillance cystoscopy 02/26/24 - JAYDEN He did restart Flomax 10/2022. Continues with Xyosted. Frequency urgency persist. Deneis gross hematuria. He is on Lasix. He is having frequency of urination after. Xarelto Considering watchman procedure at [facility]. After watchman he may get a TAVR. INITIAL VISIT 07/12/22 Has had long h/o microscopic and gross hematuria. Likley radiation induced. Prior w/u by urology in [facility]. H/O BPH / LUTS. On Flomax. No significant improvement. Frequency / urgency. He is up to 2 tablets. H/O Testicular Cancer. Treated as above. Surgical anorchidism - has been on gel, but does not take regularly. PMH: Testicular cancer, STAN, Afib, HTN, GERD, Anxiety, Diverticulitis Past surgical hx: Back surgery, joint replacement, L knee arthroscopy, L shoulder arthroscopy, testicular cancer s/p treatment, abdominal teratoma treated with xlap and later recurrent sbo managed with xlap/sbr(2015) 05/11/24 Urine Cytology: Negative, UA Micro: 10-20 RBCs, (-)WBCs 03/19/24 Testosterone: 620, PSA: 1.56, H/H: 11.2/35.4 02/26/24 Urine Cx: No growth 02/21/24 Urine Cytology: Negative 11/16/23 Urine Cytology: Negaive 11/06/23 PSA: 1.84 10/15/23 Urine Cx: No Growth 09/17/23 T; 551, PSA: 3.56, H/H: 11.0/34.9 06/06/23 Urine Cytology: Negative 09/04/23 CT A/P with IV contrast: SBO. No hydro. No stones. No lymphadenopathy. No renal lesions. Contracted bladder. Large prostate. I reviewed the CT and agree with the findings. 03/25/23 T: 530, H/H: 9.5/31.1 02/21/23 TURBT Pathology: Urothelial mucosa with focal severely dysplastic urothelium/carcinoma in-situ. No lamina propria invasion identified. Muscularis propria is present and uninvolved. 01/30/23 Urine Cytology: Positive, Urine FISH: Positive 01/25/23 Urine Cytology: Atypia 10/22/22 Testosterone: 681, H/H: 10.2/31.0 09/28/22 TURBT: severe dysplastc urothelium/CIS 07/31/22 CT Urogram: No hydronephrosis or urinary tract calculi. No suspicious renal or urothelial lesions. Small focus of inflammatory change adjacent to the upper pole of the left kidney. I reviewed the CT and agree with the findings. No obvious uppertract pathology. No lymphadenopathy. 07/26/22 PSA: 0.24, Creat: 1.18, eGFR >60 07/12/22 Urine Cytology: HG urothelial CA, Urine FISH: Positive 07/12/22 UA Micro: Negative 06/20/22 UA Micro: 5-10 WBCs, 26-50 RBCs 06/20/22 Urine Culture: <10K Gram Negative 06/20/22 Creat: 1.04, eGFR >60 06/02/22 CT A/P (non-contrast): SBO. Progressive multifocal cortical scarring of the bilateral kidneys, no urolithiasis or obstructive uropathy. Bladder is unremarkable. Prostate is not enlarged. I reviewed the CT and agree with the findings. Examination Category Sub-Category Detail Notes Category Notes Genitourinary - Male General appearance: alert, oriented x 3, no apparent distress, pleasant, well appearing Cystoscopy: The patient was prepped and draped in sterile fashion. A 17 [place]abian flexible cystourethroscopy was performed after instillation of lidocaine jelly per urethra. The complete urethra and bladder in all quadrants were carefully inspected. Inspection of the urethra, trigone, ureteral orifices and remainder of bladder showed: Urethra: Normal anterior urethra. Mild prostatic enlargement. Tight membranous urethral (likley secondary to patient baring down). Ureteral Orifices: Normal B/L Bladder: Multiple areas of scar. No obvious recurrence.
--- OUTSIDE RECORDS SUMMARY | 2024-05-28 10:24 | XMS_ITS ---
Author Organization [facility] Address [address] [place] [address] Care Team Providers Care Residential Subcontractor Name Role Phone Rodrigo BUSINESS EDUCATION TEACHER, Fabiola Primary Care Provider CORRINE Bui Unavailable [phone] REASON FOR VISIT cytology lab done? Encounters Encounter Location Date Provider Diagnosis [facility] [address] [place] [address] 05/14/2024 CORRINE GOLDEN Plan Of Treatment Next Appt Details Provider Name:CORRINE GOLDEN, 09/01/2024 09:28:00 AM, [address], [place], [address], Progress Notes * Milagro AGUSTINOB:[birth year] (74 yo M)Acc No.[id number]:05/14/2024 Patient:?Aravind AGUSTIN :1950???Age:74 Y???Sex:Male Address:[address] [place] [address] * true * Date:? Generated for Printi ng/Homerog/eTransmitting on:?05/28/2024 10:24 AM EST
--- OUTSIDE RECORDS SUMMARY | 2024-05-28 10:24 | XMS_ITS ---
Author Organization [facility] Address [address] [place] [address] Care Team Providers Care Manager Route Name Role Phone Rodrigo COMPLIANCE ANALYST, Fabiola Primary Care Provider CORRINE Bui Unavailable [phone] REASON FOR VISIT go over results Encounters Encounter Location Date Provider Diagnosis [facility] [address] [place] [address] 05/19/2024 CORRINE GOLDEN Plan Of Treatment Next Appt Details Provider Name:CORRINE GOLDEN, 09/01/2024 09:28:00 AM, [address], [place], [address], Progress Notes * Aravind AGUSTIN LDOB:1949 (74 yo M)Acc No.[id number]:05/19/2024 Patient:?Aravind AGUSTIN :1950???Age:74 Y???Sex:Male Address:[place] [address] * true * Date:? Generated for Printi ng/Faclaudineg/eTransmitting on:?05/28/2024 10:23 AM EST
--- OUTSIDE RECORDS SUMMARY | 2024-05-28 10:24 | XMS_ITS | Patient Health Record ---
Author Organization [facility] Address [address] [place] [address] Care Team Providers Care Perinatal Director Name Role Phone Rodrigo MENDOZA, Fabiola Primary Care Provider CORRINE Bui Unavailable [phone] ANILA RONALD Unavailable [phone] BEVERLY APODACA Unavailable [phone] RYANNE ORDONEZ Unavailable [phone] Allergies No Known Allergies Results Component Value Reference Range Notes TESTOSTERONE,TOTAL,MALES Reviewed date:09/17/2023 08:21:28 PM Interpretation: Performing Lab:[facility], [facility], [place] [employer] [address] [place] [address], [phone] Zohreh Rodarte Notes/Report: Received Date: NON-FASTING; NON-FASTING; NON-FASTING; NON-FASTING FASTING:YES FASTING: YES TESTOSTERONE, TOTAL, MALES (ADULT), [place] [address] ng/dL PSA, TOTAL Reviewed date:09/17/2023 09:15:17 PM Interpretation: Performing Lab:[facility], [facility], [place] [employer] [address] [place] [address], [phone] Zohreh Rodarte Notes/Report: Received Date: NON-FASTING; NON-FASTING; NON-FASTING; NON-FASTING FASTING:YES FASTING: YES PSA, TOTAL 3.56 < OR = 4.00 ng/mL The total PSA value from this assay system is standardized against the WHO standard. The test result will be approximately 20% lower when compared to the equimolar-standardized total PSA (Marlene Alan). Comparison of serial PSA results should be interpreted with this fact in mind. This test was performed using the Siemens chemiluminescent method. Values obtained from different assay methods cannot be used interchangeably. PSA levels, regardless of value, should not be interpreted as absolute evidence of the presence or absence of disease. HEMOGLOBIN Reviewed date:09/17/2023 10:32:52 PM Interpretation: Performing Lab:[facility], [facility], [address] [place] [address], [phone] Zohreh Cheung Notes/Report: Received Date: [id number] NON-FASTING; NON-FASTING; NON-FASTING; NON-FASTING FASTING:YES FASTING: YES HEMOGLOBIN 11.0 13.2-17.1 g/dL HEMATOCRIT Reviewed date:09/23/2023 12:24:56 PM Interpretation: Performing Lab:[facility], [facility], [address] [place] [address], [phone] Zohreh Cheung Notes/Report: Received Date: [id number] NON-FASTING; NON-FASTING; NON-FASTING; NON-FASTING FASTING:YES FASTING: YES HEMATOCRIT 34.9 38.5-50.0 % UPAP/CYTOLOGY, NON-TRAILER PARK MANAGER Reviewed date:06/06/2023 02:23:20 PM Interpretation: Performing Lab:[facility], [facility] [email or web address], [address] [place] [address], [phone] Sridhar Rodney [facility] Notes/Report: Received Date: [id number] FASTING:UNKNOWN FASTING: UNKNOWN SCREENER SL, CT(ASCP) CT screening location: [address] [address] PATHOLOGIST Liza Do D.O. Board Certified in Anatomic, Clinical and Cytopathology (electronic signature) Consulting Pathologist [facility] [address] [place] [address] A SOURCE Urine A PROCEDURE Cytology A GROSS DESCRIPTION The name on the container is in agreement with the requisition. 60 ml of clear, dark yellow fluid, received in an unknown fixative and processed by the ThinPrep method. (OB)06/05/2023 Gross exam(s) performed at: [facility] [address] [address] Aerial Lineman: ZOHREH RODARTE MD A DIAGNOSIS NEGATIVE FOR HIGH-GRADE UROTHELIAL CARCINOMA. - BENIGN UROTHELIAL AND SQUAMOUS CELLS PRESENT. URINALYSIS WITH REFLEX TO CU LTURE Reviewed date:10/17/2023 06:54:25 AM Interpretation: Performing Lab:[facility], [facility] [employer] [employer] [address] [place] [address], [phone] Zohreh Rodarte Notes/Report: Received Date: [id number] NON-FASTING COLOR YELLOW YELLOW APPEARANCE CLEAR CLEAR SPECIFIC GRAVITY 1.018 1.001-1.035 PH 5.5 5.0-8.0 GLUCOSE NEGATIVE NEGATIVE BILIRUBIN NEGATIVE NEGATIVE KETONES NEGATIVE NEGATIVE OCCULT BLOOD NEGATIVE NEGATIVE PROTEIN NEGATIVE NEGATIVE NITRITE NEGATIVE NEGATIVE LEUKOCYTE ESTERASE TRACE NEGATIVE WBC NONE SEEN < OR = 5 /HPF RBC 0-2 < OR = 2 /HPF SQUAMOUS EPITHELIAL CELLS NONE SEEN < OR = 5 /HPF BACTERIA NONE SEEN NONE SEEN /HPF HYALINE CAST NONE SEEN NONE SEEN /LPF NOTE This urine was analyzed for the presence of WBC, RBC, bacteria, casts, and other formed elements. Only those elements seen were reported. REFLEXIVE URINE CULTURE CULT URE INDICATED - RESULTS TO FOLLOW CULTURE, URINE, ROUTINE SEE NOTE CULTURE, URINE, ROUTINE Micro Number: [id number] Test Status: Final Specimen Source: Urine Specimen Quality: Adequate Result: No Growth PSA, TOTAL Reviewed date:11/07/2023 07:19:31 AM Interpretation: Performing Lab:[facility], [facility] [address] [place] [address], [phone] Zohreh Rodarte Notes/Report: Received Date: [id number] NON-FASTING FASTING:NO FASTING: NO PSA, TOTAL 1.84 < OR = 4.00 ng/mL The total PSA value from this assay system is standardized against the WHO standard. The test result will be approximately 20% lower when compared to the equimolar-standardized total PSA (Marlene Amite). Comparison of serial PSA results should be interpreted with this fact in mind. This test was performed using the Siemens chemiluminescent method. Values obtained from different assay methods cannot be used interchangeably. PSA levels, regardless of value, should not be interpreted as absolute evidence of the presence or absence of disease. Urine Cytology (IMGEN) Reviewed date:11/21/2023 06:45:57 AM Interpretation: Performing Lab: Notes/Report: [facility] (IMGEN) Reviewed date:11/21/2023 04:00:50 PM Interpretation: Performing Lab: Notes/Report: URINALYSIS WITH REFLEX TO CU LTURE Reviewed date:02/28/2024 08:26:05 AM Interpretation: Performing Lab:[facility], [facility] [address] [place] [address], [phone] Zohreh Rodarte Notes/Report: Received Date: [id number] NON-FASTING COLOR YELLOW YELLOW APPEARANCE CLEAR CLEAR SPECIFIC GRAVITY 1.015 1.001-1.035 PH 7.0 5.0-8.0 GLUCOSE NEGATIVE NEGATIVE BILIRUBIN NEGATIVE NEGATIVE KETONES NEGATIVE NEGATIVE OCCULT BLOOD 3+ NEGATIVE PROTEIN 1+ NEGATIVE NITRITE NEGATIVE NEGATIVE LEUKOCYTE ESTERASE TRACE NEGATIVE WBC 0-5 < OR = 5 /HPF RBC > OR = 60 < OR = 2 /HPF SQUAMOUS EPITHELIAL CELLS NONE SEEN < OR = 5 /HPF BACTERIA NONE SEEN NONE SEEN /HPF HYALINE CAST NONE SEEN NONE SEEN /LPF NOTE This urine was analyzed for the presence of WBC, RBC, bacteria, casts, and other formed elements. Only those elements seen were reported. REFLEXIVE URINE CULTURE CULT URE INDICATED - RESULTS TO FOLLOW CULTURE, URINE, ROUTINE SEE NOTE CULTURE, URINE, ROUTINE Micro Number: [id number] Test Status: Final Specimen Source: Urine Specimen Quality: Adequate Result: No Growth HEMATOCRIT Reviewed date:03/19/2024 08:48:13 PM Interpretation: Performing Lab:[facility], [facility] [address] [place] [address], [phone] Zohreh Rodarte Notes/Report: Received Date: [id number] NON-FASTING; NON-FASTING; NON-FASTING; NON-FASTING FASTING:NO FASTING: NO HEMATOCRIT 35.4 38.5-50.0 % HEMOGLOBIN Reviewed date:03/19/2024 08:48:04 PM Interpretation: Performing Lab:[facility], [facility] [address] [place] [address], [phone] Zohreh Rodarte Notes/Report: Received Date: [id number] NON-FASTING; NON-FASTING; NON-FASTING; NON-FASTING FASTING:NO FASTING: NO HEMOGLOBIN 11.2 13.2-17.1 g/dL PSA, TOTAL Reviewed date:03/19/2024 07:32:15 PM Interpretation: Performing Lab:[facility], [facility] [address] [place] [address], [phone] Zohreh Stevens Kevinraquel Notes/Report: Received Date: [id number] NON-FASTING; NON-FASTING; NON-FASTING; NON-FASTING FASTING:NO FASTING: NO PSA, TOTAL 1.56 < OR = 4.00 ng/mL The total PSA value from this assay system is standardized against the WHO standard. The test result will be approximately 20% lower when compared to the equimolar-standardized total PSA (Marlene Alan). Comparison of serial PSA results should be interpreted with this fact in mind. This test was performed using the Siemens chemiluminescent method. Values obtained from different assay methods cannot be used interchangeably. PSA levels, regardless of value, should not be interpreted as absolute evidence of the presence or absence of disease. TESTOSTERONE,TOTAL,MALES Reviewed date:03/19/2024 07:32:24 PM Interpretation: Performing Lab:[facility], [facility] [address] [place] [address], [phone] Zohreh Stevens Kevinraquel Notes/Report: Received Date: [id number] NON-FASTING; NON-FASTING; NON-FASTING; NON-FASTING FASTING:NO FASTING: NO TESTOSTERONE, TOTAL, MALES (ADULT), [place] [address] ng/dL UPAP/CYTOLOGY, NON-TRAILER PARK MANAGER Reviewed date:02/27/2024 02:07:23 PM Interpretation: Performing Lab:[facility], [facility] [address] [place] [address], [phone] Zohreh Rodarte Notes/Report: Received Date: [id number] NON-FASTING FASTING:NO FASTING: NO SCREENER ALS, CT(ASCP) CT screening location: [address] [address] PATHOLOGIST Liza Do D.O. Board Certified in Anatomic, Clinical and Cytopathology (electronic signature) Consulting Pathologist [facility] [address] [place] [address] A SOURCE Urine A PROCEDURE Cytology A GROSS DESCRIPTION The name on the container is in agreement with the requisition. 70 ml of clear, dark yellow fluid, received in an unknown fixative and processed by the ThinPrep method. (DC)02/25/2024 Gross exam(s) performed at: [facility] [address] [address] Aerial Lineman: ZOHREH RODARTE MD A DIAGNOSIS NEGATIVE FOR HIGH-GRADE UROTHELIAL CARCINOMA. - BENIGN UROTHELIAL AND SQUAMOUS CELLS PRESENT. UPAP/CYTOLOGY, NON-TRAILER PARK MANAGER Reviewed date:05/14/2024 01:33:26 PM Interpretation: Performing Lab:[facility], [facility], [address] [place] [address], [phone] Delvin Smith MD Notes/Report: Received Date: [id number] NON-FASTING; NON-FASTING FASTING:NO MULTIPLE TESTING PRIORITIES; ROUTINE TESTING TO F FASTING: NO SCREENER DCR, CT(ASCP) CT screening location: [place] [address] PATHOLOGIST Yair Pereyra M.D., Ph.D., Board Certified in Anatomic Pathology and Cytopathology (electronic signature) Consulting Pathologist [facility] [address] [place] [address] REPORT NOTES NOTE: Terminology has been changed by international consensus to emphasize the sensitivity (about 85%) of urine cytology for diagnosis of clinically important high grade urothelial cell carcinomas, and to acknowledge the low sensitivity for detection of low grade urothelial neoplasms. A SOURCE Urine A PROCEDURE Cytology A GROSS DESCRIPTION The name on the container is in agreement with the requisition. 65 ml of clear, colorless fluid, received in an unknown fixative and processed by the ThinPrep method. (DC)05/13/2024 Gross exam(s) performed at: [facility] [address] [address] Aerial Lineman: ZOHREH RODARTE MD A DIAGNOSIS NEGATIVE FOR HIGH-GRADE UROTHELIAL CARCINOMA. - BENIGN UROTHELIAL AND SQUAMOUS CELLS PRESENT. URINALYSIS WITH REFLEX TO CU LTURE Reviewed date:05/12/2024 07:05:57 AM Interpretation: Performing Lab:NL2, [facility], [address] [place] [address], [phone] Zohreh Rodarte Notes/Report: Received Date: SPLIT 05/11/2024 FROM [id number] FASTING:NO FASTING: NO COLOR YELLOW YELLOW APPEARANCE CLEAR CLEAR SPECIFIC GRAVITY 1.010 1.001-1.035 PH 6.5 5.0-8.0 GLUCOSE NEGATIVE NEGATIVE BILIRUBIN NEGATIVE NEGATIVE KETONES NEGATIVE NEGATIVE OCCULT BLOOD 2+ NEGATIVE PROTEIN NEGATIVE NEGATIVE NITRITE NEGATIVE NEGATIVE LEUKOCYTE ESTERASE NEGATIVE NEGATIVE WBC NONE SEEN < OR = 5 /HPF RBC 10-20 < OR = 2 /HPF SQUAMOUS EPITHELIAL CELLS NONE SEEN < OR = 5 /HPF BACTERIA NONE SEEN NONE SEEN /HPF HYALINE CAST NONE SEEN NONE SEEN /LPF NOTE This urine was analyzed for the presence of WBC, RBC, bacteria, casts, and other formed elements. Only those elements seen were reported. REFLEXIVE URINE CULTURE NO C ULTURE INDICATED Reason For Referral No Information Medications Medication SIG (Take, Route, Frequency, Duration) Notes Start Date End Date Status ZyrTEC 10 mg 1 tab(s) orally once a day Active metoprolol 25 mg 1 cap(s) orally once a day Active Xarelto 20 mg 1 tab(s) orally once a day (in the evening) Active omeprazole 20 mg 1 cap(s) orally once a day Active Vitamin C 1000 mg 1 tab(s) orally once a day Active Xyosted enanthate 75 mg/0.5 mL as directed subcutaneously once a week for 30 days 04/24/2024 Active digoxin Active amLODIPine 5 mg 1 tab(s) orally once a day Active Lasix 20 mg 1 tab(s) orally once a day Active dicyclomine 10 mg 2 cap(s) orally 4 ti mes a day Active Iron 100 Plus Vitamin B Complex with C, Folic Acid and Iron 1 tab(s) orally once a day A ctive amiodarone 200 mg 1 tab(s) orally once a day Active fluticasone 50 mcg/inh 1 puff(s) inhaled 2 times a day Active sertraline 50 mg 1 tab(s) orally once a day Active Stool Softener + Stimulant Laxative 50 mg-8.6 mg 2 tab(s) orally once a day (at bedtime) Active Tamsulosin Hydrochloride 0.4 mg 1 cap(s) orally two times a day ( 1 cap in the morning and 1 cap 30 minutes after evening meal ) for 90 days 11/14/2022 Active Culturee Digestive Health - 1 cap(s) orally once a day A ctive Mupirocin 2% 1 osei applied to aff ected area 3 times a day 11/14/2022 Active albuterol 5 mg/mL 0.5 mL by nebulizer every 6 hours Active gabapentin 600 mg 1 tab(s) orally [...] Alcohol MU Question Answer Notes Interpretation Negative Problems Problem Type SNOMED Code ICD Code Onset Dates Problem Status W/U Status Risk Notes Problem Gross hematuria (582304312) Gross hematuria (R31.0) Active confirmed Problem Frequency of micturition (695097031) Frequency of micturition (R35.0) Active confirmed Problem Malignant neoplasm of lateral wall of urinary bladder (411393516) Bladder Cancer- lateral wall (C67.2) Active confirmed Problem Carcinoma in situ of bladder (30168651) Bladder - Carcinoma in situ (D09.0) Active confirmed Problem Testicular hypofunction (095023679) Testicular hypofunction (E29.1) Active confirmed Problem Urgent desire to urinate (10005122) Urgency of urination (R39.15) Active confirmed Problem Personal history of primary malignant neoplasm of urinary bladder (301533780) Personal history of malignant neoplasm of bladder (Z85.51) Active confirmed Problem Lower urinary tract symptoms due to benign prostatic hypertrophy (25209198606454) Benign prostatic hyperplasia with lower urinary tract symptoms (N40.1) Active confirmed Problem Elevated PSA (536071604) Elevated prostate specific antigen [PSA] (R97.20) Active confirmed Vital Signs Height 72 in 05/18/2024 Weight 204 lbs 05/18/2024 BMI 27.66 kg/m2 05/18/2024 Encounters Encounter Location Date Provider Diagnosis [facility] [address] [place] [address] 06/05/2023 CORRINE GOLDEN Benign prostatic hyperplasia with lower urinary tract symptoms N40.1 ; Testicular hypofunction E29.1 and Personal history of malignant neoplasm of bladder Z85.51 [facility] [address] [place] [address] 06/13/2023 CORRINE GOLDEN [facility] [address] [place] [address] 09/11/2023 RYANNE TYO Bladder Cancer- lateral wall C67.2 and Gross hematuria R31.0 [facility] [address] [place] [address] 09/18/2023 BEVERLY LAKHANI MICHAELLE Bladder Cancer- lateral wall C67.2 and Elevated prostate specific antigen [PSA] R97.20 [facility] [address] [place] [address] 10/15/2023 CORRINE GOLDEN Elevated prostate specific antigen [PSA] R97.20 ; Frequency of micturition R35.0 ; Testicular hypofunction E29.1 and Urgency of urination R39.15 [facility] [address] [place] [address] 11/14/2023 CORRINE GOLDEN Benign prostatic hyperplasia with lower urinary tract symptoms N40.1 ; Testicular hypofunction E29.1 and Personal history of malignant neoplasm of bladder Z85.51 [facility] [address] [place] [address] 11/14/2023 CORRINE GOLDEN [facility] [address] [facility] [address] [place] [address] 12/12/2023 RONALD MESMER Bladder - Carcinoma in situ D09.0 [facility] [address] [facility] [address] [place] [address] 12/19/2023 BEVERLY LAKHANI MICHAELLE Bladder - Carcinoma in situ D09.0 [facility] [address] [place] [address] 12/26/2023 BEVERLY LAKHANI MICHAELLE Bladder Cancer- lateral wall C67.2 [facility] [address] [place] [address] 02/26/2024 CORRINE GOLDEN Testicular hypofunction E29.1 ; Elevated prostate specific antigen [PSA] R97.20 ; Benign prostatic hyperplasia with lower urinary tract symptoms N40.1 and Personal history of malignant neoplasm of bladder Z85.51 [facility] [address] [place] [address] 04/01/2024 CORRINE GOLDEN Benign prostatic hyperplasia with lower urinary tract symptoms N40.1 ; Testicular hypofunction E29.1 and Urgency of urination R39.15 [facility] [address] [place] [address] 05/18/2024 CORRINE GOLDEN Testicular hypofunction E29.1 ; Benign prostatic hyperplasia with lower urinary tract symptoms N40.1 and Frequency of micturition R35.0 [facility] [address] [place] [address] 06/03/2023 CORRINE GOLDEN Bladder Cancer- lateral wall C67.2 [facility] [address] [place] [address] 06/04/2023 CORRINE GOLDEN [facility] [address] [place] [address] 06/25/2023 CORRINE GOLDEN [facility] [address] [address] 08/13/2023 CORRINE GOLDEN [facility] [address] [place] [address] 08/27/2023 CORRINE GOLDEN [facility] [address] [place] [address] 09/02/2023 CORRINE GOLDEN Testicular hypofunction E29.1 and Benign prostatic hyperplasia with lower urinary tract symptoms N40.1 [facility] [address] [place] [address] 09/04/2023 CORRINE GOLDEN [facility] [address] [place] [address] 10/17/2023 CORRINE GOLDEN [facility] [address] [place] [address] 11/02/2023 CORRINE GOLDEN Elevated prostate specific antigen [PSA] R97.20 [facility] [address] [address] 11/08/2023 CORRINE GOLDEN [facility] [address] [place] [address] 11/13/2023 CORRINE GOLDEN [facility] [address] [place] [address] 11/21/2023 CORRINE GOLDEN [facility] [address] [place] [address] 12/03/2023 RONALD HIGH [facility] [address] [address] 01/14/2024 CORRINE GOLDEN [facility] [address] [address] 02/02/2024 CORRINE GOLDEN Bladder Cancer- lateral wall C67.2 [facility] [address] [address] 02/20/2024 CORRINE GOLDEN [facility] [address] [address] 02/21/2024 CORRINE GOLDEN [facility] [address] [address] 02/26/2024 CORRINE GOLDEN [facility] [address] [address] 02/27/2024 CORRINE GOLDEN [facility] [address] [address] 02/28/2024 CORRINE GOLDEN [facility] [address] [address] 04/02/2024 CORRINE GOLDEN Benign prostatic hyperplasia with lower urinary tract symptoms N40.1 [facility] [address] [address] 04/24/2024 CORRINE GOLDEN [facility] [address] [address] 05/11/2024 CORRINE GOLDEN [facility] [address] [address] 05/14/2024 CORRINE GOLDEN [facility] [address] [address] 05/19/2024 CORRINE GOLDEN Assessments Encounter Date Diagnosis (ICD Code) Assessment Notes Treatment Notes Treatment Clinical Notes Section Notes 06/03/2023 Bladder Cancer- lateral wall (ICD-10 - C67.2) 06/05/2023 Testicular hypofunction (ICD-10 - E29.1) ASSESSMENT: Mr. Agustin is a 73-year-old male with a history of recurrent carcinoma in situ, status post his second course of induction BCG. Also with a history of hypogonadism, anorchidism. Also with a history of benign prostatic hyperplasia, lower urinary tract symptoms. On Xyosted, with excellent results. However, over the last 1 to 2 months he has noticed some inflammatory changes and itching at either injection site. This resolves after about 1 week. On my exam there is no evidence of any abscess. I did recommend he inject again on the left side, I will reassess him next week at the time of his cystoscopy. PLAN: 1. Continue Xyosted for now. 2. Continue Flomax. 3. Await urine cytology results. 4. Follow up for surveillance cystoscopy next week as planned. If these symptoms continue with the Xyosted we can consider restarting testosterone gel versus Aveed. 06/05/2023 Benign prostatic hyperplasia with lower urinary tract symptoms (ICD-10 - N40.1) ASSESSMENT: Mr. Agustin is a 73-year-old male with a history of recurrent carcinoma in situ, status post his second course of induction BCG. Also with a history of hypogonadism, anorchidism. Also with a history of benign prostatic hyperplasia, lower urinary tract symptoms. On Xyosted, with excellent results. However, over the last 1 to 2 months he has noticed some inflammatory changes and itching at either injection site. This resolves after about 1 week. On my exam there is no evidence of any abscess. I did recommend he inject again on the left side, I will reassess him next week at the time of his cystoscopy. PLAN: 1. Continue Xyosted for now. 2. Continue Flomax. 3. Await urine cytology results. 4. Follow up for surveillance cystoscopy next week as planned. If these symptoms continue with the Xyosted we can consider restarting testosterone gel versus Aveed. 09/02/2023 Testicular hypofunction (ICD-10 - E29.1) 09/02/2023 Benign prostatic hyperplasia with lower urinary tract symptoms (ICD-10 - N40.1) 09/11/2023 Gross hematuria (ICD-10 - R31.0) 09/11/2023 Bladder Cancer- lateral wall (ICD-10 - C67.2) 09/18/2023 Bladder Cancer- lateral wall (ICD-10 - C67.2) 10/15/2023 Elevated prostate specific antigen [PSA] (ICD-10 - R97.20) reflex sent to [facility] ASSESSMENT: Mr. Agustin is a 73-year-old male with a history of recurrent carcinoma in situ. Completed 1st course of maintenance. He was only able to do 2 doses, as he had a recent small bowel obstruction. Also some frequency and urgency. Also with a history of hypogonadism. Recent rise in PSA, this was after a dose of BCG and after bowel obstruction. Exam does show a mildly enlarged prostate, no nodules. He does have some frequency and urgency after he completed BCG. I did recommend ruling out a UTI. Also recommended a repeat PSA level. PLAN: 1.Continue Xyosted, testosterone levels appear normal. 2.Continue Flomax. 3.Urinalysis microscopic reflexive. We will call with the results. 4.PSA level in early November. 5.Urine cytology in early November. 6.Surveillance cystoscopy scheduled for November 13. Results reviewed and discussed. All questions answered. 11/02/2023 Elevated prostate specific antigen [PSA] (ICD-10 - R97.20) 11/14/2023 Benign prostatic hyperplasia with lower urinary tract symptoms (ICD-10 - N40.1) ASSESSMENT: Mr. 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 Surveillance cystoscopy today was negative. We did send urine for cytology and fluorescence in situ hybridization. I did recommend another course of maintenance BCG to start in December. He is agreeable. Also with irritative symptoms, likely from prior BCG and bladder cancer. These are improving. Also with a history of benign prostatic hyperplasia. He is on tamsulosin. Also with a history of hypogonadism, doing well with Xyosted. Most recent testosterone was 551 in September. Also with recent rise in PSA, back down to 1.84. Results reviewed and discussed. PLAN: 1.Urine cytology and urine fluorescence in situ hybridization. We will call with the results. 2.Tentatively schedule for next maintenance BCG course to start in December, half ECG. 3.Continue Flomax. 4.Continue Xyosted. 5.He will likely need testosterone labs and PSA in March. 6.His next surveillance cystoscopy would be with me 4 to 6 weeks after completing his maintenance BCG with urine cytology at that time. In terms of upper tract imaging, he had a CT with IV contrast in September, which showed no hydronephrosis, stones, or renal lesions. No lymphadenopathy . Results reviewed and discussed. The patient agreeable to the above plan. 12/12/2023 Bladder - Carcinoma in situ (ICD-10 - D09.0) 12/19/2023 Bladder - Carcinoma in situ (ICD-10 - D09.0) 12/26/2023 Bladder Cancer- lateral wall (ICD-10 - C67.2) 02/02/2024 Bladder Cancer- lateral wall (ICD-10 - C67.2) 02/26/2024 Testicular hypofunction (ICD-10 - E29.1) ASSESSMENT: Mr. Agustin is a 73-year-old male with a history of bladder cancer, recurrent CIS. He has completed 2 induction courses. He completed his 2nd course of maintenance BCG in December. Urine cytology from last week is pending. Cystoscopy today shows no obvious recurrence. He is having some more frequency and urgency, but he is on Lasix. Again, cystoscopy today shows no obvious recurrence, there is quite a bit of scar. Also with a history of hypogonadism, on Xyosted. Also with urinary symptoms, on tamsulosin. PLAN: 1. Continue Xyosted. 2. Await urine cytology results. We will call with the results. 3. Continue tamsulosin. 4. Telemedicine visit in 1 month with labs, including testosterone, PSA, hemoglobin and hematocrit. Please note that recently his PSA was up, but then trended back down. 5. Urinalysis microscopic reflexive. We will call with the results. 6. Likely another course of maintenance BCG, this would start likely in June. We will probably do cystoscopy prior given his history of recurrent CIS. Results reviewed and discussed. All questions answered. 04/01/2024 Benign prostatic hyperplasia with lower urinary tract symptoms (ICD-10 - N40.1) ASSESSMENT: Mr. Agustin is a 73-year-old male with history of bladder cancer, high risk, carcinoma in situ. Recent completed maintenance BCG, the six-month course. Also with history of hypogonadism secondary to history of bilateral orchiectomies. Also with a history of abdominal radiation. Also with a history of bothersome urinary symptoms, currently on tamsulosin. In terms of his hypogonadism, he is doing well with Xyosted. Please note, recent cystoscopy showed no recurrence. Recent urine cytology was negative. Her blood work shows normal testosterone, his PSA is stable. Results reviewed and discussed via telemedicine. PLAN: 1.Continue tamsulosin. 2.Behavioral modification, limit bladder irritants. Hopefully, as he gets further and further from his last course of BCG, his urinary symptoms will improve. 3.Follow up in May with a urinalysis microscopic reflexive and urine cytology for surveillance cystoscopy. 4.Consider next three-week course of maintenance BCG in June 2024. 04/02/2024 Benign prostatic hyperplasia with lower urinary tract symptoms (ICD-10 - N40.1) 05/18/2024 Testicular hypofunction (ICD-10 - E29.1) ASSESSMENT: [...] July. However, they are likely leaving for [place] from June to September. Therefore, we will [...] July. However, they are likely leaving for [place] from June to September. Therefore, we will likely plan on maintenance BCG to start in early September. PLAN: 1.Consider Gemtesa. Handwritten prescription was given. 2.Continue Flomax. 3.Continue Xyosted. 4.Follow up in early September for a three-week course of half BCG. Results reviewed and discussed. All questions answered. 02/26/2024 Elevated prostate specific antigen [PSA] (ICD-10 - R97.20) ASSESSMENT: Mr. Agustin is a 73-year-old male with a history of bladder cancer, recurrent CIS. He has completed 2 induction courses. He completed his 2nd course of maintenance BCG in December. Urine cytology from last week is pending. Cystoscopy today shows no obvious recurrence. He is having some more frequency and urgency, but he is on Lasix. Again, cystoscopy today shows no obvious recurrence, there is quite a bit of scar. Also with a history of hypogonadism, on Xyosted. Also with urinary symptoms, on tamsulosin. PLAN: 1. Continue Xyosted. 2. Await urine cytology results. We will call with the results. 3. Continue tamsulosin. 4. Telemedicine visit in 1 month with labs, including testosterone, PSA, hemoglobin and hematocrit. Please note that recently his PSA was up, but then trended back down. 5. Urinalysis microscopic reflexive. We will call with the results. 6. Likely another course of maintenance BCG, this would start likely in June. We will probably do cystoscopy prior given his history of recurrent CIS. Results reviewed and discussed. All questions answered. 04/01/2024 Testicular hypofunction (ICD-10 - E29.1) ASSESSMENT: Mr. Agustin is a 73-year-old male with history of bladder cancer, high risk, carcinoma in situ. Recent completed maintenance BCG, the six-month course. Also with history of hypogonadism secondary to history of bilateral orchiectomies. Also with a history of abdominal radiation. Also with a history of bothersome urinary symptoms, currently on tamsulosin. In terms of his hypogonadism, he is doing well with Xyosted. Please note, recent cystoscopy showed no recurrence. Recent urine cytology was negative. Her blood work shows normal testosterone, his PSA is stable. Results reviewed and discussed via telemedicine. PLAN: 1.Continue tamsulosin. 2.Behavioral modification, limit bladder irritants. Hopefully, as he gets further and further from his last course of BCG, his urinary symptoms will improve. 3.Follow up in May with a urinalysis microscopic reflexive and urine cytology for surveillance cystoscopy. 4.Consider next three-week course of maintenance BCG in June 2024. 11/14/2023 Testicular hypofunction (ICD-10 - E29.1) ASSESSMENT: Mr. 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 Surveillance cystoscopy today was negative. We did send urine for cytology and fluorescence in situ hybridization. I did recommend another course of maintenance BCG to start in December. He is agreeable. Also with irritative symptoms, likely from prior BCG and bladder cancer. These are improving. Also with a history of benign prostatic hyperplasia. He is on tamsulosin. Also with a history of hypogonadism, doing well with Xyosted. Most recent testosterone was 551 in September. Also with recent rise in PSA, back down to 1.84. Results reviewed and discussed. PLAN: 1.Urine cytology and urine fluorescence in situ hybridization. We will call with the results. 2.Tentatively schedule for next maintenance BCG course to start in December, half ECG. 3.Continue Flomax. 4.Continue Xyosted. 5.He will likely need testosterone labs and PSA in March. 6.His next surveillance cystoscopy would be with me 4 to 6 weeks after completing his maintenance BCG with urine cytology at that time. In terms of upper tract imaging, he had a CT with IV contrast in September, which showed no hydronephrosis, stones, or renal lesions. No lymphadenopathy . Results reviewed and discussed. The patient agreeable to the above plan. 09/18/2023 Elevated prostate specific antigen [PSA] (ICD-10 - R97.20) 10/15/2023 Frequency of micturition (ICD-10 - R35.0) ASSESSMENT: Mr. Agustin is a 73-year-old male with a history of recurrent carcinoma in situ. Completed 1st course of maintenance. He was only able to do 2 doses, as he had a recent small bowel obstruction. Also some frequency and urgency. Also with a history of hypogonadism. Recent rise in PSA, this was after a dose of BCG and after bowel obstruction. Exam does show a mildly enlarged prostate, no nodules. He does have some frequency and urgency after he completed BCG. I did recommend ruling out a UTI. Also recommended a repeat PSA level. PLAN: 1.Continue Xyosted, testosterone levels appear normal. 2.Continue Flomax. 3.Urinalysis microscopic reflexive. We will call with the results. 4.PSA level in early November. 5.Urine cytology in early November. 6.Surveillance cystoscopy scheduled for November 13. Results reviewed and discussed. All questions answered. 06/05/2023 Personal history of malignant neoplasm of bladder (ICD-10 - Z85.51) ASSESSMENT: Mr. Agustin is a 73-year-old male with a history of recurrent carcinoma in situ, status post his second course of induction BCG. Also with a history of hypogonadism, anorchidism. Also with a history of benign prostatic hyperplasia, lower urinary tract symptoms. On Xyosted, with excellent results. However, over the last 1 to 2 months he has noticed some inflammatory changes and itching at either injection site. This resolves after about 1 week. On my exam there is no evidence of any abscess. I did recommend he inject again on the left side, I will reassess him next week at the time of his cystoscopy. PLAN: 1. Continue Xyosted for now. 2. Continue Flomax. 3. Await urine cytology results. 4. Follow up for surveillance cystoscopy next week as planned. If these symptoms continue with the Xyosted we can consider restarting testosterone gel versus Aveed. 10/15/2023 Testicular hypofunction (ICD-10 - E29.1) ASSESSMENT: Mr. Agustin is a 73-year-old male with a history of recurrent carcinoma in situ. Completed 1st course of maintenance. He was only able to do 2 doses, as he had a recent small bowel obstruction. Also some frequency and urgency. Also with a history of hypogonadism. Recent rise in PSA, this was after a dose of BCG and after bowel obstruction. Exam does show a mildly enlarged prostate, no nodules. He does have some frequency and urgency after he completed BCG. I did recommend ruling out a UTI. Also recommended a repeat PSA level. PLAN: 1.Continue Xyosted, testosterone levels appear normal. 2.Continue Flomax. 3.Urinalysis microscopic reflexive. We will call with the results. 4.PSA level in early November. 5.Urine cytology in early November. 6.Surveillance cystoscopy scheduled for November 13. Results reviewed and discussed. All questions answered. 11/14/2023 Personal history of malignant neoplasm of bladder (ICD-10 - Z85.51) Urine cytology is a test to look for abnormal cells in your urine. Urine cytology is used along with other tests and procedures to diagnose urinary tract cancers. Urine cytology is most often used to diagnose bladder cancer, though the test may also detect kidney cancer, prostate cancer, ureter cancer and urethra cancer. A urine cytology test is recommended if blood has been detected in your urine(hematuri a). Urine cytology may also be used in people who have already been diagnosed with bladder cancer and have undergone treatment. In these cases, a urine cytology test may help detect a bladder cancer recurrence. cytology - Source: cysto UPAP and FISH sent to [facility] ASSESSMENT: Mr. 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 Surveillance cystoscopy today was negative. We did send urine for cytology and fluorescence in situ hybridization. I did recommend another course of maintenance BCG to start in December. He is agreeable. Also with irritative symptoms, likely from prior BCG and bladder cancer. These are improving. Also with a history of benign prostatic hyperplasia. He is on tamsulosin. Also with a history of hypogonadism, doing well with Xyosted. Most recent testosterone was 551 in September. Also with recent rise in PSA, back down to 1.84. Results reviewed and discussed. PLAN: 1.Urine cytology and urine fluorescence in situ hybridization. We will call with the results. 2.Tentatively schedule for next maintenance BCG course to start in December, half ECG. 3.Continue Flomax. 4.Continue Xyosted. 5.He will likely need testosterone labs and PSA in March. 6.His next surveillance cystoscopy would be with me 4 to 6 weeks after completing his maintenance BCG with urine cytology at that time. In terms of upper tract imaging, he had a CT with IV contrast in September, which showed no hydronephrosis, stones, or renal lesions. No lymphadenopathy . Results reviewed and discussed. The patient agreeable to the above plan. 04/01/2024 Urgency of urination (ICD-10 - R39.15) ASSESSMENT: Mr. Agustin is a 73-year-old male with history of bladder cancer, high risk, carcinoma in situ. Recent completed maintenance BCG, the six-month course. Also with history of hypogonadism secondary to history of bilateral orchiectomies. Also with a history of abdominal radiation. Also with a history of bothersome urinary symptoms, currently on tamsulosin. In terms of his hypogonadism, he is doing well with Xyosted. Please note, recent cystoscopy showed no recurrence. Recent urine cytology was negative. Her blood work shows normal testosterone, his PSA is stable. Results reviewed and discussed via telemedicine. PLAN: 1.Continue tamsulosin. 2.Behavioral modification, limit bladder irritants. Hopefully, as he gets further and further from his last course of BCG, his urinary symptoms will improve. 3.Follow up in May with a urinalysis microscopic reflexive and urine cytology for surveillance cystoscopy. 4.Consider next three-week course of maintenance BCG in June 2024. 05/18/2024 Frequency of micturition (ICD-10 - R35.0) [...] July. However, they are likely leaving for [place] from June to September. Therefore, we will likely plan on maintenance BCG to start in early September. PLAN: 1.Consider Gemtesa. Handwritten prescription was given. 2.Continue Flomax. 3.Continue Xyosted. 4.Follow up in early September for a three-week course of half BCG. Results reviewed and discussed. All questions answered. 02/26/2024 Benign prostatic hyperplasia with lower urinary tract symptoms (ICD-10 - N40.1) ua micro reflex sent to [facility] ASSESSMENT: Mr. Agustin is a 73-year-old male with a history of bladder cancer, recurrent CIS. He has completed 2 induction courses. He completed his 2nd course of maintenance BCG in December. Urine cytology from last week is pending. Cystoscopy today shows no obvious recurrence. He is having some more frequency and urgency, but he is on Lasix. Again, cystoscopy today shows no obvious recurrence, there is quite a bit of scar. Also with a history of hypogonadism, on Xyosted. Also with urinary symptoms, on tamsulosin. PLAN: 1. Continue Xyosted. 2. Await urine cytology results. We will call with the results. 3. Continue tamsulosin. 4. Telemedicine visit in 1 month with labs, including testosterone, PSA, hemoglobin and hematocrit. Please note that recently his PSA was up, but then trended back down. 5. Urinalysis microscopic reflexive. We will call with the results. 6. Likely another course of maintenance BCG, this would start likely in June. We will probably do cystoscopy prior given his history of recurrent CIS. Results reviewed and discussed. All questions answered. 02/26/2024 Personal history of malignant neoplasm of bladder (ICD-10 - Z85.51) ASSESSMENT: Mr. Agustin is a 73-year-old male with a history of bladder cancer, recurrent CIS. He has completed 2 induction courses. He completed his 2nd course of maintenance BCG in December. Urine cytology from last week is pending. Cystoscopy today shows no obvious recurrence. He is having some more frequency and urgency, but he is on Lasix. Again, cystoscopy today shows no obvious recurrence, there is quite a bit of scar. Also with a history of hypogonadism, on Xyosted. Also with urinary symptoms, on tamsulosin. PLAN: 1. Continue Xyosted. 2. Await urine cytology results. We will call with the results. 3. Continue tamsulosin. 4. Telemedicine visit in 1 month with labs, including testosterone, PSA, hemoglobin and hematocrit. Please note that recently his PSA was up, but then trended back down. 5. Urinalysis microscopic reflexive. We will call with the results. 6. Likely another course of maintenance BCG, this would start likely in June. We will probably do cystoscopy prior given his history of recurrent CIS. Results reviewed and discussed. All questions answered. 10/15/2023 Urgency of urination (ICD-10 - R39.15) ASSESSMENT: Mr. Agustin is a 73-year-old male with a history of recurrent carcinoma in situ. Completed 1st course of maintenance. He was only able to do 2 doses, as he had a recent small bowel obstruction. Also some frequency and urgency. Also with a history of hypogonadism. Recent rise in PSA, this was after a dose of BCG and after bowel obstruction. Exam does show a mildly enlarged prostate, no nodules. He does have some frequency and urgency after he completed BCG. I did recommend ruling out a UTI. Also recommended a repeat PSA level. PLAN: 1.Continue Xyosted, testosterone levels appear normal. 2.Continue Flomax. 3.Urinalysis microscopic reflexive. We will call with the results. 4.PSA level in early November. 5.Urine cytology in early November. 6.Surveillance cystoscopy scheduled for November 13. Results reviewed and discussed. All questions answered. 09/11/2023 Other Confirmed with patient that he is not having any hematuria or dysuria today. Patient placed in supine position. Betadine repeatedly applied to patient''s genital area with cotton swab to disinfect area. Distal portion of catheter coated with lubricant. Catheter gently inserted into the urethra until urine observed. After urine stops flowing and it is ensured that there is no trauma or blood, BCG 1/2 of full dose (1 vial (1x8x10 cfu mixed with 1 ml then 50 ml of NaCl ) is slowly inserted into the bladder via catheter and catheter slowly removed. Pt informed to hold medication in the bladder without voiding for at least 1 to 2 hours. No medication was wasted. F/U as planned 09/18/2023 Other Confirmed with patient that he is not having any hematuria or dysuria today. Patient placed in supine position. Betadine repeatedly applied to patient''s genital area with cotton swab to disinfect area. Distal portion of catheter coated with lubricant. Catheter gently inserted into the urethra until urine observed. After urine stops flowing and it is ensured that there is no trauma or blood, BCG 1/2 of full dose (1 vial (1x8x10 cfu mixed with 1 ml then 50 ml of NaCl ) is slowly inserted into the bladder via catheter and catheter slowly removed. Pt informed to hold medication in the bladder without voiding for at least 1 to 2 hours. No medication was wasted. F/U as planned 11/14/2023 Other UPAP and FISH sent 11/13 from urine drawn from cysto appt. Sent orders through that visit as well - [place] 12/19/2023 Other Confirmed with patient that he is not having any hematuria or dysuria today. Patient placed in supine position. Betadine repeatedly applied to patient''s genital area with cotton swab to disinfect area. Distal portion of catheter coated with lubricant. Catheter gently inserted into the urethra until urine observed. After urine stops flowing and it is ensured that there is no trauma or blood, BCG 1/2 of full dose (1 vial (1x8x10 cfu mixed with 1 ml then 50 ml of NaCl ) is slowly inserted into the bladder via catheter and catheter slowly removed. Pt informed to hold medication in the bladder without voiding for at least 1 to 2 hours. No medication was wasted. F/U as planned 12/26/2023 Other Confirmed with patient that he is not having any hematuria or dysuria today. Patient placed in supine position. Betadine repeatedly applied to patient''s genital area with cotton swab to disinfect area. Distal portion of catheter coated with lubricant. Catheter gently inserted into the urethra until urine observed. After urine stops flowing and it is ensured that there is no trauma or blood, BCG 1/2 of full dose (1 vial (1x8x10 cfu mixed with 1 ml then 50 ml of NaCl ) is slowly inserted into the bladder via catheter and catheter slowly removed. Pt informed to hold medication in the bladder without voiding for at least 1 to 2 hours. No medication was wasted. F/U as planned 06/13/2023 ASSESSMENT: Mr. Agustin is a 73-year-old male with a history of recurrent carcinoma in situ. Also with hypogonadism, benign prostatic hyperplasia, lower urinary tract symptoms. Recently completed his 2nd course of induction BCG. Urine cytology negative. No evidence of recurrent disease on cystoscopy today. Results reviewed and discussed. PLAN: 1. Continue Xyosted. If he wants to switch to Aveed he will call our office. He does have some discomfort at the sites of injection at time. 2. Continue Flomax 2 tablets daily. 3. Follow up for maintenance BCG, 3-week course of full BCG, to start in September. The patient is agreeable to maintenance BCG. 4. Blood work for testosterone, PSA, hemoglobin and hematocrit in September when he returns from [place]. Plan Of Treatment Pending Test Test Name Order Date FISH/Urovysion 01/01/2023 UPAP/CYTOLOGY, NON-[employer] 11/02/2023 CBC 08/08/2022 CT ABDOMEN PELVIS W WO CONTRAST 07/18/19 Next Appt Details Provider Name:CORRINE GOLDEN, 09/01/2024 09:28:00 AM, [address], [place], [address], Insurance Providers Payer Name Payer Address Payer Phone Subscriber Number Group Number Insured Name Patient Relationship to Insured Coverage Start Date Coverage End Date MEDICARE [address] [place] [phone] [id number] Aravind Mercado Self - patient is the insured [employer] - [address] [place] [address] [id number] Aravind Mercado Self - patient is the insured Medications Administered Medication Instructions Date of Administration Dosage Notes BCG 11/14/2022 1 units BCG 11/21/2022 BCG 11/28/2022 BCG 12/05/2022 1 units BCG 12/12/2022 BCG 12/19/2022 1 units BCG 04/09/2023 1 units BCG 04/16/2023 BCG 04/23/2023 BCG 04/30/2023 1 units BCG 05/07/2023 BCG 05/14/2023 BCG 09/11/2023 0.5 units BCG 09/18/2023 0.5 units BCG 12/12/2023 1 units BCG 12/19/2023 0.5 units Medical (General) History Medical History History ICD Code hypertension testicular cancer x2 a-fib sinus ry[facility] heart [facility] Surgical History Surgery Date(Month/Year)
[2024-05-28 10:25] VITALS: BP 126/67; PULSE 100; O2SAT 98; BMI 27.8
--- NOTE | 2024-05-28 10:25 | A.OFFVIS_ITS ---
Vital Signs 05/28/24 10:25 Height 6 ft Weight 205 lb BMI 27.8 BP 126/67 Blood Pressure Location Rt brachial Position Sitting Pulse 100 Pulse Source Doppler Pulse Oximetry (%) 98 Oxygen Delivery Method Room Air Intake Visit Reasons: Obstructive sleep apnea Allergies No Known Allergies [No Known Allergies*] Allergy (Verified 05/24/23 09:04) HPI HPI Obstructive sleep apnea: Details: 74-year-old gentleman followed for underlying severe STAN on CPAP and primary insomnia.? He continues to use his CPAP with good control of his underlying obstructive sleep apnea symptoms.? He continues to use trazodone as needed with control of his primary insomnia.? He has been using Flonase nasal spray with reasonable control of his allergic rhinitis. Patient does have a remote history of bleomycin chemotherapy in his 32. He is undergoing workup for possible TAVR. [facility] Medical History (Updated 11/08/22 @ 11:43 by Rex William MD) MENA (acute kidney injury) Persistent atrial fibrillation Sleep apnea History of cardioversion Aortic stenosis Paroxysmal atrial fibrillation Anemia Neuropathy BPH (benign prostatic hyperplasia) Hyponatremia Hx of benign neoplasm Chronic back pain HTN (hypertension) Hx of testicular cancer Surgical History History of orchiectomy Hx of cataract extraction H/O colonoscopy Hx of cystoscopy History of left knee replacement History of right hip replacement History of back surgery Social History Household Members: Family Housing: House Do you presently have visiting nurse or other home services: No Alcohol intake: current Alcohol intake frequency: holidays/special occasions only Alcohol type: beer Comment: Pt. sleeping Patient Tobacco Use Status: Never used Tobacco Advance Directives Date on File: 02/01/22 service: No Current occupational status: retired Review of Systems Const Denies daytime sleepiness, Denies excessive sweating, Denies fatigue, Denies fever(s), Denies lethargy, Denies malaise, Denies night sweats, Denies snoring and Denies weight loss Eyes Denies blurry vision and Denies itchy eyes ENT Denies nasal congestion, Denies post nasal drip, Denies sinus pain, Denies sinus pressure and Denies other ( Thrush) Card Denies chest pain, Denies pedal edema, Denies dyspnea, Reports dyspnea on exertion, Denies orthopnea and Denies paroxysmal nocturnal dyspnea Resp Denies cough, Denies hemoptysis, Denies excessive phlegm production, Denies dyspnea, Reports dyspnea on exertion, Denies snoring and Denies wheezing GI Denies abdominal pain and Denies heartburn Musc Denies myalgias, Denies arthralgias and Denies joint swelling Skin/Breast Denies rash Neuro Denies memory loss and Denies seizure-like activity Psych Denies abnormal sleep pattern, Denies anxiety and Denies memory loss Endo Denies excessive sweating, Denies fatigue and Denies heat intolerance Zan/Lymph Denies easy bruising Aller/Immun Denies itchy eyes, Denies seasonal rhinorrhea and Denies wheezing Physical Exam Vital Signs: Last Vital Signs Pulse 100 05/28/24 10:25 BP 126/67 05/28/24 10:25 Pulse Ox 98 05/28/24 10:25 Oxygen Delivery Method Room Air 05/28/24 10:25 BMI result Body Mass Index 27.8 Const General: no acute distress and alert Nutritional Appearance: not obese Orientation/consciousness: Other orientation findings ( oriented) HEENT Head: Yes atraumatic Eyes General: appearance normal, both eyes and all related structures Sclerae: sclerae normal EOM: EOMs intact bilaterally Neck Neck: Yes supple Lymphatic: no lymphadenopathy noted Resp Effort & Inspection: normal respiratory effort and no use of accessory muscles Auscultation: clear to auscultation bilaterally Cardio Rate: regular rate Rhythm: regular rhythm Heart sounds: no gallops, no murmurs and no rubs Skin General skin exam: other ( warm) Extrem General: No clubbing, No cyanosis and No edema Assessment & Plan Assessment & Plan (1) STAN on CPAP: Code(s): G47.33 - Obstructive sleep apnea (adult) (pediatric); Z99.89 - Dependence on other enabling machines and devices Category: Medical Plan: Controlled on CPAP therapy. Continue CPAP therapy. (2) Primary insomnia: Code(s): F51.01 - Primary insomnia Category: Medical Plan: Controlled on as needed trazodone. Continue current regimen. (3) Allergic rhinitis: Code(s): J30.9 - Allergic rhinitis, unspecified Category: Medical Plan: Controlled on Flonase. Continue current regimen. Medications: Refilled fluticasone propionate 50 mcg/actuation (Flonase Allergy Relief) administer into each nostril 2 sprays intranasal DAILY 16 grams 6RF 30 days trazodone 100 mg PO BEDTIME PRN 30 tabs 2RF sleep 30 days Coding Level of Care Code Est Pt Level 4 (07092) Diagnoses STAN on CPAP G47.33; Z99.89 Primary insomnia F51.01 Allergic rhinitis J30.9
== END 2024-05-28 10:50 | disposition home or self-care (01) ==
PROVIDERS: PCP Internal Medicine Medical Oncology; Visit Provider Internal Medicine Pulmonary Disease
DX: G47.33 Obstructive sleep apnea (adult) (pediatric) (principal); Z99.89 Dependence on other enabling machines and devices; F51.01 Primary insomnia; J30.9 Allergic rhinitis, unspecified
CPT/HCPCS: 99214

== ENCOUNTER → 2024-05-28 10:22 | Outpatient (BNVA) | payer MEDICARE, SELFPAY | PROVIDERS: PCP Internal Medicine Medical Oncology; Visit Provider Internal Medicine Pulmonary Disease | DX: G47.33 Obstructive sleep apnea (adult) (pediatric) (principal); F51.01 Primary insomnia; J30.9 Allergic rhinitis, unspecified; Z99.89 Dependence on other enabling machines and devices | CPT/HCPCS: 99212 ==